=== PATIENT | female | born 1950 | race Caucasian/White ===

== ENCOUNTER 2016-05-11 15:12 | Inpatient (IN) | payer BC ==
--- NOTE | 2016-05-11 15:44 | ED ---
General Adult HPI - General Chief complaint: Recheck/Abnormal Lab/Rx Stated complaint: post hernia-incision split open Time Seen by Provider: 05/11/16 15:40 Source: patient, RN notes reviewed, old records reviewed Mode of arrival: ambulatory Limitations: no limitations - History of Present Illness Initial comments: This is a 65-year-old female to the ER for evaluation. This patient presents to ER for evaluation of abdominal pain. Patient has history of abdominal surgery, umbilical hernia with repair. Close by secondary intent. Patient just went back to work today and when she was working [place] incision split open and having blood draining out, occasional white fluid, possible pus. Patient to call Dr. Blake who is her surgeon was unable to get ahold of him. Patient denies any fevers, does admit to redness and increased pain around her abdomen umbilical, abdomen today - Related Data Home Medications Medication Instructions Recorded Confirmed ALPRAZolam [Xanax] 0.5 mg PO BID PRN 10/20/15 05/11/16 Albuterol Inhaler [Ventolin Hfa 1 - 2 puff INHALATION RT-Q6H PRN 10/20/15 Inhaler] Cyclobenzaprine [Flexeril] 10 mg PO HS 10/20/15 05/11/16 Diclofenac Sodium [Voltaren] 75 mg PO BID 10/20/15 05/11/16 Furosemide [Lasix] 40 mg PO BID 10/20/15 05/11/16 Loratadine-Pseudoeph 10-240 mg 1 tab PO DAILY 10/20/15 05/11/16 [Claritin-D 24 Hr] Losartan Potassium [Cozaar] 50 mg PO BID 10/20/15 05/11/16 Montelukast [Singulair] 10 mg PO HS 10/20/15 05/11/16 Potassium Chloride ER [K-Dur 20] 20 meq PO BID 10/20/15 05/11/16 Simvastatin [Zocor] 40 mg PO HS 10/20/15 05/11/16 Spironolactone [Aldactone] 25 mg PO BID 10/20/15 05/11/16 glipiZIDE XL [Glucotrol Xl] 5 mg PO BID 10/20/15 05/11/16 metFORMIN HCL [metFORMIN HCL ER] 1,000 mg PO BID 10/20/15 05/11/16 Previous Rx's Medication Instructions Recorded ceFAZolin [Kefzol] 2,000 mg IVPB Q8HR #63 bag 05/15/16 Allergies Allergy/AdvReac Type Severity Reaction Status Date / Time ciprofloxacin [From Cipro] Allergy Dyspnea Verified 05/11/16 15:48 ciprofloxacin HCl Allergy Dyspnea Verified 05/11/16 15:48 [From Cipro] Penicillins Allergy Rash/Hives Verified 05/11/16 15:48 Sulfa (Sulfonamide Allergy Rash/Hives Verified 05/11/16 15:48 Antibiotics) morphine AdvReac Itching Verified 05/11/16 15:48 Review of Systems ROS Statement: Those systems with pertinent positive or pertinent negative responses have been documented in the HPI. ROS Other: All systems not noted in ROS Statement are negative. Past Medical History Additional Past Medical History / Comment(s): allergies, wheezing @times, ankle & foot swelling, varicose veins History of Any Multi-Drug Resistant Organisms: None Reported Past Surgical History: Section, Hernia Repair, Hysterectomy, Joint Replacement, Orthopedic Surgery, Tubal Ligation Additional Past Surgical History / Comment(s): both knees replaced, ORIF left ankle, left achilles repair, ltwrist surg to remove cyst.rt bunionectomy, total lt hip replacement Past Anesthesia/Blood Transfusion Reactions: Postoperative Nausea & Vomiting ( PONV) Past Psychological History: No Psychological Hx Reported Smoking Status: Former smoker Past Alcohol Use History: None Reported Past Drug Use History: None Reported - Past Family History Mother Family Medical History: Dementia, Hypertension Father Additional Family Medical History / Comment(s): at age 62 from aaa General Exam Limitations: no limitations General appearance: alert, in no apparent distress, obese Head exam: Present: atraumatic, normocephalic, normal inspection Eye exam: Present: normal appearance, PERRL, EOMI. Absent: scleral icterus, conjunctival injection, periorbital swelling ENT exam: Present: normal exam, mucous membranes moist Neck exam: Present: normal inspection. Absent: tenderness, meningismus, lymphadenopathy Respiratory exam: Present: normal lung sounds bilaterally. Absent: respiratory distress, wheezes, rales, rhonchi, stridor Cardiovascular Exam: Present: regular rate, normal rhythm, normal heart sounds. Absent: systolic murmur, diastolic murmur, rubs, gallop, clicks GI/Abdominal exam: Present: soft, normal bowel sounds, other (Patient does have wound dehiscence, drainage, blood and pus was able to be expressed. Patient is surrounding erythema). Absent: distended, tenderness, guarding, rebound, rigid Extremities exam: Present: normal inspection, full ROM, normal capillary refill. Absent: tenderness, pedal edema, joint swelling, calf tenderness Back exam: Present: normal inspection Neurological exam: Present: alert, oriented X3, CN II-XII intact Psychiatric exam: Present: normal affect, normal mood Skin exam: Present: warm, dry, intact, normal color. Absent: rash Course Vital Signs 05/11/16 05/11/16 15:19 18:42 Temperature 97.8 F 99.9 F H Pulse Rate 87 83 Respiratory 20 16 Rate Blood Pressure 114/58 147/67 O2 Sat by Pulse 100 99 Oximetry Medical Decision Making - Medical Decision Making 65 female to ER here for evaluation of wound infection, and wound dehiscence, patient will be admitted for reevaluation by surgery - Lab Data Result diagrams: 05/12/16 10:40 05/15/16 07:30 Lab Results 05/11/16 05/11/16 05/11/16 Range/Units 16:15 16:15 16:15 WBC 11.7 H (3.8-10.6) k/uL RBC 3.63 L (3.80-5.40) m/uL Hgb 9.9 L (11.4-16.0) gm/dL Hct 32.5 L (34.0-46.0) % MCV 89.4 (80.0-100.0) fL MCH 27.4 (25.0-35.0) pg MCHC 30.6 L (31.0-37.0) g/dL RDW 14.6 (11.5-15.5) % Plt Count 426 (150-450) k/uL Neutrophils % 78 % Lymphocytes % 14 % Monocytes % 5 % Eosinophils % 2 % Basophils % 0 % Neutrophils # 9.1 H (1.3-7.7) k/uL Lymphocytes # 1.7 (1.0-4.8) k/uL Monocytes # 0.6 (0-1.0) k/uL Eosinophils # 0.2 (0-0.7) k/uL Basophils # 0.0 (0-0.2) k/uL Sodium 139 (137-145) mmol/L Potassium 4.4 (3.5-5.1) mmol/L Chloride 102 (98-107) mmol/L Carbon Dioxide 24 (22-30) mmol/L Anion Gap 13 mmol/L BUN 29 H (7-17) mg/dL Creatinine 1.70 H (0.52-1.04) mg/dL Est GFR (MDRD) Af Amer 37 (>60 ml/min/1.73 sqM) Est GFR (MDRD) Non-Af 30 (>60 ml/min/1.73 sqM) Glucose 131 H (74-99) mg/dL Estimated Ave Glu mg/dL mg/dL Hemoglobin A1c (4.2-6.1) % Plasma Lactic Acid Ja 0.7 (0.7-2.0) mmol/L Calcium 9.2 (8.4-10.2) mg/dL Phosphorus 4.3 (2.5-4.5) mg/dL Magnesium 1.8 (1.6-2.3) mg/dL Total Bilirubin 0.3 (0.2-1.3) mg/dL AST 45 H (14-36) U/L ALT 84 H (9-52) U/L Alkaline Phosphatase 240 H (38-126) U/L Total Protein 6.7 (6.3-8.2) g/dL Albumin 4.0 (3.5-5.0) g/dL 05/11/16 Range/Units 16:15 WBC (3.8-10.6) k/uL RBC (3.80-5.40) m/uL Hgb (11.4-16.0) gm/dL Hct (34.0-46.0) % MCV (80.0-100.0) fL MCH (25.0-35.0) pg MCHC (31.0-37.0) g/dL RDW (11.5-15.5) % Plt Count (150-450) k/uL Neutrophils % % Lymphocytes % % Monocytes % % Eosinophils % % Basophils % % Neutrophils # (1.3-7.7) k/uL Lymphocytes # (1.0-4.8) k/uL Monocytes # (0-1.0) k/uL Eosinophils # (0-0.7) k/uL Basophils # (0-0.2) k/uL Sodium (137-145) mmol/L Potassium (3.5-5.1) mmol/L Chloride (98-107) mmol/L Carbon Dioxide (22-30) mmol/L Anion Gap mmol/L BUN (7-17) mg/dL Creatinine (0.52-1.04) mg/dL Est GFR (MDRD) Af Amer (>60 ml/min/1.73 sqM) Est GFR (MDRD) Non-Af (>60 ml/min/1.73 sqM) Glucose (74-99) mg/dL Estimated Ave Glu mg/dL 131 mg/dL Hemoglobin A1c 6.2 H (4.2-6.1) % Plasma Lactic Acid Ja (0.7-2.0) mmol/L Calcium (8.4-10.2) mg/dL Phosphorus (2.5-4.5) mg/dL Magnesium (1.6-2.3) mg/dL Total Bilirubin (0.2-1.3) mg/dL AST (14-36) U/L ALT (9-52) U/L Alkaline Phosphatase (38-126) U/L Total Protein (6.3-8.2) g/dL Albumin (3.5-5.0) g/dL - Radiology Data Radiology results: report reviewed (CT head and pelvis does show probable serosanguineous fluid behind incision site), image reviewed Disposition Clinical Impression: Postoperative abscess Disposition: ADMITTED IP TO THIS [facility] Condition: Fair
[2016-05-11] MEDS ORDERED: VANCOMYCIN 2,000 MG in SODIUM CHLORIDE 0.9% 500 ML IVPB STA (15:55)
[2016-05-11] MEDS ORDERED: SODIUM CHLORIDE 0.9% 1,000 ML IV STA ×2 (15:55→17:24)
[2016-05-11] MEDS ORDERED: RX INFO: IV CONTRAST WAS GIVEN 1 EACH MISC MISCELLANE PRN (15:56)
[2016-05-11 16:28] LABS: Basophils % (A) 0 %; CH 28.4; Eosinophils # (A) 0.2 k/uL (0-0.7); Eosinophils % (A) 2 %; HCT 32.5 % (34.0-46.0); HDW 2.51; HGB 9.9 gm/dL (11.4-16.0); Luc # (Auto) 0.12; Luc % (Auto) 1; Lymphocytes # (A) 1.7 k/uL (1.0-4.8); Lymphocytes % (A) 14 %; MCH 27.4 pg (25.0-35.0); MCHC 30.6 g/dL (31.0-37.0); MCV 89.4 fL (80.0-100.0); Monocytes # (A) 0.6 k/uL (0-1.0); Monocytes % (A) 5 %; Neutrophils # (A) 9.1 k/uL (1.3-7.7); Neutrophils % (A) 78 %; RBC 3.63 m/uL (3.80-5.40); RDW 14.6 % (11.5-15.5); WBC 11.7 k/uL (3.8-10.6); WBC (Perox) 12.46
[2016-05-11 16:39] LABS: Calcium 9.2 mg/dL (8.4-10.2); Magnesium 1.8 mg/dL (1.6-2.3); Phosphorous 4.3 mg/dL (2.5-4.5); Potassium 4.4 mmol/L (3.5-5.1); Total Bilirubin 0.3 mg/dL (0.2-1.3); Total Protein 6.7 g/dL (6.3-8.2)
--- NOTE | 2016-05-11 18:00 | CT ---
EXAMINATION TYPE: CT abdomen pelvis w con DATE OF EXAM: 05/11/2016 5:28 PM COMPARISON: CT abdomen pelvis January 14, 2012 HISTORY: Patient complains of post op hernia repair incision reopening and becoming infected. CT DLP: 1821mGycm Automated Exposure Control for Dose Reduction was Utilized. CONTRAST: CT scan of the abdomen and pelvis is performed without oral but with IV Contrast, patient injected wi th 100 mL of Omnipaque 300. COMPARISON: None. FINDINGS: LUNG BASES: No significant abnormality is appreciated. LIVER/GB: There is new vague hyperdense lesion right hepatic lobe adjacent to gallbladder fossa measu ring approximately 6.6 x 5.9 cm that warrants follow-up. This measures approximately 5 cm in cranioca udal dimension PANCREAS: No significant abnormality is seen. SPLEEN: No significant abnormality is seen. ADRENALS: No significant abnormality is seen. KIDNEYS: No significant abnormality is seen. BOWEL: The evaluation of bowel is suboptimal due to lack of enteric contrast. There is no suspicious small or large bowel dilatation seen. There are scattered diverticula throughout the colon identified . There is no CT evidence for acute diverticulitis. UTERUS/ADNEXA: Uterus is surgically absent or markedly atrophic in appearance LYMPH NODES: No greater than 1cm abdominal or pelvic lymph nodes are appreciated. OSSEOUS STRUCTURES: Metallic hardware from left hip arthroplasty is seen causing adjacent streak louie fact limiting evaluation of pelvic structures. Disc calcification L3-L4 level is noted. OTHER: There is heterogeneous ill-defined fluid and fat stranding in the lower anterior abdominal wal l most prominent towards the midline. A thin-walled fluid collection lower abdomen is present measuri ng approximately 5.0 x 1.8 cm on axial image 67. This is nonspecific. Findings could reflect postsurg ical change. Infection cannot be excluded. No intra-abdominal extension is noted. No persistent ventr al wall hernia is present. IMPRESSION: 1. Ill-defined fat stranding and fluid with more focal thin-walled fluid collection in the lower abdo men and upper pelvis is nonspecific finding could reflect post surgical change. Infectious process wi th developing anterior abdominal wall abscess is not excluded. No well-formed drainable abscess is se en. No intra-abdominal extension is noted. 2. New heterogeneous inferior right liver solid mass in which primary neoplasm needs to BE considered . Further investigation with multi phase nonemergent liver protocol MRI is advised.
[2016-05-11] MEDS ORDERED: IV VANCOMYCIN PER PHARMACY 1 EACH MISC MISCELLANE PRN (18:03)
[2016-05-11] MEDS ORDERED: VANCOMYCIN 1,750 MG in SODIUM CHLORIDE 0.9% 250 ML IVPB ONE (18:15)
[2016-05-11 19:39] LABS: Glucose,Whole Blood 96 mg/dL (75-99)
[2016-05-11] MEDS ORDERED: ACETAMINOPHEN TAB 325 MG TAB PO PRN (21:14)
[2016-05-11] MEDS ORDERED: ALPRAZolam 0.5 MG TAB PO PRN (21:15)
[2016-05-11] MEDS: SODIUM CHLORIDE 0.9% 1,000 ML IV SCH (22:02)
[2016-05-11] MEDS: ATORVASTATIN 20 MG TAB PO SCH (22:04)
[2016-05-11] MEDS: CYCLOBENZAPRINE 10 MG TAB PO SCH (22:04)
[2016-05-11] MEDS: ETODOLAC 400 MG TAB PO SCH (22:04)
[2016-05-11] MEDS: LOSARTAN 50 MG TAB PO SCH (22:05)
[2016-05-11] MEDS: SPIRONOLACTONE 25 MG TAB PO SCH (22:05)
[2016-05-11] MEDS: FUROSEMIDE 40 MG TAB PO SCH (22:05)
[2016-05-11] MEDS: MONTELUKAST 10 MG TAB PO SCH (22:05)
[2016-05-11] MEDS: POTASSIUM CHLORIDE ER 20 MEQ TAB.ER PO SCH (22:05)
[2016-05-11 22:17] LABS: Glucose,Whole Blood 168 mg/dL (75-99)
[2016-05-11 22:35] LABS: Creatine Kinase 147 U/L (30-135)
[2016-05-11 22:49] LABS: Creatine Kinase MB 1.3 ng/mL (0.0-2.4); Troponin I <0.012 ng/mL (0.000-0.034)
[2016-05-12 05:06] LABS: Creatine Kinase 65 U/L (30-135)
[2016-05-12 05:20] LABS: Creatine Kinase MB 1.1 ng/mL (0.0-2.4); Troponin I <0.012 ng/mL (0.000-0.034)
[2016-05-12] MEDS: SODIUM CHLORIDE 0.9% 1,000 ML IV SCH ×3 (05:29→23:49)
[2016-05-12 07:12] LABS: Glucose,Whole Blood 130 mg/dL (75-99)
[2016-05-12] MEDS ORDERED: metFORMIN 500 MG TAB PO SCH (07:30)
[2016-05-12] MEDS: INSULIN LISPRO (humaLOG) 300 UNIT/3 ML VIAL SQ SCH ×4 (07:30→21:18)
[2016-05-12] MEDS: glipiZIDE 5 MG TAB PO SCH ×2 (08:05→16:56)
[2016-05-12] MEDS: ETODOLAC 400 MG TAB PO SCH ×2 (08:06→21:17)
[2016-05-12] MEDS: FUROSEMIDE 40 MG TAB PO SCH ×2 (08:06→21:18)
[2016-05-12] MEDS: PANTOPRAZOLE 40 MG/10 ML VIAL IV SCH (08:07)
[2016-05-12] MEDS: POTASSIUM CHLORIDE ER 20 MEQ TAB.ER PO SCH ×2 (08:07→21:28)
[2016-05-12] MEDS: LOSARTAN 50 MG TAB PO SCH ×2 (08:07→21:18)
[2016-05-12] MEDS: LORATADINE-PSEUDOEPH 5-120 MG 1 EACH TAB.ER.12H PO SCH ×2 (08:07→21:18)
[2016-05-12] MEDS: VANCOMYCIN 1,750 MG in SODIUM CHLORIDE 0.9% 250 ML IVPB SCH (08:08)
[2016-05-12] MEDS: SPIRONOLACTONE 25 MG TAB PO SCH ×2 (08:08→21:18)
[2016-05-12 10:54] LABS: CH 28.1; CHCM 31.3; HCT 28.6 % (34.0-46.0); HDW 2.49; HGB 8.7 gm/dL (11.4-16.0); Hypochromasia Slight; MCH 27.3 pg (25.0-35.0); MCHC 30.3 g/dL (31.0-37.0); MCV 90.2 fL (80.0-100.0); RBC 3.17 m/uL (3.80-5.40); RDW 14.6 % (11.5-15.5); WBC 8.9 k/uL (3.8-10.6)
[2016-05-12 11:11] LABS: Hemoglobin A1C 6.2 % (4.2-6.1)
--- NOTE | 2016-05-12 11:13 | P.GSHP ---
History of Present Illness H&P Date: 05/12/16 Chief Complaint: Abdominal wall cellulitis Patient came to the ER yesterday with complaints of spontaneous pain redness and drainage from her midline incision. The patient had a postop infection after a operative hernia repair with mesh in February of last year. She had been doing better. She only been back to work for about 1 week and she experienced this redness and swelling yesterday. Drainage was coming from the umbilical location. Foul-smelling. Low-grade fever. White blood cell count slightly elevated 2. CAT scan shows inflammatory changes. No definite bowel involvement is identified. - Review of Systems Comment: The patient denies any acute changes in his vision or hearing, no dysphagia or odynophagia, no chest pain or shortness of breath, no dysuria or hematuria, no headache, no runny nose, no rectal bleeding or melena, no unexplained weight loss Past Medical History Past Medical History: Diabetes Mellitus Additional Past Medical History / Comment(s): allergies, wheezing @times, ankle & foot swelling, varicose veins, type 2 diabetes History of Any Multi-Drug Resistant Organisms: None Reported Past Surgical History: Section, Hernia Repair, Hysterectomy, Joint Replacement, Orthopedic Surgery, Tubal Ligation Additional Past Surgical History / Comment(s): both knees replaced, ORIF left ankle, left achilles repair, ltwrist surg to remove cyst.rt bunionectomy, total lt hip replacement Past Anesthesia/Blood Transfusion Reactions: Postoperative Nausea & Vomiting ( PONV) Past Psychological History: No Psychological Hx Reported Smoking Status: Never smoker Past Alcohol Use History: None Reported Past Drug Use History: None Reported - Past Family History Mother Family Medical History: Dementia, Hypertension Father Additional Family Medical History / Comment(s): at age 62 from aaa Medications and Allergies Home Medications Medication Instructions Recorded Confirmed Type ALPRAZolam [Xanax] 0.5 mg PO BID PRN 10/20/15 05/11/16 History Albuterol Inhaler [Ventolin Hfa 1 - 2 puff INHALATION RT-Q6H PRN 10/20/15 History Inhaler] Cyclobenzaprine [Flexeril] 10 mg PO HS 10/20/15 05/11/16 History Diclofenac Sodium [Voltaren] 75 mg PO BID 10/20/15 05/11/16 History Furosemide [Lasix] 40 mg PO BID 10/20/15 05/11/16 History Loratadine-Pseudoeph 10-240 mg 1 tab PO DAILY 10/20/15 05/11/16 History [Claritin-D 24 Hr] Losartan Potassium [Cozaar] 50 mg PO BID 10/20/15 05/11/16 History Montelukast [Singulair] 10 mg PO HS 10/20/15 05/11/16 History Potassium Chloride ER [K-Dur 20] 20 meq PO BID 10/20/15 05/11/16 History Simvastatin [Zocor] 40 mg PO HS 10/20/15 05/11/16 History Spironolactone [Aldactone] 25 mg PO BID 10/20/15 05/11/16 History glipiZIDE XL [Glucotrol Xl] 5 mg PO BID 10/20/15 05/11/16 History metFORMIN HCL [metFORMIN HCL ER] 1,000 mg PO BID 10/20/15 05/11/16 History Allergies Allergy/AdvReac Type Severity Reaction Status Date / Time ciprofloxacin [From Cipro] Allergy Dyspnea Verified 05/11/16 15:48 ciprofloxacin HCl Allergy Dyspnea Verified 05/11/16 15:48 [From Cipro] Penicillins Allergy Rash/Hives Verified 05/11/16 15:48 Sulfa (Sulfonamide Allergy Rash/Hives Verified 05/11/16 15:48 Antibiotics) morphine AdvReac Itching Verified 05/11/16 15:48 Surgical - Exam Vital Signs Temp Pulse Resp BP Pulse Ox 97.8 F 87 20 114/58 100 05/11/16 15:19 05/11/16 15:19 05/11/16 15:19 05/11/16 15:19 05/11/16 15:19 Physical exam: General: [Well-developed, well-nourished] HEENT: Normocephalic, sclerae nonicteric Abdomen: Erythema and mild tenderness around the midline incision, small amount of seropurulent drainage from the umbilical site, no fluctuance noted Extremities: No edema Neuro: Alert and oriented Results - Labs 05/12/16 10:40 05/11/16 16:15 Abnormal Lab Results - Last 24 Hours (Table) 05/11/16 05/11/16 05/12/16 Range/Units 22:09 22:15 07:03 RBC (3.80-5.40) m/uL Hgb (11.4-16.0) gm/dL Hct (34.0-46.0) % MCHC (31.0-37.0) g/dL POC Glucose (mg/dL) 168 H 130 H (75-99) mg/dL Total Creatine Kinase 147 H (30-135) U/L 05/12/16 Range/Units 10:40 RBC 3.17 L (3.80-5.40) m/uL Hgb 8.7 L (11.4-16.0) gm/dL Hct 28.6 L (34.0-46.0) % MCHC 30.3 L (31.0-37.0) g/dL POC Glucose (mg/dL) (75-99) mg/dL Total Creatine Kinase (30-135) U/L Microbiology - Last 24 Hours (Table) 05/11/16 20:30 Gram Stain - Preliminary Drainage Wound Culture - Preliminary 05/11/16 20:30 Anaerobic Culture - Preliminary Drainage Assessment and Plan (1) Abdominal wall cellulitis Narrative/Plan: Continue IV antibiotics. Consult infectious disease. Await culture results. Status: Acute
[2016-05-12 11:18] LABS: Calcium 8.6 mg/dL (8.4-10.2); Potassium 4.5 mmol/L (3.5-5.1)
[2016-05-12 11:50] LABS: Glucose,Whole Blood 165 mg/dL (75-99)
--- NOTE | 2016-05-12 14:43 | CONS ---
DATE OF CONSULTATION: Consultation done by Dr. Marcus in the absence of Dr. Nelson. HISTORY OF PRESENT ILLNESS: This is a 65-year-old female who was admitted to the hospital after being evaluated in the emergency room with redness and some discomfort in the umbilical area. She had on March 01 an umbilical hernia repair. She about a week or two later developed some infection there where the wound was opened up and allowed secondary healing. The patient took about 4 to 5 weeks to heal. She has been healed about maybe 3 weeks now. The patient yesterday started feeling some discomfort there, looked at the side and so it was red and there was minimal drainage. The patient presented to the emergency room in view of that. She has had a previous surgical scars from 3 C-sections in the suprapubic area and then she had this umbilical hernia for which she had repair. She is moderately obese. She denied any associated fever, chills, any nausea, vomiting, diarrhea. She has had no spikes in her blood sugar. Past medical history is primarily significant for hypertension, diabetes mellitus for about 25 years. No history of any liver disease, kidney disease, ulcers, TB, hepatitis. No history of any rheumatic fever, myocardial infarction, CVA, no complications from diabetes mellitus. Was recently diagnosed with bronchial asthma which is mild intermittent. Past surgical histories have included three C-sections, umbilical hernia repair, right total hip arthroplasty, bilateral knee arthroplasty. PERSONAL HISTORY: Nonsmoker. No alcohol. Allergies to CIPRO, SULFA, and PENICILLIN. Medications at present include Xanax 0.5 b.i.d. p.r.n., Claritin-D p.r.n., Lasix 40 mg b.i.d., diclofenac 75 mg b.i.d., Flexeril 10 mg at bedtime, Ventolin p.r.n., metformin 1000 mg b.i.d., glipizide 5 mg b.i.d., spironolactone 25 mg b.i.d., Zocor 40 mg daily, potassium chloride 20 mEq b.i.d., singular 10 mg daily. Losartan 50 mg b.i.d. SOCIAL HISTORY: The patient is , lives with her spouse. The spouse about 10 days ago had a hip surgery. Family medical history is noncontributory. REVIEW OF SYSTEMS: NEURO: Denies any headaches, dizziness. No double vision, blurred vision. No symptoms of TIA, syncope, seizures. PSYCH: History of chronic anxiety. No depression. CARDIAC: No chest pain, angina, palpitations. RESPIRATORY: No shortness of breath, cough, hemoptysis. GI: No nausea, vomiting, abdominal pain, mild discomfort in the umbilical area. No diarrhea, constipation, hematochezia, melena. : No symptoms of dysuria, hematuria. EXTREMITIES: Mild chronic arthritic pain. Does have some chronic edema of the ankles. CONSTITUTIONAL: No fever or chills. HEMATOLOGICAL: No anemia or bleeding disorder. ENDOCRINE: History of diabetes mellitus with no complications. SKIN: Present inflamed area in the umbilical area. Otherwise, no open sores. PHYSICAL EXAMINATION: Pleasant female in no distress. Moderately obese. Vital signs reveal temperature 97.1, pulse 78, respirations 18, blood pressure 105/63, pulse ox of 93% on room air. HEENT: Normocephalic. Neck is supple. Oral cavity is moist. Neck reveals no JVD, carotid bruits, or thyromegaly. Chest is clear to auscultation and percussion. CARDIAC: Normal S1, S2 with no gallops, murmurs, rubs. ABDOMEN: Protuberant, mild tenderness in the periumbilical area with erythema and some swelling of the tissue around the umbilicus. There is minimal drainage from the umbilical area and a small draining about an inch below the umbilicus. No deviations of the skin. Bowel sounds are otherwise present, active. Extremities reveal 1+ edema at the ankles. The lower extremities reveal decreased pedal pulses. Neurologically awake, alert, oriented with well-coordinated movements. Laboratory assessment was white count 11.7, hemoglobin 9.9. Electrolytes are normal. BUN is 29, creatinine 1.7, AST is mildly elevated up to 9, phosphorus 240. CPK normal. ASSESSMENT: 1. Cellulitis periumbilical. 2. Diabetes mellitus. 3. Anemia. 4. Chronic kidney disease III. 5. Hypertension. 6. Obesity. 7. Chronic anxiety. PLAN: The patient at present is stable. Continue present medical regimen. The patient's condition discussed with the patient. Prognosis remains guarded. The patient has not been seen by the surgeon yet. They will re-evaluate the patient. The patient will be followed by Dr. Nelson upon his return. Patient's condition was discussed with the patient. Prognosis discussed with the patient.
[2016-05-12 16:58] LABS: Glucose,Whole Blood 178 mg/dL (75-99)
[2016-05-12 21:09] LABS: Glucose,Whole Blood 117 mg/dL (75-99)
[2016-05-12] MEDS: CYCLOBENZAPRINE 10 MG TAB PO SCH (21:17)
[2016-05-12] MEDS: ATORVASTATIN 20 MG TAB PO SCH (21:17)
[2016-05-12] MEDS: MONTELUKAST 10 MG TAB PO SCH (21:18)
[2016-05-13 07:36] LABS: Glucose,Whole Blood 140 mg/dL (75-99)
[2016-05-13] MEDS: VANCOMYCIN 1,750 MG in SODIUM CHLORIDE 0.9% 250 ML IVPB SCH (08:18)
[2016-05-13] MEDS: PANTOPRAZOLE 40 MG/10 ML VIAL IV SCH (08:19)
[2016-05-13] MEDS: LORATADINE-PSEUDOEPH 5-120 MG 1 EACH TAB.ER.12H PO SCH ×2 (08:19→20:59)
[2016-05-13] MEDS: SPIRONOLACTONE 25 MG TAB PO SCH ×2 (08:19→20:59)
[2016-05-13] MEDS: INSULIN LISPRO (humaLOG) 300 UNIT/3 ML VIAL SQ SCH ×4 (08:19→21:02)
[2016-05-13] MEDS: glipiZIDE 5 MG TAB PO SCH ×2 (08:19→18:25)
[2016-05-13] MEDS: ETODOLAC 400 MG TAB PO SCH ×2 (08:19→20:58)
[2016-05-13] MEDS: LOSARTAN 50 MG TAB PO SCH ×2 (08:20→20:58)
[2016-05-13] MEDS: FUROSEMIDE 40 MG TAB PO SCH ×2 (08:20→20:58)
[2016-05-13] MEDS: POTASSIUM CHLORIDE ER 20 MEQ TAB.ER PO SCH ×2 (08:20→22:04)
[2016-05-13 09:24] LABS: Reticulocyte % 1.9 % (0.5-2.0)
[2016-05-13 10:41] LABS: Calcium 8.9 mg/dL (8.4-10.2); Potassium 4.4 mmol/L (3.5-5.1)
[2016-05-13 12:16] LABS: Glucose,Whole Blood 124 mg/dL (75-99)
--- NOTE | 2016-05-13 12:24 | P.PN ---
Progress Note - Text Patient is stable. She is little teary eyed. She is concerned about having to have the mesh removed. Examination: The patient is afebrile. Vitals are stable. Abdomen is soft. Area for erythema is diminished. Hardly any drainage from the pinhole opening below the umbilicus. No gross abscess is present. Her CT was reviewed. Shows some of the subcutaneous inflammatory changes extending down into the pelvis. Again no gross abscess is identified. There is a question of a solid mass in the right inferior portion of the liver. An MRI is indicated. Impression improving cellulitis with the line infection status post ventral incisional hernia repair. Liver mass. Renal failure. Diabetes mellitus. Recommendation: Continue IV antibiotics. Encouraged to drink more fluids. We will obtain an MRI read the liver mass. Hopefully we can avoid the further surgical intervention and removal of the mesh.
[2016-05-13] MEDS: SODIUM CHLORIDE 0.9% 1,000 ML IV SCH ×2 (13:45→20:22)
--- NOTE | 2016-05-13 14:08 | CONS ---
DATE OF CONSULTATION: 05/12/2016 REASON FOR CONSULTATION: Abdominal wall cellulitis with question of infected mesh. HISTORY OF PRESENT ILLNESS: The patient is a 65-year-old female. The patient is status post repair of incisional hernia by Dr. Blake in February of 2016 with mesh. The patient did mention that a week after surgery the patient started having swelling and redness at the site. The stitches were removed and there was drainage of fluid and some pus. She has been treated with oral antibiotic therapy. With antibiotics the incision healed up. However, a week lateral when she started going back to work the patient noticed having swelling and redness and pain of the lower abdominal area on the umbilicus. Pain described to be dull, 2-3/10 and no radiation. The patient did have some blood stained drainage from it which was cultured. Subsequently, with these symptoms, the patient presented to the [facility] ER. The patient did have CT of the abdomen and pelvis which did show ill-defined fluid collection and fat stranding in the lower abdomen and upper pelvis, could represent post surgical changes; however, abscess could not be entirely excluded. The patient did have local wound culture obtained as blood culture and started on vancomycin. I was asked to see the patient for further recommendation regarding antibiotic therapy. Patient did mention the overall drainage has decreased and denies significant pain to the area, only when touched. The patient denies having any chest pain or shortness of breath. No cough. REVIEW OF SYSTEMS: CONSTITUTIONAL: Positive for weakness and chills. EYES: No complaint. ENT: No complaint. RESPIRATORY: No complaint. CARDIOVASCULAR: No complaint. GENITOURINARY: No complaint. GASTROINTESTINAL: As per HPI. MUSCULOSKELETAL: No complaint. INTEGUMENTARY: As per HPI. PSYCHOLOGICAL: No complaint. ENDOCRINE: No complaint. NEUROLOGIC: No complaint. PAST MEDICAL HISTORY: Diabetes mellitus, incisional hernia, postop infarction. PAST SURGICAL HISTORY: , hernia repair, hysterectomy, orthopedic surgery, tubal ligation, both knees replaced, ORIF left ankle repair. SOCIAL HISTORY: Negative smoking, drinking, or drug use. FAMILY HISTORY: Mother with history of dementia and hypertension. Father at the age of 50 from abdominal aortic aneurysm.. ALLERGIES: Ciprofloxacin and penicillin. MEDICATIONS: Currently patient is on Tylenol Xanax, Lipitor, Lodine, Lasix, Glucotrol, Humalog, Claritin-D, Cozaar, Glucophage, Singulair, Protonix, K-Dur Aldactone and vancomycin. On examination, blood pressure 108/51 with a pulse of 75, temperature is 7.4. She is 99% on room air. General description is a middle-aged female lying in bed in no distress. HEENT examination shows pallor. There is no scleral icterus. Oral mucosa is dry. NECK: Trachea central. There is no thyromegaly. LUNGS: Unlabored breathing. Clear to auscultation anteriorly. No wheeze or crackle. HEART: S1, S2, regular rate and rhythm. ABDOMEN: Soft, no tenderness. She did have some erythema around the umbilical area, some induration but no fluctuation or drainage was noticed. EXTREMITIES: No edema of the feet. Examination of the ( ). NEUROLOGICAL: The patient is awake, alert, oriented x3. Mood and affect normal. LABS: Hemoglobin 8.7, white count 8.9. Admission white count was 11.7. BUN of 20, creatinine 1.20. The abdominal fluid culture showing a staph aureus. Blood cultures were negative. DIAGNOSTIC IIMPRESSION: Patient with abdominal wall abscess and the patient did have recent incisional hernia repair with mesh and did have some drainage and pus after surgery that has been drained and treated with oral antibiotic therapy, now with recurrence of this cellulitis and abscess after finishing antibiotic more likely representing infected mesh with the wound culture showing possible staph aureus, considered likely for MRSA infection. PLAN: 1. Vancomycin pharmacy to dose with a target of 15. 2. Will recheck the CT tomorrow and discuss with surgery. High concern for the mesh infection. The patient will benefit from removal of this mesh in order to completely clear out this infection. Thank you for this consultation. We will follow this patient along with you. ADRIANA
--- NOTE | 2016-05-13 16:06 | US ---
EXAMINATION TYPE: US liver DATE OF EXAM: 05/13/2016 3:31 PM COMPARISON: CT in pacs 2 days ago. CLINICAL HISTORY: Infection following hernia surgery 3 months ago, abnormality seen on recent CT, obe se patient. EXAM MEASUREMENTS: Liver Length: 21.1cm Gallbladder Wall: 0.3cm CBD: 0.4cm Right Kidney: 10.1 x 5.4 x 5.0cm TECHNOLOGIST IMPRESSION: Exam is suboptimal secondary to patient's large body habitus. Pancreas: visualized portions wnl, head and tail limited by overlying bowel gas Liver: heterogeneous echotexture, 6.7 x 7.8 x 6.7cm hypoechoic complex vascular mass right lobe ritu cent to gallbladder Gallbladder: appears to be slightly distorted due to adjacent mass, otherwise appears wnl Evidence for sonographic Gagnon's sign: No CBD: visualized portions wnl, limited by overlying bowel gas Right Kidney: wnl IMPRESSION: Heterogeneous liver likely reflects diffuse fatty infiltration. New heterogeneous solid m ass right hepatic lobe near gallbladder fossa is confirmed. No fluid or cystic component is seen to s uggest abscess. Follow-up liver protocol nonemergent contrast enhanced MRI is advised to better evalu ate and characterize if patient can breath hold.
[2016-05-13 17:39] LABS: Glucose,Whole Blood 148 mg/dL (75-99)
--- NOTE | 2016-05-13 20:43 | PN ---
DATE OF SERVICE: 05/13/2016 This is a 65-year-old white female who recently had a surgical repair of ventral hernia by Dr. Blake. Postoperatively patient had some infection of the incision. She was getting some on antibiotics but it was extending and getting worse. The patient was admitted to the hospital for further evaluation and treatment. The patient has been started on IV vancomycin and with the antibiotics the infection is getting controlled. She had a CT scan of the abdomen which showed a questionable mass-like lesion at the inferior aspect of the liver. Dr. Blake has already ordered MRI and also ultrasound of the liver. The patient was seen by Dr. Dupree in consultation from infectious disease. His diabetes is diabetes is being controlled with NovoLog sliding scale. Overall the patient is a feeling better and clinically improving. The patient will be going for MRI tomorrow. Her vital signs are stable. Heart is in sinus rhythm. Lungs are clear. There are no acute cardiorespiratory problems. Overall prognosis is guarded. The diagnosis, prognosis and therapeutic plans were discussed in detail with the patient today.
[2016-05-13] MEDS: CYCLOBENZAPRINE 10 MG TAB PO SCH (20:58)
[2016-05-13] MEDS: ATORVASTATIN 20 MG TAB PO SCH (20:58)
[2016-05-13] MEDS: MONTELUKAST 10 MG TAB PO SCH (20:59)
[2016-05-13 21:05] LABS: Glucose,Whole Blood 156 mg/dL (75-99)
[2016-05-14] MEDS: SODIUM CHLORIDE 0.9% 1,000 ML IV SCH ×2 (05:51→20:46)
--- NOTE | 2016-05-14 06:48 | PN ---
DATE OF SERVICE: 05/13/2016 Reason for followup is abdominal wall cellulitis. INTERVAL HISTORY: The patient is afebrile. She is feeling better. The paraumbilical area swelling and redness has improved. No drainage. Denies having any chest pain or shortness of breath or cough. No significant pain in upper quadrant area or any diarrhea. On examination, blood pressure is 141/76 with a pulse of 79, temperature 98.9. She is 100% on room air. General description is an elderly female lying in bed in no distress. RESPIRATORY SYSTEM: Unlabored breathing. Clear to auscultation anteriorly. HEART: S1, S2. Regular rate and rhythm. ABDOMEN: Soft, no tenderness. LABS: BUN of 18, creatinine 1.20. Wound culture finalized with MSSA. Blood cultures has been negative. DIAGNOSTIC IMPRESSION AND PLAN: Patient with methicillin susceptible Staphylococcus aureus abdominal wall cellulitis with underlying mesh for incisional hernia repair. I did review the CT with the radiologist with evidence of the inflammation down to the mesh, but no definite discrete abscess formation. She also has a mass in the right lobe of the liver, which is new compared to a recent CT. Patient is resistant to the idea of the mesh being removed. However, I clearly explained to her it will not possible to completely cure her of this infection. The patient does have allergy to PENICILLIN with hives, no anaphylaxis. Antibiotic will be adjusted to cefazolin for better coverage of the staphylococcus, that methicillin-susceptible Staphylococcus aureus and ultrasound of the liver has been ordered. Continue supportive care. ADRIANA
[2016-05-14 07:36] LABS: Glucose,Whole Blood 133 mg/dL (75-99)
[2016-05-14] MEDS ORDERED: VANCOMYCIN TROUGH DUE 1 EACH MISC MISCELLANE ONE (08:00)
[2016-05-14] MEDS: metFORMIN 500 MG TAB PO SCH ×2 (10:14→17:05)
[2016-05-14] MEDS: PANTOPRAZOLE 40 MG/10 ML VIAL IV SCH ×2 (10:14→13:29)
[2016-05-14] MEDS: LOSARTAN 50 MG TAB PO SCH ×2 (10:14→20:46)
[2016-05-14] MEDS: LORATADINE-PSEUDOEPH 5-120 MG 1 EACH TAB.ER.12H PO SCH ×2 (10:15→20:46)
[2016-05-14] MEDS: glipiZIDE 5 MG TAB PO SCH ×2 (10:15→17:05)
[2016-05-14] MEDS: SPIRONOLACTONE 25 MG TAB PO SCH ×2 (10:15→20:46)
[2016-05-14] MEDS: FUROSEMIDE 40 MG TAB PO SCH ×2 (10:15→20:46)
[2016-05-14] MEDS: POTASSIUM CHLORIDE ER 20 MEQ TAB.ER PO SCH ×2 (10:15→20:46)
[2016-05-14] MEDS: ETODOLAC 400 MG TAB PO SCH ×2 (10:16→20:46)
[2016-05-14] MEDS: INSULIN LISPRO (humaLOG) 300 UNIT/3 ML VIAL SQ SCH ×4 (10:17→21:26)
--- NOTE | 2016-05-14 10:22 | P.PN ---
Progress Note - Text Patient is feeling better. Less pain and discomfort. He also has cellulitis of the abdominal wound the incision area from previous ventral incisional hernia repair with mesh. Main bacterial staph aureus methicillin sensitive. On Kefzol Now. On examination the patient is awake alert in no distress. No fever. Abdomen is soft. Area of cellulitis is markedly diminished. No drainage at all the last 24 hours. Impression resolving cellulitis with obesity. Diabetes. Recommendation continue her IV antibiotics. Discharge in the next day or 2. Very reluctant to remove the mesh. The long-term antibiotic.
[2016-05-14 10:48] LABS: Calcium 9.2 mg/dL (8.4-10.2); Potassium 4.4 mmol/L (3.5-5.1)
[2016-05-14 11:48] LABS: Glucose,Whole Blood 169 mg/dL (75-99)
[2016-05-14 17:34] LABS: Glucose,Whole Blood 74 mg/dL (75-99)
[2016-05-14] MEDS: MONTELUKAST 10 MG TAB PO SCH (20:46)
[2016-05-14] MEDS: ATORVASTATIN 20 MG TAB PO SCH (20:46)
[2016-05-14] MEDS: ceFAZolin 2 GM in SODIUM CHLORIDE 0.9% 100 ML IVPB SCH (20:47)
[2016-05-14] MEDS: CYCLOBENZAPRINE 10 MG TAB PO SCH (20:48)
[2016-05-14 21:21] LABS: Glucose,Whole Blood 94 mg/dL (75-99)
--- NOTE | 2016-05-14 22:02 | PN ---
DATE OF SERVICE: 05/14/2016 REASON FOR FOLLOWUP: 1. MSSA abdominal wall abscess and cellulitis. 2. Liver mass with a question of infection. INTERVAL HISTORY: The patient is afebrile. She has been breathing comfortably. Her abdominal wall swelling and redness has resolved. There is no drainage. The patient denies having any chest pain or shortness of breath, cough and no diarrhea, anxious to go home. On examination, blood pressure 146/80 with a pulse of 84, temperature 97.8. She is 97% on room air. General description is a middle-age female lying in bed in no distress. RESPIRATORY SYSTEM: Unlabored breathing. Clear to auscultation anteriorly. HEART: S1, S2. Regular rate and rhythm. ABDOMEN: Soft, no tenderness. The marley-umbilical area swelling and redness has resolved. No drainage. LABS: BUN of 20, creatinine 1.22. Wound cultures with MSSA. Blood cultures remain negative. DIAGNOSTIC IMPRESSION AND PLAN: 1. Patient with methicillin susceptible Staphylococcus aureus abdominal wall cellulitis with question of underlying mesh infection. The pt reluctant for mesh to be removed , explained to her the risk of recurrence and nonhealing. In view of the extensive infection, I will get a percutaneously-inserted central catheter line and continue the patient on IV Cefazolin 2 g for at least 3 weeks with close outpatient followup. 2. Patient with a liver mass which is relatively new and a question of possible abscess, but there was no fluid component to it. Will recommend getting an ultrasound-guided drainage of the same, both for histopathology and culture. Continue supportive care. ADRIANA
[2016-05-14 23:59] VITALS: PULSE 81
[2016-05-15] MEDS: ceFAZolin 2 GM in SODIUM CHLORIDE 0.9% 100 ML IVPB SCH ×2 (03:30→08:44)
[2016-05-15] MEDS: SODIUM CHLORIDE 0.9% 1,000 ML IV SCH (06:18)
[2016-05-15 07:24] LABS: Glucose,Whole Blood 136 mg/dL (75-99)
[2016-05-15] MEDS ORDERED: PANTOPRAZOLE 40 MG TABLET PO SCH (07:30)
[2016-05-15 07:35] VITALS: BP 120/63; RESP 20; TEMP 96.9
[2016-05-15 08:06] LABS: Calcium 9.6 mg/dL (8.4-10.2); Potassium 4.6 mmol/L (3.5-5.1)
[2016-05-15] MEDS: INSULIN LISPRO (humaLOG) 300 UNIT/3 ML VIAL SQ SCH (08:45)
[2016-05-15] MEDS: FUROSEMIDE 40 MG TAB PO SCH (08:46)
[2016-05-15] MEDS: LOSARTAN 50 MG TAB PO SCH (08:46)
[2016-05-15] MEDS: ETODOLAC 400 MG TAB PO SCH (08:46)
[2016-05-15] MEDS: LORATADINE-PSEUDOEPH 5-120 MG 1 EACH TAB.ER.12H PO SCH (08:46)
[2016-05-15] MEDS: metFORMIN 500 MG TAB PO SCH (08:47)
[2016-05-15] MEDS: SPIRONOLACTONE 25 MG TAB PO SCH (08:47)
[2016-05-15] MEDS: POTASSIUM CHLORIDE ER 20 MEQ TAB.ER PO SCH (08:47)
[2016-05-15] MEDS: glipiZIDE 5 MG TAB PO SCH (08:47)
[2016-05-15] MEDS ORDERED: LIDOCAINE 2% INJ 20 MG/ML SQ ONE (10:17)
--- NOTE | 2016-05-15 11:23 | CONS ---
DATE OF CONSULTATION: 05/15/2016 The patient is seen on rounds for Dr. Blake. She had a wound infection, which has been treated with antibiotics and Dr. Dupree was consulted. She is having much less drainage and redness. Plan is for a PICC line today with outpatient antibiotics and she will follow up with Dr. Blake in the office.
[2016-05-15 11:45] LABS: Glucose,Whole Blood 99 mg/dL (75-99)
--- NOTE | 2016-05-15 15:19 | PN ---
DATE OF SERVICE: 05/15/2016 Reason for followup is: 1. MSSA abdominal wall cellulitis and possible mesh infection. 2. Liver mass. INTERVAL HISTORY: The patient is afebrile. She did have a PICC line; however, Interventional Radiology has refused to do the ultrasound and liver biopsy with concern for possible contamination, though the area of biopsy is far away from her abdominal wall cellulitis. The patient seemed to be okay with this idea and wanted to have it done as an outpatient. The patient denies having any chest pain or shortness of breath, no cough, no abdominal pain or any diarrhea. On examination, blood pressure is 120/63 with a pulse of 81, temperature 96.9. She is 98% on room air. General description is a middle-age female, lying in bed in no distress. RESPIRATORY SYSTEM: Unlabored breathing. Clear to auscultation. HEART: S1, S2, regular rate and rhythm. ABDOMEN: Soft, no tenderness. LABS: BUN of 22, creatinine 1.17. Blood culture has been negative. DIAGNOSTIC IMPRESSION AND PLAN: 1. Patient with methicillin susceptible Staphylococcus aureus abdominal wall abscess with underlying infected mesh. Patient refused to have the mesh removed but she knows the possibility of nonhealing. She will be given cefazolin 2 gm q.8 for 3 weeks with close outpatient follow up. 2. Liver mass, which is new finding with the biopsy as an outpatient. Continue supportive care. MTDD
--- NOTE | 2016-05-15 15:24 | IR ---
PICC LINE PLACEMENT: HISTORY: Infection requiring long-term antibiotic therapy PROCEDURE: Ultrasound and fluoroscopic guidance of PICC line placement. COMPLICATIONS: None ANESTHESIA: 1. 1% Lidocaine locally. FINDINGS/TECHNIQUE: The procedure was explained to the patient. The risks, complications, benefits and alternatives were discussed and any questions were answered. Informed consent was obtained. The patient was placed supine on the fluoroscopic table and prepped and draped in the usual sterile fash ion. Utilizing a 21 gauge needle and sonographic and fluoroscopic guidance, access in the left ceph alic vein was achieved and there is placement of a 0.018 guidewire. The vein is patent. A 4-F. gordillo th was placed over the guidewire. The guidewire and dilator were removed and a 4-F. PICC line was pl aced through the sheath with the tip at the level of the SVC. The sheath was removed, the catheter w as flushed and sutured into position. The patient was stable throughout the procedure and remained s table upon discharge from the Department of Radiology. The vein puncture was patent under ultrasound. A ferrari scale image was obtained to document patency of the vein punctured. All elements of the maximal barrier technique were utilized. FLUOROSCOPY TIME: 0.1 minute IMPRESSION: Successful PICC line placement under ultrasound and fluoroscopic guidance.
--- NOTE | 2016-05-15 20:40 | PN ---
DATE OF SERVICE: 05/14/2016 This 65-year-old white female has multiple medical problems. She is morbidly obese, has diabetes, hypertension and degenerative arthritis of multiple joints. Patient had incisional hernia repair by Dr. Blake, and following this apparently she developed an infection in the incision and it was progressively getting worse, more and more extensive. Patient was admitted to the hospital for further evaluation and treatment. Patient been started on IV antibiotics and patient was seen by Dr. Dupree in consultation. Currently she is getting Kefzol IV piggyback and the infection is getting controlled. However, patient had a CT of the abdomen and also an ultrasound. Both of them show a possible mass in the liver that needs to be further evaluated by MRI or biopsy. However, patient's infection is being controlled and the patient is going to be discharged by Dr. Blake tomorrow. Arrangements will be made for her to continue IV antibiotics as outpatient, and she is going to have a PICC line inserted for this tomorrow. The mass in the liver will be further evaluated as an outpatient. Prognosis guarded.
--- NOTE | 2016-05-15 20:43 | PN ---
DATE OF SERVICE: 05/15/2016 This is a 65-year-old white female who was admitted with extensive infection of the lower abdominal wall with cellulitis that started in the incision of ventral hernia repair. Patient was started on IV antibiotics. Patient was also seen by Dr. Dupree in consultation from Infectious Disease. Patient needs long-term IV antibiotics. A PICC line was inserted today. Patient is going to be discharged home with home health care and continuing the IV antibiotics. Patient had a CT scan of the abdomen and also ultrasound of the liver which showed a solid mass in the liver; this is going to be further evaluated as an outpatient. Detailed instructions were given to the patient. Patient will be seeing Dr. Blake and Dr. Dupree as outpatient in a week's time, and patient also will be followed by me in my office in 1 to 2 weeks. In the meantime, she will continue all her other home medications. Prognosis guarded.
== END 2016-05-15 14:38 | disposition home health service (06) | DRG 863 ==
LOC: EC 15:12 → 4MS4W 18:03
PROVIDERS: ADMIT Surgery; ATTEND Surgery
PROC: 02HV33Z Insertion of Infusion Device into Superior Vena Cava, Percutaneous Approach (ICD-10-PCS; principal; 2016-05-15 09:45)
DX: T81.4XXA Infection following a procedure, initial encounter (principal); T81.31XA Disruption of external operation (surgical) wound, not elsewhere classified, initial encounter; E11.22 Type 2 diabetes mellitus with diabetic chronic kidney disease; L03.311 Cellulitis of abdominal wall; N18.3 Chronic kidney disease, stage 3 (moderate); B95.61 Methicillin susceptible Staphylococcus aureus infection as the cause of diseases classified elsewhere; J45.20 Mild intermittent asthma, uncomplicated; D72.829 Elevated white blood cell count, unspecified; I12.9 Hypertensive chronic kidney disease with stage 1 through stage 4 chronic kidney disease, or unspecified chronic kidney disease; D64.9 Anemia, unspecified; R53.1 Weakness; R93.2 Abnormal findings on diagnostic imaging of liver and biliary tract; R60.0 Localized edema; I83.90 Asymptomatic varicose veins of unspecified lower extremity; M19.90 Unspecified osteoarthritis, unspecified site; F41.9 Anxiety disorder, unspecified; R68.83 Chills (without fever); Z88.5 Allergy status to narcotic agent; Z88.1 Allergy status to other antibiotic agents; Z88.0 Allergy status to penicillin; Z82.49 Family history of ischemic heart disease and other diseases of the circulatory system; Z96.643 Presence of artificial hip joint, bilateral; Z88.2 Allergy status to sulfonamides; Z87.81 Personal history of (healed) traumatic fracture; Z86.19 Personal history of other infectious and parasitic diseases; Z79.84 Long term (current) use of oral hypoglycemic drugs; Z79.1 Long term (current) use of non-steroidal anti-inflammatories (NSAID); Z79.899 Other long term (current) drug therapy; Z87.891 Personal history of nicotine dependence; Z79.2 Long term (current) use of antibiotics; Z96.653 Presence of artificial knee joint, bilateral; Z98.51 Tubal ligation status; Z90.710 Acquired absence of both cervix and uterus; Y83.1 Surgical operation with implant of artificial internal device as the cause of abnormal reaction of the patient, or of later complication, without mention of misadventure at the time of the procedure
CPT/HCPCS: 36415; 36569; 74177; 76705; 76937; 77001; 80048; 80053; 80202; 82550; 82553; 82728; 83036; 83540; 83550; 83605; 83735; 84100; 84484; 85025; 85027; 85045; 87040; 87070; 87075; 87077; 87186; 87205; 94760; 96365; 96366; 99285

== ENCOUNTER → 2016-07-12 | Outpatient (CLI) | payer BC | END | disposition home or self-care (01) | LOC: LABWHC1 07:04 | PROVIDERS: ATTEND Internal Medicine | DX: C22.9 Malignant neoplasm of liver, not specified as primary or secondary (principal) | CPT/HCPCS: 36415; 82105 ==

== ENCOUNTER 2016-07-23 08:33 | Day surgery (SDC) | payer BC ==
[2016-07-23 09:05] VITALS: TEMP 98
[2016-07-23 09:09] LABS: Mean Platelet Volume 8.2
[2016-07-23 09:11] LABS: Prothrombin Time 10.5 sec (9.0-12.0)
--- NOTE | 2016-07-23 11:31 | CT ---
EXAMINATION TYPE: CT biopsy liver DATE OF EXAM: 07/23/2016 10:30 AM COMPARISON: NONE HISTORY: Right lobe hepatic lesion CT DLP: 1169mGycm PROCEDURE: The risks, applications, benefits and alternatives, were discussed with the patient and questions wer e answered. Informed consent was obtained. The patient was placed supine on the fluoroscopic table, prepped and draped in the usual sterile fashion. A 22-gauge system was utilized with direct passage of the needle into the right lobe liver lesion un pamela CT guidance. Samples were obtained with fine needle aspiration. Pathology confirmed adequate sa mple. The patient was stable throughout procedure and remained stable upon discharge from radiology. All e lements of maximal barrier and sterile technique were utilized. IMPRESSION: 1. Successful right lobe liver mass fine needle aspiration under CT guidance.
[2016-07-23 13:22] VITALS: RESP 18
[2016-07-23 13:34] LABS: Glucose,Whole Blood 77 mg/dL (75-99)
[2016-07-23 14:11] VITALS: BP 121/71; PULSE 68
== END 2016-07-23 14:12 | disposition home or self-care (01) ==
LOC: RADPROMAIN 08:33
PROVIDERS: ATTEND Internal Medicine
DX: C22.0 Liver cell carcinoma (principal)
CPT/HCPCS: 36415; 47000; 77012; 85049; 85610; 88173; 88305; 88313; 88341; 88342

== ENCOUNTER → 2016-08-22 | Outpatient (CLI) | payer BC ==
--- NOTE | 2016-08-22 10:15 | CT ---
EXAMINATION TYPE: CT chest wo con DATE OF EXAM: 08/22/2016 9:35 AM COMPARISON: Correlation CT abdomen pelvis 05/11/2016 HISTORY: 65-year-old female with recent Diagnosis of Liver CA TECHNIQUE: Contiguous axial scanning of the chest without IV contrast. Coronal and sagittal reconstru ctions performed. CT DLP: 803 mGycm Automated exposure control for dose reduction was used. FINDINGS: The thyroid gland is bulky, enlarged, heterogeneous, and weight substernal extension approximately 6. 3 cm off towards the left with a conglomerate nodule measuring up to 4.9 x 4.1 x 3.7 cm, coronal imag e 48 and axial image 19. Sagittal images suggest that this is contiguous with the remainder of the th yroid gland. Heart is normal size without pericardial effusion. Mild coronary vessel calcifications are present. Mild ectasia of the ascending aorta at 3.6 cm. Scattered nonenlarged mediastinal lymph nodes. These measure up to 8 mm in the AP window. Evaluation of the lungs shows no consolidation or pleural effusion. No suspicious pulmonary nodule or mass is identified. Tiny hiatal hernia. Redemonstrated large hypodense mass partially visualized inferior right hepatic lobe measuring at pricila st 8.6 cm. Adrenal glands are clear. Bones: Endplate spondylosis midthoracic spine. No osseous destructive process. IMPRESSION: 1. LARGE BULKY AND HETEROGENEOUS THYROID GLAND WITH SUBSTERNAL EXTENSION BY 6.3 CM. THERE IS A LARGE LOBULATED EXOPHYTIC NODULE IN THE SUBSTERNAL REGION TOWARDS THE LEFT MEASURING UP TO 4.9 CM. CLINICAL CORRELATION RECOMMENDED TO THE NEED FOR FURTHER FOLLOW-UP OR EVALUATION. 2. NO SPECIFIC FINDINGS TO SUGGEST METASTATIC DISEASE TO THE THORAX. 3. PATIENT'S KNOWN RIGHT LIVER MASS IS ONLY PARTIALLY VISUALIZED MEASURING UP TO AT LEAST 8.6 CM.
--- NOTE | 2016-08-22 15:40 | NM ---
EXAMINATION TYPE: NM bone scan whole body DATE OF EXAM: 08/22/2016 1:31 PM COMPARISON: NONE HISTORY: 65-year-old female with liver cancer TECHNIQUE: Delayed whole-body scanning was performed following the injection of 27.5 mCi Tc 99m MDP. Images acquired 5 hours post injection. Both anterior and posterior projections were obtained. FINDINGS: Photopenic defect suggesting bilateral total knee arthroplasties. There is focal increased tracer act ivity along the right medial tibial plateau and at the inferior tip of the expected tibial prosthesis . Additional photopenic defect at the left hip compatible with hip replacement. Degenerative tracer activity at the left hindfoot. No suspicious distribution of tracer activity within the axial or appendicular skeleton. IMPRESSION: 1. No scintigraphic evidence for osseous metastatic disease. 2. Bilateral total knee arthroplasties. There is increased activity at the right knee, tibial compone nt, that could reflect hardware loosening. Clinical correlation recommended.
== END | disposition home or self-care (01) ==
LOC: RADCTMAIN 07:25
PROVIDERS: ATTEND Internal Medicine Hematology & Oncology
DX: C22.8 Malignant neoplasm of liver, primary, unspecified as to type (principal); E04.1 Nontoxic single thyroid nodule; Z96.653 Presence of artificial knee joint, bilateral
CPT/HCPCS: 82565; 84520; 71250; 78306; A9503

== ENCOUNTER → 2016-09-02 | Outpatient (CLI) | payer BC ==
[~2016-09-02] MED LIST: REGADENOSON 0.4 MG/5 ML SYRINGE IV ONE
--- NOTE | 2016-09-02 11:57 | NM ---
EXAMINATION TYPE: NM stress lexiscan cardiolite DATE OF EXAM: 09/02/2016 11:37 AM COMPARISON: Chest August 22, 2016 HISTORY: Presurgical study. TECHNIQUE: After the intravenous administration of 10.5 mCi Tc 99m Sestamibi - Cardiolite resting SP ECT images acquired 45 minutes post injection. The patient received 0.4mg Lexiscan, 27.5 mCi Tc 99m Sestamibi - Stress images obtained [address] injection FINDINGS: Diminished color intensity involving the anterior left ventricular wall at stress versus rest SPECT i mages persists on short axis as well as less well-seen but also present on the vertical long axis saud ges, this is involving the base, mid zone, and apex. Acute infarction LAD distribution cannot be excl uded. Recent CT shows mild calcified plaque at this level. Noncalcified plaque cannot be well visuali zed. Gated analysis shows normal wall motion with an estimated left ventricular ejection fraction of 64 %. IMPRESSION: Abnormal study, need to further investigate by direct catheter angiogram should be based on clinical and lab/EKG correlation.
--- NOTE | 2016-09-02 12:40 | EST ---
DATE OF SERVICE: 09/02/2016 AGE: 65Y SEX: F HT: 5'5" WT: lbs. Protocol Ignacio: Other: Stage: Dur. of Exercise: *Heart Rate Blood Pressure *Rest: 74 Rest: 138/66 * *Max. Achieved: 93 Maximum BP: 140/67 85% PMHR: - 100% PMHR: - *METS: - INDICATIONS: Preoperative. MEDICATIONS: Lasix, losartan, metformin, potassium. Baseline EKG revealed a normal sinus rhythm without significant ST-T changes. With Lexiscan administration, heart rate changed from 74 to 93 beats, and blood pressure was around 138/66 without significant change. Patient did not have any significant symptoms. EKG remained unremarkable. By EKG criteria, this is an unremarkable Lexiscan stress test. The nuclear scan results will be reported by the radiologist.
== END | disposition home or self-care (01) ==
LOC: RADNMMAIN 08:19
PROVIDERS: ATTEND Internal Medicine
DX: Z01.818 Encounter for other preprocedural examination (principal); R94.39 Abnormal result of other cardiovascular function study
CPT/HCPCS: 93017; 78452; A9500; J2785

== ENCOUNTER 2016-09-05 06:14 | Day surgery (SDC) | payer BC ==
[~2016-09-05 06:14] MED LIST changes: +ALPRAZolam 0.25 MG TAB PO PRN; +ALPRAZolam 0.5 MG TAB PO PRN; +ASPIRIN 325 MG TAB PO STA; +ATORVASTATIN 80 MG TAB PO STA; +NITROGLYCERIN SL TABS 0.4 MG TAB SUBLINGUAL PRN; -REGADENOSON 0.4 MG/5 ML SYRINGE IV ONE; +SODIUM CHLORIDE 0.9% 1,000 ML in EMPTY BAG 1 BAG IV ONE
[2016-09-05 07:15] LABS: Glucose,Whole Blood 83 mg/dL (75-99)
[2016-09-05 07:19] VITALS: RESP 16
[2016-09-05] MEDS ORDERED: SODIUM CHLORIDE 0.9% 1,000 ML IV ONE (07:24)
[2016-09-05 07:35] LABS: Basophils % (A) 0 %; CH 28.3; CHCM 32.7; Eosinophils # (A) 0.2 k/uL (0-0.7); Eosinophils % (A) 2 %; HCT 32.1 % (34.0-46.0); HDW 2.61; HGB 10.3 gm/dL (11.4-16.0); Luc # (Auto) 0.11; Luc % (Auto) 1; Lymphocytes # (A) 1.3 k/uL (1.0-4.8); Lymphocytes % (A) 14 %; MCHC 32.2 g/dL (31.0-37.0); MCV 86.9 fL (80.0-100.0); Mean Platelet Volume 7.3; Monocytes # (A) 0.6 k/uL (0-1.0); Monocytes % (A) 6 %; Neutrophils # (A) 7.3 k/uL (1.3-7.7); Neutrophils % (A) 76 %; RBC 3.69 m/uL (3.80-5.40); RDW 14.1 % (11.5-15.5); WBC 9.5 k/uL (3.8-10.6); WBC (Perox) 10.18
[2016-09-05 07:53] LABS: Calcium 9.1 mg/dL (8.4-10.2); Potassium 4.4 mmol/L (3.5-5.1)
[2016-09-05] MEDS ORDERED: LIDOCAINE 2% INJ 20 MG/ML (20 ML MDV) ONE (10:39)
[2016-09-05] MEDS ORDERED: HEPARIN SODIUM,PORCINE 30 ML 30 ML ONE (10:39)
[2016-09-05] MEDS ORDERED: VERAPAMIL 2.5 MG/ML 2 ML AMP ONE (10:50)
[2016-09-05] MEDS ORDERED: diphenhydrAMINE 50 MG/ML 1 ML VIAL ONE (11:12)
[2016-09-05] MEDS ORDERED: MIDAZOLAM 2 MG/2 ML VIAL ONE (11:12)
[2016-09-05] MEDS ORDERED: diphenhydrAMINE 50 MG/ML 1 ML VIAL IVP ONE (11:20)
[2016-09-05] MEDS ORDERED: MIDAZOLAM 2 MG/2 ML VIAL IV ONE (11:20)
[2016-09-05] MEDS ORDERED: HEPARIN SODIUM 1,000 UNIT/ML VIAL ONE (11:24)
[2016-09-05] MEDS ORDERED: LIDOCAINE 2% INJ 20 MG/ML SQ ONE (11:25)
[2016-09-05] MEDS ORDERED: VERAPAMIL SYRINGE (5 MG/10 ML) INTRAARTER ONE ×2 (11:28→11:42)
[2016-09-05] MEDS ORDERED: IOHEXOL 350 MG/ML 100 ML BOTTLE INJ ONE (11:53)
[2016-09-05] MEDS ORDERED: SODIUM CHLORIDE 0.9% 1,000 ML IV SCH (12:00)
[2016-09-05 13:18] VITALS: TEMP 97
[2016-09-05 17:01] VITALS: BP 136/76; PULSE 76
--- NOTE | 2016-09-05 22:15 | CC ---
DATE OF SERVICE: 09/05/2016 PROCEDURE: Left heart catheterization and coronary angiography. PERFORMED BY: Dr. Lobito Foster. CLINICAL INFORMATION: Mrs. Christy Machado is a 65-year-old lady with type 2 diabetes, hypertension, hyperlipidemia, obesity, who was recently diagnosed with hepatocellular cancer and is going for excisional surgery to be performed on September 13. Prior to that a stress test was performed which revealed evidence of anterior wall ischemia, and therefore she was advised coronary angiography after due discussion with the patient and her regarding the risks, benefits and options. Her creatinine was 1.4 and she received IV fluids and also oral fluids before the procedure. PROCEDURE NOTE: Under local anesthesia and strict aseptic precautions, a 6 English introducer was placed in the right radial artery. I initially used an Ultimate 1 catheter, but I had difficulty cannulating either coronary artery because she had a very narrow root. I switched over to a 3.5 curved left Andrea and a 3.5 curved right Andrea catheter. With this I performed coronary angiography. I checked LV pressures with the Ultimate 1 catheter but did not perform LV gram. Patient tolerated the procedure well. The sheath was taken out and TR band applied as per protocol and she was sent to the room in stable condition. The results were discussed with the patient and family. Patient received moderate conscious sedation for a total duration of 30 minutes. CARDIAC CATHETERIZATION FINDINGS: The left ventricular end-diastolic pressure was 68 mmHg and there was no gradient across the aortic valve. CORONARY ANGIOGRAPHY FINDINGS: Left main coronary artery. This is a short, patent, disease-free vessel that bifurcates into LAD and circumflex. There is no significant disease in the left main coronary artery. Left anterior descending coronary artery. Good-caliber vessel extends along the anterior wall, supplies a sizable amount of myocardium, gives off septal and diagonal branches, runs all the way to the apex. There are minor irregularities, but no significant obstructive disease is noted. Left posterior circumflex coronary artery. Technically a non-dominant vessel that supplies a fair amount of myocardium, gives off a high obtuse marginal branch and runs laterally, supplying a fair amount of myocardium. The circumflex is very tortuous, has minor irregularities. No significant obstructive disease is noted. Right coronary artery. Very dominant vessel. Initially had a catheter-induced spasm on the first injection. Subsequent injections revealed no spasm. Very dominant vessel; gives off a large PDA distally, small PLV. Has minor irregularities. No significant obstructive disease. The right coronary is a very dominant vessel. LEFT VENTRICULOGRAM: This was not performed. FINAL IMPRESSION: This patient has a right-dominant system, no significant obstructive disease and normal filling pressures. There is no gradient across the aortic valve. RECOMMENDATIONS: Findings were discussed with the patient and her . No intervention is necessary. Risk factor modification was advised. There is no contraindication to the resection of the hepatocellular carcinoma in her liver. Cautious fluid administration is advised and optimal blood pressure control perioperatively. Patient will be discharged later on today if she remains stable, and I will see her on Friday.
== END 2016-09-05 18:05 | disposition home or self-care (01) ==
LOC: CATHCVL 06:14
PROVIDERS: ATTEND Internal Medicine Interventional Cardiology
DX: I77.1 Stricture of artery (principal); Z01.810 Encounter for preprocedural cardiovascular examination; C22.0 Liver cell carcinoma; Z82.49 Family history of ischemic heart disease and other diseases of the circulatory system; Z87.891 Personal history of nicotine dependence; I10 Essential (primary) hypertension; E78.00 Pure hypercholesterolemia, unspecified; E11.9 Type 2 diabetes mellitus without complications; Z79.84 Long term (current) use of oral hypoglycemic drugs; E78.5 Hyperlipidemia, unspecified; Z79.899 Other long term (current) drug therapy; Z88.1 Allergy status to other antibiotic agents; Z88.5 Allergy status to narcotic agent; Z88.0 Allergy status to penicillin; Z88.2 Allergy status to sulfonamides
CPT/HCPCS: 93458; 80048; 85025; 99152; 99153; C1769; C1894; J2001; J2250; J1200; Q9967

== ENCOUNTER → 2016-10-08 | Outpatient (CLI) | payer BC ==
[2016-10-08 10:08] LABS: CH 27.7; CHCM 31.2; HCT 33.2 % (34.0-46.0); HDW 2.77; HGB 10.5 gm/dL (11.4-16.0); Hypochromasia Slight; MCH 28.3 pg (25.0-35.0); MCHC 31.6 g/dL (31.0-37.0); MCV 89.5 fL (80.0-100.0); Mean Platelet Volume 7.2; RBC 3.71 m/uL (3.80-5.40); RDW 14.6 % (11.5-15.5)
[2016-10-08 10:25] LABS: Calcium 9.7 mg/dL (8.4-10.2); Potassium 4.4 mmol/L (3.5-5.1); Total Bilirubin 0.4 mg/dL (0.2-1.3); Total Protein 7.3 g/dL (6.3-8.2)
== END | disposition home or self-care (01) ==
LOC: LABWHC1 09:45
PROVIDERS: ATTEND Internal Medicine
DX: E11.9 Type 2 diabetes mellitus without complications (principal); I11.9 Hypertensive heart disease without heart failure; M19.90 Unspecified osteoarthritis, unspecified site
CPT/HCPCS: 36415; 80053; 85027

== ENCOUNTER → 2016-10-24 | Outpatient (CLI) | payer BC ==
[2016-10-24 08:06] LABS: Calcium 9.4 mg/dL (8.4-10.2); Potassium 4.7 mmol/L (3.5-5.1); Total Bilirubin 0.4 mg/dL (0.2-1.3); Total Protein 6.4 g/dL (6.3-8.2)
== END | disposition home or self-care (01) ==
LOC: LABWHC1 06:46
PROVIDERS: ATTEND Surgery
DX: C22.0 Liver cell carcinoma (principal)
CPT/HCPCS: 36415; 80053

== ENCOUNTER → 2017-01-03 | Outpatient (CLI) | payer BC ==
[2017-01-03 07:53] LABS: CH 27.9; CHCM 33.1; HCT 35.4 % (34.0-46.0); HDW 2.47; HGB 11.5 gm/dL (11.4-16.0); MCH 27.4 pg (25.0-35.0); MCHC 32.5 g/dL (31.0-37.0); MCV 84.4 fL (80.0-100.0); Mean Platelet Volume 7.2; RBC 4.19 m/uL (3.80-5.40); RDW 15.1 % (11.5-15.5); WBC 9.2 k/uL (3.8-10.6)
[2017-01-03 07:55] LABS: Appearance,Urine Clear (Clear); Bilirubin,Urine Negative (Negative); Glucose,Urine (UA) Negative (Negative); Ketones,Urine Negative (Negative); Leukocyte Esterase,Urine Negative (Negative); Nitrite,Urine Negative (Negative); PH, Urine 5.5 (5.0-8.0); Protein,Urine Negative (Negative); Specific Gravity,Urine 1.007 (1.001-1.035); UA Billing (MACRO vs. MICRO) CHEM; Urobilinogen,Urine <2.0 mg/dL (<2.0)
[2017-01-03 08:07] LABS: INR 0.9 (<1.2); Partial Thromboplastin Time 26.5 sec (22.0-30.0); Prothrombin Time 9.6 sec (9.0-12.0)
[2017-01-03 08:13] LABS: Calcium 9.6 mg/dL (8.4-10.2); Potassium 4.5 mmol/L (3.5-5.1); Total Bilirubin 0.3 mg/dL (0.2-1.3); Total Protein 6.9 g/dL (6.3-8.2)
[2017-01-03 14:22] LABS: Hemoglobin A1C 6.5 % (4.2-6.1)
== END | disposition home or self-care (01) ==
LOC: LABPAT 07:12
PROVIDERS: ATTEND Orthopaedic Surgery
DX: Z01.812 Encounter for preprocedural laboratory examination (principal); E78.2 Mixed hyperlipidemia; E11.9 Type 2 diabetes mellitus without complications
CPT/HCPCS: 80053; 80061; 81003; 83036; 85027; 85610; 85730; 87070

== ENCOUNTER → 2017-01-21 | Outpatient (CLI) | payer BC ==
[2017-01-21 07:47] LABS: Basophils % (A) 0 %; CH 26.5; CHCM 31.7; Eosinophils # (A) 0.3 k/uL (0-0.7); Eosinophils % (A) 3 %; HCT 35.4 % (34.0-46.0); HDW 2.36; HGB 11.7 gm/dL (11.4-16.0); Luc # (Auto) 0.13; Luc % (Auto) 1; Lymphocytes % (A) 21 %; MCH 27.6 pg (25.0-35.0); MCHC 32.9 g/dL (31.0-37.0); Mean Platelet Volume 6.7; Monocytes # (A) 0.5 k/uL (0-1.0); Monocytes % (A) 5 %; Neutrophils # (A) 6.7 k/uL (1.3-7.7); Neutrophils % (A) 70 %; RBC 4.22 m/uL (3.80-5.40); RDW 14.7 % (11.5-15.5); WBC 9.5 k/uL (3.8-10.6); WBC (Perox) 9.75
[2017-01-21 08:20] LABS: Calcium 9.6 mg/dL (8.4-10.2); Potassium 4.8 mmol/L (3.5-5.1); Total Bilirubin 0.3 mg/dL (0.2-1.3); Total Protein 6.9 g/dL (6.3-8.2)
== END | disposition home or self-care (01) ==
LOC: LABWHC1 07:03
PROVIDERS: ATTEND Nurse Practitioner Acute Care
DX: C22.0 Liver cell carcinoma (principal)
CPT/HCPCS: 36415; 80053; 82105; 85025

== ENCOUNTER → 2017-03-24 | Outpatient (CLI) | payer BC ==
[2017-03-24 07:34] LABS: Basophils % (A) 0 %; CH 27.5; CHCM 31.3; Eosinophils # (A) 0.1 k/uL (0-0.7); Eosinophils % (A) 2 %; HCT 34.1 % (34.0-46.0); HDW 2.29; HGB 10.6 gm/dL (11.4-16.0); Luc # (Auto) 0.09; Luc % (Auto) 1; Lymphocytes # (A) 1.2 k/uL (1.0-4.8); Lymphocytes % (A) 16 %; MCH 27.5 pg (25.0-35.0); MCHC 31.2 g/dL (31.0-37.0); MCV 88.3 fL (80.0-100.0); Mean Platelet Volume 7.3; Monocytes # (A) 0.5 k/uL (0-1.0); Monocytes % (A) 6 %; Neutrophils # (A) 5.8 k/uL (1.3-7.7); Neutrophils % (A) 75 %; RBC 3.86 m/uL (3.80-5.40); RDW 14.9 % (11.5-15.5); WBC 7.7 k/uL (3.8-10.6); WBC (Perox) 7.98
[2017-03-24 07:37] LABS: Prothrombin Time 10.5 sec (9.0-12.0)
[2017-03-24 07:57] LABS: Calcium 9.7 mg/dL (8.4-10.2); Potassium 4.6 mmol/L (3.5-5.1); Total Bilirubin 0.2 mg/dL (0.2-1.3); Total Protein 6.7 g/dL (6.3-8.2)
== END | disposition home or self-care (01) ==
LOC: LABWHC1 06:45
PROVIDERS: ATTEND Surgery
DX: C22.0 Liver cell carcinoma (principal)
CPT/HCPCS: 36415; 80053; 82105; 85025; 85610

== ENCOUNTER → 2017-05-16 | Outpatient (CLI) | payer BC ==
--- NOTE | 2017-05-20 09:08 | MM ---
Reason for exam: screening (asymptomatic). Last mammogram was performed 1 year and 3 months ago. History: Patient is postmenopausal and has history of other cancer at age 66. Family history of breast cancer in sister at age 48, premenopausal breast cancer in paternal cousin at age 48, and breast cancer in paternal aunt at age 56. Took estrogen for 3 months. Took progesterone for 3 months. Physical Findings: A clinical breast exam by your physician is recommended on an annual basis and results should be correlated with mammographic findings. MG Screening Mammo w CAD Bilateral CC and MLO view(s) were taken. Prior study comparison: February 16, 2016, bilateral MG screening mammo w CAD. September 24, 2013, bilateral MG screening mammo w CAD. There are scattered fibroglandular densities. No significant changes when compared with prior studies. ASSESSMENT: Negative, BI-RAD 1 RECOMMENDATION: Routine screening mammogram of both breasts in 1 year.
== END | disposition home or self-care (01) ==
LOC: RADMAMWWP 13:21
PROVIDERS: ATTEND Internal Medicine
DX: Z12.31 Encounter for screening mammogram for malignant neoplasm of breast (principal)
CPT/HCPCS: 77067

== ENCOUNTER → 2017-06-24 | Outpatient (CLI) | payer BC ==
[2017-06-24 07:56] LABS: Albumin 3.8 g/dL (3.5-5.0); Calcium 9.4 mg/dL (8.4-10.2); Potassium 4.5 mmol/L (3.5-5.1); Total Bilirubin 0.3 mg/dL (0.2-1.3); Total Protein 6.4 g/dL (6.3-8.2)
[2017-06-24 07:59] LABS: T4, Free (Free Thyroxine) 1.25 ng/dL (0.78-2.19)
[2017-06-24 08:05] LABS: Basophils % (A) 1 %; Eosinophils # (A) 0.2 k/uL (0-0.7); Eosinophils % (A) 3 %; HCT 33.6 % (34.0-46.0); HGB 10.7 gm/dL (11.4-16.0); Lymphocytes # (A) 1.7 k/uL (1.0-4.8); Lymphocytes % (A) 22 %; MCHC 31.8 g/dL (31.0-37.0); MCV 84.9 fL (80.0-100.0); Mean Platelet Volume 6.6; Monocytes # (A) 0.4 k/uL (0-1.0); Monocytes % (A) 6 %; Neutrophils # (A) 5.2 k/uL (1.3-7.7); Neutrophils % (A) 68 %; Platelet Count 401 k/uL (150-450); RBC 3.96 m/uL (3.80-5.40); WBC 7.7 k/uL (3.8-10.6)
== END | disposition home or self-care (01) ==
LOC: LABWHC1 06:53
PROVIDERS: ATTEND Surgery
DX: Z00.00 Encounter for general adult medical examination without abnormal findings (principal); C22.0 Liver cell carcinoma; E11.9 Type 2 diabetes mellitus without complications; I11.9 Hypertensive heart disease without heart failure; E78.2 Mixed hyperlipidemia
CPT/HCPCS: 36415; 80053; 80061; 82105; 83036; 84439; 84443; 85025

== ENCOUNTER → 2017-09-17 | Outpatient (CLI) | payer BC, MEDICARE ==
[2017-09-17 07:41] LABS: HCT 35.2 % (34.0-46.0); HGB 11.3 gm/dL (11.4-16.0); MCHC 31.9 g/dL (31.0-37.0); MCV 87.6 fL (80.0-100.0); Platelet Count 393 k/uL (150-450); RBC 4.02 m/uL (3.80-5.40); RDW 13.7 % (11.5-15.5); WBC 10.2 k/uL (3.8-10.6)
[2017-09-17 07:51] LABS: Calcium 9.5 mg/dL (8.4-10.2); Total Bilirubin 0.3 mg/dL (0.2-1.3); Total Protein 6.3 g/dL (6.3-8.2)
== END | disposition home or self-care (01) ==
LOC: LABWHC1 06:39
PROVIDERS: ATTEND Surgery
DX: C22.0 Liver cell carcinoma (principal); D64.9 Anemia, unspecified
CPT/HCPCS: 36415; 80053; 82105; 85027

== ENCOUNTER → 2018-01-12 | Outpatient (CLI) | payer MEDICARE, BC ==
[2018-01-12 07:35] LABS: HCT 35.3 % (34.0-46.0); HGB 11.2 gm/dL (11.4-16.0); MCH 28.6 pg (25.0-35.0); MCHC 31.9 g/dL (31.0-37.0); MCV 89.6 fL (80.0-100.0); Mean Platelet Volume 6.2; Platelet Count 386 k/uL (150-450); RBC 3.93 m/uL (3.80-5.40); RDW 13.3 % (11.5-15.5); WBC 9.7 k/uL (3.8-10.6)
[2018-01-12 07:45] LABS: Calcium 9.3 mg/dL (8.4-10.2); Potassium 4.8 mmol/L (3.5-5.1); Total Bilirubin 0.3 mg/dL (0.2-1.3); Total Protein 6.7 g/dL (6.3-8.2)
[2018-01-12 08:00] LABS: T4, Free (Free Thyroxine) 1.2 ng/dL (0.78-2.19)
== END | disposition home or self-care (01) ==
LOC: LABWHC1 06:46
PROVIDERS: ATTEND Internal Medicine
DX: Z00.00 Encounter for general adult medical examination without abnormal findings (principal); I11.9 Hypertensive heart disease without heart failure; E11.9 Type 2 diabetes mellitus without complications; E78.2 Mixed hyperlipidemia
CPT/HCPCS: 36415; 80053; 80061; 84439; 84443; 85027

== ENCOUNTER → 2018-05-26 | Outpatient (CLI) | payer MEDICARE, BC ==
[2018-05-26 07:42] LABS: Basophils % (A) 0 %; Eosinophils # (A) 0.3 k/uL (0-0.7); Eosinophils % (A) 3 %; HCT 35.4 % (34.0-46.0); HGB 11.2 gm/dL (11.4-16.0); Lymphocytes # (A) 1.7 k/uL (1.0-4.8); Lymphocytes % (A) 17 %; MCH 28.8 pg (25.0-35.0); MCHC 31.7 g/dL (31.0-37.0); MCV 90.8 fL (80.0-100.0); Mean Platelet Volume 6.2; Monocytes # (A) 0.4 k/uL (0-1.0); Monocytes % (A) 4 %; Neutrophils # (A) 7.5 k/uL (1.3-7.7); Neutrophils % (A) 75 %; Platelet Count 370 k/uL (150-450); RDW 13.4 % (11.5-15.5); WBC 10.1 k/uL (3.8-10.6)
[2018-05-26 07:57] LABS: INR 0.9 (<1.2); Prothrombin Time 9.5 sec (9.0-12.0)
[2018-05-26 11:18] LABS: Albumin 4.1 g/dL (3.80-4.90); Albumin/Globulin Ratio 2.28 (1.20-2.10); Anion Gap 8.2 mmol/L (4.00-12.00); Calcium 9.1 mg/dL (8.7-10.3); Carbon Dioxide 27.8 mmol/L (21.6-31.8); Globulin 1.8 g/dL (1.6-3.3); Potassium 4.5 mmol/L (3.5-5.5); Total Bilirubin 0.2 mg/dL (0.2-1.2); Total Protein 5.9 g/dL (6.2-8.2)
== END ==
LOC: LABWHC1 06:37
PROVIDERS: ATTEND Surgery
DX: C22.0 Liver cell carcinoma (principal)
CPT/HCPCS: 36415; 80053; 82105; 85025; 85610

== ENCOUNTER 2018-06-12 06:46 | Day surgery (SDC) | payer MEDICARE, BC ==
[2018-06-10 10:33] VITALS: BMI 46.5
[~2018-06-12 06:46] MED LIST changes: -ALPRAZolam 0.25 MG TAB PO PRN; -ALPRAZolam 0.5 MG TAB PO PRN; -ASPIRIN 325 MG TAB PO STA; -ATORVASTATIN 80 MG TAB PO STA; +LACTATED RINGERS 1,000 ML IV SCH; -NITROGLYCERIN SL TABS 0.4 MG TAB SUBLINGUAL PRN; -SODIUM CHLORIDE 0.9% 1,000 ML in EMPTY BAG 1 BAG IV ONE
[2018-06-12 07:28] VITALS: TEMP 97.4
[2018-06-12] MEDS ORDERED: LIDOCAINE 1% 20 ML VIAL (10MG/ML) FOR IV START INTRADERMA ONE (07:37)
[2018-06-12 07:38] LABS: Glucose,Whole Blood 144 mg/dL (75-99)
[2018-06-12] MEDS ORDERED: PROPOFOL 10 MG/ML 20 ML VIAL IV ONE (08:16)
--- NOTE | 2018-06-12 08:48 | P.PCN ---
Date of Procedure: 06/12/18 Procedure(s) Performed: BRIEF HISTORY: Patient is a 67-year-old pleasant white female, scheduled for an elective colonoscopy as a part of screening for colorectal neoplasia. Her last colonoscopy was 10 years ago. PROCEDURE PERFORMED: Colonoscopy with snare polypectomy and Endo Clip placement . PREOPERATIVE DIAGNOSIS: screening for colon cancer IV sedation per Anesthesia. PROCEDURE: After informed consent was obtained, the patient, was brought into the endoscopy unit. IV sedation was administered by Anesthesia under continuous monitoring. Digital rectal examination was normal. Initially the Olympus CF- 160 flexible video colonoscope was then inserted in the rectum, gradually advanced into the cecum without any difficulty. Careful examination was performed as the scope was gradually being withdrawn. Ileocecal valve and the appendiceal orifice were visualized and appeared normal. Prep was excellent. Mucosa of the cecum appeared normal. Heme ascending colon there were 3 polyps measuring 1 cm, 2.5 cm and 60 cm BROAD-BASED REMOVED BY PIECEMEAL SNARE POLYPECTOMY. FOLLOWING POLYPECTOMY ONE OF THE POLYP IN THE MID ASCENDING COLON HAD ACTIVE BLEEDING AND HENCE ENDO CLIP WAS PLACED WITH GOOD HEMOSTASIS. IN THE HEPATIC FLEXURE THERE WAS A 2.5 CM BROAD-BASED POLYP THAT WAS REMOVED BY SNARE POLYPECTOMY. REST OF THE ascending colon, transverse colon, descending colon, sigmoid colon, and rectum appeared normal. Retroflexion was performed in the rectum and no lesions were seen. The patient tolerated the procedure well. IMPRESSION: 1. 3 polyps in the ascending colon measuring 1 cm, 2.5 cm and 3 cm all of which were broad-based status post piecemeal snare polypectomy. One of the polyp had active bleeding following polypectomy and hence Endo Clip placed with good hemostasis. 2. 2 cm broad-based hepatic flexure polyp status post snare polypectomy Scattered sigmoid diverticulosis RECOMMENDATIONS: Findings of this examination were discussed with the patient as well as a family. She was advised to follow with the biopsy results. She' ll be seen in the office in a week. Based the biopsy results will plan a repeat colonoscopy in 6 months to 1 year
[2018-06-12 09:08] VITALS: BP 110/63; PULSE 73; RESP 18
== END 2018-06-12 09:24 | disposition home or self-care (01) ==
LOC: ORWHC2ENDO 06:46
PROVIDERS: ATTEND Internal Medicine Gastroenterology
DX: Z12.11 Encounter for screening for malignant neoplasm of colon (principal); D12.2 Benign neoplasm of ascending colon; D12.3 Benign neoplasm of transverse colon; K57.30 Diverticulosis of large intestine without perforation or abscess without bleeding; I10 Essential (primary) hypertension; E78.5 Hyperlipidemia, unspecified; E11.9 Type 2 diabetes mellitus without complications; K21.9 Gastro-esophageal reflux disease without esophagitis; Z79.84 Long term (current) use of oral hypoglycemic drugs; Z79.899 Other long term (current) drug therapy; Z88.1 Allergy status to other antibiotic agents; Z88.5 Allergy status to narcotic agent; Z88.0 Allergy status to penicillin; Z85.05 Personal history of malignant neoplasm of liver; Z90.49 Acquired absence of other specified parts of digestive tract
CPT/HCPCS: 88305; 45385; J2704; 45382

== ENCOUNTER → 2018-06-17 | Outpatient (CLI) | payer MEDICARE, BC ==
--- NOTE | 2018-06-18 11:31 | MM ---
Reason for exam: screening (asymptomatic). Last mammogram was performed 1 year and 1 month ago. History: Patient is postmenopausal and has history of other cancer at age 66. Family history of breast cancer in sister at age 48, premenopausal breast cancer in paternal cousin at age 48, and breast cancer in paternal aunt at age 56. Took estrogen for 3 months. Took progesterone for 3 months. Physical Findings: A clinical breast exam by your physician is recommended on an annual basis and results should be correlated with mammographic findings. MG Screening Mammo w CAD Bilateral CC and MLO view(s) were taken. Prior study comparison: May 16, 2017, bilateral MG screening mammo w CAD. February 16, 2016, bilateral MG screening mammo w CAD. There are scattered fibroglandular densities. Benign appearing bilateral calcifications. No suspicious abnormality. No significant changes when compared with prior studies. ASSESSMENT: Benign, BI-RAD 2 RECOMMENDATION: Routine screening mammogram of both breasts in 1 year.
== END ==
LOC: RADMAMWWP 08:57
PROVIDERS: ATTEND Internal Medicine
DX: Z12.31 Encounter for screening mammogram for malignant neoplasm of breast (principal)
CPT/HCPCS: 77067

== ENCOUNTER → 2018-07-15 | Outpatient (CLI) | payer MEDICARE, BC ==
[2018-07-15 07:31] LABS: Basophils % (A) 0 %; Eosinophils # (A) 0.3 k/uL (0-0.7); Eosinophils % (A) 3 %; HGB 11.6 gm/dL (11.4-16.0); Lymphocytes # (A) 1.8 k/uL (1.0-4.8); Lymphocytes % (A) 19 %; MCH 28.9 pg (25.0-35.0); MCHC 32.3 g/dL (31.0-37.0); MCV 89.2 fL (80.0-100.0); Mean Platelet Volume 7.3; Monocytes # (A) 0.5 k/uL (0-1.0); Monocytes % (A) 5 %; Neutrophils # (A) 6.7 k/uL (1.3-7.7); Neutrophils % (A) 71 %; Platelet Count 366 k/uL (150-450); RBC 4.03 m/uL (3.80-5.40); RDW 13.6 % (11.5-15.5); WBC 9.5 k/uL (3.8-10.6)
[2018-07-15 07:41] LABS: INR 0.9 (<1.2); Partial Thromboplastin Time 27.2 sec (22.0-30.0); Prothrombin Time 9.6 sec (9.0-12.0)
[2018-07-15 12:03] LABS: ALT 42 U/L (8-44); AST 34 U/L (13-35); Albumin/Globulin Ratio 2.25 (1.60-3.17); Alkaline Phosphatase 141 U/L (41-126); Bilirubin, Conjugated <0.20 mg/dL (0.20-0.40); Calcium 9.6 mg/dL (8.7-10.3); Carbon Dioxide 27.3 mmol/L (21.6-31.8); Chloride 102 mmol/L (96-109); Glucose 130 mg/dL (70-110); Potassium 4.4 mmol/L (3.5-5.5); Sodium 137 mmol/L (135-145); Total Bilirubin 0.3 mg/dL (0.3-1.2); Total Protein 6.5 g/dL (6.2-8.2)
== END | disposition home or self-care (01) ==
LOC: LABWHC1 07:11
DX: C22.0 Liver cell carcinoma (principal)
CPT/HCPCS: 36415; 80048; 80076; 82105; 85025; 85610; 85730

== ENCOUNTER → 2018-08-11 | Outpatient (CLI) | payer MEDICARE, BC ==
[2018-08-11 07:35] LABS: Basophils % (A) 0 %; Eosinophils # (A) 0.4 k/uL (0-0.7); Eosinophils % (A) 3 %; HCT 33.6 % (34.0-46.0); HGB 10.8 gm/dL (11.4-16.0); Lymphocytes # (A) 1.4 k/uL (1.0-4.8); Lymphocytes % (A) 10 %; MCH 27.4 pg (25.0-35.0); MCHC 32.2 g/dL (31.0-37.0); MCV 85.2 fL (80.0-100.0); Mean Platelet Volume 6.5; Monocytes # (A) 0.8 k/uL (0-1.0); Monocytes % (A) 6 %; Neutrophils # (A) 11.4 k/uL (1.3-7.7); Neutrophils % (A) 81 %; Platelet Count 516 k/uL (150-450); RBC 3.95 m/uL (3.80-5.40); WBC 14.1 k/uL (3.8-10.6)
[2018-08-11 12:32] LABS: ALT 387 U/L (8-44); AST 102 U/L (13-35); Albumin/Globulin Ratio 2.33 (1.60-3.17); Alkaline Phosphatase 398 U/L (41-126); Bilirubin, Conjugated <0.20 mg/dL (0.20-0.40); Calcium 8.9 mg/dL (8.7-10.3); Carbon Dioxide 24.6 mmol/L (21.6-31.8); Chloride 97 mmol/L (96-109); Globulin 1.8 g/dL (1.6-3.3); Glucose 126 mg/dL (70-110); Potassium 4.4 mmol/L (3.5-5.5); Sodium 135 mmol/L (135-145); Total Bilirubin 0.4 mg/dL (0.2-1.2)
== END | disposition home or self-care (01) ==
LOC: LABWHC1 06:58
PROVIDERS: ATTEND Radiology Diagnostic Radiology
DX: K76.9 Liver disease, unspecified (principal)
CPT/HCPCS: 36415; 80048; 80076; 82105; 85025

== ENCOUNTER → 2018-11-27 | Outpatient (CLI) | payer MEDICARE, BC ==
[2018-11-27 07:47] LABS: Basophils % (A) 0 %; Eosinophils # (A) 0.2 k/uL (0-0.7); Eosinophils % (A) 2 %; HCT 33.8 % (34.0-46.0); HGB 11.2 gm/dL (11.4-16.0); Lymphocytes # (A) 0.8 k/uL (1.0-4.8); Lymphocytes % (A) 11 %; MCH 28.5 pg (25.0-35.0); MCHC 33.1 g/dL (31.0-37.0); MCV 86.1 fL (80.0-100.0); Mean Platelet Volume 6.7; Monocytes # (A) 0.4 k/uL (0-1.0); Monocytes % (A) 5 %; Neutrophils # (A) 6.3 k/uL (1.3-7.7); Neutrophils % (A) 80 %; Platelet Count 383 k/uL (150-450); RBC 3.92 m/uL (3.80-5.40); RDW 14.8 % (11.5-15.5); WBC 7.9 k/uL (3.8-10.6)
[2018-11-27 12:10] LABS: African American GFR (CKD) 45.3 (60.0-200.0); Albumin 4.1 g/dL (3.80-4.90); Albumin/Globulin Ratio 2.41 (1.60-3.17); Anion Gap 9.8 mmol/L (4.00-12.00); BUN/Creat Ratio 24.29 Ratio (12.00-20.00); Calcium 9.4 mg/dL (8.7-10.3); Carbon Dioxide 25.2 mmol/L (21.6-31.8); Globulin 1.7 g/dL (1.6-3.3); Potassium 4.8 mmol/L (3.5-5.5); Total Bilirubin 0.3 mg/dL (0.2-1.2); Total Protein 5.8 g/dL (6.2-8.2)
== END | disposition home or self-care (01) ==
LOC: LABWHC1 06:55
DX: C22.0 Liver cell carcinoma (principal)
CPT/HCPCS: 36415; 80053; 82105; 85025

== ENCOUNTER → 2018-12-17 | Outpatient (CLI) | payer MEDICARE, BC ==
[2018-12-17 15:57] LABS: INR 0.9 (<1.2); Partial Thromboplastin Time 26.9 sec (22.0-30.0); Prothrombin Time 9.4 sec (9.0-12.0)
[2018-12-17 19:00] LABS: ALT 51 U/L (8-44); AST 39 U/L (13-35); African American GFR (CKD) 38.5 (60.0-200.0); Albumin/Globulin Ratio 2.33 (1.60-3.17); Alkaline Phosphatase 313 U/L (41-126); BUN/Creat Ratio 31.88 Ratio (12.00-20.00); Bilirubin, Conjugated <0.20 mg/dL (0.20-0.40); Calcium 9.6 mg/dL (8.7-10.3); Carbon Dioxide 23.2 mmol/L (21.6-31.8); Chloride 96 mmol/L (96-109); Globulin 1.8 g/dL (1.6-3.3); Glucose 180 mg/dL (70-110); Potassium 5.1 mmol/L (3.5-5.5); Sodium 130 mmol/L (135-145); Total Bilirubin 0.2 mg/dL (0.2-1.2)
== END | disposition home or self-care (01) ==
LOC: LABWHC1 14:50
PROVIDERS: ATTEND Internal Medicine Hepatology
DX: K75.81 Nonalcoholic steatohepatitis (NASH) (principal); Z76.82 Awaiting organ transplant status; K74.69 Other cirrhosis of liver
CPT/HCPCS: 36415; 80053; 82105; 82248; 85610; 85730

== ENCOUNTER 2018-12-23 07:13 | Day surgery (SDC) | payer MEDICARE, BC ==
[2018-12-21 17:39] VITALS: BMI 41.8
[~2018-12-23 07:13] MED LIST changes: +LIDOCAINE 1% 20 ML VIAL (10MG/ML) FOR IV START INTRADERMA PRN
[2018-12-23 07:59] VITALS: TEMP 97.2
[2018-12-23 08:00] LABS: Glucose,Whole Blood 128 mg/dL (75-99)
[2018-12-23] MEDS ORDERED: PROPOFOL 10 MG/ML 20 ML VIAL IV ONE (08:40)
--- NOTE | 2018-12-23 09:09 | P.PCN ---
Date of Procedure: 12/23/18 Procedure(s) Performed: BRIEF HISTORY: Patient is a 68-year-old pleasant female, scheduled for an elective colonoscopy as a part of evaluation of prior history of colon polyps. Last colonoscopy was in June 2018 showed 3 polyps in the ascending colon measuring about 2-3 cm in size and 2 cm hepatic flexure polyp all of which revealed adenoma. She is scheduled for a surveillance colonoscopy to ensure complete polypectomy PROCEDURE PERFORMED: Colonoscopy. PREOPERATIVE DIAGNOSIS: History of colon polyps IV sedation per Anesthesia. PROCEDURE: After informed consent was obtained, the patient, was brought into the endoscopy unit. IV sedation was administered by Anesthesia under continuous monitoring. Digital rectal examination was normal. Initially the Olympus CF-160 flexible video colonoscope was then inserted in the rectum, gradually advanced into the cecum without any difficulty. Careful examination was performed as the scope was gradually being withdrawn. Ileocecal valve and the appendiceal orifice were visualized and appeared normal. Prep was excellent. Mucosa of the cecum, ascending colon, transverse colon, descending colon, sigmoid colon, and rectum appeared normal. Scattered sigmoidal diverticula cyst seen. Retroflexion was performed in the rectum and no lesions were seen. The patient tolerated the procedure well. IMPRESSION: Normal-appearing colon from rectum to cecum with no evidence of residual polyps Scattered sigmoid diverticula. RECOMMENDATIONS: Findings of this examination were discussed with the patient as well as her family. She was advised to have a repeat surveillance colonoscopy in 3 years.
[2018-12-23 09:36] VITALS: BP 112/75; PULSE 70; RESP 18
== END 2018-12-23 10:02 | disposition home or self-care (01) ==
LOC: ORWHC2ENDO 07:13
PROVIDERS: ATTEND Internal Medicine Gastroenterology
DX: Z12.11 Encounter for screening for malignant neoplasm of colon (principal); Z86.010 Personal history of colon polyps; K57.30 Diverticulosis of large intestine without perforation or abscess without bleeding; E11.9 Type 2 diabetes mellitus without complications; E78.5 Hyperlipidemia, unspecified; Z88.0 Allergy status to penicillin; Z88.2 Allergy status to sulfonamides; Z88.1 Allergy status to other antibiotic agents; Z88.5 Allergy status to narcotic agent; I10 Essential (primary) hypertension; Z79.84 Long term (current) use of oral hypoglycemic drugs; Z79.899 Other long term (current) drug therapy
CPT/HCPCS: G0105; J2704; 45378

== ENCOUNTER → 2019-01-07 | Outpatient (CLI) | payer MEDICARE, BC ==
[2019-01-07 07:21] LABS: Basophils % (A) 0 %; Eosinophils # (A) 0.2 k/uL (0-0.7); Eosinophils % (A) 3 %; HCT 35.6 % (34.0-46.0); HGB 11.8 gm/dL (11.4-16.0); Lymphocytes # (A) 1.2 k/uL (1.0-4.8); Lymphocytes % (A) 14 %; MCH 29.4 pg (25.0-35.0); MCHC 33.2 g/dL (31.0-37.0); MCV 88.5 fL (80.0-100.0); Mean Platelet Volume 6.3; Monocytes # (A) 0.6 k/uL (0-1.0); Monocytes % (A) 6 %; Neutrophils # (A) 6.8 k/uL (1.3-7.7); Neutrophils % (A) 76 %; Platelet Count 371 k/uL (150-450); RBC 4.02 m/uL (3.80-5.40); RDW 13.9 % (11.5-15.5); WBC 8.9 k/uL (3.8-10.6)
[2019-01-07 07:36] LABS: INR 0.8 (<1.2); Prothrombin Time 9.3 sec (9.0-12.0)
[2019-01-07 07:37] LABS: Partial Thromboplastin Time 26.6 sec (22.0-30.0)
[2019-01-07 12:07] LABS: African American GFR (CKD) 38.5 (60.0-200.0); Albumin 4.1 g/dL (3.80-4.90); Albumin/Globulin Ratio 2.28 (1.60-3.17); Anion Gap 9.1 mmol/L (4.00-12.00); BUN/Creat Ratio 24.38 Ratio (12.00-20.00); Calcium 9.3 mg/dL (8.7-10.3); Carbon Dioxide 24.9 mmol/L (21.6-31.8); Chol/HDL Ratio 2.26; Globulin 1.8 g/dL (1.6-3.3); LDL Cholesterol,Calculated 58.6 mg/dL (0.0-131.0); Potassium 4.7 mmol/L (3.5-5.5); Total Bilirubin 0.3 mg/dL (0.3-1.2); Total Protein 5.9 g/dL (6.2-8.2); VLDL Calculation 19.4 mg/dL (5.00-40.00)
[2019-01-07 16:43] LABS: Hemoglobin A1C 5.9 % (4.0-6.0)
== END | disposition home or self-care (01) ==
LOC: LABWHC1 06:40
PROVIDERS: ATTEND Radiology Diagnostic Radiology
DX: C22.8 Malignant neoplasm of liver, primary, unspecified as to type (principal); E11.9 Type 2 diabetes mellitus without complications
CPT/HCPCS: 36415; 80053; 80061; 83036; 84443; 85025; 85610; 85730

== ENCOUNTER → 2019-03-09 | Outpatient (CLI) | payer MEDICARE, BC ==
[2019-03-09 07:53] LABS: ALT 89 U/L (9-52); AST 66 U/L (14-36); African American GFR (CKD) 50 (>60 ml/min/1.73 sqM); Albumin 3.7 g/dL (3.5-5.0); Albumin/Globulin Ratio 1.3; Alkaline Phosphatase 305 U/L (38-126); Anion Gap 9 mmol/L; Bilirubin,Unconjugated 0.2 mg/dL (0.0-1.1); Blood Urea Nitrogen 34 mg/dL (7-17); Calcium 9.2 mg/dL (8.4-10.2); Carbon Dioxide 24 mmol/L (22-30); Chloride 101 mmol/L (98-107); Globulin 2.8 g/dL; Glucose 92 mg/dL (74-99); Potassium 4.7 mmol/L (3.5-5.1); Sodium 134 mmol/L (137-145); Total Bilirubin 0.3 mg/dL (0.2-1.3); Total Protein 6.5 g/dL (6.3-8.2)
[2019-03-09 08:26] LABS: Basophils % (A) 0 %; Eosinophils # (A) 0.2 k/uL (0-0.7); Eosinophils % (A) 3 %; HCT 35.3 % (34.0-46.0); HGB 11.6 gm/dL (11.4-16.0); Lymphocytes # (A) 0.7 k/uL (1.0-4.8); Lymphocytes % (A) 11 %; MCH 29.9 pg (25.0-35.0); MCHC 32.7 g/dL (31.0-37.0); MCV 91.4 fL (80.0-100.0); Mean Platelet Volume 5.9; Monocytes # (A) 0.4 k/uL (0-1.0); Monocytes % (A) 5 %; Neutrophils # (A) 5.4 k/uL (1.3-7.7); Neutrophils % (A) 79 %; Platelet Count 311 k/uL (150-450); RBC 3.87 m/uL (3.80-5.40); RDW 12.7 % (11.5-15.5); WBC 6.8 k/uL (3.8-10.6)
== END | disposition home or self-care (01) ==
LOC: LABWHC1 06:50
PROVIDERS: ATTEND Radiology Diagnostic Radiology
DX: C22.0 Liver cell carcinoma (principal)
CPT/HCPCS: 36415; 80048; 80076; 82105; 85025

== ENCOUNTER 2019-03-27 18:21 | Inpatient (IN) | payer MEDICARE, BC ==
[2019-03-27] MEDS ORDERED: ONDANSETRON 4 MG/2 ML VIAL IVP STA (18:40)
[2019-03-27] MEDS ORDERED: SODIUM CHLORIDE 0.9% 1,000 ML IV STA (18:40)
[2019-03-27] MEDS: HYDROmorphone 1 MG/ML 1 ML SYRINGE IVP STA ×2 (18:56→19:08)
[2019-03-27 19:16] LABS: Appearance,Urine Clear (Clear); Basophils # (A) 0.1 k/uL (0-0.2); Basophils % (A) 1 %; Bilirubin,Urine Negative (Negative); Blood,Urine Negative (Negative); Color,Urine Light Yellow; Eosinophils # (A) 0.1 k/uL (0-0.7); Eosinophils % (A) 1 %; Glucose,Urine (UA) Negative (Negative); HCT 35.8 % (34.0-46.0); HGB 11.8 gm/dL (11.4-16.0); Ketones,Urine Negative (Negative); Leukocyte Esterase,Urine Negative (Negative); Lymphocytes # (A) 0.6 k/uL (1.0-4.8); Lymphocytes % (A) 5 %; MCH 29.7 pg (25.0-35.0); MCHC 32.9 g/dL (31.0-37.0); MCV 90.2 fL (80.0-100.0); Mean Platelet Volume 6.7; Monocytes # (A) 0.6 k/uL (0-1.0); Monocytes % (A) 4 %; Neutrophils # (A) 11.3 k/uL (1.3-7.7); Neutrophils % (A) 88 %; Nitrite,Urine Negative (Negative); Platelet Count 326 k/uL (150-450); Protein,Urine Negative (Negative); RBC 3.96 m/uL (3.80-5.40); RDW 12.6 % (11.5-15.5); Specific Gravity,Urine 1.008 (1.001-1.035); Urobilinogen,Urine <2.0 mg/dL (<2.0); WBC 12.7 k/uL (3.8-10.6)
--- NOTE | 2019-03-27 19:17 | ED ---
Abdominal Pain HPI - General Chief Complaint: Abdominal Pain Stated Complaint: ABD PAIN Time Seen by Provider: 03/27/19 18:31 Source: patient, EMS Mode of arrival: EMS Limitations: physical limitation - History of Present Illness Initial Comments: 68-year-old female patient with past medical history significant for hepatocellular carcinoma with last radiation treatment being in January, presents to the emergency department today for evaluation of mid abdominal pain. Patient states this started approximately half an hour prior to arrival. Patient states she just finished eating dinner, she had a turkey meal. Patient states she has been nauseated with pain onset. Denies any radiation of the pain through to her back. Denies fever or chills. She has had 2 episodes of diarrhea today. Denies any hematochezia, melena, hematemesis. Denies hem aturia, dysuria, urinary frequency, urinary urgency. She has had liver resection and cholecystectomy in the past. She denies any chest pain or shortness of breath. Patient denies any recent rash, numbness, tingling, dizziness, weakness, headache, visual changes, or any other complaints. - Related Data Home Medications Medication Instructions Recorded Confirmed Furosemide [Lasix] 40 mg PO BID 10/20/15 12/23/18 Potassium Chloride ER [K-Dur 20] 20 meq PO BID 10/20/15 12/23/18 Simvastatin [Zocor] 40 mg PO HS 10/20/15 12/23/18 Spironolactone [Aldactone] 25 mg PO BID 10/20/15 12/23/18 glipiZIDE XL [Glucotrol XL] 5 mg PO BID 10/20/15 12/23/18 ALPRAZolam [Xanax] 0.25 mg PO BID PRN 01/22/17 12/23/18 Acetaminophen [Tylenol Extra 500 mg PO Q6H PRN 12/21/18 12/23/18 Strength] Albuterol Inhaler [Ventolin Hfa 1 - 2 puff INHALATION RT-Q6H PRN 12/21/18 12/23/18 Inhaler] Lisinopril [Prinivil] 10 mg PO BID 12/21/18 12/23/18 Loratadine [Claritin] 10 mg PO HS 12/21/18 12/23/18 Fluticasone Nasal [place] [Flonase 1 spray EA NOSTRIL DAILY 03/27/19 03/27/19 Nasal [place]] Ondansetron Odt [Zofran Odt] 4 mg PO Q8HR PRN 03/27/19 03/27/19 Sennosides/Docusate Sodium 1 tab PO DAILY PRN 03/27/19 03/27/19 [Senna-S Laxative Tablet] metFORMIN HCL [Glucophage] 500 mg PO BID 03/27/19 03/27/19 Allergies Allergy/AdvReac Type Severity Reaction Status Date / Time ciprofloxacin [From Cipro] Allergy Dyspnea Verified 03/27/19 21:45 ciprofloxacin HCl Allergy Dyspnea Verified 03/27/19 21:45 [From Cipro] Penicillins Allergy Rash/Hives Verified 03/27/19 21:45 Sulfa (Sulfonamide Allergy Rash/Hives Verified 03/27/19 21:45 Antibiotics) hydromorphone [From Dilaudid] AdvReac Itching Verified 03/27/19 21:45 morphine AdvReac Vomiting Verified 03/27/19 21:45 Review of Systems ROS Statement: Those systems with pertinent positive or pertinent negative responses have been documented in the HPI. ROS Other: All systems not noted in ROS Statement are negative. Past Medical History Past Medical History: Cancer Additional Past Medical History / Comment(s): past hx migraines, varicose veins, heart murmer, liver cancer(waiting for liver transplant), stage 3 kidney disease History of Any Multi-Drug Resistant Organisms: None Reported Past Surgical History: Section, Cholecystectomy, Hernia Repair, Hysterectomy, Joint Replacement, Orthopedic Surgery, Tubal Ligation Additional Past Surgical History / Comment(s): sergey knees replacement, ORIF left ankle, left achilles repair, lt wrist surg to remove cyst. rt bunionectomy, total lt hip replacement, liver mass biopsy, liver resection 09/13/16, rt knee revision 2016, radiation to liver Past Anesthesia/Blood Transfusion Reactions: No Reported Reaction Additional Past Anesthesia/Blood Transfusion Reaction / Comment(s): denies PONV Past Psychological History: Anxiety, Panic Disorder Smoking Status: Former smoker Past Alcohol Use History: None Reported Past Drug Use History: None Reported - Past Family History Mother Family Medical History: Dementia, Hypertension Sister(s) Family Medical History: Cancer Additional Family Medical History / Comment(s): breast General Exam Limitations: physical limitation General appearance: alert, in no apparent distress, other (This is a well- developed, well-nourished adult female patient in mild distress related to pain. Vital signs upon presentation are temperature 98.0F, pulse 75, respirations 19, blood pressure 135/102, pulse ox 100% on room air.) Eye exam: Present: normal appearance, PERRL, EOMI. Absent: scleral icterus, conjunctival injection, periorbital swelling ENT exam: Present: normal exam, normal oropharynx, mucous membranes moist Respiratory exam: Present: normal lung sounds bilaterally. Absent: respiratory distress, wheezes, rales, rhonchi, stridor Cardiovascular Exam: Present: regular rate, normal rhythm, normal heart sounds. Absent: systolic murmur, diastolic murmur, rubs, gallop, clicks GI/Abdominal exam: Present: soft, tenderness (Left lower quadrant and right mid abdomen tenderness), normal bowel sounds. Absent: distended, guarding, rebound, rigid Neurological exam: Present: alert, oriented X3, CN II-XII intact Psychiatric exam: Present: normal affect, normal mood Skin exam: Present: warm, dry, intact, normal color. Absent: rash Course Vital Signs 03/27/19 03/27/19 18:24 20:51 Temperature 98.0 F 97.7 F Pulse Rate 75 71 Respiratory 19 16 Rate Blood Pressure 135/102 117/55 O2 Sat by Pulse 100 97 Oximetry Medical Decision Making - Medical Decision Making 68-year-old female patient presents to the emergency department today for evaluation of sudden onset abdominal pain and nausea. Physical examination did reveal right mid abdomen tenderness left lower quadrant tenderness. There is presence of an umbilical hernia. Labs reviewed and did reveal elevated white blood cell count at 12.5. She has low sodium at 129, elevated potassium of 5.2, acute on chronic kidney injury. Liver enzymes are chronically elevated. CT abdomen and pelvis without contrast was obtained and did show evidence for possible incarcerated umbilical hernia with high-grade bowel obstruction. We did start cefepime. Patient is a history of hepatocellular carcinoma, last radiation treatment was in January. She is being evaluated currently for a liver transplant, she is managed by Dr. Laurita Zhang MD at [facility], . I did speak to their on-machine scallop cutter who stated given patient's MELD score she seems a low risk for decompensation from surgery. She stated that patient could be transferred should she have any complications or decompensation after the procedure. I did discuss findings, results, and plan with the patient, they are agreeable. Patient will be admitted to Dr. Rahman, possible surgery this evening. Dr. Babcock will be consulted for medical management. - Lab Data Result diagrams: 03/27/19 18:45 03/27/19 18:45 Lab Results 03/27/19 03/27/19 03/27/19 Range/Units 18:45 18:45 18:45 WBC 12.7 H (3.8-10.6) k/uL RBC 3.96 (3.80-5.40) m/uL Hgb 11.8 (11.4-16.0) gm/dL Hct 35.8 (34.0-46.0) % MCV 90.2 (80.0-100.0) fL MCH 29.7 (25.0-35.0) pg MCHC 32.9 (31.0-37.0) g/dL RDW 12.6 (11.5-15.5) % Plt Count 326 (150-450) k/uL Neutrophils % 88 % Lymphocytes % 5 % Monocytes % 4 % Eosinophils % 1 % Basophils % 1 % Neutrophils # 11.3 H (1.3-7.7) k/uL Lymphocytes # 0.6 L (1.0-4.8) k/uL Monocytes # 0.6 (0-1.0) k/uL Eosinophils # 0.1 (0-0.7) k/uL Basophils # 0.1 (0-0.2) k/uL Sodium 129 L (137-145) mmol/L Potassium 5.2 H (3.5-5.1) mmol/L Chloride 97 L (98-107) mmol/L Carbon Dioxide 22 (22-30) mmol/L Anion Gap 10 mmol/L BUN 29 H (7-17) mg/dL Creatinine 1.68 H (0.52-1.04) mg/dL Est GFR (CKD-EPI)AfAm 36 (>60 ml/min/1.73 sqM) Est GFR (CKD-EPI)NonAf 31 (>60 ml/min/1.73 sqM) Glucose 235 H (74-99) mg/dL Plasma Lactic Acid Ja 1.4 (0.7-2.0) mmol/L Calcium 9.5 (8.4-10.2) mg/dL Total Bilirubin 0.3 (0.2-1.3) mg/dL AST 40 H (14-36) U/L ALT 59 H (9-52) U/L Alkaline Phosphatase 294 H (38-126) U/L Troponin I (0.000-0.034) ng/mL Total Protein 6.6 (6.3-8.2) g/dL Albumin 4.0 (3.5-5.0) g/dL Amylase 75 (30-110) U/L Lipase 282 (23-300) U/L Urine Color Urine Appearance (Clear) Urine pH (5.0-8.0) Ur Specific Turner (1.001-1.035) Urine Protein (Negative) Urine Glucose (UA) (Negative) Urine Ketones (Negative) Urine Blood (Negative) Urine Nitrite (Negative) Urine Bilirubin (Negative) Urine Urobilinogen (<2.0) mg/dL Ur Leukocyte Esterase (Negative) 03/27/19 03/27/19 Range/Units 18:45 18:45 WBC (3.8-10.6) k/uL RBC (3.80-5.40) m/uL Hgb (11.4-16.0) gm/dL Hct (34.0-46.0) % MCV (80.0-100.0) fL MCH (25.0-35.0) pg MCHC (31.0-37.0) g/dL RDW (11.5-15.5) % Plt Count (150-450) k/uL Neutrophils % % Lymphocytes % % Monocytes % % Eosinophils % % Basophils % % Neutrophils # (1.3-7.7) k/uL Lymphocytes # (1.0-4.8) k/uL Monocytes # (0-1.0) k/uL Eosinophils # (0-0.7) k/uL Basophils # (0-0.2) k/uL Sodium (137-145) mmol/L Potassium (3.5-5.1) mmol/L Chloride (98-107) mmol/L Carbon Dioxide (22-30) mmol/L Anion Gap mmol/L BUN (7-17) mg/dL Creatinine (0.52-1.04) mg/dL Est GFR (CKD-EPI)AfAm (>60 ml/min/1.73 sqM) Est GFR (CKD-EPI)NonAf (>60 ml/min/1.73 sqM) Glucose (74-99) mg/dL Plasma Lactic Acid Ja (0.7-2.0) mmol/L Calcium (8.4-10.2) mg/dL Total Bilirubin (0.2-1.3) mg/dL AST (14-36) U/L ALT (9-52) U/L Alkaline Phosphatase (38-126) U/L Troponin I <0.012 (0.000-0.034) ng/mL Total Protein (6.3-8.2) g/dL Albumin (3.5-5.0) g/dL Amylase (30-110) U/L Lipase (23-300) U/L Urine Color Light Yellow Urine Appearance Clear (Clear) Urine pH 5.0 (5.0-8.0) Ur Specific Turner 1.008 (1.001-1.035) Urine Protein Negative (Negative) Urine Glucose (UA) Negative (Negative) Urine Ketones Negative (Negative) Urine Blood Negative (Negative) Urine Nitrite Negative (Negative) Urine Bilirubin Negative (Negative) Urine Urobilinogen <2.0 (<2.0) mg/dL Ur Leukocyte Esterase Negative (Negative) - EKG Data -: EKG Interpreted by Nv EKG Comments: EKG obtained at 1905 shows normal sinus rhythm with a ventricular rate of 74, OK interval 156, QRS duration 98, QT 426, QTc 472. No evidence of ST elevation or depression. - Radiology Data Radiology results: report reviewed, image reviewed CT abdomen and pelvis without contrast was obtained. Report was reviewed in its entirety. Impression by Dr. Sanford shows small bowel structure associated with umbilical hernia containing multiple small bowel loops. The hernia sac measures 13.4 x 2.5 cm. Suspect high-grade instructions given at the Loop the greatest dilatation at 4.2 cm shows pronounced associated mesenteric edema. No pneumatosis or free air seen. Comparison to any available outside prior to be needed at there is approximately 5 underlying liver lesions. No history and pr ior exams did however cancer. Residual or recurrent neoplasm was not excluded at this time. Focal consolidation posterior medial right base. Correlate for an infectious signs symptoms to exclude pneumonia. Disposition Clinical Impression: Bowel obstruction, Umbilical hernia Disposition: ADMITTED IP TO THIS [facility] Condition: Serious Referrals: Herber Babcock MD [Primary Care Provider] - 1-2 days Decision to Admit Reason: Admit from EC Decision Date: 03/27/19 Decision Time: 21:53
[2019-03-27 19:25] LABS: Calcium 9.5 mg/dL (8.4-10.2); Potassium 5.2 mmol/L (3.5-5.1); Total Bilirubin 0.3 mg/dL (0.2-1.3); Total Protein 6.6 g/dL (6.3-8.2)
--- NOTE | 2019-03-27 20:10 | CT ---
EXAMINATION TYPE: CT abdomen pelvis wo con DATE OF EXAM: 03/27/2019 COMPARISON: 05/11/2016 HISTORY: 68-year-old female Right lower quadrant abdominal pain. History from prior exam states liver cancer. CT DLP: 1414.4 mGycm. Automated exposure control for dose reduction was used. TECHNIQUE: Contiguous axial scanning of the abdomen and pelvis without IV contrast. Coronal and sagit paul reconstructions performed. FINDINGS: Heart upper limits of normal in size without pericardial effusion. There is some patchy consolidation posteromedial right base. No pleural effusion. Focal 1.3 cm hypodensity right hepatic dome not clearly seen on 05/11/2016. 1.7 cm hypodensity inferior right liver lobe. There seems to have been a much larger lesion measuring 6.5 cm back on 05/11/2016 in this region. Vague areas of hypodensity, one along the anterior right liver lobe, axial image 26, one centrally on axial image 34, and 1 along the caudate on axial image 38. These areas are all indeterminate and wer e not clearly seen previously. Focal fat is possible as well as underlying masses. Gallbladder surgically absent. Adrenal glands, spleen, and pancreas show no gross abnormality by noncontrast CT. Kidneys show bilateral prominent perinephric stranding. Findings could reflect chronic kidney disease or senescent change. Scattered distended small bowel loops measuring up to 3.0 cm. Greater degree of small bowel dilatatio n in the lower abdomen measuring up to 4.2 cm with air-fluid levels and suspected transition point as sociated with an umbilical hernia measuring 13.4 cm wide and 12.5 cm craniocaudal containing multiple small bowel loops. The loop showing greatest dilatation of 4.2 cm in the anterior right lower quadrant shows correspondi ng pronounced mesenteric edema. No pneumatosis or free air is seen. Normal appendix is visualized. Scattered mild stool burden. Mild left-sided colonic diverticulosis. N o pericolonic inflammatory change. Bladder nondistended. No abnormal fluid collection in the pelvis. Uterus surgically absent. Neither o vary clearly visualized. Obvious scattered prominent mesenteric lymph nodes measure up to 7 mm. No pelvic lymphadenopathy. Bones: Left hip total arthroplasty. Advanced degenerative changes right hip. Facet arthropathy lower lumbar spine. [facility] within the lower thoracic spine. IMPRESSION: 1. Small bowel obstruction associated with an umbilical hernia containing multiple small bowel loops . The hernia sac measures 13.4 x 2.5 cm. 2. Suspect high-grade obstruction given that the loop with greatest dilatation (4.2 cm) shows pronou nced associated mesenteric edema. No pneumatosis or free air seen. 3. Comparison to any available outside priors will be needed as there are approximately 5 underlying liver lesions. We note history on prior exam stating liver cancer. Residual or recurrent neoplasm no t excluded at this time. 4. Focal consolidation posteromedial right base. Correlate for an infectious signs/symptoms to exclu de pneumonia.
[2019-03-27] MEDS ORDERED: CEFEPIME 2 GM in SODIUM CHLORIDE 0.9% 100 ML IVPB STA (20:50)
[2019-03-27] MEDS ORDERED: NALOXONE 0.4 MG/ML 1 ML VIAL IV PRN (21:46)
[2019-03-27 21:59] LABS: INR 0.9 (<1.2); Partial Thromboplastin Time 27.1 sec (22.0-30.0); Prothrombin Time 9.5 sec (9.0-12.0)
--- NOTE | 2019-03-27 22:23 | P.GSHP ---
History of Present Illness H&P Date: 03/27/19 This is a 68-year-old female that presented to the emergency department with complaints of abdominal pain and nausea. She states that the pain started earlier in this day and worsened. She states that she felt as if she was getting lightheaded and was going to pass out. She complained of severe nausea that she has never felt before. She is known to have a competent medical history with hepatocellular carcinoma. She did undergo a partial hepatectomy and cholecystectomy along with angioembolization for her diagnosis of HCC. She is also had multiple abdominal surgeries including 3 C-sections, a hysterectomy and a previous hernia repair. On workup in the emergency department, the patient was found to have an incarcerated umbilical hernia that was causing a high-grade small bowel obstruction. Multiple attempts were made to reduce this hernia that were unsuccessful. - Review of Systems All systems: negative Past Medical History Past Medical History: Cancer Additional Past Medical History / Comment(s): past hx migraines, varicose veins, heart murmer, liver cancer(waiting for liver transplant), stage 3 kidney disease History of Any Multi-Drug Resistant Organisms: None Reported Past Surgical History: Section, Cholecystectomy, Hernia Repair, Hysterectomy, Joint Replacement, Orthopedic Surgery, Tubal Ligation Additional Past Surgical History / Comment(s): sergey knees replacement, ORIF left ankle, left achilles repair, lt wrist surg to remove cyst. rt bunionectomy, total lt hip replacement, liver mass biopsy, liver resection 09/13/16, rt knee revision 2016, radiation to liver Past Anesthesia/Blood Transfusion Reactions: No Reported Reaction Additional Past Anesthesia/Blood Transfusion Reaction / Comment(s): denies PONV Past Psychological History: Anxiety, Panic Disorder Smoking Status: Former smoker Past Alcohol Use History: None Reported Past Drug Use History: None Reported - Past Family History Mother Family Medical History: Dementia, Hypertension Sister(s) Family Medical History: Cancer Additional Family Medical History / Comment(s): breast Medications and Allergies Home Medications Medication Instructions Recorded Confirmed Type Furosemide [Lasix] 40 mg PO BID 10/20/15 03/27/19 History Potassium Chloride ER [K-Dur 20] 20 meq PO BID 10/20/15 03/27/19 History Simvastatin [Zocor] 40 mg PO HS 10/20/15 03/27/19 History Spironolactone [Aldactone] 25 mg PO BID 10/20/15 03/27/19 History glipiZIDE XL [Glucotrol XL] 5 mg PO BID 10/20/15 03/27/19 History ALPRAZolam [Xanax] 0.25 mg PO BID PRN 01/22/17 03/27/19 History Acetaminophen [Tylenol Extra 500 mg PO Q8H PRN 12/21/18 03/27/19 History Strength] Albuterol Inhaler [Ventolin Hfa 1 - 2 puff INHALATION RT-Q6H PRN 12/21/18 03/27/19 History Inhaler] Lisinopril [Prinivil] 10 mg PO BID 12/21/18 03/27/19 History Loratadine [Claritin] 10 mg PO HS 12/21/18 03/27/19 History Fluticasone Nasal [place] [Flonase 1 spray EA NOSTRIL DAILY 03/27/19 03/27/19 History Nasal [place]] Ondansetron Odt [Zofran Odt] 4 mg PO Q8HR PRN 03/27/19 03/27/19 History Sennosides/Docusate Sodium 1 tab PO DAILY PRN 03/27/19 03/27/19 History [Senna-S Laxative Tablet] metFORMIN HCL [Glucophage] 500 mg PO BID 03/27/19 03/27/19 History Allergies Allergy/AdvReac Type Severity Reaction Status Date / Time ciprofloxacin [From Cipro] Allergy Dyspnea Verified 03/27/19 21:45 ciprofloxacin HCl Allergy Dyspnea Verified 03/27/19 21:45 [From Cipro] Penicillins Allergy Rash/Hives Verified 03/27/19 21:45 Sulfa (Sulfonamide Allergy Rash/Hives Verified 03/27/19 21:45 Antibiotics) hydromorphone [From Dilaudid] AdvReac Itching Verified 03/27/19 21:45 morphine AdvReac Vomiting Verified 03/27/19 21:45 Surgical - Exam Osteopathic Statement: *. No significant issues noted on an osteopathic structural exam other than those noted in the History and Physical/Consult. Vital Signs Temp Pulse Resp BP Pulse Ox 98.0 F 75 19 135/102 100 03/27/19 18:24 03/27/19 18:24 03/27/19 18:24 03/27/19 18:24 03/27/19 18:24 - General moderate pain - Neck no bruits, trachea midline - Respiratory No difficulty with respiration - Abdomen Soft, tender to palpation, mild distention, large umbilical hernia, no rebound, no guarding - Psychiatric oriented to time, oriented to person, oriented to place Results - Labs 03/27/19 18:45 03/27/19 18:45 Abnormal Lab Results - Last 24 Hours (Table) 03/27/19 03/27/19 Range/Units 18:45 18:45 WBC 12.7 H (3.8-10.6) k/uL Neutrophils # 11.3 H (1.3-7.7) k/uL Lymphocytes # 0.6 L (1.0-4.8) k/uL Sodium 129 L (137-145) mmol/L Potassium 5.2 H (3.5-5.1) mmol/L Chloride 97 L (98-107) mmol/L BUN 29 H (7-17) mg/dL Creatinine 1.68 H (0.52-1.04) mg/dL Glucose 235 H (74-99) mg/dL AST 40 H (14-36) U/L ALT 59 H (9-52) U/L Alkaline Phosphatase 294 H (38-126) U/L Diabetes panel 03/27/19 Range/Units 18:45 Sodium 129 L (137-145) mmol/L Potassium 5.2 H (3.5-5.1) mmol/L Chloride 97 L (98-107) mmol/L Carbon Dioxide 22 (22-30) mmol/L BUN 29 H (7-17) mg/dL Creatinine 1.68 H (0.52-1.04) mg/dL Glucose 235 H (74-99) mg/dL Calcium 9.5 (8.4-10.2) mg/dL AST 40 H (14-36) U/L ALT 59 H (9-52) U/L Alkaline Phosphatase 294 H (38-126) U/L Total Protein 6.6 (6.3-8.2) g/dL Albumin 4.0 (3.5-5.0) g/dL Calcium panel 03/27/19 Range/Units 18:45 Calcium 9.5 (8.4-10.2) mg/dL Albumin 4.0 (3.5-5.0) g/dL Pituitary panel 03/27/19 Range/Units 18:45 Sodium 129 L (137-145) mmol/L Potassium 5.2 H (3.5-5.1) mmol/L Chloride 97 L (98-107) mmol/L Carbon Dioxide 22 (22-30) mmol/L BUN 29 H (7-17) mg/dL Creatinine 1.68 H (0.52-1.04) mg/dL Glucose 235 H (74-99) mg/dL Calcium 9.5 (8.4-10.2) mg/dL Adrenal panel 03/27/19 Range/Units 18:45 Sodium 129 L (137-145) mmol/L Potassium 5.2 H (3.5-5.1) mmol/L Chloride 97 L (98-107) mmol/L Carbon Dioxide 22 (22-30) mmol/L BUN 29 H (7-17) mg/dL Creatinine 1.68 H (0.52-1.04) mg/dL Glucose 235 H (74-99) mg/dL Calcium 9.5 (8.4-10.2) mg/dL Total Bilirubin 0.3 (0.2-1.3) mg/dL AST 40 H (14-36) U/L ALT 59 H (9-52) U/L Alkaline Phosphatase 294 H (38-126) U/L Total Protein 6.6 (6.3-8.2) g/dL Albumin 4.0 (3.5-5.0) g/dL Assessment and Plan (1) Bowel obstruction Narrative/Plan: 68-year-old female with bowel obstruction secondary to incarcerated umbilical hernia - I had a long discussion with the patient and the patient's about her current status. There is concern for a strangulated hernia and a high-grade bowel obstruction. The treatment for this would be surgical intervention. The case was also discussed with her legal records manager with clearance for surgery. The recommendation of transfer if any evidence of liver decompensation postoper atively was made by her legal records manager at [facility]. The patient is noted to have had a prolonged course from previous surgery with infection. This was also discussed with the patient. Due to string regulated bowel, there is a risk of infection. The patient is agreeable with surgical intervention. Current Visit: Yes Status: Acute Code(s): K56.609 - UNSP INTESTNL OBST, UNSP TO PARTIAL VERSUS COMPLETE OBST SNOMED Code(s): 29537436
[2019-03-27] MEDS ORDERED: ROCURONIUM BROMIDE 10 MG/ML 10 ML VIAL IV ONE (22:32)
[2019-03-27] MEDS ORDERED: SUCCINYLCHOLINE CHLORIDE 100 MG/5 ML SYR IV ONE (22:32)
[2019-03-27] MEDS ORDERED: MIDAZOLAM 2 MG/2 ML VIAL ONE (22:32)
[2019-03-27] MEDS ORDERED: NEOSTIGMINE 1 MG/ML 10 ML VIAL ONE (22:32)
[2019-03-27] MEDS ORDERED: GLYCOPYRROLATE 0.2 MG/ML 2 ML VIAL ONE (22:32)
[2019-03-27] MEDS ORDERED: PROPOFOL 10 MG/ML 20 ML VIAL IV ONE (22:32)
[2019-03-27] MEDS ORDERED: CLINDAMYCIN 150 MG/ML 4 ML VIAL ONE (22:32)
[2019-03-27] MEDS ORDERED: fentaNYL (PF) 50 MCG/ML 2 ML AMP ONE (22:32)
[2019-03-27] MEDS ORDERED: LIDOCAINE 1% INJ 10MG/ML (20 ML MDV) ONE (22:32)
[2019-03-27] MEDS ORDERED: LACTATED RINGERS 1,000 ML IV ONE ×3 (22:39→23:55)
[2019-03-28] MEDS: fentaNYL (PF) 50 MCG/ML 2 ML AMP IV ONE ×2 (01:00→01:18)
[2019-03-28] MEDS ORDERED: ONDANSETRON 4 MG/2 ML VIAL IVP ONE (01:00)
[2019-03-28 01:27] LABS: Glucose,Whole Blood 146 mg/dL (75-99)
--- NOTE | 2019-03-28 01:43 | P.OP ---
Date of Procedure: 03/28/19 Preoperative Diagnosis: Incarcerated umbilical hernia High-grade small bowel obstruction Postoperative Diagnosis: Strangulated small bowel High-grade small bowel obstruction Extensive intra-abdominal adhesions Procedure(s) Performed: Expiratory laparotomy Extensive lysis of adhesions Small bowel resection Ventral hernia repair Anesthesia: DEBORAH Surgeon: Maciej Rahman Estimated Blood Loss (ml): 50 Pathology: other (Small bowel) Condition: stable Disposition: floor Indications for Procedure: This is a 68-year-old female with known history of hepatocellular carcinoma presents to the emergency department with complaints of abdominal pain. She is noted to be on the transplant list and is followed by box spring upholsterer at [facility]. On workup, the patient was found to have an incarcerated ventral hernia. Concern was for strangulation of bowel. Secondary to this, plan for surgical exploration was made. The patient's box spring upholsterer was contacted by the emergency department with clearance to move forward with surgery and plan for transfer if patient were to have any evidence of fulminant liver failure postoperatively. Operative Findings: Extensive intra-abdominal adhesions Strangulated small bowel Ventral hernia Description of Procedure: The patient was brought into the operating suite and placed in supine position on the operating table. Sedation was provided by anesthesia and the patient underwent endotracheal intubation. The patient was then prepped and draped in regular sterile fashion. A midline incision was made just superior to the umbilicus and carried down towards the pubis. Dissection was then carried towards the palpable hernia sac. The hernia sac was then entered and extensive bowel adhesions was immediately encountered. Meticulous dissection was made to dissect the small bowel adhesions from the surrounding hernia sac, fascia and peritoneum was performed. This did take greater than 60 minutes. Once the small bowel was dissected free from the adhesions, it was eviscerated from the abdomen. The point of obstruction for the noted high-grade small bowel obstruction was noted to have ischemic changes from the adhesions. There was also notable edematous surrounding changes. Secondary to these findings, it was decided to perform a small bowel resection. A proximal and distal point of transection was decided upon and both ends were transected using a 75 AYANNA stapler device. LigaSure was then used to ligate the small bowel from the mesentery. An anastomosis was then created by creating 2 enterotomies and introducing the 75 AYANNA stapler device. The resulting enterotomy was closed with a TX 60 blue stapler. The resulting rent in the mesentery was reapproximated using a 3-0 Vicryl suture. A tension relieving stitch was also placed between the small bowel. The small bowel was then placed back into the abdomen and the abdomen was irrigated thoroughly. The edges of the fascia were noted of the previous ventral hernia. The fascia was closed with looped PDS suture. The skin was then closed with skin meche. The patient was awakened in the operating suite and taken to postanesthesia care unit in stable condition with nasogastric tube in place.
[2019-03-28] MEDS: METOCLOPRAMIDE 5 MG/ML 2 ML VIAL IVP PRN ×2 (02:32→12:30)
[2019-03-28] MEDS: HYDROmorphone 0.5 MG/0.5 ML SYRINGE IVP PRN ×5 (02:36→22:37)
[2019-03-28] MEDS: LACTATED RINGERS 1,000 ML IV SCH ×3 (03:16→15:02)
[2019-03-28 06:41] LABS: Basophils % (A) 0 %; Eosinophils % (A) 0 %; HCT 33.4 % (34.0-46.0); HGB 10.9 gm/dL (11.4-16.0); Lymphocytes # (A) 0.3 k/uL (1.0-4.8); Lymphocytes % (A) 2 %; MCH 29.8 pg (25.0-35.0); MCHC 32.6 g/dL (31.0-37.0); MCV 91.3 fL (80.0-100.0); Monocytes # (A) 0.7 k/uL (0-1.0); Monocytes % (A) 4 %; Neutrophils % (A) 94 %; Platelet Count 329 k/uL (150-450); RBC 3.65 m/uL (3.80-5.40); RDW 12.7 % (11.5-15.5)
[2019-03-28 06:57] LABS: Albumin 3.3 g/dL (3.5-5.0); Calcium 8.9 mg/dL (8.4-10.2); Potassium 4.9 mmol/L (3.5-5.1); Total Bilirubin 0.3 mg/dL (0.2-1.3); Total Protein 5.7 g/dL (6.3-8.2)
[2019-03-28] MEDS: metroNIDAZOLE-NS PMX 500 MG in SALINE 1 100ML.BAG IVPB SCH ×2 (08:11→15:02)
[2019-03-28] MEDS: HEPARIN SODIUM,PORCINE 5,000 UNIT/ML 1 ML VIAL SQ SCH ×2 (08:11→15:02)
[2019-03-28 08:27] LABS: Glucose,Whole Blood 151 mg/dL (75-99)
[2019-03-28] MEDS: PANTOPRAZOLE 40 MG/10 ML VIAL IV SCH (09:24)
[2019-03-28] MEDS ORDERED: BENZOCAINE SPRAY 1 CAN MUCOUS MEM PRN (10:50)
--- NOTE | 2019-03-28 11:51 | P.PN ---
Subjective Progress Note Date: 03/28/19 Patient seen and examined at bedside. Sitting in the chair. Nasogastric tube with minimal output. States abdominal pain is overall well-controlled. No flatus or bowel function. Objective - Vital Signs Vital signs: Vital Signs Temp 97.9 F 03/28/19 07:00 Pulse 72 03/28/19 07:00 Resp 18 03/28/19 07:00 BP 111/69 03/28/19 07:00 Pulse Ox 95 03/28/19 07:00 Intake & Output 03/27/19 03/28/19 03/28/19 18:59 06:59 18:59 Intake Total 1850 Balance 1850 Weight 113.398 kg Intake: IV 1300 Intake, IV Titration 550 Amount Lactated Ringers 1,000 ml 550 @ 125 mls/hr IV .Q8H [facility] Rx#:[id number] Other: Voiding Method Indwelling Catheter Indwelling Catheter - Constitutional General appearance: Present: cooperative, no acute distress - Respiratory Details: No difficulty with respiration - Gastrointestinal Gastrointestinal Comment(s): Soft, appropriate tenderness, mild distention, no rebound, no guarding - Psychiatric Psychiatric: Present: A&O x's 3 - Labs CBC & Chem 7: 03/28/19 06:19 03/28/19 06:19 Labs: Abnormal Lab Results - Last 24 Hours (Table) 03/27/19 03/27/19 03/28/19 Range/Units 18:45 18:45 01:26 WBC 12.7 H (3.8-10.6) k/uL RBC (3.80-5.40) m/uL Hgb (11.4-16.0) gm/dL Hct (34.0-46.0) % Neutrophils # 11.3 H (1.3-7.7) k/uL Lymphocytes # 0.6 L (1.0-4.8) k/uL Sodium 129 L (137-145) mmol/L Potassium 5.2 H (3.5-5.1) mmol/L Chloride 97 L (98-107) mmol/L BUN 29 H (7-17) mg/dL Creatinine 1.68 H (0.52-1.04) mg/dL Glucose 235 H (74-99) mg/dL POC Glucose (mg/dL) 146 H (75-99) mg/dL AST 40 H (14-36) U/L ALT 59 H (9-52) U/L Alkaline Phosphatase 294 H (38-126) U/L Total Protein (6.3-8.2) g/dL Albumin (3.5-5.0) g/dL 03/28/19 03/28/19 03/28/19 Range/Units 06:19 06:19 08:10 WBC 17.0 H (3.8-10.6) k/uL RBC 3.65 L (3.80-5.40) m/uL Hgb 10.9 L (11.4-16.0) gm/dL Hct 33.4 L (34.0-46.0) % Neutrophils # 16.0 H (1.3-7.7) k/uL Lymphocytes # 0.3 L (1.0-4.8) k/uL Sodium 135 L (137-145) mmol/L Potassium (3.5-5.1) mmol/L Chloride (98-107) mmol/L BUN 25 H (7-17) mg/dL Creatinine 1.57 H (0.52-1.04) mg/dL Glucose 164 H (74-99) mg/dL POC Glucose (mg/dL) 151 H (75-99) mg/dL AST (14-36) U/L ALT 56 H (9-52) U/L Alkaline Phosphatase 222 H (38-126) U/L Total Protein 5.7 L (6.3-8.2) g/dL Albumin 3.3 L (3.5-5.0) g/dL Assessment and Plan (1) Bowel obstruction Narrative/Plan: Postoperative day #1, repair of strangulated ventral hernia with small bowel resection - Continue nasogastric tube, await bowel function - Continue to increase activity - Okay for ice chips and chewing gum - Continue DVT prophylaxis - Medical recommendations appreciated - Prognosis is guarded as the patient is noted to have multiple comorbidities and a complicated medical history Current Visit: Yes Status: Acute Code(s): K56.609 - UNSP INTESTNL OBST, UNSP TO PARTIAL VERSUS COMPLETE OBST SNOMED Code(s): 13254947
[2019-03-28 12:04] LABS: Glucose,Whole Blood 149 mg/dL (75-99)
[2019-03-28] MEDS ORDERED: INSULIN ASPART (NovoLOG) 100 UNIT/ML VIAL SQ SCH (12:30)
[2019-03-28] MEDS ORDERED: ENALAPRILAT 1.25 MG/ML 1 ML VIAL IVP PRN (12:35)
[2019-03-28] MEDS ORDERED: ALBUTEROL NEBULIZED 2.5 MG/3 ML INHALATION PRN (12:38)
--- NOTE | 2019-03-28 12:55 | P.HPIM ---
History of Present Illness H&P Date: 03/28/19 Chief Complaint: Abdominal pain Christy Machado is a 68-year-old female well known to my practice who presented to [facility] emergency room with a chief complaint of abdominal pain and nausea, patient also had 2 episodes of diarrhea urine the day, she was evaluation the emergency room, white blood count was elevated at 12.7 she had a computed tomography scan of the abdomen which revealed small bowel obstruction associated with umbilical hernia containing multiple small bowel loops. Patient admitted under surgical service Dr. Rahman and underwent exploratory laparotomy with extensive lysis of adhesion, small bowel resection, and ventral hernia repair. Patient was subsequently admitted to the floor, medical consultation was requested for management while hospitalized. Patient has a known history of hepatocellular carcinoma diagnosed in 2017 patie nt underwent liver surgery, chemotherapy and radiation therapy, she still has evidence of liver cancer, she is following with oncology at [facility], she was last seen there 2 weeks ago. Patient also has a known history of asthma, [id number] diabetes mellitus, chronic kidney disease stage III, and migraine headache. Patient was seen and examined on the medical floor she is alert and oriented 3 in no apparent distress she is complaining of abdominal pain and throat pain NG-tube with in place. Otherwise she denies any complaints there is no fever or chills no headache or dizziness no chest pain or shortness of breath no cough no nausea or vomiting no diarrhea no burning with urination no frequency or urgency and no hematuria. Past Medical History Past Medical History: Cancer Additional Past Medical History / Comment(s): past hx migraines, varicose veins, heart murmer, liver cancer(waiting for liver transplant), stage 3 kidney disease History of Any Multi-Drug Resistant Organisms: None Reported Past Surgical History: Section, Cholecystectomy, Hernia Repair, Hysterectomy, Joint Replacement, Orthopedic Surgery, Tubal Ligation Additional Past Surgical History / Comment(s): sergey knees replacement, ORIF left ankle, left achilles repair, lt wrist surg to remove cyst. rt bunionectomy, total lt hip replacement, liver mass biopsy, liver resection 09/13/16, rt knee revision 2016, radiation to liver Past Anesthesia/Blood Transfusion Reactions: No Reported Reaction Additional Past Anesthesia/Blood Transfusion Reaction / Comment(s): denies PONV Past Psychological History: Anxiety, Panic Disorder Smoking Status: Former smoker Past Alcohol Use History: None Reported Past Drug Use History: None Reported - Past Family History Mother Family Medical History: Dementia, Hypertension Sister(s) Family Medical History: Cancer Additional Family Medical History / Comment(s): breast Medications and Allergies Home Medications Medication Instructions Recorded Confirmed Type Furosemide [Lasix] 40 mg PO BID 10/20/15 03/27/19 History Potassium Chloride ER [K-Dur 20] 20 meq PO BID 10/20/15 03/27/19 History Simvastatin [Zocor] 40 mg PO HS 10/20/15 03/27/19 History Spironolactone [Aldactone] 25 mg PO BID 10/20/15 03/27/19 History glipiZIDE XL [Glucotrol XL] 5 mg PO BID 10/20/15 03/27/19 History ALPRAZolam [Xanax] 0.25 mg PO BID PRN 01/22/17 03/27/19 History Acetaminophen [Tylenol Extra 500 mg PO Q8H PRN 12/21/18 03/27/19 History Strength] Albuterol Inhaler [Ventolin Hfa 1 - 2 puff INHALATION RT-Q6H PRN 12/21/18 03/27/19 History Inhaler] Lisinopril [Prinivil] 10 mg PO BID 12/21/18 03/27/19 History Loratadine [Claritin] 10 mg PO HS 12/21/18 03/27/19 History Fluticasone Nasal [place] [Flonase 1 spray EA NOSTRIL DAILY 03/27/19 03/27/19 History Nasal [place]] Ondansetron Odt [Zofran Odt] 4 mg PO Q8HR PRN 03/27/19 03/27/19 History Sennosides/Docusate Sodium 1 tab PO DAILY PRN 03/27/19 03/27/19 History [Senna-S Laxative Tablet] metFORMIN HCL [Glucophage] 500 mg PO BID 03/27/19 03/27/19 History Allergies Allergy/AdvReac Type Severity Reaction Status Date / Time ciprofloxacin [From Cipro] Allergy Dyspnea Verified 03/27/19 21:45 ciprofloxacin HCl Allergy Dyspnea Verified 03/27/19 21:45 [From Cipro] Penicillins Allergy Rash/Hives Verified 03/27/19 21:45 Sulfa (Sulfonamide Allergy Rash/Hives Verified 03/27/19 21:45 Antibiotics) hydromorphone [From Dilaudid] AdvReac Itching Verified 03/27/19 21:45 morphine AdvReac Vomiting Verified 03/27/19 21:45 Physical Exam Vitals: Vital Signs Temp Pulse Pulse Resp BP BP Pulse Ox 03/28/19 07:00 97.9 F 72 18 111/69 95 03/28/19 05:45 84 18 109/69 96 03/28/19 05:30 78 18 103/66 95 03/28/19 05:15 78 18 105/68 96 03/28/19 05:00 74 18 106/67 96 03/28/19 04:45 75 18 109/70 96 03/28/19 04:30 79 18 101/66 96 03/28/19 04:15 78 18 102/66 96 03/28/19 04:00 79 18 117/72 96 03/28/19 03:45 74 18 115/67 95 03/28/19 03:30 80 18 115/71 94 L 03/28/19 03:15 73 18 119/70 94 L 03/28/19 03:00 78 18 105/69 94 L 03/28/19 02:45 71 18 120/72 95 03/28/19 02:30 79 18 122/74 94 L 03/28/19 02:15 72 18 125/74 98 03/28/19 02:00 74 18 132/78 95 03/28/19 01:46 97.6 F 73 18 131/77 95 03/28/19 01:30 77 16 139/63 98 03/28/19 01:15 74 16 140/63 97 03/28/19 01:00 73 16 135/63 96 03/28/19 00:50 97.6 F 80 16 130/58 95 03/27/19 22:11 84 18 132/70 98 03/27/19 20:51 97.7 F 71 16 117/55 97 03/27/19 18:24 98.0 F 75 19 135/102 100 Intake and Output 03/27/19 03/28/19 03/28/19 22:59 06:59 14:59 Intake Total 1000 850 Balance 1000 850 Intake: IV 1000 300 Intake, IV Titration 550 Amount Lactated Ringers 1,000 ml 550 @ 125 mls/hr IV .Q8H [facility] Rx#:[id number] Other: Voiding Method Indwelling Catheter Indwelling Catheter Weight 113.398 kg In general patient is alert and oriented 3 in no apparent distress HEENT head normocephalic and atraumatic Neck is supple no JVD no goiter no lymphadenopathy Chest exam is clear to auscultation no crackles no wheezing Cardiac exam reveals regular heart sounds S1 and S2 with 2/6 systolic murmur in the left sternal border Abdomen is soft with mild tenderness in the periumbilical area no hepatosplenomegaly no palpable masses Extremity exam reveals minimal edema no cyanosis or clubbing Neurological examination reveals no gross focal deficit Assessment and plan: #1 incarcerated umbilical hernia with high grade small bowel obstruction status post exploratory laparotomy with extensive lysis of adhesion, small bowel resection, and ventral hernia repair. #2 known history of hepatocellular carcinoma, computed tomography scan is showing some liver lesions. Patient is followed at [facility] in that regard. #3 underlying history of diabetes mellitus, [id number]-ikjpgoeib, patient is nothing by mouth at this time, will hold oral medications and cover with insulin sliding scale as needed #4 underlying history of hypertension, at this time all oral medications are on hold patient has an NG tube, will cover with Vasotec IV if needed #5 underlying history of migraine headaches stable at this time #6 underlying history of asthma will give albuterol updraft if needed #7 for DVT prophylaxis patient is on subcu heparin for GI prophylaxis patient is on pantoprazole. Medication and labs were reviewed please see orders will follow closely will recheck in a.m. Results CBC & Chem 7: 03/28/19 06:19 03/28/19 06:19 Labs: Abnormal Lab Results - Last 24 Hours (Table) 03/27/19 03/27/19 03/28/19 Range/Units 18:45 18:45 01:26 WBC 12.7 H (3.8-10.6) k/uL RBC (3.80-5.40) m/uL Hgb (11.4-16.0) gm/dL Hct (34.0-46.0) % Neutrophils # 11.3 H (1.3-7.7) k/uL Lymphocytes # 0.6 L (1.0-4.8) k/uL Sodium 129 L (137-145) mmol/L Potassium 5.2 H (3.5-5.1) mmol/L Chloride 97 L (98-107) mmol/L BUN 29 H (7-17) mg/dL Creatinine 1.68 H (0.52-1.04) mg/dL Glucose 235 H (74-99) mg/dL POC Glucose (mg/dL) 146 H (75-99) mg/dL AST 40 H (14-36) U/L ALT 59 H (9-52) U/L Alkaline Phosphatase 294 H (38-126) U/L Total Protein (6.3-8.2) g/dL Albumin (3.5-5.0) g/dL 03/28/19 03/28/19 03/28/19 Range/Units 06:19 06:19 08:10 WBC 17.0 H (3.8-10.6) k/uL RBC 3.65 L (3.80-5.40) m/uL Hgb 10.9 L (11.4-16.0) gm/dL Hct 33.4 L (34.0-46.0) % Neutrophils # 16.0 H (1.3-7.7) k/uL Lymphocytes # 0.3 L (1.0-4.8) k/uL Sodium 135 L (137-145) mmol/L Potassium (3.5-5.1) mmol/L Chloride (98-107) mmol/L BUN 25 H (7-17) mg/dL Creatinine 1.57 H (0.52-1.04) mg/dL Glucose 164 H (74-99) mg/dL POC Glucose (mg/dL) 151 H (75-99) mg/dL AST (14-36) U/L ALT 56 H (9-52) U/L Alkaline Phosphatase 222 H (38-126) U/L Total Protein 5.7 L (6.3-8.2) g/dL Albumin 3.3 L (3.5-5.0) g/dL 03/28/19 Range/Units 11:53 WBC (3.8-10.6) k/uL RBC (3.80-5.40) m/uL Hgb (11.4-16.0) gm/dL Hct (34.0-46.0) % Neutrophils # (1.3-7.7) k/uL Lymphocytes # (1.0-4.8) k/uL Sodium (137-145) mmol/L Potassium (3.5-5.1) mmol/L Chloride (98-107) mmol/L BUN (7-17) mg/dL Creatinine (0.52-1.04) mg/dL Glucose (74-99) mg/dL POC Glucose (mg/dL) 149 H (75-99) mg/dL AST (14-36) U/L ALT (9-52) U/L Alkaline Phosphatase (38-126) U/L Total Protein (6.3-8.2) g/dL Albumin (3.5-5.0) g/dL Thrombosis Risk Factor Assmnt - Choose All That Apply Each Risk Factor Represents 2 Points: Age 61-74 years, Major surgery Thrombosis Risk Factor Assessment Total Risk Factor Score: 4 Thrombosis Risk Factor Assessment Level: Moderate Risk
[2019-03-28] MEDS: ONDANSETRON 4 MG/2 ML VIAL IVP PRN (16:43)
[2019-03-28 17:57] LABS: Glucose,Whole Blood 146 mg/dL (75-99)
[2019-03-28] MEDS: INSULIN ASPART (NovoLOG) 100 UNIT/ML VIAL SQ SCH (18:01)
[2019-03-29] MEDS: LACTATED RINGERS 1,000 ML IV SCH ×3 (00:08→22:57)
[2019-03-29] MEDS: metroNIDAZOLE-NS PMX 500 MG in SALINE 1 100ML.BAG IVPB SCH ×4 (00:08→22:56)
[2019-03-29] MEDS: HEPARIN SODIUM,PORCINE 5,000 UNIT/ML 1 ML VIAL SQ SCH ×4 (00:10→22:56)
[2019-03-29] MEDS: INSULIN ASPART (NovoLOG) 100 UNIT/ML VIAL SQ SCH ×5 (00:18→22:48)
[2019-03-29 00:26] LABS: Glucose,Whole Blood 165 mg/dL (75-99)
[2019-03-29] MEDS: HYDROmorphone 0.5 MG/0.5 ML SYRINGE IVP PRN ×7 (02:33→22:57)
[2019-03-29 06:04] LABS: Glucose,Whole Blood 133 mg/dL (75-99)
[2019-03-29] MEDS: METOCLOPRAMIDE 5 MG/ML 2 ML VIAL IVP PRN ×2 (06:16→22:59)
[2019-03-29 07:15] LABS: Basophils % (A) 0 %; Eosinophils # (A) 0.1 k/uL (0-0.7); Eosinophils % (A) 1 %; HCT 32.5 % (34.0-46.0); HGB 10.6 gm/dL (11.4-16.0); Lymphocytes # (A) 0.5 k/uL (1.0-4.8); Lymphocytes % (A) 4 %; MCHC 32.6 g/dL (31.0-37.0); MCV 91.8 fL (80.0-100.0); Mean Platelet Volume 6.4; Monocytes # (A) 0.8 k/uL (0-1.0); Monocytes % (A) 7 %; Neutrophils # (A) 10.3 k/uL (1.3-7.7); Neutrophils % (A) 88 %; Platelet Count 303 k/uL (150-450); RBC 3.54 m/uL (3.80-5.40); RDW 12.8 % (11.5-15.5); WBC 11.8 k/uL (3.8-10.6)
[2019-03-29 07:27] LABS: Albumin 3.2 g/dL (3.5-5.0); Calcium 9.3 mg/dL (8.4-10.2); Potassium 4.6 mmol/L (3.5-5.1); Total Bilirubin 0.4 mg/dL (0.2-1.3); Total Protein 5.7 g/dL (6.3-8.2)
[2019-03-29] MEDS: PANTOPRAZOLE 40 MG/10 ML VIAL IV SCH (08:05)
--- NOTE | 2019-03-29 10:45 | P.PN ---
Subjective Progress Note Date: 03/29/19 Christy Machado is a 68-year-old female well known to my practice who presented to [facility] emergency room with a chief complaint of abdominal pain and nausea, patient also had 2 episodes of diarrhea urine the day, she was evaluation the emergency room, white blood count was elevated at 12.7 she had a computed tomography scan of the abdomen which revealed small bowel obstruction associated with umbilical hernia containing multiple small bowel loops. Patient admitted under surgical service Dr. Rahman and underwent exploratory laparotomy with extensive lysis of adhesion, small bowel resection, and ventral hernia repair. Patient was subsequently admitted to the floor, medical consultation was requested for management while hospitalized. Patient has a known history of hepatocellular carcinoma diagnosed in 2017 patient underwent liver surgery, chemotherapy and radiation therapy, she still has evidence of liver cancer, she is following with oncology at [facility], she was last seen there 2 weeks ago. Patient also has a known history of asthma, [id number] diabetes mellitus, chronic kidney disease stage III, and migraine headache. Patient was seen and examined on the medical floor she is alert and oriented 3 in no apparent distress she is complaining of abdominal pain and throat pain NG- tube with in place. Otherwise she denies any complaints there is no fever or chills no headache or dizziness no chest pain or shortness of breath no cough no nausea or vomiting no diarrhea no burning with urination no frequency or urgency and no hematuria. On 03/29/2019 patient is alert and oriented 3. Patient is currently postop day 2. Patient denies any gas or bowel movements. Patient denies chest pain or shortness of breath. Patient denies nausea vomiting or diarrhea. NG remains in place patient remains nothing by mouth per surgical services. Patient denies any burning with urination for cath remains in place. Increase activity encouraged will order incentive spirometer for bedside. White blood cell count trending down. Acute kidney injury with resolving. Objective - Vital Signs Vital signs: Vital Signs Temp 98.1 F 03/29/19 07:00 Pulse 77 03/29/19 07:00 Resp 12 03/29/19 07:00 BP 89/55 03/29/19 07:00 Pulse Ox 97 03/29/19 07:00 Intake & Output 03/28/19 03/29/19 03/29/19 18:59 06:59 18:59 Intake Total 1000 1400 Output Total 890 735 Balance 110 665 Intake: Intake, IV Titration 1000 1400 Amount Lactated Ringers 1,000 ml 1000 1400 @ 125 mls/hr IV .Q8H [facility] Rx#:[id number] Output: Gastric Drainage 90 310 Urine 800 425 Other: Voiding Method Indwelling Catheter Indwelling Catheter - Exam In general patient is alert and oriented 3 in no apparent distress HEENT head normocephalic and atraumatic Neck is supple no JVD no goiter no lymphadenopathy Chest exam is clear to auscultation no crackles no wheezing Cardiac exam reveals regular heart sounds S1 and S2 with 2/6 systolic murmur in the left sternal border Abdomen is soft with mild tenderness in the periumbilical area no hepatosplenomegaly no palpable masses Extremity exam reveals minimal edema no cyanosis or clubbing Neurological examination reveals no gross focal deficit - Labs CBC & Chem 7: 03/29/19 06:48 03/29/19 06:48 Labs: Abnormal Lab Results - Last 24 Hours (Table) 03/28/19 03/28/19 03/29/19 Range/Units 11:53 17:39 00:06 WBC (3.8-10.6) k/uL RBC (3.80-5.40) m/uL Hgb (11.4-16.0) gm/dL Hct (34.0-46.0) % Neutrophils # (1.3-7.7) k/uL Lymphocytes # (1.0-4.8) k/uL Sodium (137-145) mmol/L BUN (7-17) mg/dL Creatinine (0.52-1.04) mg/dL Glucose (74-99) mg/dL POC Glucose (mg/dL) 149 H 146 H 165 H (75-99) mg/dL Alkaline Phosphatase (38-126) U/L Total Protein (6.3-8.2) g/dL Albumin (3.5-5.0) g/dL 03/29/19 03/29/19 03/29/19 Range/Units 05:52 06:48 06:48 WBC 11.8 H (3.8-10.6) k/uL RBC 3.54 L (3.80-5.40) m/uL Hgb 10.6 L (11.4-16.0) gm/dL Hct 32.5 L (34.0-46.0) % Neutrophils # 10.3 H (1.3-7.7) k/uL Lymphocytes # 0.5 L (1.0-4.8) k/uL Sodium 136 L (137-145) mmol/L BUN 21 H (7-17) mg/dL Creatinine 1.34 H (0.52-1.04) mg/dL Glucose 136 H (74-99) mg/dL POC Glucose (mg/dL) 133 H (75-99) mg/dL Alkaline Phosphatase 198 H (38-126) U/L Total Protein 5.7 L (6.3-8.2) g/dL Albumin 3.2 L (3.5-5.0) g/dL Assessment and Plan Assessment: #1 incarcerated umbilical hernia with high grade small bowel obstruction status post exploratory laparotomy with extensive lysis of adhesion, small bowel resection, and ventral hernia repair. She is currently postop day 2. Patient remains nothing by mouth per surgical services NG tube in place. Patient re josemanuel on Rocephin and Flagyl. Leukocytosis improving #2 known history of hepatocellular carcinoma, computed tomography scan is showing some liver lesions. Patient is followed at [facility] in that regard. #3 underlying history of diabetes mellitus, [id number], patient is nothing by mouth at this time, will hold oral medications and cover with insulin sliding scale as needed #4 underlying history of hypertension, at this time all oral medications are on hold patient has an NG tube, will cover with Vasotec IV if needed #5 underlying history of migraine headaches stable at this time #6 underlying history of asthma will give albuterol updraft if needed. Incentive spirometer reordered for bedside #7. Acute kidney injury. Initial creatinine 1.68 and bun 29. Creatinine improving to 1.34 bun 21. We'll continue to monitor #8. Elevated liver enzymes this could be secondary to patient's known hepatocellular carcinoma these labs are improving we'll continue to monitor DVT prophylaxis patient is on subcu heparin for GI prophylaxis patient is on pantoprazole. PT/OT consulted I performed an examination of the patient and discussed their management with the Nurse Practitioner. I have reviewed the Nurse Practitioner's notes and agree with the documented findings and plan of care
[2019-03-29 12:16] LABS: Glucose,Whole Blood 124 mg/dL (75-99)
--- NOTE | 2019-03-29 13:01 | P.PN ---
Subjective Progress Note Date: 03/29/19 Patient seen and examined at bedside. No acute events. Has ambulated and is up in the chair. She denies any gas or bowel movement. She states pain is overall well controlled Objective - Vital Signs Vital signs: Vital Signs Temp 98.1 F 03/29/19 07:00 Pulse 77 03/29/19 08:06 Resp 12 03/29/19 08:06 BP 89/55 03/29/19 07:00 Pulse Ox 97 03/29/19 07:00 Intake & Output 03/28/19 03/29/19 03/29/19 18:59 06:59 18:59 Intake Total 1000 1400 Output Total 890 735 Balance 110 665 Intake: Intake, IV Titration 1000 1400 Amount Lactated Ringers 1,000 ml 1000 1400 @ 125 mls/hr IV .Q8H [facility] Rx#:[id number] Output: Gastric Drainage 90 310 Urine 800 425 Other: Voiding Method Indwelling Catheter Indwelling Catheter Indwelling Catheter - Constitutional General appearance: Present: cooperative, no acute distress - EENT Eyes: Present: PERRLA - Respiratory Details: No difficulty with respiration - Gastrointestinal Gastrointestinal Comment(s): Soft, appropriate tenderness, nondistended, no rebound, no guarding, incision site clean, dry and intact with meche in place - Musculoskeletal Musculoskeletal: Present: generalized weakness - Psychiatric Psychiatric: Present: A&O x's 3 - Labs CBC & Chem 7: 03/29/19 06:48 03/29/19 06:48 Labs: Abnormal Lab Results - Last 24 Hours (Table) 03/28/19 03/29/19 03/29/19 Range/Units 17:39 00:06 05:52 WBC (3.8-10.6) k/uL RBC (3.80-5.40) m/uL Hgb (11.4-16.0) gm/dL Hct (34.0-46.0) % Neutrophils # (1.3-7.7) k/uL Lymphocytes # (1.0-4.8) k/uL Sodium (137-145) mmol/L BUN (7-17) mg/dL Creatinine (0.52-1.04) mg/dL Glucose (74-99) mg/dL POC Glucose (mg/dL) 146 H 165 H 133 H (75-99) mg/dL Alkaline Phosphatase (38-126) U/L Total Protein (6.3-8.2) g/dL Albumin (3.5-5.0) g/dL 03/29/19 03/29/19 03/29/19 Range/Units 06:48 06:48 12:03 WBC 11.8 H (3.8-10.6) k/uL RBC 3.54 L (3.80-5.40) m/uL Hgb 10.6 L (11.4-16.0) gm/dL Hct 32.5 L (34.0-46.0) % Neutrophils # 10.3 H (1.3-7.7) k/uL Lymphocytes # 0.5 L (1.0-4.8) k/uL Sodium 136 L (137-145) mmol/L BUN 21 H (7-17) mg/dL Creatinine 1.34 H (0.52-1.04) mg/dL Glucose 136 H (74-99) mg/dL POC Glucose (mg/dL) 124 H (75-99) mg/dL Alkaline Phosphatase 198 H (38-126) U/L Total Protein 5.7 L (6.3-8.2) g/dL Albumin 3.2 L (3.5-5.0) g/dL Assessment and Plan (1) Bowel obstruction Narrative/Plan: Postoperative day #2, repair of strangulated ventral hernia with small bowel resection - Continue nasogastric tube, await bowel function - Continue antibiotics, leukocytosis is trending down - Continue to increase activity - Okay for ice chips and chewing gum - Continue DVT prophylaxis - Medical recommendations appreciated - Prognosis is guarded as the patient is noted to have multiple comorbidities and a complicated medical history Current Visit: Yes Status: Acute Code(s): K56.609 - UNSP INTESTNL OBST, UNSP TO PARTIAL VERSUS COMPLETE OBST SNOMED Code(s): 59507732
[2019-03-29 13:03] LABS: Hemoglobin A1C 5.7 % (4.0-6.0)
[2019-03-29 17:49] LABS: Glucose,Whole Blood 133 mg/dL (75-99)
[2019-03-29] MEDS: ONDANSETRON 4 MG/2 ML VIAL IVP PRN (19:19)
[2019-03-29 19:59] LABS: Glucose,Whole Blood 140 mg/dL (75-99)
[2019-03-29 22:51] LABS: Glucose,Whole Blood 131 mg/dL (75-99)
[2019-03-30] MEDS ORDERED: HYDROmorphone 0.5 MG/0.5 ML SYRINGE ONE (01:11)
[2019-03-30 06:29] LABS: Glucose,Whole Blood 123 mg/dL (75-99)
[2019-03-30] MEDS: INSULIN ASPART (NovoLOG) 100 UNIT/ML VIAL SQ SCH ×3 (06:34→18:42)
[2019-03-30] MEDS: HEPARIN SODIUM,PORCINE 5,000 UNIT/ML 1 ML VIAL SQ SCH ×2 (09:46→17:02)
[2019-03-30] MEDS: PANTOPRAZOLE 40 MG/10 ML VIAL IV SCH (09:46)
[2019-03-30] MEDS: metroNIDAZOLE-NS PMX 500 MG in SALINE 1 100ML.BAG IVPB SCH ×2 (09:46→17:02)
[2019-03-30 09:58] LABS: Albumin 3.1 g/dL (3.5-5.0); Calcium 9.6 mg/dL (8.4-10.2); Potassium 4.6 mmol/L (3.5-5.1); Total Bilirubin 0.4 mg/dL (0.2-1.3); Total Protein 5.4 g/dL (6.3-8.2)
[2019-03-30 10:17] LABS: Basophils % (A) 0 %; Eosinophils # (A) 0.4 k/uL (0-0.7); Eosinophils % (A) 4 %; HCT 31.5 % (34.0-46.0); HGB 10.4 gm/dL (11.4-16.0); Lymphocytes # (A) 0.5 k/uL (1.0-4.8); Lymphocytes % (A) 4 %; MCH 30.7 pg (25.0-35.0); MCHC 33.1 g/dL (31.0-37.0); MCV 92.8 fL (80.0-100.0); Monocytes # (A) 0.6 k/uL (0-1.0); Monocytes % (A) 5 %; Neutrophils # (A) 9.9 k/uL (1.3-7.7); Neutrophils % (A) 86 %; Platelet Count 320 k/uL (150-450); RDW 12.7 % (11.5-15.5); WBC 11.5 k/uL (3.8-10.6)
[2019-03-30] MEDS ORDERED: FUROSEMIDE 10 MG/ML 2 ML VIAL IV ONE (10:49)
--- NOTE | 2019-03-30 10:59 | P.PN ---
Subjective Progress Note Date: 03/30/19 Christy Machado is a 68-year-old female well known to my practice who presented to [facility] emergency room with a chief complaint of abdominal pain and nausea, patient also had 2 episodes of diarrhea urine the day, she was evaluation the emergency room, white blood count was elevated at 12.7 she had a computed tomography scan of the abdomen which revealed small bowel obstruction associated with umbilical hernia containing multiple small bowel loops. Patient admitted under surgical service Dr. Rahman and underwent exploratory laparotomy with extensive lysis of adhesion, small bowel resection, and ventral hernia repair. Patient was subsequently admitted to the floor, medical consultation was requested for management while hospitalized. Patient has a known history of hepatocellular carcinoma diagnosed in 2017 patient underwent liver surgery, chemotherapy and radiation therapy, she still has evidence of liver cancer, she is following with oncology at [facility], she was last seen there 2 weeks ago. Patient also has a known history of asthma, [id number] diabetes mellitus, chronic kidney disease stage III, and migraine headache. Patient was seen and examined on the medical floor she is alert and oriented 3 in no apparent distress she is complaining of abdominal pain and throat pain NG- tube with in place. Otherwise she denies any complaints there is no fever or chills no headache or dizziness no chest pain or shortness of breath no cough no nausea or vomiting no diarrhea no burning with urination no frequency or urgency and no hematuria. On 03/29/2019 patient is alert and oriented 3. Patient is currently postop day 2. Patient denies any gas or bowel movements. Patient denies chest pain or shortness of breath. Patient denies nausea vomiting or diarrhea. NG remains in place patient remains nothing by mouth per surgical services. Patient denies any burning with urination for cath remains in place. Increase activity encouraged will order incentive spirometer for bedside. White blood cell count trending down. Acute kidney injury with resolving. On 03/30/2018 patient is alert and oriented 3. Patient is currently postop day 2. Patient is having gas. Plans for NG tube removal today. Patient having increased swelling to arms and legs. Will order 1 time dose of IV Lasix. Chest x-ray also ordered for cough. Incentive spirometer encouraged. At this time patient denies chest pain. Patient denies nausea vomiting or diarrhea. Patient denies any urinary burning or frequency Objective - Vital Signs Vital signs: Vital Signs Temp 97.9 F 03/30/19 07:00 Pulse 81 03/30/19 08:05 Resp 17 03/30/19 08:05 BP 138/75 03/30/19 07:00 Pulse Ox 94 L 03/30/19 07:00 Intake & Output 03/29/19 03/30/19 03/30/19 18:59 06:59 18:59 Intake Total 750 Output Total 1800 850 Balance -1050 -850 Intake: Intake, IV Titration 750 Amount cefTRIAXone 1 gm In 750 Sodium Chloride 0.9% 50 ml @ 100 mls/hr IVPB Q24HR [facility] Rx#:[id number] Output: Gastric Drainage 350 Urine 1450 850 Other: Voiding Method Indwelling Catheter Indwelling Catheter Indwelling Catheter # Voids 0 0 - Exam In general patient is alert and oriented 3 in no apparent distress HEENT head normocephalic and atraumatic Neck is supple no JVD no goiter no lymphadenopathy Chest exam is clear to auscultation no crackles no wheezing Cardiac exam reveals regular heart sounds S1 and S2 with 2/6 systolic murmur in the left sternal border Abdomen is soft with mild tenderness in the periumbilical area no hepatosplenomegaly no palpable masses Extremity exam reveals minimal edema no cyanosis or clubbing Neurological examination reveals no gross focal deficit - Labs CBC & Chem 7: 03/30/19 08:22 03/30/19 08:22 Labs: Abnormal Lab Results - Last 24 Hours (Table) 03/29/19 03/29/19 03/29/19 Range/Units 12:03 17:38 19:58 WBC (3.8-10.6) k/uL RBC (3.80-5.40) m/uL Hgb (11.4-16.0) gm/dL Hct (34.0-46.0) % Neutrophils # (1.3-7.7) k/uL Lymphocytes # (1.0-4.8) k/uL BUN (7-17) mg/dL Creatinine (0.52-1.04) mg/dL Glucose (74-99) mg/dL POC Glucose (mg/dL) 124 H 133 H 140 H (75-99) mg/dL Alkaline Phosphatase (38-126) U/L Total Protein (6.3-8.2) g/dL Albumin (3.5-5.0) g/dL 03/29/19 03/30/19 03/30/19 Range/Units 22:47 06:22 08:22 WBC 11.5 H (3.8-10.6) k/uL RBC 3.40 L (3.80-5.40) m/uL Hgb 10.4 L (11.4-16.0) gm/dL Hct 31.5 L (34.0-46.0) % Neutrophils # 9.9 H (1.3-7.7) k/uL Lymphocytes # 0.5 L (1.0-4.8) k/uL BUN (7-17) mg/dL Creatinine (0.52-1.04) mg/dL Glucose (74-99) mg/dL POC Glucose (mg/dL) 131 H 123 H (75-99) mg/dL Alkaline Phosphatase (38-126) U/L Total Protein (6.3-8.2) g/dL Albumin (3.5-5.0) g/dL 03/30/19 Range/Units 08:22 WBC (3.8-10.6) k/uL RBC (3.80-5.40) m/uL Hgb (11.4-16.0) gm/dL Hct (34.0-46.0) % Neutrophils # (1.3-7.7) k/uL Lymphocytes # (1.0-4.8) k/uL BUN 22 H (7-17) mg/dL Creatinine 1.28 H (0.52-1.04) mg/dL Glucose 137 H (74-99) mg/dL POC Glucose (mg/dL) (75-99) mg/dL Alkaline Phosphatase 179 H (38-126) U/L Total Protein 5.4 L (6.3-8.2) g/dL Albumin 3.1 L (3.5-5.0) g/dL Assessment and Plan Assessment: #1 incarcerated umbilical hernia with high grade small bowel obstruction status post exploratory laparotomy with extensive lysis of adhesion, small bowel resection, and ventral hernia repair. She is currently postop day 2. Patient remains nothing by mouth per surgical services NG tube in place. Patient remains on Rocephin and Flagyl. Leukocytosis improving #2 known history of hepatocellular carcinoma, computed tomography scan is showing some liver lesions. Patient is followed at [facility] in that regard. #3 underlying history of diabetes mellitus, [id number]-hhigrczad, patient is nothing by mouth at this time, will hold oral medications and cover with insulin sliding scale as needed #4 underlying history of hypertension, at this time all oral medications are on hold patient has an NG tube, will cover with Vasotec IV if needed #5 underlying history of migraine headaches stable at this time #6 underlying history of asthma will give albuterol updraft if needed. Incentive spirometer reordered for bedside #7. Acute kidney injury. Initial creatinine 1.68 and bun 29. Creatinine improving to 1.34 bun 21. We'll continue to monitor #8. Elevated liver enzymes this could be secondary to patient's known hepatoc ellular carcinoma these labs are improving we'll continue to monitor #9. Increased edema. Patient currently not able to receive home end-stage nothing by mouth. Will give 1 dose of IV Lasix 20 mg. #10. Increased cough. Will order chest x-ray to rule out pneumonia. Incentive spirometer encouraged DVT prophylaxis patient is on subcu heparin for GI prophylaxis patient is on pantoprazole. PT/OT consulted I performed an examination of the patient and discussed their management with the Nurse Practitioner. I have reviewed the Nurse Practitioner's notes and agree with the documented findings and plan of care
[2019-03-30 12:23] LABS: Glucose,Whole Blood 127 mg/dL (75-99)
--- NOTE | 2019-03-30 12:38 | P.PN ---
Subjective Progress Note Date: 03/30/19 Patient seen and examined at bedside. States she is not having any pain currently. Has ambulated today. States she has been having flatus all day. Objective - Vital Signs Vital signs: Vital Signs Temp 97.9 F 03/30/19 07:00 Pulse 81 03/30/19 08:05 Resp 17 03/30/19 08:05 BP 138/75 03/30/19 07:00 Pulse Ox 94 L 03/30/19 07:00 Intake & Output 03/29/19 03/30/19 03/30/19 18:59 06:59 18:59 Intake Total 750 Output Total 1800 850 Balance -1050 -850 Intake: Intake, IV Titration 750 Amount cefTRIAXone 1 gm In 750 Sodium Chloride 0.9% 50 ml @ 100 mls/hr IVPB Q24HR [facility] Rx#:[id number] Output: Gastric Drainage 350 Urine 1450 850 Other: Voiding Method Indwelling Catheter Indwelling Catheter Indwelling Catheter # Voids 0 0 - Constitutional General appearance: Present: cooperative, no acute distress - Gastrointestinal Gastrointestinal Comment(s): Soft, appropriate tenderness, nondistended, no rebound, guarding, incision site clean, dry and intact with meche in place - Labs CBC & Chem 7: 03/30/19 08:22 03/30/19 08:22 Labs: Abnormal Lab Results - Last 24 Hours (Table) 03/29/19 03/29/19 03/29/19 Range/Units 17:38 19:58 22:47 WBC (3.8-10.6) k/uL RBC (3.80-5.40) m/uL Hgb (11.4-16.0) gm/dL Hct (34.0-46.0) % Neutrophils # (1.3-7.7) k/uL Lymphocytes # (1.0-4.8) k/uL BUN (7-17) mg/dL Creatinine (0.52-1.04) mg/dL Glucose (74-99) mg/dL POC Glucose (mg/dL) 133 H 140 H 131 H (75-99) mg/dL Alkaline Phosphatase (38-126) U/L Total Protein (6.3-8.2) g/dL Albumin (3.5-5.0) g/dL 03/30/19 03/30/19 03/30/19 Range/Units 06:22 08:22 08:22 WBC 11.5 H (3.8-10.6) k/uL RBC 3.40 L (3.80-5.40) m/uL Hgb 10.4 L (11.4-16.0) gm/dL Hct 31.5 L (34.0-46.0) % Neutrophils # 9.9 H (1.3-7.7) k/uL Lymphocytes # 0.5 L (1.0-4.8) k/uL BUN 22 H (7-17) mg/dL Creatinine 1.28 H (0.52-1.04) mg/dL Glucose 137 H (74-99) mg/dL POC Glucose (mg/dL) 123 H (75-99) mg/dL Alkaline Phosphatase 179 H (38-126) U/L Total Protein 5.4 L (6.3-8.2) g/dL Albumin 3.1 L (3.5-5.0) g/dL 03/30/19 Range/Units 12:12 WBC (3.8-10.6) k/uL RBC (3.80-5.40) m/uL Hgb (11.4-16.0) gm/dL Hct (34.0-46.0) % Neutrophils # (1.3-7.7) k/uL Lymphocytes # (1.0-4.8) k/uL BUN (7-17) mg/dL Creatinine (0.52-1.04) mg/dL Glucose (74-99) mg/dL POC Glucose (mg/dL) 127 H (75-99) mg/dL Alkaline Phosphatase (38-126) U/L Total Protein (6.3-8.2) g/dL Albumin (3.5-5.0) g/dL Assessment and Plan (1) Bowel obstruction Narrative/Plan: Postoperative day #3, repair of strangulated ventral hernia with small bowel resection - Discontinue nasogastric tube - Discontinue Min catheter - Continue antibiotics - Continue to increase activity - Advance to clear liquid diet - Continue DVT prophylaxis - Medical recommendations appreciated - Prognosis is guarded as the patient is noted to have multiple comorbidities and a complicated medical history Current Visit: Yes Status: Acute Code(s): K56.609 - UNSP INTESTNL OBST, UNSP TO PARTIAL VERSUS COMPLETE OBST SNOMED Code(s): 31081736
--- NOTE | 2019-03-30 15:37 | XR ---
EXAMINATION TYPE: XR chest 2V DATE OF EXAM: 03/30/2019 COMPARISON: 08/05/2014 HISTORY: 68-year-old female increased cough and congestion TECHNIQUE: PA and lateral views FINDINGS: Heart upper limits of normal in size. Aorta within normal limits. Mild interstitial prominence is sim ilar to prior. There is a trace effusion noted. Right paratracheal soft tissue prominence stable to s lightly increased. IMPRESSION: 1. Trace pleural effusion with adjacent atelectasis and/or consolidation. 2. Right paratracheal soft tissue density is increased. This could be secondary to underlying lymphad enopathy, mass, or vascular ectasia. Contrast enhanced CT chest in further evaluation.
[2019-03-30 19:01] LABS: Glucose,Whole Blood 181 mg/dL (75-99)
[2019-03-30] MEDS: HYDROmorphone 0.5 MG/0.5 ML SYRINGE IVP PRN (21:56)
[2019-03-30] MEDS: LACTATED RINGERS 1,000 ML IV SCH (22:19)
[2019-03-30 23:50] LABS: Glucose,Whole Blood 119 mg/dL (75-99)
[2019-03-31] MEDS: INSULIN ASPART (NovoLOG) 100 UNIT/ML VIAL SQ SCH ×5 (00:37→23:27)
[2019-03-31] MEDS: HEPARIN SODIUM,PORCINE 5,000 UNIT/ML 1 ML VIAL SQ SCH ×4 (01:09→23:30)
[2019-03-31] MEDS: metroNIDAZOLE-NS PMX 500 MG in SALINE 1 100ML.BAG IVPB SCH ×4 (01:09→23:30)
[2019-03-31 05:37] LABS: Glucose,Whole Blood 120 mg/dL (75-99)
[2019-03-31 07:17] LABS: Basophils % (A) 0 %; Eosinophils # (A) 0.7 k/uL (0-0.7); Eosinophils % (A) 8 %; HCT 30.2 % (34.0-46.0); HGB 10.2 gm/dL (11.4-16.0); Lymphocytes # (A) 0.6 k/uL (1.0-4.8); Lymphocytes % (A) 6 %; MCHC 33.8 g/dL (31.0-37.0); MCV 91.7 fL (80.0-100.0); Mean Platelet Volume 6.5; Monocytes # (A) 0.5 k/uL (0-1.0); Monocytes % (A) 5 %; Neutrophils # (A) 7.3 k/uL (1.3-7.7); Neutrophils % (A) 79 %; Platelet Count 288 k/uL (150-450); RBC 3.29 m/uL (3.80-5.40); RDW 12.5 % (11.5-15.5); WBC 9.2 k/uL (3.8-10.6)
[2019-03-31 07:36] LABS: Albumin 2.9 g/dL (3.5-5.0); Calcium 9.3 mg/dL (8.4-10.2); Total Bilirubin 0.4 mg/dL (0.2-1.3); Total Protein 5.2 g/dL (6.3-8.2)
[2019-03-31] MEDS: PANTOPRAZOLE 40 MG/10 ML VIAL IV SCH (08:22)
[2019-03-31 10:25] LABS: Glucose,Whole Blood 152 mg/dL (75-99)
--- NOTE | 2019-03-31 10:27 | P.PN ---
Subjective Progress Note Date: 03/31/19 Christy Machado is a 68-year-old female well known to my practice who presented to [facility] emergency room with a chief complaint of abdominal pain and nausea, patient also had 2 episodes of diarrhea urine the day, she was evaluation the emergency room, white blood count was elevated at 12.7 she had a computed tomography scan of the abdomen which revealed small bowel obstruction associated with umbilical hernia containing multiple small bowel loops. Patient admitted under surgical service Dr. Rahman and underwent exploratory laparotomy with extensive lysis of adhesion, small bowel resection, and ventral hernia repair. Patient was subsequently admitted to the floor, medical consultation was requested for management while hospitalized. Patient has a known history of hepatocellular carcinoma diagnosed in 2017 patient underwent liver surgery, chemotherapy and radiation therapy, she still has evidence of liver cancer, she is following with oncology at [facility], she was last seen there 2 weeks ago. Patient also has a known history of asthma, eyy-yzvpxio-aqehiyzct diabetes mellitus, chronic kidney disease stage III, and migraine headache. Patient was seen and examined on the medical floor she is alert and oriented 3 in no apparent distress she is complaining of abdominal pain and throat pain NG- tube with in place. Otherwise she denies any complaints there is no fever or chills no headache or dizziness no chest pain or shortness of breath no cough no nausea or vomiting no diarrhea no burning with urination no frequency or urgency and no hematuria. On 03/29/2019 patient is alert and oriented 3. Patient is currently postop day 2. Patient denies any gas or bowel movements. Patient denies chest pain or shortness of breath. Patient denies nausea vomiting or diarrhea. NG remains in place patient remains nothing by mouth per surgical services. Patient denies any burning with urination for cath remains in place. Increase activity encouraged will order incentive spirometer for bedside. White blood cell count trending down. Acute kidney injury with resolving. On 03/30/2018 patient is alert and oriented 3. Patient is currently postop day 2. Patient is having gas. Plans for NG tube removal today. Patient having increased swelling to arms and legs. Will order 1 time dose of IV Lasix. Chest x-ray also ordered for cough. Incentive spirometer encouraged. At this time patient denies chest pain. Patient denies nausea vomiting or diarrhea. Patient denies any urinary burning or frequency 03/31/2019 patient is alert and oriented 3. Patient is currently postop day 3. NG tube has been removed Min catheter with per surgical services. Patient did receive 1 dose of IV Lasix yesterday. Patient's diet has been advanced to clear liquids per surgical services. At this time patient denies chest pain or shortness of breath. Patient denies nausea vomiting or diarrhea. Patient denies any urinary burning or frequency Objective - Vital Signs Vital signs: Vital Signs Temp 98.2 F 03/31/19 07:00 Pulse 72 03/31/19 07:00 Resp 17 03/31/19 07:00 BP 137/54 03/31/19 07:00 Pulse Ox 95 03/31/19 07:00 Intake & Output 03/30/19 03/31/19 03/31/19 18:59 06:59 18:59 Intake Total 1250 225 Output Total 2400 Balance -1150 225 Intake: Intake, IV Titration 750 225 Amount Lactated Ringers 1,000 ml 600 225 @ 75 mls/hr IV .[id number] KEON Rx#:[id number] cefTRIAXone 1 gm In 50 Sodium Chloride 0.9% 50 ml @ 100 mls/hr IVPB Q24HR KEON Rx#:[id number] metroNIDAZOLE-NS PMX 500 100 mg In Saline 1 100ml.bag @ 100 mls/hr IVPB Q8HR KEON Rx#:[id number] Oral 500 Output: Urine 2400 Uretheral (Min) 300 Other: Voiding Method Toilet # Voids 1 2 - Exam In general patient is alert and oriented 3 in no apparent distress HEENT head normocephalic and atraumatic Neck is supple no JVD no goiter no lymphadenopathy Chest exam is clear to auscultation no crackles no wheezing Cardiac exam reveals regular heart sounds S1 and S2 with 2/6 systolic murmur in the left sternal border Abdomen is soft with mild tenderness in the periumbilical area no hepatosplenomegaly no palpable masses Extremity exam reveals minimal edema no cyanosis or clubbing Neurological examination reveals no gross focal deficit - Labs CBC & Chem 7: 03/31/19 06:48 03/31/19 06:48 Labs: Abnormal Lab Results - Last 24 Hours (Table) 03/30/19 03/30/19 03/30/19 Range/Units 12:12 18:49 23:46 RBC (3.80-5.40) m/uL Hgb (11.4-16.0) gm/dL Hct (34.0-46.0) % Lymphocytes # (1.0-4.8) k/uL BUN (7-17) mg/dL Creatinine (0.52-1.04) mg/dL Glucose (74-99) mg/dL POC Glucose (mg/dL) 127 H 181 H 119 H (75-99) mg/dL Alkaline Phosphatase (38-126) U/L Total Protein (6.3-8.2) g/dL Albumin (3.5-5.0) g/dL 03/31/19 03/31/19 03/31/19 Range/Units 05:25 06:48 06:48 RBC 3.29 L (3.80-5.40) m/uL Hgb 10.2 L (11.4-16.0) gm/dL Hct 30.2 L (34.0-46.0) % Lymphocytes # 0.6 L (1.0-4.8) k/uL BUN 23 H (7-17) mg/dL Creatinine 1.10 H (0.52-1.04) mg/dL Glucose 122 H (74-99) mg/dL POC Glucose (mg/dL) 120 H (75-99) mg/dL Alkaline Phosphatase 165 H (38-126) U/L Total Protein 5.2 L (6.3-8.2) g/dL Albumin 2.9 L (3.5-5.0) g/dL Assessment and Plan Assessment: #1 incarcerated umbilical hernia with high grade small bowel obstruction status post exploratory laparotomy with extensive lysis of adhesion, small bowel resection, and ventral hernia repair. She is currently postop day 3. Patient remains nothing by mouth per surgical services NG tube in place. Patient remains on Rocephin and Flagyl. Leukocytosis improving. NG tube and Min catheter removed. #2 known history of hepatocellular carcinoma, computed tomography scan is showing some liver lesions. Patient is followed at [facility] in that regard. #3 underlying history of diabetes mellitus, ahy-zycsdxl-pwdlklxco, patient is nothing by mouth at this time, will hold oral medications and cover with insulin sliding scale as needed #4 underlying history of hypertension, at this time all oral medications are on hold patient has an NG tube, will cover with Vasotec IV if needed #5 underlying history of migraine headaches stable at this time #6 underlying history of asthma will give albuterol updraft if needed. Incentive spirometer reordered for bedside #7. Acute kidney injury. Initial creatinine 1.68 and bun 29. Creatinine improving to 1.34 bun 21. We'll continue to monitor. Creatinine improving to 1.10 and bun 23 #8. Elevated liver enzymes this could be secondary to patient's known hepatocellular carcinoma these labs are improving we'll continue to monitor #9. Increased edema. Patient currently not able to receive home end-stage nothing by mouth. Will give 1 dose of IV Lasix 20 mg. #10. Increased cough. Will order chest x-ray to rule out pneumonia. Incentive spirometer encouraged. Chest x-ray completed showing trace pleural effusions with adjacent atelectasis or consolidation and right paratracheal soft tissue density is increased. This could be secondary to underlying liver did not disease, mass or vascular disease. Contrast-enhanced CT chest is further recommended for evaluation. DVT prophylaxis patient is on subcu heparin for GI prophylaxis patient is on pantoprazole. PT/OT consulted Will resume home meds once okay per surgical services I performed an examination of the patient and discussed their management with the Nurse Practitioner. I have reviewed the Nurse Practitioner's notes and agree with the documented findings and plan of care
[2019-03-31 11:48] LABS: Glucose,Whole Blood 137 mg/dL (75-99)
--- NOTE | 2019-03-31 12:49 | P.PN ---
Subjective Progress Note Date: 03/31/19 Patient seen and examined at bedside. States pain is well controlled. States she is having a lot of flatus. Denies any vomiting but states she has had some mild nausea today. Tolerating liquid diet. Objective - Vital Signs Vital signs: Vital Signs Temp 98.2 F 03/31/19 07:00 Pulse 72 03/31/19 08:30 Resp 17 03/31/19 08:30 BP 137/54 03/31/19 07:00 Pulse Ox 95 03/31/19 07:00 Intake & Output 03/30/19 03/31/19 03/31/19 18:59 06:59 18:59 Intake Total 1250 225 Output Total 2400 Balance -1150 225 Intake: Intake, IV Titration 750 225 Amount Lactated Ringers 1,000 ml 600 225 @ 75 mls/hr IV .[id number] KEON Rx#:[id number] cefTRIAXone 1 gm In 50 Sodium Chloride 0.9% 50 ml @ 100 mls/hr IVPB Q24HR KEON Rx#:[id number] metroNIDAZOLE-NS PMX 500 100 mg In Saline 1 100ml.bag @ 100 mls/hr IVPB Q8HR KEON Rx#:[id number] Oral 500 Output: Urine 2400 Uretheral (Min) 300 Other: Voiding Method Toilet Toilet # Voids 1 2 - Constitutional General appearance: Present: cooperative, no acute distress - Respiratory Details: No difficulty with respiration - Gastrointestinal Gastrointestinal Comment(s): Soft, appropriate tenderness, nondistended, no rebound, no guarding, incision site is clean, dry and intact with mild serous drainage from the inferior portion of the wound - Musculoskeletal Musculoskeletal: Present: generalized weakness - Psychiatric Psychiatric: Present: A&O x's 3 - Labs CBC & Chem 7: 03/31/19 06:48 03/31/19 06:48 Labs: Abnormal Lab Results - Last 24 Hours (Table) 03/30/19 03/30/19 03/31/19 Range/Units 18:49 23:46 05:25 RBC (3.80-5.40) m/uL Hgb (11.4-16.0) gm/dL Hct (34.0-46.0) % Lymphocytes # (1.0-4.8) k/uL BUN (7-17) mg/dL Creatinine (0.52-1.04) mg/dL Glucose (74-99) mg/dL POC Glucose (mg/dL) 181 H 119 H 120 H (75-99) mg/dL Alkaline Phosphatase (38-126) U/L Total Protein (6.3-8.2) g/dL Albumin (3.5-5.0) g/dL 03/31/19 03/31/19 03/31/19 Range/Units 06:48 06:48 10:23 RBC 3.29 L (3.80-5.40) m/uL Hgb 10.2 L (11.4-16.0) gm/dL Hct 30.2 L (34.0-46.0) % Lymphocytes # 0.6 L (1.0-4.8) k/uL BUN 23 H (7-17) mg/dL Creatinine 1.10 H (0.52-1.04) mg/dL Glucose 122 H (74-99) mg/dL POC Glucose (mg/dL) 152 H (75-99) mg/dL Alkaline Phosphatase 165 H (38-126) U/L Total Protein 5.2 L (6.3-8.2) g/dL Albumin 2.9 L (3.5-5.0) g/dL 03/31/19 Range/Units 11:35 RBC (3.80-5.40) m/uL Hgb (11.4-16.0) gm/dL Hct (34.0-46.0) % Lymphocytes # (1.0-4.8) k/uL BUN (7-17) mg/dL Creatinine (0.52-1.04) mg/dL Glucose (74-99) mg/dL POC Glucose (mg/dL) 137 H (75-99) mg/dL Alkaline Phosphatase (38-126) U/L Total Protein (6.3-8.2) g/dL Albumin (3.5-5.0) g/dL Assessment and Plan (1) Bowel obstruction Narrative/Plan: Postoperative day #4, repair of strangulated ventral hernia with small bowel resection - Continue antibiotics to discharge - Continue to increase activity - Advance to full liquid diet - Continue DVT prophylaxis - Medical recommendations appreciated - Prognosis is guarded as the patient is noted to have multiple comorbidities and a complicated medical history Current Visit: Yes Status: Acute Code(s): K56.609 - UNSP INTESTNL OBST, UNSP TO PARTIAL VERSUS COMPLETE OBST SNOMED Code(s): 99045689
[2019-03-31] MEDS: ONDANSETRON 4 MG/2 ML VIAL IVP PRN (12:53)
[2019-03-31] MEDS ORDERED: ALBUTEROL INHALER 60 PUFF/8 GM INHALER INHALATION PRN (15:52)
[2019-03-31] MEDS ORDERED: ALPRAZolam 0.25 MG TAB PO PRN (15:52)
[2019-03-31] MEDS: FUROSEMIDE 40 MG TAB PO SCH (18:00)
[2019-03-31 18:17] LABS: T4, Free (Free Thyroxine) 1.95 ng/dL (0.78-2.19)
--- NOTE | 2019-03-31 18:19 | P.CNPUL ---
History of Present Illness Consult date: 03/31/19 Reason for consult: abnormal CXR/CT History of present illness: A 68-year-old female patient was recovering from abdominal surgery. The patient presented with a incarcerated hernia and the patient was taken to the operating room and the patient underwent an x-ray of the laparotomy with extensive lysis of adhesions, small bowel resection, ventral hernia repair. She is currently postop day #3. NG tube has been removed. She denies having any shortness of breath. She was given a dose of Lasix today. Chest x-ray was done yesterday increased shadowing of the right para tracheal stripe in addition to left basilar atelectasis. Based on this abnormality, pulmonary consultation was requested. The patient is known to have. History of mental cell carcinoma diagnosed in 2016 and the patient underwent liver surgery followed by chemoradia tion therapy and she has been followed up by gynecology service at [facility]. She also has history of ovw-emzksdf-qaujcyydm diabetes mellitus, chronic stage III kidney disease, migraines and bronchial asthma. Review of the previous CAT scan of the chest that was done on 08/22/2016 showed a large bulky and heterogeneous thyroid gland with substernal extension by 6.3 cm. There is a large lobe related exophytic nodule in the substernal region towards the left measuring up to 4.9 cm. The right liver mass was also visualized measuring at least 8.6 cm. A subsequent CAT scan of the abdomen that was done on 03/27/2019 showed 5 underlying liver lesions consistent with her history of liver cancer. There was also some focal consolidation of the posterior segment of the right lung base. Review of Systems Constitutional: Reports weight loss Eyes: denies as per HPI, denies blurred vision, denies bulging eye, denies dec reased vision, denies diplopia, denies discharge, denies dry eye, denies irritation, denies itching, denies pain, denies photophobia, denies loss of peripheral vision, denies loss of vision, denies tunnel vision/blind spots Ears: deny: decreased hearing, ear discharge, earache, tinnitus Ears, nose, mouth and throat: Reports as per HPI Breasts: absent: as per HPI, change in shape, gynecomastia, masses, nipple discharge, pain, skin changes, swelling Cardiovascular: Denies chest pain, Denies shortness of breath Respiratory: Denies cough Gastrointestinal: Reports abdominal pain, Reports nausea, Reports vomiting Genitourinary: Reports as per HPI Menstruation: Reports as per HPI Musculoskeletal: Reports as per HPI Musculoskeletal: absent: ankle pain, ankle stiffness, ankle swelling Integumentary: Denies pruritus, Denies rash Psychiatric: Reports as per HPI Endocrine: Reports as per HPI Hematologic/Lymphatic: Reports as per HPI Allergic/Immunologic: Reports as per HPI Past Medical History Past Medical History: Cancer Additional Past Medical History / Comment(s): past hx migraines, varicose veins, heart murmer, liver cancer(waiting for liver transplant), stage 2-3 kidney disease, goiter History of Any Multi-Drug Resistant Organisms: None Reported Past Surgical History: Section, Cholecystectomy, Hernia Repair, Hysterectomy, Joint Replacement, Orthopedic Surgery, Tubal Ligation Additional Past Surgical History / Comment(s): sergey knees replacement, ORIF left ankle, left achilles repair, lt wrist surg to remove cyst. rt bunionectomy, total lt hip replacement, liver mass biopsy, liver resection 09/13/16, rt knee revision 2016, radiation to liver Past Anesthesia/Blood Transfusion Reactions: No Reported Reaction Additional Past Anesthesia/Blood Transfusion Reaction / Comment(s): denies PONV Past Psychological History: Anxiety, Panic Disorder Smoking Status: Former smoker Past Alcohol Use History: None Reported Past Drug Use History: None Reported - Past Family History Mother Family Medical History: Dementia, Hypertension Sister(s) Family Medical History: Cancer Additional Family Medical History / Comment(s): breast Medications and Allergies Home Medications Medication Instructions Recorded Confirmed Type Furosemide [Lasix] 40 mg PO BID 10/20/15 03/27/19 History Potassium Chloride ER [K-Dur 20] 20 meq PO BID 10/20/15 03/27/19 History Simvastatin [Zocor] 40 mg PO HS 10/20/15 03/27/19 History Spironolactone [Aldactone] 25 mg PO BID 10/20/15 03/27/19 History glipiZIDE XL [Glucotrol XL] 5 mg PO BID 10/20/15 03/27/19 History ALPRAZolam [Xanax] 0.25 mg PO BID PRN 01/22/17 03/27/19 History Acetaminophen [Tylenol Extra 500 mg PO Q8H PRN 12/21/18 03/27/19 History Strength] Albuterol Inhaler [Ventolin Hfa 1 - 2 puff INHALATION RT-Q6H PRN 12/21/18 03/27/19 History Inhaler] Lisinopril [Prinivil] 10 mg PO BID 12/21/18 03/27/19 History Loratadine [Claritin] 10 mg PO HS 12/21/18 03/27/19 History Fluticasone Nasal [place] [Flonase 1 spray EA NOSTRIL DAILY 03/27/19 03/27/19 History Nasal [place]] Ondansetron Odt [Zofran ODT] 4 mg PO Q8HR PRN 03/27/19 03/27/19 History Sennosides/Docusate Sodium 1 tab PO DAILY PRN 03/27/19 03/27/19 History [Senna-S Laxative Tablet] metFORMIN HCL [Glucophage] 500 mg PO BID 03/27/19 03/27/19 History HYDROcodone/APAP 7.5-325MG [[place] 1 tab PO Q4H PRN 3 Days #18 tab 03/31/19 Rx 7.5-325] Allergies Allergy/AdvReac Type Severity Reaction Status Date / Time ciprofloxacin [From Cipro] Allergy Dyspnea Verified 03/27/19 21:45 ciprofloxacin HCl Allergy Dyspnea Verified 03/27/19 21:45 [From Cipro] Penicillins Allergy Rash/Hives Verified 03/27/19 21:45 Sulfa (Sulfonamide Allergy Rash/Hives Verified 03/27/19 21:45 Antibiotics) hydromorphone [From Dilaudid] AdvReac Itching Verified 03/27/19 21:45 morphine AdvReac Vomiting Verified 03/27/19 21:45 Physical Exam Vitals: Vital Signs Temp Pulse Resp BP Pulse Ox 03/31/19 16:05 64 17 03/31/19 15:00 98.4 F 64 17 121/76 94 L 03/31/19 08:30 72 17 03/31/19 07:00 98.2 F 72 17 137/54 95 03/31/19 01:26 98.1 F 62 18 112/51 92 L 03/30/19 20:44 98.4 F 78 17 136/60 95 Intake and Output 03/31/19 03/31/19 03/31/19 06:59 14:59 22:59 Other: Voiding Method Toilet Toilet # Voids 2 1 3 # Bowel Movements 1 In general patient is alert and oriented 3 in no apparent distress Head exam was generally normal. There was no scleral icterus or corneal arcus. Mucous membranes were moist. Neck was supple and without jugular venous distension, thyromegaly, or carotid bruits. Carotids were easily palpable bilaterally. There was no adenopathy. Chest exam is clear to auscultation no crackles no wheezing Cardiac exam reveals regular heart sounds S1 and S2 with 2/6 systolic murmur in the left sternal border Abdomen is soft with mild tenderness in the periumbilical area no hepatosplenomegaly no palpable masses Extremity exam reveals minimal edema no cyanosis or clubbing Neurological examination reveals no gross focal deficit Examination of the skin revealed no evidence of significant rashes, suspicious appearing nevi or other concerning lesions. Results - Laboratory Findings CBC and BMP: 03/31/19 06:48 03/31/19 06:48 PT/INR, D-dimer PT 9.5 sec (9.0-12.0) 03/27/19 18:45 INR 0.9 (<1.2) 03/27/19 18:45 Abnormal lab findings: Abnormal Labs 03/27/19 03/27/19 03/28/19 18:45 18:45 01:26 WBC 12.7 H RBC Hgb Hct Neutrophils # 11.3 H Lymphocytes # 0.6 L Sodium 129 L Potassium 5.2 H Chloride 97 L BUN 29 H Creatinine 1.68 H Glucose 235 H POC Glucose (mg/dL) 146 H AST 40 H ALT 59 H Alkaline Phosphatase 294 H Total Protein Albumin 03/28/19 03/28/19 03/28/19 06:19 06:19 08:10 WBC 17.0 H RBC 3.65 L Hgb 10.9 L Hct 33.4 L Neutrophils # 16.0 H Lymphocytes # 0.3 L Sodium 135 L Potassium Chloride BUN 25 H Creatinine 1.57 H Glucose 164 H POC Glucose (mg/dL) 151 H AST ALT 56 H Alkaline Phosphatase 222 H Total Protein 5.7 L Albumin 3.3 L 03/28/19 03/28/19 03/29/19 11:53 17:39 00:06 WBC RBC Hgb Hct Neutrophils # Lymphocytes # Sodium Potassium Chloride BUN Creatinine Glucose POC Glucose (mg/dL) 149 H 146 H 165 H AST ALT Alkaline Phosphatase Total Protein Albumin 03/29/19 03/29/19 03/29/19 05:52 06:48 06:48 WBC 11.8 H RBC 3.54 L Hgb 10.6 L Hct 32.5 L Neutrophils # 10.3 H Lymphocytes # 0.5 L Sodium 136 L Potassium Chloride BUN 21 H Creatinine 1.34 H Glucose 136 H POC Glucose (mg/dL) 133 H AST ALT Alkaline Phosphatase 198 H Total Protein 5.7 L Albumin 3.2 L 03/29/19 03/29/19 03/29/19 12:03 17:38 19:58 WBC RBC Hgb Hct Neutrophils # Lymphocytes # Sodium Potassium Chloride BUN Creatinine Glucose POC Glucose (mg/dL) 124 H 133 H 140 H AST ALT Alkaline Phosphatase Total Protein Albumin 03/29/19 03/30/19 03/30/19 22:47 06:22 08:22 WBC 11.5 H RBC 3.40 L Hgb 10.4 L Hct 31.5 L Neutrophils # 9.9 H Lymphocytes # 0.5 L Sodium Potassium Chloride BUN Creatinine Glucose POC Glucose (mg/dL) 131 H 123 H AST ALT Alkaline Phosphatase Total Protein Albumin 03/30/19 03/30/19 03/30/19 08:22 12:12 18:49 WBC RBC Hgb Hct Neutrophils # Lymphocytes # Sodium Potassium Chloride BUN 22 H Creatinine 1.28 H Glucose 137 H POC Glucose (mg/dL) 127 H 181 H AST ALT Alkaline Phosphatase 179 H Total Protein 5.4 L Albumin 3.1 L 03/30/19 03/31/19 03/31/19 23:46 05:25 06:48 WBC RBC 3.29 L Hgb 10.2 L Hct 30.2 L Neutrophils # Lymphocytes # 0.6 L Sodium Potassium Chloride BUN Creatinine Glucose POC Glucose (mg/dL) 119 H 120 H AST ALT Alkaline Phosphatase Total Protein Albumin 03/31/19 03/31/19 03/31/19 06:48 10:23 11:35 WBC RBC Hgb Hct Neutrophils # Lymphocytes # Sodium Potassium Chloride BUN 23 H Creatinine 1.10 H Glucose 122 H POC Glucose (mg/dL) 152 H 137 H AST ALT Alkaline Phosphatase 165 H Total Protein 5.2 L Albumin 2.9 L - Diagnostic Findings Chest x-ray: image reviewed Assessment and Plan Plan: 1 abnormal chest x-ray with increased thickness of the right paratracheal stripe. No evidence of any pulmonary lesions or nodules. Patient has a retrosternal goiter in the same time the film and somewhat rotated. There is no need for any further workup. Please refer to the information stated below. 2 incarcerated umbilical hernia with high-grade small bowel obstruction post- expiratory laparotomy and extensive lysis of adhesions and small bowel resection and ventral hernia repair and the patient is postop day #3 3. Hepatocellular carcinoma post liver dissection post-chemoradiation therapy awaiting liver transplantation 4 hypertension 5 migraines 6 bronchial asthma 7 goiter noted on previous CAT scan of the chest that was done 2017 with retrosternal extension. 8 acute kidney injury, recovering in the creatinine is improved and is down to 1.1 Plan Was able to retrieve a CAT scan of the chest that was done at [facility] as part of chest with evaluation. This was done on 12/07/2018. The CAT scan of the chest showed the following There are is substantial enlargement of the thyroid which extends along the anterior mediastinum in a retrosternal location down to the level of the pulmonary trunk. It is heterogeneous in its enhancement with numerous calcifications present. The appearance is similar to prior examination. No mediastinal, hilar or axillary lymphadenopathy. CARDIOVASCULAR: Coronary artery calcifications present. LUNGS AND PLEURA: No confluent airspace opacity or pleural effusion. A few linear bands of opacity in the lower lungs are likely due to minimal subsegmental atelectasis. No pulmonary metastasis seen. There is mild compression of the AP dimension of the trachea as it courses posterior to the thyroid goiter. BONES/OTHER: Multilevel degenerative changes are present in the spine. No suspicious osseous lesions seen. Upper abdomen demonstrates a mildly nodular liver with some vague hypoattenuating lesions present in segment 7 corresponding to the abnormalities on recent MRI. IMPRESSION: No evidence of metastatic disease in the thorax. Enlarged heterogeneous thyroid extending in a retrosternal location relatively stable from prior exam consistent with a multinodular goiter. Based on all this, I do not think there is a need for a repeat CAT scan for now. The patient was reassured. I will sign off the case.
[2019-03-31 18:41] LABS: Glucose,Whole Blood 192 mg/dL (75-99)
[2019-03-31] MEDS: SPIRONOLACTONE 25 MG TAB PO SCH (20:37)
[2019-03-31] MEDS: LORATADINE 10 MG TAB PO SCH (20:37)
[2019-03-31] MEDS: LISINOPRIL 10 MG TAB PO SCH (20:37)
[2019-03-31] MEDS: LACTATED RINGERS 1,000 ML IV SCH (23:32)
[2019-03-31 23:38] LABS: Glucose,Whole Blood 156 mg/dL (75-99)
[2019-04-01] MEDS: ONDANSETRON 4 MG/2 ML VIAL IVP PRN (04:47)
[2019-04-01] MEDS: INSULIN ASPART (NovoLOG) 100 UNIT/ML VIAL SQ SCH ×3 (05:26→17:07)
[2019-04-01 05:35] LABS: Glucose,Whole Blood 129 mg/dL (75-99)
[2019-04-01 08:11] LABS: Basophils % (A) 0 %; Eosinophils # (A) 0.8 k/uL (0-0.7); Eosinophils % (A) 8 %; HCT 33.9 % (34.0-46.0); HGB 10.9 gm/dL (11.4-16.0); Lymphocytes # (A) 0.8 k/uL (1.0-4.8); Lymphocytes % (A) 8 %; MCH 29.6 pg (25.0-35.0); MCHC 32.1 g/dL (31.0-37.0); MCV 92.2 fL (80.0-100.0); Mean Platelet Volume 6.5; Monocytes # (A) 0.5 k/uL (0-1.0); Monocytes % (A) 5 %; Neutrophils # (A) 8.3 k/uL (1.3-7.7); Neutrophils % (A) 78 %; Platelet Count 336 k/uL (150-450); RBC 3.67 m/uL (3.80-5.40); RDW 12.6 % (11.5-15.5); WBC 10.5 k/uL (3.8-10.6)
[2019-04-01 08:32] LABS: Albumin 3.3 g/dL (3.5-5.0); Calcium 9.4 mg/dL (8.4-10.2); Potassium 3.6 mmol/L (3.5-5.1); Total Bilirubin 0.4 mg/dL (0.2-1.3)
[2019-04-01] MEDS: LISINOPRIL 10 MG TAB PO SCH ×2 (08:59→20:59)
[2019-04-01] MEDS: FUROSEMIDE 40 MG TAB PO SCH ×2 (08:59→16:09)
[2019-04-01] MEDS: HEPARIN SODIUM,PORCINE 5,000 UNIT/ML 1 ML VIAL SQ SCH ×3 (08:59→23:59)
[2019-04-01] MEDS: SPIRONOLACTONE 25 MG TAB PO SCH ×2 (08:59→20:59)
[2019-04-01] MEDS: PANTOPRAZOLE 40 MG/10 ML VIAL IV SCH (08:59)
[2019-04-01] MEDS: FLUTICASONE 50MCG/SPRAY NASAL 16GM EA NOSTRIL SCH (09:00)
[2019-04-01] MEDS: metroNIDAZOLE-NS PMX 500 MG in SALINE 1 100ML.BAG IVPB SCH ×3 (10:36→23:58)
[2019-04-01 12:11] LABS: Glucose,Whole Blood 171 mg/dL (75-99)
--- NOTE | 2019-04-01 12:49 | P.PN ---
Subjective Progress Note Date: 04/01/19 Principal diagnosis: S/P small bowel resection and herniorrhaphy The patient is doing well today. Denies any pain. No nausea or vomiting. SHe is tolerating the clear liquid diet. She did have a bowel movement last night and this morning. Objective - Vital Signs Vital signs: Vital Signs Temp 97.5 F L 04/01/19 07:00 Pulse 67 04/01/19 01:11 Resp 16 04/01/19 07:00 BP 123/85 04/01/19 07:00 Pulse Ox 96 04/01/19 07:00 Intake & Output 03/31/19 04/01/19 04/01/19 18:59 06:59 18:59 Intake Total 945 Balance 945 Intake: Intake, IV Titration 405 Amount Lactated Ringers 1,000 ml 180 @ 0 mls/hr IV .[facility] Rx#:[id number] Lactated Ringers 1,000 ml 225 @ 75 mls/hr IV .[id number] [facility] Rx#:[id number] Oral 540 Other: Voiding Method Toilet # Voids 1 # Bowel Movements 1 - Constitutional General appearance: Present: cooperative, no acute distress - Gastrointestinal General gastrointestinal: Present: normal bowel sounds, soft Localized gastrointestinal: surgical scar: diffuse (The incision has serous drainage with no signs of cellulitis) - Labs CBC & Chem 7: 04/01/19 07:37 04/01/19 07:37 Labs: Abnormal Lab Results - Last 24 Hours (Table) 03/31/19 03/31/19 03/31/19 Range/Units 06:48 18:27 23:25 RBC (3.80-5.40) m/uL Hgb (11.4-16.0) gm/dL Hct (34.0-46.0) % Neutrophils # (1.3-7.7) k/uL Lymphocytes # (1.0-4.8) k/uL Eosinophils # (0-0.7) k/uL Sodium (137-145) mmol/L BUN (7-17) mg/dL Creatinine (0.52-1.04) mg/dL Glucose (74-99) mg/dL POC Glucose (mg/dL) 192 H 156 H (75-99) mg/dL Alkaline Phosphatase (38-126) U/L Total Protein (6.3-8.2) g/dL Albumin (3.5-5.0) g/dL TSH 0.093 L (0.465-4.680) mIU/L 04/01/19 04/01/19 04/01/19 Range/Units 05:24 07:37 07:37 RBC 3.67 L (3.80-5.40) m/uL Hgb 10.9 L (11.4-16.0) gm/dL Hct 33.9 L (34.0-46.0) % Neutrophils # 8.3 H (1.3-7.7) k/uL Lymphocytes # 0.8 L (1.0-4.8) k/uL Eosinophils # 0.8 H (0-0.7) k/uL Sodium 136 L (137-145) mmol/L BUN 20 H (7-17) mg/dL Creatinine 1.17 H (0.52-1.04) mg/dL Glucose 135 H (74-99) mg/dL POC Glucose (mg/dL) 129 H (75-99) mg/dL Alkaline Phosphatase 194 H (38-126) U/L Total Protein 6.0 L (6.3-8.2) g/dL Albumin 3.3 L (3.5-5.0) g/dL TSH (0.465-4.680) mIU/L 04/01/19 Range/Units 11:58 RBC (3.80-5.40) m/uL Hgb (11.4-16.0) gm/dL Hct (34.0-46.0) % Neutrophils # (1.3-7.7) k/uL Lymphocytes # (1.0-4.8) k/uL Eosinophils # (0-0.7) k/uL Sodium (137-145) mmol/L BUN (7-17) mg/dL Creatinine (0.52-1.04) mg/dL Glucose (74-99) mg/dL POC Glucose (mg/dL) 171 H (75-99) mg/dL Alkaline Phosphatase (38-126) U/L Total Protein (6.3-8.2) g/dL Albumin (3.5-5.0) g/dL TSH (0.465-4.680) mIU/L Assessment and Plan (1) Bowel obstruction Current Visit: Yes Status: Acute Code(s): K56.609 - UNSP INTESTNL OBST, UNSP TO PARTIAL VERSUS COMPLETE OBST SNOMED Code(s): 27538006 (2) Umbilical hernia Current Visit: Yes Status: Acute Code(s): K42.9 - UMBILICAL HERNIA WITHOUT OBSTRUCTION OR GANGRENE SNOMED Code(s): 254168798 Plan: The patient's diet will be advanced. Monitor the wound. Hopefully she will be ready for discharge in the next 1-2 days.
--- NOTE | 2019-04-01 13:33 | P.PN ---
Subjective Progress Note Date: 04/01/19 Christy Machado is a 68-year-old female well known to my practice who presented to [facility] emergency room with a chief complaint of abdominal pain and nausea, patient also had 2 episodes of diarrhea urine the day, she was evaluation the emergency room, white blood count was elevated at 12.7 she had a computed tomography scan of the abdomen which revealed small bowel obstruction associated with umbilical hernia containing multiple small bowel loops. Patient admitted under surgical service Dr. Rahman and underwent exploratory laparotomy with extensive lysis of adhesion, small bowel resection, and ventral hernia repair. Patient was subsequently admitted to the floor, medical consultation was requested for management while hospitalized. Patient has a known history of hepatocellular carcinoma diagnosed in 2017 patient underwent liver surgery, chemotherapy and radiation therapy, she still has evidence of liver cancer, she is following with oncology at [facility], she was last seen there 2 weeks ago. Patient also has a known history of asthma, [id number] diabetes mellitus, chronic kidney disease stage III, and migraine headache. Patient was seen and examined on the medical floor she is alert and oriented 3 in no apparent distress she is complaining of abdominal pain and throat pain NG- tube with in place. Otherwise she denies any complaints there is no fever or chills no headache or dizziness no chest pain or shortness of breath no cough no nausea or vomiting no diarrhea no burning with urination no frequency or urgency and no hematuria. On 03/29/2019 patient is alert and oriented 3. Patient is currently postop day 2. Patient denies any gas or bowel movements. Patient denies chest pain or shortness of breath. Patient denies nausea vomiting or diarrhea. NG remains in place patient remains nothing by mouth per surgical services. Patient denies any burning with urination for cath remains in place. Increase activity encouraged will order incentive spirometer for bedside. White blood cell count trending down. Acute kidney injury with resolving. On 03/30/2018 patient is alert and oriented 3. Patient is currently postop day 2. Patient is having gas. Plans for NG tube removal today. Patient having increased swelling to arms and legs. Will order 1 time dose of IV Lasix. Chest x-ray also ordered for cough. Incentive spirometer encouraged. At this time patient denies chest pain. Patient denies nausea vomiting or diarrhea. Patient denies any urinary burning or frequency 03/31/2019 patient is alert and oriented 3. Patient is currently postop day 3. NG tube has been removed Min catheter with per surgical services. Patient did receive 1 dose of IV Lasix yesterday. Patient's diet has been advanced to clear liquids per surgical services. At this time patient denies chest pain or shortness of breath. Patient denies nausea vomiting or diarrhea. Patient denies any urinary burning or frequency On 04/01/2019 patient was seen and examined on the medical floor she is alert and oriented 3 in no apparent distress tolerating full liquid diet well, there is no fever or chills no headache or dizziness no chest pain no shortness of breath no cough no nausea or vomiting no abdominal pain no diarrhea no burning was urination no frequency or urgency and no hematuria Objective - Vital Signs Vital signs: Vital Signs Temp 97.5 F L 04/01/19 07:00 Pulse 67 04/01/19 01:11 Resp 16 04/01/19 07:00 BP 123/85 04/01/19 07:00 Pulse Ox 96 04/01/19 07:00 Intake & Output 03/31/19 04/01/19 04/01/19 18:59 06:59 18:59 Intake Total 945 Balance 945 Intake: Intake, IV Titration 405 Amount Lactated Ringers 1,000 ml 180 @ 0 mls/hr IV [facility] Rx#:[id number] Lactated Ringers 1,000 ml 225 @ 75 mls/hr IV .[id number] [facility] Rx#:[id number] Oral 540 Other: Voiding Method Toilet # Voids 1 # Bowel Movements 1 - Exam In general patient is alert and oriented 3 in no apparent distress HEENT head normocephalic and atraumatic Neck is supple no JVD no goiter no lymphadenopathy Chest exam is clear to auscultation no crackles no wheezing Cardiac exam reveals regular heart sounds S1 and S2 with 2/6 systolic murmur in the left sternal border Abdomen is soft with mild tenderness in the periumbilical area no hepatosplenomegaly no palpable masses Extremity exam reveals minimal edema no cyanosis or clubbing Neurological examination reveals no gross focal deficit - Labs CBC & Chem 7: 04/01/19 07:37 04/01/19 07:37 Labs: Abnormal Lab Results - Last 24 Hours (Table) 03/31/19 03/31/1903/31/19 Range/Units 06:48 18:27 23:25 RBC (3.80-5.40) m/uL Hgb (11.4-16.0) gm/dL Hct (34.0-46.0) % Neutrophils # (1.3-7.7) k/uL Lymphocytes # (1.0-4.8) k/uL Eosinophils # (0-0.7) k/uL Sodium (137-145) mmol/L BUN (7-17) mg/dL Creatinine (0.52-1.04) mg/dL Glucose (74-99) mg/dL POC Glucose (mg/dL) 192 H 156 H (75-99) mg/dL Alkaline Phosphatase (38-126) U/L Total Protein (6.3-8.2) g/dL Albumin (3.5-5.0) g/dL TSH 0.093 L (0.465-4.680) mIU/L 04/01/19 04/01/19 04/01/19 Range/Units 05:24 07:37 07:37 RBC 3.67 L (3.80-5.40) m/uL Hgb 10.9 L (11.4-16.0) gm/dL Hct 33.9 L (34.0-46.0) % Neutrophils # 8.3 H (1.3-7.7) k/uL Lymphocytes # 0.8 L (1.0-4.8) k/uL Eosinophils # 0.8 H (0-0.7) k/uL Sodium 136 L (137-145) mmol/L BUN 20 H (7-17) mg/dL Creatinine 1.17 H (0.52-1.04) mg/dL Glucose 135 H (74-99) mg/dL POC Glucose (mg/dL) 129 H (75-99) mg/dL Alkaline Phosphatase 194 H (38-126) U/L Total Protein 6.0 L (6.3-8.2) g/dL Albumin 3.3 L (3.5-5.0) g/dL TSH (0.465-4.680) mIU/L 04/01/19 Range/Units 11:58 RBC (3.80-5.40) m/uL Hgb (11.4-16.0) gm/dL Hct (34.0-46.0) % Neutrophils # (1.3-7.7) k/uL Lymphocytes # (1.0-4.8) k/uL Eosinophils # (0-0.7) k/uL Sodium (137-145) mmol/L BUN (7-17) mg/dL Creatinine (0.52-1.04) mg/dL Glucose (74-99) mg/dL POC Glucose (mg/dL) 171 H (75-99) mg/dL Alkaline Phosphatase (38-126) U/L Total Protein (6.3-8.2) g/dL Albumin (3.5-5.0) g/dL TSH (0.465-4.680) mIU/L Assessment and Plan Plan: #1 incarcerated umbilical hernia with high grade small bowel obstruction status post exploratory laparotomy with extensive lysis of adhesion, small bowel resection, and ventral hernia repair. She is currently postop day 3. Patient remains nothing by mouth per surgical services NG tube in place. Patient remains on Rocephin and Flagyl. Leukocytosis improving. NG tube and Min catheter removed. #2 known history of hepatocellular carcinoma, computed tomography scan is showing some liver lesions. Patient is followed at [facility] in that regard. #3 underlying history of diabetes mellitus, [id number], patient is nothing by mouth at this time, will hold oral medications and cover with insulin sliding scale as needed #4 underlying history of hypertension, at this time all oral medications are on hold patient has an NG tube, will cover with Vasotec IV if needed #5 underlying history of migraine headaches stable at this time #6 underlying history of asthma will give albuterol updraft if needed. Incentive spirometer reordered for bedside #7. Acute kidney injury. Initial creatinine 1.68 and bun 29. Creatinine improving to 1.34 bun 21. We'll continue to monitor. Creatinine improving to 1.10 and bun 23 #8. Elevated liver enzymes this could be secondary to patient's known hepatocellular carcinoma these labs are improving we'll continue to monitor #9. Increased edema. Patient currently not able to receive home end-stage nothing by mouth. Will give 1 dose of IV Lasix 20 mg. #10. Increased cough. Will order chest x-ray to rule out pneumonia. Incentive spirometer encouraged. Chest x-ray completed showing trace pleural effusions with adjacent atelectasis or consolidation and right paratracheal soft tissue density is increased. This could be secondary to underlying liver did not disease, mass or vascular disease. Contrast-enhanced CT chest is further recommended for evaluation. DVT prophylaxis patient is on subcu heparin for GI prophylaxis patient is on pantoprazole. PT/OT consulted At this time will advance to diabetic regular diet Possible discharge to home tomorrow
[2019-04-01 17:05] LABS: Glucose,Whole Blood 166 mg/dL (75-99)
[2019-04-01] MEDS: LORATADINE 10 MG TAB PO SCH (20:59)
[2019-04-02 00:09] LABS: Glucose,Whole Blood 131 mg/dL (75-99)
[2019-04-02] MEDS: INSULIN ASPART (NovoLOG) 100 UNIT/ML VIAL SQ SCH ×2 (00:09→06:03)
[2019-04-02 06:00] LABS: Glucose,Whole Blood 123 mg/dL (75-99)
[2019-04-02 08:18] LABS: Basophils % (A) 0 %; Eosinophils # (A) 0.7 k/uL (0-0.7); Eosinophils % (A) 8 %; HCT 32.6 % (34.0-46.0); HGB 10.9 gm/dL (11.4-16.0); Lymphocytes # (A) 0.9 k/uL (1.0-4.8); Lymphocytes % (A) 9 %; MCHC 33.5 g/dL (31.0-37.0); MCV 89.7 fL (80.0-100.0); Mean Platelet Volume 5.9; Monocytes # (A) 0.6 k/uL (0-1.0); Monocytes % (A) 6 %; Neutrophils # (A) 7.5 k/uL (1.3-7.7); Neutrophils % (A) 77 %; Platelet Count 364 k/uL (150-450); RBC 3.64 m/uL (3.80-5.40); RDW 12.8 % (11.5-15.5); WBC 9.8 k/uL (3.8-10.6)
[2019-04-02 08:23] VITALS: BP 116/73; PULSE 64; RESP 12; TEMP 98.2
[2019-04-02 08:27] LABS: Albumin 3.1 g/dL (3.5-5.0); Calcium 9.3 mg/dL (8.4-10.2); Potassium 3.8 mmol/L (3.5-5.1); Total Bilirubin 0.4 mg/dL (0.2-1.3); Total Protein 5.6 g/dL (6.3-8.2)
[2019-04-02] MEDS: metroNIDAZOLE-NS PMX 500 MG in SALINE 1 100ML.BAG IVPB SCH (08:39)
[2019-04-02] MEDS: PANTOPRAZOLE 40 MG/10 ML VIAL IV SCH (08:40)
[2019-04-02] MEDS: FLUTICASONE 50MCG/SPRAY NASAL 16GM EA NOSTRIL SCH (08:40)
[2019-04-02] MEDS: SPIRONOLACTONE 25 MG TAB PO SCH (08:40)
[2019-04-02] MEDS: HEPARIN SODIUM,PORCINE 5,000 UNIT/ML 1 ML VIAL SQ SCH (08:40)
[2019-04-02] MEDS: LISINOPRIL 10 MG TAB PO SCH (08:40)
[2019-04-02] MEDS: FUROSEMIDE 40 MG TAB PO SCH (08:40)
--- NOTE | 2019-04-02 10:32 | P.DS ---
Providers Date of admission: 03/27/19 21:24 Expected date of discharge: 04/02/19 Attending physician: Maciej Rahman DO Consults: 03/27/19 21:47 Consult Physician Routine Consulting Provider: Herber Babcock Consult Reason/Comments: Medical Management Do you want consulting provider notified?: Yes 03/31/19 15:55 Consult Physician Routine Consulting Provider: Ying Duckworth Consult Reason/Comments: Chest x-ray results Do you want consulting provider notified?: Yes Primary care physician: Herber Babcock - Discharge Diagnosis(es) (1) Bowel obstruction Current Visit: Yes Status: Acute (2) Umbilical hernia Current Visit: Yes Status: Acute Hospital Course: The patient developed abdominal pain with nausea and vomiting. She was worked up in the emergency department and found to have an incarcerated umbilical hernia. She was taken to the OR where she underwent a segmental small bowel resection along with repair of the hernia. She slowly progressed. She did have quite a bit of serous drainage from the incision so the lower portion was opened and packed. Her is a RN and has done wound care for her in the past. Patient Condition at Discharge: Good Plan - Discharge Summary Discharge Rx Participant: No New Discharge Prescriptions: New HYDROcodone/APAP 7.5-325MG [Brodhead 7.5-325] 1 tab PO Q4H PRN 3 Days #18 tab PRN Reason: Pain Continue Simvastatin [Zocor] 40 mg PO HS glipiZIDE XL [Glucotrol XL] 5 mg PO BID Potassium Chloride ER [K-Dur 20] 20 meq PO BID Spironolactone [Aldactone] 25 mg PO BID Furosemide [Lasix] 40 mg PO BID ALPRAZolam [Xanax] 0.25 mg PO BID PRN PRN Reason: Anxiety Loratadine [Claritin] 10 mg PO HS Albuterol Inhaler [Ventolin Hfa Inhaler] 1 - 2 puff INHALATION RT-Q6H PRN PRN Reason: Shortness Of Breath Lisinopril [Prinivil] 10 mg PO BID Acetaminophen [Tylenol Extra Strength] 500 mg PO Q8H PRN PRN Reason: Pain Ondansetron Odt [Zofran ODT] 4 mg PO Q8HR PRN PRN Reason: Nausea And Vomiting Fluticasone Nasal Jun[place] [Flonase Nasal [place]] 1 spray EA NOSTRIL DAILY Sennosides/Docusate Sodium [Senna-S Laxative Tablet] 1 tab PO DAILY PRN PRN Reason: Constipation metFORMIN HCL [Glucophage] 500 mg PO BID Discharge Medication List Furosemide [Lasix] 40 mg PO BID 10/20/15 [History] Potassium Chloride ER [K-Dur 20] 20 meq PO BID 10/20/15 [History] Simvastatin [Zocor] 40 mg PO HS 10/20/15 [History] Spironolactone [Aldactone] 25 mg PO BID 10/20/15 [History] glipiZIDE XL [Glucotrol XL] 5 mg PO BID 10/20/15 [History] ALPRAZolam [Xanax] 0.25 mg PO BID PRN 01/22/17 [History] Acetaminophen [Tylenol Extra Strength] 500 mg PO Q8H PRN 12/21/18 [History] Albuterol Inhaler [Ventolin Hfa Inhaler] 1 - 2 puff INHALATION RT-Q6H PRN 12/21/18 [History] Lisinopril [Prinivil] 10 mg PO BID 12/21/18 [History] Loratadine [Claritin] 10 mg PO HS 12/21/18 [History] Fluticasone Nasal Juncos [Flonase Nasal [place]] 1 spray EA NOSTRIL DAILY 03/27/19 [History] Ondansetron Odt [Zofran ODT] 4 mg PO Q8HR PRN 03/27/19 [History] Sennosides/Docusate Sodium [Senna-S Laxative Tablet] 1 tab PO DAILY PRN 03/27/19 [History] metFORMIN HCL [Glucophage] 500 mg PO BID 03/27/19 [History] HYDROcodone/APAP 7.5-325MG [Brodhead 7.5-325] 1 tab PO Q4H PRN 3 Days #18 tab 03/31/19 [Rx] Follow up Appointment(s)/Referral(s): Herber Babcock MD [Primary Care Provider] - 1-2 days Maciej Rahman DO [Doctor of Osteopathic Medicine] - 1 Week (Call Friday morning to be seen Friday or Friday of next week to check the incision) Activity/Diet/Wound Care/Special Instructions: Irrigate the wound with 10 mL's of sterile normal saline Friday, Friday, Friday. Then pack 1-2 inches of Aquacel Ag rope into the wound. Cover with gauze dressing and tape. The gauze may be changed as needed. Dress wound with gauze, expect drainage from inferior portion of wound Follow closely with driver/merchandiser No lifting greater than 5 lbs Discharge Disposition: HOME SELF-CARE
--- NOTE | 2019-04-02 10:36 | P.PN ---
Subjective Progress Note Date: 04/02/19 Christy Machado is a 68-year-old female well known to my practice who presented to [facility] emergency room with a chief complaint of abdominal pain and nausea, patient also had 2 episodes of diarrhea urine the day, she was evaluation the emergency room, white blood count was elevated at 12.7 she had a computed tomography scan of the abdomen which revealed small bowel obstruction associated with umbilical hernia containing multiple small bowel loops. Patient admitted under surgical service Dr. Rahman and underwent exploratory laparotomy with extensive lysis of adhesion, small bowel resection, and ventral hernia repair. Patient was subsequently admitted to the floor, medical consultation was requested for management while hospitalized. Patient has a known history of hepatocellular carcinoma diagnosed in 2017 patient underwent liver surgery, chemotherapy and radiation therapy, she still has evidence of liver cancer, she is following with oncology at [facility], she was last seen there 2 weeks ago. Patient also has a known history of asthma, woa-qitrmak-wyjvsaegq diabetes mellitus, chronic kidney disease stage III, and migraine headache. Patient was seen and examined on the medical floor she is alert and oriented 3 in no apparent distress she is complaining of abdominal pain and throat pain NG- tube with in place. Otherwise she denies any complaints there is no fever or chills no headache or dizziness no chest pain or shortness of breath no cough no nausea or vomiting no diarrhea no burning with urination no frequency or urgency and no hematuria. On 03/29/2019 patient is alert and oriented 3. Patient is currently postop day 2. Patient denies any gas or bowel movements. Patient denies chest pain or shortness of breath. Patient denies nausea vomiting or diarrhea. NG remains in place patient remains nothing by mouth per surgical services. Patient denies any burning with urination for cath remains in place. Increase activity encouraged will order incentive spirometer for bedside. White blood cell count trending down. Acute kidney injury with resolving. On 03/30/2018 patient is alert and oriented 3. Patient is currently postop day 2. Patient is having gas. Plans for NG tube removal today. Patient having increased swelling to arms and legs. Will order 1 time dose of IV Lasix. Chest x-ray also ordered for cough. Incentive spirometer encouraged. At this time patient denies chest pain. Patient denies nausea vomiting or diarrhea. Patient denies any urinary burning or frequency 03/31/2019 patient is alert and oriented 3. Patient is currently postop day 3. NG tube has been removed Min catheter with per surgical services. Patient did receive 1 dose of IV Lasix yesterday. Patient's diet has been advanced to clear liquids per surgical services. At this time patient denies chest pain or shortness of breath. Patient denies nausea vomiting or diarrhea. Patient denies any urinary burning or frequency On 04/01/2019 patient was seen and examined on the medical floor she is alert and oriented 3 in no apparent distress tolerating full liquid diet well, there is no fever or chills no headache or dizziness no chest pain no shortness of breath no cough no nausea or vomiting no abdominal pain no diarrhea no burning was urination no frequency or urgency and no hematuria On 04/02/2019 patient alert and oriented 3. Patient has been having bowel movements. Patient is currently postop day 5. Plans for discharge per surgical services. Patient feels well and ready to go home. Patient denies nausea vom iting or diarrhea. Patient denies any urinary burning or frequency. Swelling has improved. Patient resumed on home medication Objective - Vital Signs Vital signs: Vital Signs Temp 98.2 F 04/02/19 07:00 Pulse 64 04/02/19 07:00 Resp 12 04/02/19 07:00 BP 116/73 04/02/19 07:00 Pulse Ox 96 04/02/19 07:00 Intake & Output 04/01/19 04/02/19 04/02/19 18:59 06:59 18:59 Intake Total 540 780 240 Balance 540 780 240 Intake: Intake, IV Titration 300 Amount Lactated Ringers 1,000 ml 300 @ 0 mls/hr IV .[facility] Rx#:[id number] Oral 540 480 240 Other: # Voids 3 2 - Exam In general patient is alert and oriented 3 in no apparent distress HEENT head normocephalic and atraumatic Neck is supple no JVD no goiter no lymphadenopathy Chest exam is clear to auscultation no crackles no wheezing Cardiac exam reveals regular heart sounds S1 and S2 with 2/6 systolic murmur in the left sternal border Abdomen is soft with mild tenderness in the periumbilical area no hepatosplenomegaly no palpable masses Extremity exam reveals minimal edema no cyanosis or clubbing Neurological examination reveals no gross focal deficit - Labs CBC & Chem 7: 04/02/19 07:13 04/02/19 07:13 Labs: Abnormal Lab Results - Last 24 Hours (Table) 04/01/19 04/01/19 04/01/19 Range/Units 11:58 16:45 23:57 RBC (3.80-5.40) m/uL Hgb (11.4-16.0) gm/dL Hct (34.0-46.0) % Lymphocytes # (1.0-4.8) k/uL BUN (7-17) mg/dL Creatinine (0.52-1.04) mg/dL Glucose (74-99) mg/dL POC Glucose (mg/dL) 171 H 166 H 131 H (75-99) mg/dL Alkaline Phosphatase (38-126) U/L Total Protein (6.3-8.2) g/dL Albumin (3.5-5.0) g/dL 04/02/19 04/02/19 04/02/19 Range/Units 05:58 07:13 07:13 RBC 3.64 L (3.80-5.40) m/uL Hgb 10.9 L (11.4-16.0) gm/dL Hct 32.6 L (34.0-46.0) % Lymphocytes # 0.9 L (1.0-4.8) k/uL BUN 18 H (7-17) mg/dL Creatinine 1.20 H (0.52-1.04) mg/dL Glucose 138 H (74-99) mg/dL POC Glucose (mg/dL) 123 H (75-99) mg/dL Alkaline Phosphatase 193 H (38-126) U/L Total Protein 5.6 L (6.3-8.2) g/dL Albumin 3.1 L (3.5-5.0) g/dL Assessment and Plan Assessment: #1 incarcerated umbilical hernia with high grade small bowel obstruction status post exploratory laparotomy with extensive lysis of adhesion, small bowel resection, and ventral hernia repair. She is currently postop day 3. Patient remains nothing by mouth per surgical services NG tube in place. Patient remains on Rocephin and Flagyl. Leukocytosis improving. NG tube and Min catheter removed. Patient is currently postop day 5. Patient has been having bowel movements. Tolerating diet #2 known history of hepatocellular carcinoma, computed tomography scan is showing some liver lesions. Patient is followed at [facility] in that regard. #3 underlying history of diabetes mellitus, [id number]-rfpaqfi-gmaqicpde, patient is nothing by mouth at this time, will hold oral medications and cover with insulin sliding scale as needed #4 underlying history of hypertension, at this time all oral medications are on hold patient has an NG tube, will cover with Vasotec IV if needed. Homans resumed #5 underlying history of migraine headaches stable at this time #6 underlying history of asthma will give albuterol updraft if needed. Incentive spirometer reordered for bedside #7. Acute kidney injury. Initial creatinine 1.68 and bun 29. Creatinine improving to 1.34 bun 21. We'll continue to monitor. #8. Elevated liver enzymes this could be secondary to patient's known hepatocellular carcinoma these labs are improving we'll continue to monitor #9. Increased edema. Patient currently not able to receive home end-stage nothing by mouth. Will give 1 dose of IV Lasix 20 mg. #10. Increased cough. Will order chest x-ray to rule out pneumonia. Incentive spirometer encouraged. Chest x-ray completed showing trace pleural effusions with adjacent atelectasis or consolidation and right paratracheal soft tissue density is increased. This could be secondary to underlying liver did not di sease, mass or vascular disease. Contrast-enhanced CT chest is further recommended for evaluation. Patient was evaluated by pulmonary services. CAT scan was reviewed from [facility]. Per pulmonary services no evidence of metastatic disease in the thorax no repeat CAT scan needed at this time 12. Enlarged heterogenous thyroid extending into the retrosternal location relatively stable from prior exam consistent with multinodular goiter. Patient reports that she has had a goiter that she is well aware of. TSH 0.093 and free T4 1 0.95 patient follow-up with PCP for further management DVT prophylaxis patient is on subcu heparin for GI prophylaxis patient is on pantoprazole. PT/OT consulted Okay for discharge home. Patient to follow-up with PCP I performed an examination of the patient and discussed their management with the Nurse Practitioner. I have reviewed the Nurse Practitioner's notes and agree with the documented findings and plan of care
[2019-04-02 12:48] VITALS: BMI 41.5
[2019-04-02] MEDS ORDERED: metroNIDAZOLE 500 MG TAB PO SCH (16:00)
[2019-04-03] MEDS ORDERED: PANTOPRAZOLE 40 MG TABLET PO SCH (09:00)
== END 2019-04-02 12:26 | disposition home or self-care (01) | DRG 330 ==
LOC: EC 18:21 → 4SSUR 21:24 → 4MS4W 04-01 00:40 → 4SSUR 04-01 00:40
PROVIDERS: ADMIT Surgery; ATTEND Surgery
PROC: 0DB80ZZ Excision of Small Intestine, Open Approach (ICD-10-PCS; principal; 2019-03-28)
PROC: 0WQF0ZZ Repair Abdominal Wall, Open Approach (ICD-10-PCS; principal; 2019-03-28)
PROC: 0DNW0ZZ Release Peritoneum, Open Approach (ICD-10-PCS; principal; 2019-03-28)
DX: K42.0 Umbilical hernia with obstruction, without gangrene (principal); C22.0 Liver cell carcinoma; E11.52 Type 2 diabetes mellitus with diabetic peripheral angiopathy with gangrene; J98.11 Atelectasis; N17.9 Acute kidney failure, unspecified; K55.9 Vascular disorder of intestine, unspecified; D72.829 Elevated white blood cell count, unspecified; E11.22 Type 2 diabetes mellitus with diabetic chronic kidney disease; F41.0 Panic disorder [episodic paroxysmal anxiety]; I12.9 Hypertensive chronic kidney disease with stage 1 through stage 4 chronic kidney disease, or unspecified chronic kidney disease; J45.909 Unspecified asthma, uncomplicated; K43.6 Other and unspecified ventral hernia with obstruction, without gangrene; K66.0 Peritoneal adhesions (postprocedural) (postinfection); N18.3 Chronic kidney disease, stage 3 (moderate); Z76.82 Awaiting organ transplant status; Z79.84 Long term (current) use of oral hypoglycemic drugs; Z79.899 Other long term (current) drug therapy; Z82.49 Family history of ischemic heart disease and other diseases of the circulatory system; Z87.891 Personal history of nicotine dependence; Z90.710 Acquired absence of both cervix and uterus; Z96.642 Presence of left artificial hip joint; Z79.51 Long term (current) use of inhaled steroids; Z88.1 Allergy status to other antibiotic agents; Z88.5 Allergy status to narcotic agent; Z88.0 Allergy status to penicillin; Z88.2 Allergy status to sulfonamides; Z90.49 Acquired absence of other specified parts of digestive tract
CPT/HCPCS: 36415; 71046; 74176; 80053; 81003; 82150; 83036; 83605; 83690; 84439; 84443; 84484; 85025; 85610; 85730; 88307; 93005; 94640; 96361; 96365; 96375; 99285

== ENCOUNTER → 2019-04-12 | Outpatient (CLI) | payer MEDICARE, BC ==
[2019-04-12 11:18] LABS: ALT 33 U/L (8-44); AST 36 U/L (13-35); Albumin/Globulin Ratio 1.95 (1.60-3.17); Alkaline Phosphatase 278 U/L (41-126); Bilirubin, Conjugated <0.20 mg/dL (0.20-0.40); Total Bilirubin 0.3 mg/dL (0.3-1.2); Total Protein 5.9 g/dL (6.2-8.2)
== END | disposition home or self-care (01) ==
LOC: LABWHC1 07:37
PROVIDERS: ATTEND Radiology Diagnostic Radiology
DX: C22.0 Liver cell carcinoma (principal)
CPT/HCPCS: 36415; 80076

== ENCOUNTER → 2019-05-24 | Outpatient (CLI) | payer MEDICARE, BC ==
[2019-05-24 08:55] LABS: HCT 35.6 % (34.0-46.0); HGB 11.8 gm/dL (11.4-16.0); MCH 29.9 pg (25.0-35.0); MCHC 33.2 g/dL (31.0-37.0); MCV 90.1 fL (80.0-100.0); Platelet Count 367 k/uL (150-450); RBC 3.95 m/uL (3.80-5.40); RDW 12.9 % (11.5-15.5); WBC 7.7 k/uL (3.8-10.6)
[2019-05-24 16:42] LABS: ALT 57 U/L (8-44); AST 45 U/L (13-35); African American GFR (CKD) 49.5 (60.0-200.0); Albumin/Globulin Ratio 2.39 (1.60-3.17); Alkaline Phosphatase 317 U/L (41-126); BUN/Creat Ratio 17.69 Ratio (12.00-20.00); Bilirubin, Conjugated <0.20 mg/dL (0.20-0.40); Calcium 9.3 mg/dL (8.7-10.3); Carbon Dioxide 26.8 mmol/L (21.6-31.8); Chloride 101 mmol/L (96-109); Globulin 1.8 g/dL (1.6-3.3); Glucose 98 mg/dL (70-110); Non-African American GFR(CKD) 42.7 (60.0-200.0); Potassium 4.5 mmol/L (3.5-5.5); Sodium 133 mmol/L (135-145); Total Bilirubin 0.3 mg/dL (0.3-1.2); Total Protein 6.1 g/dL (6.2-8.2)
== END | disposition home or self-care (01) ==
LOC: LABWHC1 07:59
PROVIDERS: ATTEND Radiology Diagnostic Radiology
DX: C22.0 Liver cell carcinoma (principal)
CPT/HCPCS: 36415; 80048; 80076; 82105; 85027

== ENCOUNTER → 2019-06-18 | Outpatient (CLI) | payer MEDICARE, BC ==
[2019-06-18 08:42] LABS: Basophils # (A) 0.1 k/uL (0-0.2); Basophils % (A) 1 %; Eosinophils # (A) 0.2 k/uL (0-0.7); Eosinophils % (A) 3 %; HCT 37.1 % (34.0-46.0); HGB 12.2 gm/dL (11.4-16.0); Lymphocytes # (A) 0.9 k/uL (1.0-4.8); Lymphocytes % (A) 12 %; MCH 29.3 pg (25.0-35.0); MCHC 32.9 g/dL (31.0-37.0); MCV 89.3 fL (80.0-100.0); Monocytes # (A) 0.5 k/uL (0-1.0); Monocytes % (A) 7 %; Neutrophils # (A) 5.5 k/uL (1.3-7.7); Neutrophils % (A) 76 %; Platelet Count 330 k/uL (150-450); RBC 4.16 m/uL (3.80-5.40); RDW 13.1 % (11.5-15.5); WBC 7.3 k/uL (3.8-10.6)
[2019-06-18 17:22] LABS: African American GFR (CKD) 41.6 (60.0-200.0); Albumin 4.2 g/dL (3.80-4.90); Albumin/Globulin Ratio 2.33 (1.60-3.17); Anion Gap 7.8 mmol/L (4.00-12.00); Calcium 9.2 mg/dL (8.7-10.3); Carbon Dioxide 26.2 mmol/L (21.6-31.8); Globulin 1.8 g/dL (1.6-3.3); Non-African American GFR(CKD) 35.9 (60.0-200.0); Potassium 4.3 mmol/L (3.5-5.5); Total Bilirubin 0.3 mg/dL (0.2-1.2)
[2019-06-18 17:23] LABS: Chol/HDL Ratio 2.01; LDL Cholesterol,Calculated 58.2 mg/dL (0.0-131.0); VLDL Calculation 16.8 mg/dL (5.00-40.00)
[2019-06-18 17:44] LABS: Hemoglobin A1C 5.5 % (4.0-6.0)
== END | disposition home or self-care (01) ==
LOC: LABWHC1 07:41
PROVIDERS: ATTEND Internal Medicine
DX: I10 Essential (primary) hypertension (principal); E55.9 Vitamin D deficiency, unspecified; E78.2 Mixed hyperlipidemia; E11.65 Type 2 diabetes mellitus with hyperglycemia; R53.83 Other fatigue
CPT/HCPCS: 36415; 80053; 80061; 82306; 83036; 84439; 84443; 85025

== ENCOUNTER → 2019-06-23 | Outpatient (CLI) | payer MEDICARE, BC ==
[2019-06-23 13:51] LABS: INR 0.9 (<1.2)
[2019-06-23 13:52] LABS: Prothrombin Time 9.5 sec (9.0-12.0)
[2019-06-23 20:50] LABS: African American GFR (CKD) 45.3 (60.0-200.0); Albumin 4.4 g/dL (3.80-4.90); Albumin/Globulin Ratio 2.44 (1.60-3.17); Anion Gap 11.9 mmol/L (4.00-12.00); BUN/Creat Ratio 17.86 Ratio (12.00-20.00); Bilirubin, Conjugated 0.2 mg/dL (0.20-0.40); Bilirubin,Unconjugated 0.2 mg/dL; Calcium 9.5 mg/dL (8.7-10.3); Carbon Dioxide 24.1 mmol/L (21.6-31.8); Globulin 1.8 g/dL (1.6-3.3); Non-African American GFR(CKD) 39.1 (60.0-200.0); Potassium 4.8 mmol/L (3.5-5.5); Total Bilirubin 0.4 mg/dL (0.3-1.2); Total Protein 6.2 g/dL (6.2-8.2)
== END ==
LOC: LABWHC1 13:01
PROVIDERS: ATTEND Internal Medicine Hepatology
DX: C22.0 Liver cell carcinoma (principal); Z76.82 Awaiting organ transplant status; K76.9 Liver disease, unspecified
CPT/HCPCS: 36415; 80048; 80076; 85610

== ENCOUNTER → 2019-07-02 | Outpatient (CLI) | payer MEDICARE, BC ==
--- NOTE | 2019-07-04 21:50 | CT ---
EXAMINATION TYPE: CT chest wo con DATE OF EXAM: 07/02/2019 COMPARISON: 08/22/2016 and abdomen pelvis 03/27/2019 HISTORY: 68-year-old female SOB, pre-op liver transplant TECHNIQUE: Contiguous axial scanning of the chest without IV contrast. Coronal and sagittal reconstru ctions performed. CT DLP: 797 mGycm Automated exposure control for dose reduction was used. FINDINGS: Redemonstrated very bulky heterogeneous soft tissue in the substernal region. This seems to extend fr om the inferior aspect of the thyroid gland and contains some scattered areas of calcification. The b ulkiest area measures up to 6.9 cm, superiorly and up to 5.6 x 3.9 cm, inferiorly. This is in compari son to 6.5 cm wide and 4.8 x 3.3 cm, previously, respectively. This spans overall 11.8 cm craniocauda l and the substernal/prevascular space component is 7.5 cm craniocaudal versus 6.5 cm, previously. There is no airway compromise. Heart normal size without pericardial effusion. Scattered coronary vessel calcifications are present. Ectatic ascending aorta 3.8 cm. This seems to be conventional vessel branching anatomy. No thoracic lymphadenopathy otherwise seen by CT size criteria. No consolidation or pleural effusion. Approximately 3 hepatic lobe hypodensities are noted, measuring up to 1 cm, not as apparent as on the 03/27/2019 exam. Cholecystectomy clips. Scattered colonic diverticulosis. Bones: DISH within the mid to lower thoracic spine. IMPRESSION: 1. REDEMONSTRATED VERY BULKY, HETEROGENEOUS SOFT TISSUE EXTENDING FROM THE INFERIOR ASPECT OF THE THY ROID GLAND INTO THE SUBSTERNAL AND PREVASCULAR SPACE REGION OF THE MEDIASTINUM. OVERALL SPAN OF 7.5 C M CRANIOCAUDAL (VERSUS 6.5 CM, PREVIOUSLY) AND MEASURING UP TO 6.9 CM WIDE (VERSUS 6.5 CM, PREVIOUSLY ). POSSIBLE SLOWLY ENLARGING GOITER. CORRELATE WITH PRIOR WORKUP. NO AIRWAY COMPROMISE. 2. NO ACUTE PULMONARY PROCESS. 3. APPROXIMATELY 3 HEPATIC LOBE LESIONS MEASURING UP TO 1 CM ARE SMALLER AND NOT APPARENT ON TH E 03/27/2019 EXAM.
== END | disposition home or self-care (01) ==
LOC: RADCTMAIN 14:27
PROVIDERS: ATTEND Internal Medicine Hepatology
DX: R06.02 Shortness of breath (principal); C22.0 Liver cell carcinoma; Z76.82 Awaiting organ transplant status
CPT/HCPCS: 71250

== ENCOUNTER → 2019-07-07 | Outpatient (CLI) | payer MEDICARE, BC ==
--- NOTE | 2019-07-07 11:15 | MM ---
Reason for exam: screening (asymptomatic). Last mammogram was performed 1 year and 1 month ago. History: Patient is postmenopausal and has history of other cancer at age 66. Family history of breast cancer in sister at age 48, premenopausal breast cancer in paternal cousin at age 48, and breast cancer in paternal aunt at age 56. Took estrogen for 3 months. Took progesterone for 3 months. Physical Findings: A clinical breast exam by your physician is recommended on an annual basis and results should be correlated with mammographic findings. MG Screening Mammo w CAD Bilateral CC, MLO, and XCCL view(s) were taken. Prior study comparison: June 17, 2018, bilateral MG screening mammo w CAD. May 16, 2017, bilateral MG screening mammo w CAD. There are scattered fibroglandular densities. There are benign appearing round and linear calcifications in the right breast. There is no discrete abnormality. ASSESSMENT: Benign, BI-RAD 2 RECOMMENDATION: Routine screening mammogram of both breasts in 1 year.
== END | disposition home or self-care (01) ==
LOC: RADMAMWWP 06:41
PROVIDERS: ATTEND Internal Medicine
DX: Z12.31 Encounter for screening mammogram for malignant neoplasm of breast (principal)
CPT/HCPCS: 77067

== ENCOUNTER → 2019-08-16 | Outpatient (CLI) | payer MEDICARE, BC ==
[2019-08-16 09:02] LABS: HCT 34.7 % (34.0-46.0); HGB 11.5 gm/dL (11.4-16.0); MCH 29.3 pg (25.0-35.0); MCHC 33.2 g/dL (31.0-37.0); MCV 88.3 fL (80.0-100.0); Platelet Count 319 k/uL (150-450); RBC 3.93 m/uL (3.80-5.40); RDW 13.3 % (11.5-15.5); WBC 7.8 k/uL (3.8-10.6)
[2019-08-16 15:09] LABS: African American GFR (CKD) 45.3 (60.0-200.0); Albumin 4.1 g/dL (3.80-4.90); Albumin/Globulin Ratio 2.16 (1.60-3.17); Anion Gap 11.7 mmol/L (4.00-12.00); BUN/Creat Ratio 18.57 Ratio (12.00-20.00); Bilirubin, Conjugated 0.2 mg/dL (0.20-0.40); Bilirubin,Unconjugated 0.2 mg/dL; Calcium 9.4 mg/dL (8.7-10.3); Carbon Dioxide 26.3 mmol/L (21.6-31.8); Globulin 1.9 g/dL (1.6-3.3); Non-African American GFR(CKD) 39.1 (60.0-200.0); Potassium 5.2 mmol/L (3.5-5.5); Total Bilirubin 0.4 mg/dL (0.2-1.2)
== END | disposition home or self-care (01) ==
LOC: LABWHC1 08:10
PROVIDERS: ATTEND Radiology Vascular & Interventional Radiology
DX: K76.9 Liver disease, unspecified (principal)
CPT/HCPCS: 36415; 80048; 80076; 82105; 85027

== ENCOUNTER → 2019-10-11 | Outpatient (CLI) | payer MEDICARE, BC ==
[2019-10-11 08:56] LABS: INR 0.9 (<1.2); Prothrombin Time 9.5 sec (9.0-12.0)
[2019-10-11 09:06] LABS: Basophils % (A) 0 %; Eosinophils # (A) 0.2 k/uL (0-0.7); Eosinophils % (A) 2 %; HCT 34.6 % (34.0-46.0); HGB 11.7 gm/dL (11.4-16.0); Lymphocytes # (A) 0.9 k/uL (1.0-4.8); Lymphocytes % (A) 12 %; MCH 30.8 pg (25.0-35.0); MCHC 33.9 g/dL (31.0-37.0); MCV 90.7 fL (80.0-100.0); Monocytes # (A) 0.4 k/uL (0-1.0); Monocytes % (A) 6 %; Neutrophils # (A) 5.9 k/uL (1.3-7.7); Neutrophils % (A) 79 %; Platelet Count 352 k/uL (150-450); RBC 3.82 m/uL (3.80-5.40); RDW 13.1 % (11.5-15.5); WBC 7.5 k/uL (3.8-10.6)
[2019-10-11 17:53] LABS: Alpha Fetoprotein, Tumor Mkr 10.4 ng/mL (0.0-7.9); Thyroid Peroxidase Antibodies 29.4 U/mL (0.0-60.0)
[2019-10-11 18:02] LABS: African American GFR (CKD) 54.2 (60.0-200.0); Albumin 4.2 g/dL (3.80-4.90); Albumin/Globulin Ratio 2.21 (1.60-3.17); Anion Gap 5.1 mmol/L (4.00-12.00); BUN/Creat Ratio 24.17 Ratio (12.00-20.00); Bilirubin, Conjugated 0.2 mg/dL (0.20-0.40); Bilirubin,Unconjugated 0.2 mg/dL; Calcium 9.6 mg/dL (8.7-10.3); Carbon Dioxide 26.9 mmol/L (21.6-31.8); Globulin 1.9 g/dL (1.6-3.3); Non-African American GFR(CKD) 46.7 (60.0-200.0); Potassium 4.9 mmol/L (3.5-5.5); Total Bilirubin 0.4 mg/dL (0.3-1.2); Total Protein 6.1 g/dL (6.2-8.2)
[2019-10-11 18:09] LABS: T4, Free (Free Thyroxine) 1.3 ng/dL (0.80-1.80)
== END | disposition home or self-care (01) ==
LOC: LABWHC1 08:08
PROVIDERS: ATTEND Internal Medicine Hepatology
DX: K75.81 Nonalcoholic steatohepatitis (NASH) (principal); Z76.82 Awaiting organ transplant status; E05.90 Thyrotoxicosis, unspecified without thyrotoxic crisis or storm
CPT/HCPCS: 36415; 80053; 82105; 82248; 84439; 84443; 84481; 85025; 85610; 85730; 86376

== ENCOUNTER → 2019-12-16 | Outpatient (CLI) | payer MEDICARE, BC ==
[2019-12-16 07:37] LABS: HCT 32.6 % (34.0-46.0); HGB 10.5 gm/dL (11.4-16.0); MCHC 32.2 g/dL (31.0-37.0); MCV 90.1 fL (80.0-100.0); Mean Platelet Volume 7.3; Platelet Count 364 k/uL (150-450); RBC 3.61 m/uL (3.80-5.40); RDW 12.7 % (11.5-15.5); WBC 7.3 k/uL (3.8-10.6)
[2019-12-16 12:41] LABS: ALT 53 U/L (8-44); AST 38 U/L (13-35); African American GFR (CKD) 54.2 (60.0-200.0); Alkaline Phosphatase 389 U/L (41-126); BUN/Creat Ratio 29.17 Ratio (12.00-20.00); Bilirubin, Conjugated <0.20 mg/dL (0.20-0.40); Calcium 9.6 mg/dL (8.7-10.3); Carbon Dioxide 23.6 mmol/L (21.6-31.8); Chloride 95 mmol/L (96-109); Glucose 84 mg/dL (70-110); Non-African American GFR(CKD) 46.7 (60.0-200.0); Potassium 4.7 mmol/L (3.5-5.5); Sodium 127 mmol/L (135-145); Total Bilirubin 0.3 mg/dL (0.2-1.2)
== END | disposition home or self-care (01) ==
LOC: LABWHC1 07:05
PROVIDERS: ATTEND Radiology Diagnostic Radiology
DX: C22.0 Liver cell carcinoma (principal)
CPT/HCPCS: 36415; 80048; 80076; 82105; 85027

== ENCOUNTER 2020-02-25 21:34 | Inpatient (IN) | payer MEDICARE, BC ==
[2020-02-25] MEDS ORDERED: SODIUM CHLORIDE 0.9% 500 ML 500 ML IV STA (22:05)
[2020-02-25] MEDS ORDERED: HYDROmorphone 0.5 MG/0.5 ML SYRINGE IVP STA ×2 (22:05→23:51)
[2020-02-25] MEDS ORDERED: ONDANSETRON 4 MG/2 ML VIAL IVP STA (22:05)
[2020-02-25 22:28] LABS: Basophils % (A) 0 %; Eosinophils # (A) 0.2 k/uL (0-0.7); Eosinophils % (A) 1 %; HGB 12.6 gm/dL (11.4-16.0); Lymphocytes % (A) 7 %; MCHC 34.2 g/dL (31.0-37.0); MCV 90.6 fL (80.0-100.0); Mean Platelet Volume 6.5; Monocytes # (A) 0.7 k/uL (0-1.0); Monocytes % (A) 5 %; Neutrophils # (A) 12.1 k/uL (1.3-7.7); Neutrophils % (A) 86 %; Platelet Count 375 k/uL (150-450); RBC 4.08 m/uL (3.80-5.40); RDW 12.7 % (11.5-15.5); WBC 14.2 k/uL (3.8-10.6)
--- NOTE | 2020-02-25 22:29 | ED ---
General Adult HPI - General Chief complaint: Abdominal Pain Stated complaint: abdominal pain Time Seen by Provider: 02/25/20 21:54 Source: patient Mode of arrival: wheelchair Limitations: no limitations - History of Present Illness Initial comments: 69-year-old female presents to emergency department this evening accompanied by her with complaints of lower abdominal pain and persistent nausea. Patient states her symptoms began this morning and have significantly worsened this evening. States she has no appetite. Nothing makes the pain better or worse. Patient states she had a bowel obstruction just over a year ago and states the onset of these symptoms is similar to that. Additionally, patient is currently awaiting a liver transplant due to hepatic carcinoma. Patient denies any recent rash, fever, chills, cough, shortness of breath, chest pain, vomiting, diarrhea, constipation, back pain, numbness, tingling, dizziness, weakness, hematuria, dysuria, urinary urgency, urinary frequency, headache, visual changes, or any other complaints. - Related Data Home Medications Medication Instructions Recorded Confirmed Furosemide [Lasix] 40 mg PO BID 10/20/15 02/25/20 Potassium Chloride ER [K-Dur 20] 20 meq PO BID 10/20/15 02/25/20 Simvastatin [Zocor] 40 mg PO HS 10/20/15 02/25/20 Spironolactone [Aldactone] 25 mg PO BID 10/20/15 02/25/20 glipiZIDE XL [Glucotrol XL] 5 mg PO BID 10/20/15 02/25/20 ALPRAZolam [Xanax] 0.25 mg PO BID PRN 01/22/17 02/25/20 Acetaminophen [Tylenol Extra 500 mg PO Q8H PRN 12/21/18 02/25/20 Strength] Lisinopril [Prinivil] 10 mg PO BID 12/21/18 02/25/20 Loratadine [Claritin] 10 mg PO HS 12/21/18 02/25/20 Fluticasone Nasal [place] [Flonase 1 - 2 spray EA NOSTRIL DAILY PRN 03/27/19 02/25/20 Nasal [place]] metFORMIN HCL [Glucophage] 500 mg PO BID 03/27/19 02/25/20 Albuterol Sulfate [Ventolin HFA] 1 - 2 puff INHALATION RT-Q4H PRN 02/25/2002/03 Multivitamins, Thera [Multivitamin 1 tab PO DAILY 02/25/20 02/25/20 (formulary)] Allergies Allergy/AdvReac Type Severity Reaction Status Date / Time ciprofloxacin [From Cipro] Allergy Dyspnea Verified 02/25/20 23:19 ciprofloxacin HCl Allergy Dyspnea Verified 02/25/20 23:19 [From Cipro] Penicillins Allergy Rash/Hives Verified 02/25/20 23:19 Sulfa (Sulfonamide Allergy Rash/Hives Verified 02/25/20 23:19 Antibiotics) hydromorphone [From Dilaudid] AdvReac Itching Verified 02/25/20 23:19 morphine AdvReac Vomiting Verified 02/25/20 23:19 Review of Systems ROS Statement: Those systems with pertinent positive or pertinent negative responses have been documented in the HPI. ROS Other: All systems not noted in ROS Statement are negative. 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 rt bunionectomy, total lt hip replacement, liver mass biopsy, liver resection 09/13/16, rt knee revision 2016, radiation to liver Past Anesthesia/Blood Transfusion Reactions: No Reported Reaction Additional Past Anesthesia/Blood Transfusion Reaction / Comment(s): denies PONV Past Psychological History: Anxiety, Panic Disorder Smoking Status: Never smoker Past Alcohol Use History: None Reported Past Drug Use History: None Reported - Past Family History Mother Family Medical History: Dementia, Hypertension Sister(s) Family Medical History: Cancer Additional Family Medical History / Comment(s): breast General Exam Limitations: no limitations (Well-developed, well-nourished female in no acute distress. Temperature 97.5F, pulse 77, respirations 20, blood pressure 117/79, pulse ox 99% on room air.) General appearance: alert, in no apparent distress Respiratory exam: Present: normal lung sounds bilaterally. Absent: respiratory distress, wheezes, rales, rhonchi, stridor Cardiovascular Exam: Present: regular rate, normal rhythm, normal heart sounds. Absent: systolic murmur, diastolic murmur, rubs, gallop, clicks GI/Abdominal exam: Present: soft, tenderness (Suprapubic, mid lower abdomen tenderness), normal bowel sounds Neurological exam: Present: alert, oriented X3, CN II-XII intact Psychiatric exam: Present: normal affect, normal mood Skin exam: Present: warm, dry, intact, pallor Course Vital Signs 02/25/20 02/25/20 21:39 23:58 Temperature 97.5 F L 98.3 F Pulse Rate 77 75 Respiratory 20 20 Rate Blood Pressure 117/79 117/64 O2 Sat by Pulse 99 100 Oximetry Medical Decision Making - Medical Decision Making 69-year-old female patient presents to the emergency department today for evaluation of lower abdominal pain and nausea worsening throughout the day. Patient does have history of hepatocellular carcinoma and is currently awaiting liver transplant. Physical examination did reveal lower abdominal tenderness. No episodes of vomiting in the emergency department. Labs reviewed and did reveal elevated white blood cell count. Mildly elevated liver enzymes. CT abdomen and pelvis was obtained and did show findings consistent with ileus versus partial small bowel obstruction. I did discuss the case with Dr. Babcock who agrees to admission. Patient has seen Dr. Rahman in the past for previous bowel obstructions we'll consult him. Case was also discussed with her transplant team at [facility] Dr. 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 Laurita Zhang . He is comfortable having patient managed here, but requests transfer to [facility] if she should require ANY surgical intervention. - Lab Data Result diagrams: 02/25/20 22:18 02/25/20 22:18 Lab Results 02/25/20 02/25/20 02/25/20 Range/Units 22:18 22:18 22:18 WBC 14.2 H (3.8-10.6) k/uL RBC 4.08 (3.80-5.40) m/uL Hgb 12.6 (11.4-16.0) gm/dL Hct 37.0 (34.0-46.0) % MCV 90.6 (80.0-100.0) fL MCH 31.0 (25.0-35.0) pg MCHC 34.2 (31.0-37.0) g/dL RDW 12.7 (11.5-15.5) % Plt Count 375 (150-450) k/uL Neutrophils % 86 % Lymphocytes % 7 % Monocytes % 5 % Eosinophils % 1 % Basophils % 0 % Neutrophils # 12.1 H (1.3-7.7) k/uL Lymphocytes # 1.0 (1.0-4.8) k/uL Monocytes # 0.7 (0-1.0) k/uL Eosinophils # 0.2 (0-0.7) k/uL Basophils # 0.0 (0-0.2) k/uL PT 9.3 (9.0-12.0) sec INR 0.9 (<1.2) APTT 25.7 (22.0-30.0) sec Sodium 124 L (137-145) mmol/L Potassium 4.2 (3.5-5.1) mmol/L Chloride 90 L (98-107) mmol/L Carbon Dioxide 25 (22-30) mmol/L Anion Gap 9 mmol/L BUN 24 H (7-17) mg/dL Creatinine 1.31 H (0.52-1.04) mg/dL Est GFR (CKD-EPI)AfAm 49 (>60 ml/min/1.73 sqM) Est GFR (CKD-EPI)NonAf 42 (>60 ml/min/1.73 sqM) Glucose 159 H (74-99) mg/dL POC Glucose (mg/dL) (75-99) mg/dL POC Glu Car Rental Clerk ID Plasma Lactic Acid Ja (0.7-2.0) mmol/L Calcium 9.9 (8.4-10.2) mg/dL Total Bilirubin 0.6 (0.2-1.3) mg/dL AST 38 H (14-36) U/L ALT 35 H (4-34) U/L Alkaline Phosphatase 252 H (38-126) U/L Total Protein 6.8 (6.3-8.2) g/dL Albumin 4.2 (3.5-5.0) g/dL Lipase 184 (23-300) U/L Blood Type Blood Type Recheck Bld Type Recheck Status Antibody Screen Spec Expiration Date 02/25/20 02/25/20 02/25/20 Range/Units 22:18 22:18 22:29 WBC (3.8-10.6) k/uL RBC (3.80-5.40) m/uL Hgb (11.4-16.0) gm/dL Hct (34.0-46.0) % MCV (80.0-100.0) fL MCH (25.0-35.0) pg MCHC (31.0-37.0) g/dL RDW (11.5-15.5) % Plt Count (150-450) k/uL Neutrophils % % Lymphocytes % % Monocytes % % Eosinophils % % Basophils % % Neutrophils # (1.3-7.7) k/uL Lymphocytes # (1.0-4.8) k/uL Monocytes # (0-1.0) k/uL Eosinophils # (0-0.7) k/uL Basophils # (0-0.2) k/uL PT (9.0-12.0) sec INR (<1.2) APTT (22.0-30.0) sec Sodium (137-145) mmol/L Potassium (3.5-5.1) mmol/L Chloride (98-107) mmol/L Carbon Dioxide (22-30) mmol/L Anion Gap mmol/L BUN (7-17) mg/dL Creatinine (0.52-1.04) mg/dL Est GFR (CKD-EPI)AfAm (>60 ml/min/1.73 sqM) Est GFR (CKD-EPI)NonAf (>60 ml/min/1.73 sqM) Glucose (74-99) mg/dL POC Glucose (mg/dL) 166 H (75-99) mg/dL POC Glu Car Rental Clerk ID Enzo Solo Plasma Lactic Acid Ja 1.1 (0.7-2.0) mmol/L Calcium (8.4-10.2) mg/dL Total Bilirubin (0.2-1.3) mg/dL AST (14-36) U/L ALT (4-34) U/L Alkaline Phosphatase (38-126) U/L Total Protein (6.3-8.2) g/dL Albumin (3.5-5.0) g/dL Lipase (23-300) U/L Blood Type O Positive Blood Type Recheck O Pos Bld Type Recheck Status No Antibody Screen NEGATIVE Spec Expiration Date 02/28/2020 - 6921 - Radiology Data Radiology results: report reviewed, image reviewed CT abdomen and pelvis without contrast was obtained. Report was reviewed in its entirety. Impression by Dr. Green shows multiple dilated fluid and air f illed small bowel loops suggestive of ileus or partial mechanical small bowel obstruction. Small bowel is more dilated than old exam. Small bowel surgery in the lower mid abdomen. There is broad-based large anterior abdominal wall ventral hernia containing loops of small bowel and apparent hernia surgery compared to the old exam. Overall size of the hernia is unchanged. Disposition Clinical Impression: Bowel obstruction, Hyponatremia Disposition: ADMITTED IP TO THIS [facility] Condition: Serious Decision to Admit Reason: Admit from EC Decision Date: 02/25/20 Decision Time: 23:51
[2020-02-25 22:30] LABS: Glucose,Whole Blood 166 mg/dL (75-99)
[2020-02-25 22:36] LABS: INR 0.9 (<1.2); Partial Thromboplastin Time 25.7 sec (22.0-30.0); Prothrombin Time 9.3 sec (9.0-12.0)
[2020-02-25 22:38] LABS: Albumin 4.2 g/dL (3.5-5.0); Calcium 9.9 mg/dL (8.4-10.2); Potassium 4.2 mmol/L (3.5-5.1); Total Bilirubin 0.6 mg/dL (0.2-1.3); Total Protein 6.8 g/dL (6.3-8.2)
--- NOTE | 2020-02-25 23:34 | CT ---
EXAMINATION TYPE: CT abdomen pelvis wo con DATE OF EXAM: 02/25/2020 COMPARISON: 03/27/2019 HISTORY: pain CT DLP: 1271.4 mGycm Automated exposure control for dose reduction was used. Images were obtained from the diaphragm to the floor the pelvis with no contrast. FINDINGS: Lung bases are clear. There is no pleural effusion. Heart appears normal. There is no pericardial eff usion. There is large air and fluid-filled stomach. Liver shows no focal defect. Spleen is intact. Th ere is no pancreatic mass. There are clips from cholecystectomy. The bile ducts are not dilated. There is no adrenal mass. There is mild fat stranding around the kidneys. There is no hydronephrosis. Ureters are not dilated. There is no retroperitoneal adenopathy. Bladder distends smoothly. There is previous small bowel surgery. There are multiple dilated air and fluid-filled loops of small bowel i n the mid abdomen. Small bowel measures up to 4 cm. The right colon is not distended. Terminal ileum is not dilated. Transition point is not identified. There is small amount of free fluid in the left paracolic gutter. There are some large bowel divertic john paul. There is no sign of diverticulitis. There is no free air. There is left hip prosthesis. Lumbar v ertebra have normal alignment. There is mild biconcave L2 compression deformity of 20%. The bony pelv is appears intact. There is no mesenteric edema. IMPRESSION: Multiple dilated fluid and air-filled small bowel loops suggestive of ileus or partial mechanical sma ll bowel obstruction. Small bowel is more dilated than old exam. Small bowel surgery in the lower mid abdomen. There is broad-based large anterior abdominal wall ventral hernia containing loops of small bowel and apparent hernia surgery compared to the old exam. Overall size of the hernia unchanged.
[2020-02-25] MEDS ORDERED: NALOXONE 0.4 MG/ML 1 ML VIAL IV PRN (23:49)
[2020-02-26] MEDS: SODIUM CHLORIDE 0.9% 1,000 ML IV SCH ×2 (00:46→11:50)
[2020-02-26] MEDS: HYDROmorphone 0.5 MG/0.5 ML SYRINGE IVP PRN ×5 (04:10→22:21)
[2020-02-26] MEDS: ONDANSETRON 4 MG/2 ML VIAL IVP PRN ×3 (04:24→22:25)
[2020-02-26 04:49] LABS: Appearance,Urine Cloudy (Clear); Bacteria,Urine Moderate /hpf; Bilirubin,Urine Negative (Negative); Blood,Urine Negative (Negative); Color,Urine Yellow; Glucose,Urine (UA) Negative (Negative); Ketones,Urine 1+ (Negative); Leukocyte Esterase,Urine Small (Negative); Mucus,Urine Rare /hpf; Nitrite,Urine Negative (Negative); PH, Urine 5.5 (5.0-8.0); Protein,Urine Negative (Negative); RBC,Urine 1 /hpf (0-5); Specific Gravity,Urine 1.016 (1.001-1.035); Squamous Epithelial Cell,Urine 2 /hpf (0-4); Urobilinogen,Urine <2.0 mg/dL (<2.0); WBC,Urine 13 /hpf (0-5)
[2020-02-26 06:41] LABS: Basophils % (A) 0 %; Eosinophils % (A) 0 %; HGB 11.5 gm/dL (11.4-16.0); Lymphocytes # (A) 0.2 k/uL (1.0-4.8); Lymphocytes % (A) 1 %; MCH 30.2 pg (25.0-35.0); MCHC 32.8 g/dL (31.0-37.0); MCV 92.2 fL (80.0-100.0); Mean Platelet Volume 6.7; Monocytes # (A) 0.5 k/uL (0-1.0); Monocytes % (A) 3 %; Neutrophils # (A) 16.1 k/uL (1.3-7.7); Neutrophils % (A) 96 %; Platelet Count 334 k/uL (150-450); RBC 3.79 m/uL (3.80-5.40); RDW 12.8 % (11.5-15.5); WBC 16.8 k/uL (3.8-10.6)
[2020-02-26 06:47] LABS: Calcium 9.2 mg/dL (8.4-10.2); Potassium 4.9 mmol/L (3.5-5.1)
[2020-02-26] MEDS ORDERED: ALBUTEROL HFA INHALER INHALATION PRN (09:37)
[2020-02-26] MEDS ORDERED: FLUTICASONE 50MCG/SPRAY NASAL 16GM EA NOSTRIL PRN (09:37)
[2020-02-26] MEDS ORDERED: ALPRAZolam 0.25 MG TAB PO PRN (09:37)
--- NOTE | 2020-02-26 11:08 | P.GSCN ---
History of Present Illness Consult date: 02/26/20 Reason for Consult: Abdominal pain, nausea and vomiting History of present illness: The patient is a 69-year-old female known to the service due to previous small bowel necrosis from an incarcerated hernia. She had surgery about one year ago. She had been doing well. Yesterday she began having some lower abdominal pain and nausea. She changed her diet so she was just having liquids. It got worse so she came into the emergency department. She threw up some undigested food yesterday. Today she's having pain but no vomiting. Denies any flatus. Pain is about the same. She hasn't vomited today. She thinks she is dehydrated. 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 rt bunionectomy, total lt hip replacement, liver mass biopsy, liver resection 09/13/16, rt knee revision 2016, radiation to liver Past Anesthesia/Blood Transfusion Reactions: No Reported Reaction Additional Past Anesthesia/Blood Transfusion Reaction / Comm: denies PONV Past Psychological History: Anxiety, Panic Disorder Smoking Status: Never smoker Past Alcohol Use History: None Reported Past Drug Use History: None Reported - Past Family History Mother Family Medical History: Dementia, Hypertension Sister(s) Family Medical History: Cancer Additional Family Medical History / Comment(s): breast Medications and Allergies Home Medications Medication Instructions Recorded Confirmed Type Furosemide [Lasix] 40 mg PO BID 10/20/15 02/25/20 History Potassium Chloride ER [K-Dur 20] 20 meq PO BID 10/20/15 02/25/20 History Simvastatin [Zocor] 40 mg PO HS 10/20/15 02/25/20 History Spironolactone [Aldactone] 25 mg PO BID 10/20/15 02/25/20 History glipiZIDE XL [Glucotrol XL] 5 mg PO BID 10/20/15 02/25/20 History ALPRAZolam [Xanax] 0.25 mg PO BID PRN 01/22/17 02/25/20 History Acetaminophen [Tylenol Extra 500 mg PO Q8H PRN 12/21/18 02/25/20 History Strength] Lisinopril [Prinivil] 10 mg PO BID 12/21/18 02/25/20 History Loratadine [Claritin] 10 mg PO HS 12/21/18 02/25/20 History Fluticasone Nasal [place] [Flonase 1 - 2 spray EA NOSTRIL DAILY PRN 03/27/19 02/25/20 History Nasal [place]] metFORMIN HCL [Glucophage] 500 mg PO BID 03/27/19 02/25/20 History Albuterol Sulfate [Ventolin HFA] 1 - 2 puff INHALATION RT-Q4H PRN 02/25/20 02/25/20 History Multivitamins, Thera [Multivitamin 1 tab PO DAILY 02/25/20 02/25/20 History (formulary)] Allergies Allergy/AdvReac Type Severity Reaction Status Date / Time ciprofloxacin [From Cipro] Allergy Dyspnea Verified 02/25/20 23:19 ciprofloxacin HCl Allergy Dyspnea Verified 02/25/20 23:19 [From Cipro] Penicillins Allergy Rash/Hives Verified 02/25/20 23:19 Sulfa (Sulfonamide Allergy Rash/Hives Verified 02/25/20 23:19 Antibiotics) hydromorphone [From Dilaudid] AdvReac Itching Verified 02/25/20 23:19 morphine AdvReac Vomiting Verified 02/25/20 23:19 Surgical - Exam Osteopathic Statement: *. No significant issues noted on an osteopathic structural exam other than those noted in the History and Physical/Consult. Vital Signs Temp Pulse Resp BP Pulse Ox 97.5 F L 77 20 117/79 99 02/25/20 21:39 02/25/20 21:39 02/25/20 21:39 02/25/20 21:39 02/25/20 21:39 - General well developed, well nourished, no distress - Eyes normal ocular movement - Neck trachea midline - Respiratory normal expansion, normal respiratory effort, clear to auscultation - Cardiovascular Rhythm: regular - Abdomen Abdomen: soft (Softly distended), tender (Mild nonspecific tenderness), no g uarding, no rigid, no rebound, no distended Hernia: incisional (Vague fullness in the lower mid abdomen) - Psychiatric oriented to time, oriented to person, oriented to place, speech is normal, memory intact Results - Labs 02/26/20 06:18 02/26/20 06:18 Abnormal Lab Results - Last 24 Hours (Table) 02/25/20 02/25/20 02/25/20 Range/Units 22:18 22:18 22:29 WBC 14.2 H (3.8-10.6) k/uL RBC (3.80-5.40) m/uL Neutrophils # 12.1 H (1.3-7.7) k/uL Lymphocytes # (1.0-4.8) k/uL Sodium 124 L (137-145) mmol/L Chloride 90 L (98-107) mmol/L BUN 24 H (7-17) mg/dL Creatinine 1.31 H (0.52-1.04) mg/dL Glucose 159 H (74-99) mg/dL POC Glucose (mg/dL) 166 H (75-99) mg/dL AST 38 H (14-36) U/L ALT 35 H (4-34) U/L Alkaline Phosphatase 252 H (38-126) U/L Urine Appearance (Clear) Urine Ketones (Negative) Ur Leukocyte Esterase (Negative) Urine WBC (0-5) /hpf Urine Bacteria (None) /hpf Urine Mucus (None) /hpf 02/26/20 02/26/20 02/26/20 Range/Units 04:36 06:18 06:18 WBC 16.8 H (3.8-10.6) k/uL RBC 3.79 L (3.80-5.40) m/uL Neutrophils # 16.1 H (1.3-7.7) k/uL Lymphocytes # 0.2 L (1.0-4.8) k/uL Sodium 126 L (137-145) mmol/L Chloride 95 L (98-107) mmol/L BUN 25 H (7-17) mg/dL Creatinine 1.22 H (0.52-1.04) mg/dL Glucose 158 H (74-99) mg/dL POC Glucose (mg/dL) (75-99) mg/dL AST (14-36) U/L ALT (4-34) U/L Alkaline Phosphatase (38-126) U/L Urine Appearance Cloudy H (Clear) Urine Ketones 1+ H (Negative) Ur Leukocyte Esterase Small H (Negative) Urine WBC 13 H (0-5) /hpf Urine Bacteria Moderate H (None) /hpf Urine Mucus Rare H (None) /hpf Microbiology - Last 24 Hours (Table) 02/26/20 04:36 Urine Culture - Preliminary Urine,Catheterized Diabetes panel 02/25/20 02/26/20 Range/Units 22:18 06:18 Sodium 124 L 126 L (137-145) mmol/L Potassium 4.2 4.9 (3.5-5.1) mmol/L Chloride 90 L 95 L (98-107) mmol/L Carbon Dioxide 25 25 (22-30) mmol/L BUN 24 H 25 H (7-17) mg/dL Creatinine 1.31 H 1.22 H (0.52-1.04) mg/dL Glucose 159 H 158 H (74-99) mg/dL Calcium 9.9 9.2 (8.4-10.2) mg/dL AST 38 H (14-36) U/L ALT 35 H (4-34) U/L Alkaline Phosphatase 252 H (38-126) U/L Total Protein 6.8 (6.3-8.2) g/dL Albumin 4.2 (3.5-5.0) g/dL Calcium panel 02/25/20 02/26/20 Range/Units 22:18 06:18 Calcium 9.9 9.2 (8.4-10.2) mg/dL Albumin 4.2 (3.5-5.0) g/dL Pituitary panel 02/25/20 02/26/20 Range/Units 22:18 06:18 Sodium 124 L 126 L (137-145) mmol/L Potassium 4.2 4.9 (3.5-5.1) mmol/L Chloride 90 L 95 L (98-107) mmol/L Carbon Dioxide 25 25 (22-30) mmol/L BUN 24 H 25 H (7-17) mg/dL Creatinine 1.31 H 1.22 H (0.52-1.04) mg/dL Glucose 159 H 158 H (74-99) mg/dL Calcium 9.9 9.2 (8.4-10.2) mg/dL Adrenal panel 02/25/20 02/26/20 Range/Units 22:18 06:18 Sodium 124 L 126 L (137-145) mmol/L Potassium 4.2 4.9 (3.5-5.1) mmol/L Chloride 90 L 95 L (98-107) mmol/L Carbon Dioxide 25 25 (22-30) mmol/L BUN 24 H 25 H (7-17) mg/dL Creatinine 1.31 H 1.22 H (0.52-1.04) mg/dL Glucose 159 H 158 H (74-99) mg/dL Calcium 9.9 9.2 (8.4-10.2) mg/dL Total Bilirubin 0.6 (0.2-1.3) mg/dL AST 38 H (14-36) U/L ALT 35 H (4-34) U/L Alkaline Phosphatase 252 H (38-126) U/L Total Protein 6.8 (6.3-8.2) g/dL Albumin 4.2 (3.5-5.0) g/dL - Imaging CT scan - abdomen: report reviewed, image reviewed Assessment and Plan (1) Partial bowel obstruction Current Visit: Yes Status: Acute Code(s): K56.600 - PARTIAL INTESTINAL OBSTRUCTION, UNSPECIFIED TO CAUSE SNOMED Code(s): 19030385340193016 (2) Hepatocellular carcinoma determined by biopsy of liver Current Visit: Yes Status: Acute Code(s): C22.0 - LIVER CELL CARCINOMA SNOMED Code(s): 400204703 (3) Hyponatremia Current Visit: Yes Status: Acute Code(s): E87.1 - HYPO-OSMOLALITY AND HYPONATREMIA SNOMED Code(s): 66356812 (4) Diabetes mellitus Current Visit: No Status: Acute Code(s): E11.9 - TYPE 2 DIABETES MELLITUS WITHOUT COMPLICATIONS SNOMED Code(s): 81250141 (5) Ventral incisional hernia without obstruction or gangrene Current Visit: Yes Status: Acute Code(s): K43.2 - INCISIONAL HERNIA WITHOUT OBSTRUCTION OR GANGRENE SNOMED Code(s): 203264734 (6) Ventral incisional hernia Current Visit: Yes Status: Acute Code(s): K43.2 - INCISIONAL HERNIA WITHOUT OBSTRUCTION OR GANGRENE SNOMED Code(s): 131155459 Plan: This appears to be partial bowel obstruction. We discussed the usual approach to this including bowel rest and hydration and pain control. Her stomach was r ather distended on computed tomography scan sore NG would be beneficial. She's hesitant to do that since she is not vomiting today. She feels as though she is dehydrated so I will give her a small fluid bolus and increase the basal rate of her IV fluids. Serial exams and x-rays. Further recommendations to follow.
[2020-02-26] MEDS ORDERED: SODIUM CHLORIDE 0.9% 250 ML IV SCH (11:15)
--- NOTE | 2020-02-26 13:33 | P.HPIM ---
History of Present Illness H&P Date: 02/26/20 Christy Machado, is a 69-year-old female who presented to [facility] emergency room was a chief complaint of abdominal pain and vomiting patient was evaluated in the emergency room, vital examination on presentation revealed a temperature of 97.5 pulse 77 respiration 20 blood pressure 117/79 pulse ox 99% on room air, white blood count was slightly elevated at 14.2 hemoglobin 12.6 platelet count 375, sodium was low at 124 BUN 24 creatinine 1.31 glucose 159 AST 38 ALT 35 alkaline phosphatase 252 lipase was normal, urine analysis showed cloudy urine with 13 white blood cells in high power field, leukocyte esterase was positive. Computed tomography scan of the abdomen and pelvis was done in the emergency room and revealed multiple dilated fluid and air filled small bowel loops suggestive of ileus or partial mechanical small bowel obstruction. Patient was admitted to medical floor, she was started on IV fluid, surgical consultation was requested with Dr. Rahman, patient is well known to him she had a similar episode 1 year ago at that time she had incarcerated umbilical hernia was high-grade small bowel obstruction and strangulated small bowel she underwent exploratory laparotomy with lysis of adhesion and small bowel resection and ventral hernia repair. Patient was seen and examined on the medical floor she is alert and oriented 3 she is still complaining of significant abdominal pain however she is not vomiting at this time. Initially she has refused NG tube however she was counseled in that regard and at this time she is agreeable to have an NG tube placed, otherwise she denies any complaints there is no fever or chills no headache or dizziness no chest pain no shortness of breath no cough and no urinary symptoms. 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 rt bunionectomy, total lt hip replacement, liver mass biopsy, liver resection 09/13/16, rt knee revision 2016, radiation to liver Past Anesthesia/Blood Transfusion Reactions: No Reported Reaction Additional Past Anesthesia/Blood Transfusion Reaction / Comment(s): denies PONV Past Psychological History: Anxiety, Panic Disorder Smoking Status: Never smoker Past Alcohol Use History: None Reported Past Drug Use History: None Reported - Past Family History Mother Family Medical History: Dementia, Hypertension Sister(s) Family Medical History: Cancer Additional Family Medical History / Comment(s): breast Medications and Allergies Home Medications Medication Instructions Recorded Confirmed Type Furosemide [Lasix] 40 mg PO BID 10/20/15 02/25/20 History Potassium Chloride ER [K-Dur 20] 20 meq PO BID 10/20/15 02/25/20 History Simvastatin [Zocor] 40 mg PO HS 10/20/15 02/25/20 History Spironolactone [Aldactone] 25 mg PO BID 10/20/15 02/25/20 History glipiZIDE XL [Glucotrol XL] 5 mg PO BID 10/20/15 02/25/20 History ALPRAZolam [Xanax] 0.25 mg PO BID PRN 01/22/17 02/25/20 History Acetaminophen [Tylenol Extra 500 mg PO Q8H PRN 12/21/18 02/25/20 History Strength] Lisinopril [Prinivil] 10 mg PO BID 12/21/18 02/25/20 History Loratadine [Claritin] 10 mg PO HS 12/21/18 02/25/20 History Fluticasone Nasal [place] [Flonase 1 - 2 spray EA NOSTRIL DAILY PRN 03/27/19 02/25/20 History Nasal [place]] metFORMIN HCL [Glucophage] 500 mg PO BID 03/27/19 02/25/20 History Albuterol Sulfate [Ventolin HFA] 1 - 2 puff INHALATION RT-Q4H PRN 02/25/20 02/25/20 History Multivitamins, Thera [Multivitamin 1 tab PO DAILY 02/25/20 02/25/20 History (formulary)] Allergies Allergy/AdvReac Type Severity Reaction Status Date / Time ciprofloxacin [From Cipro] Allergy Dyspnea Verified 02/25/20 23:19 ciprofloxacin HCl Allergy Dyspnea Verified 02/25/20 23:19 [From Cipro] Penicillins Allergy Rash/Hives Verified 02/25/20 23:19 Sulfa (Sulfonamide Allergy Rash/Hives Verified 02/25/20 23:19 Antibiotics) hydromorphone [From Dilaudid] AdvReac Itching Verified 02/25/20 23:19 morphine AdvReac Vomiting Verified 02/25/20 23:19 Physical Exam Vitals: Vital Signs Temp Pulse Pulse Resp BP BP Pulse Ox 02/26/20 05:09 97.7 F 73 16 116/69 93 L 02/26/20 01:08 97.6 F 68 17 124/74 98 02/26/20 00:45 98 F 74 18 118/65 98 02/26/20 00:00 68 17 02/25/20 23:58 98.3 F 75 20 117/64 100 02/25/20 21:39 97.5 F L 77 20 117/79 99 Intake and Output 02/25/20 02/26/20 02/26/20 22:59 06:59 14:59 Other: # Voids 0 Weight 106.594 kg 106.594 kg In general patient is alert and oriented 3 in no apparent distress HEENT head normocephalic and atraumatic Neck is supple no JVD no goiter no lymphadenopathy Chest exam reveals a scattered crackles bilaterally no wheezing Cardiac exam reveals regular heart sounds no murmurs Abdomen is soft and slightly distended with mild diffuse tenderness no organomegaly with normal bowel sounds Extremity exam reveals no edema no cyanosis or clubbing Neurological examination reveals no gross focal deficits Results CBC & Chem 7: 02/26/20 06:18 02/26/20 06:18 Labs: Abnormal Lab Results - Last 24 Hours (Table) 02/25/20 02/25/20 02/25/20 Range/Units 22:18 22:18 22:29 WBC 14.2 H (3.8-10.6) k/uL RBC (3.80-5.40) m/uL Neutrophils # 12.1 H (1.3-7.7) k/uL Lymphocytes # (1.0-4.8) k/uL Sodium 124 L (137-145) mmol/L Chloride 90 L (98-107) mmol/L BUN 24 H (7-17) mg/dL Creatinine 1.31 H (0.52-1.04) mg/dL Glucose 159 H (74-99) mg/dL POC Glucose (mg/dL) 166 H (75-99) mg/dL AST 38 H (14-36) U/L ALT 35 H (4-34) U/L Alkaline Phosphatase 252 H (38-126) U/L Urine Appearance (Clear) Urine Ketones (Negative) Ur Leukocyte Esterase (Negative) Urine WBC (0-5) /hpf Urine Bacteria (None) /hpf Urine Mucus (None) /hpf 02/26/20 02/26/20 02/26/20 Range/Units 04:36 06:18 06:18 WBC 16.8 H (3.8-10.6) k/uL RBC 3.79 L (3.80-5.40) m/uL Neutrophils # 16.1 H (1.3-7.7) k/uL Lymphocytes # 0.2 L (1.0-4.8) k/uL Sodium 126 L (137-145) mmol/L Chloride 95 L (98-107) mmol/L BUN 25 H (7-17) mg/dL Creatinine 1.22 H (0.52-1.04) mg/dL Glucose 158 H (74-99) mg/dL POC Glucose (mg/dL) (75-99) mg/dL AST (14-36) U/L ALT (4-34) U/L Alkaline Phosphatase (38-126) U/L Urine Appearance Cloudy H (Clear) Urine Ketones 1+ H (Negative) Ur Leukocyte Esterase Small H (Negative) Urine WBC 13 H (0-5) /hpf Urine Bacteria Moderate H (None) /hpf Urine Mucus Rare H (None) /hpf Microbiology - Last 24 Hours (Table) 02/26/20 04:36 Urine Culture - Preliminary Urine,Catheterized Thrombosis Risk Factor Assmnt - Choose All That Apply Any of the Below Risk Factors Present?: No Other Risk Factors: Yes Each Risk Factor Represents 2 Points: Age 61-74 years, Malignancy Other congenital or acquired thrombophilia - If yes, enter type in comment: No Thrombosis Risk Factor Assessment Total Risk Factor Score: 4 Thrombosis Risk Factor Assessment Level: Moderate Risk Assessment and Plan Plan: 1. Partial bowel obstruction 2. History of incarcerated umbilical hernia with small bowel obstruction req uiring surgery 1 year ago 3. Underlying history of diabetes mellitus 4. Underlying history of hypertension 5. Evidence of urinary tract infection 6. Dehydration with acute kidney injury 7. Hyponatremia 8. Slight elevation in liver enzymes At this time patient is admitted to medical floor she was counseled in length and now she is agreeable to having an NG tube placed Will start IV Flagyl 500 mg 3 times daily , patient has multiple antibiotic ALLERGIES Will monitor white blood cell closely Surgery are following Will hold oral medication for diabetes and cover with sliding scale
[2020-02-26] MEDS: metroNIDAZOLE-NS PMX 500 MG in SALINE 1 100ML.BAG IVPB SCH (15:05)
[2020-02-26 17:19] LABS: Glucose,Whole Blood 141 mg/dL (75-99)
[2020-02-26] MEDS: lisinopriL 10 MG TAB PO SCH (21:24)
[2020-02-26 21:26] LABS: Glucose,Whole Blood 147 mg/dL (75-99)
[2020-02-26] MEDS: INSULIN ASPART (NovoLOG) 100 UNIT/ML VIAL SQ SCH (21:40)
[2020-02-27] MEDS: metroNIDAZOLE-NS PMX 500 MG in SALINE 1 100ML.BAG IVPB SCH ×4 (01:10→23:25)
[2020-02-27] MEDS: HYDROmorphone 0.5 MG/0.5 ML SYRINGE IVP PRN ×6 (01:15→22:32)
[2020-02-27 06:07] LABS: Basophils % (A) 0 %; Eosinophils % (A) 0 %; HCT 34.7 % (34.0-46.0); HGB 11.7 gm/dL (11.4-16.0); Lymphocytes # (A) 0.3 k/uL (1.0-4.8); Lymphocytes % (A) 5 %; MCH 30.9 pg (25.0-35.0); MCHC 33.7 g/dL (31.0-37.0); MCV 91.9 fL (80.0-100.0); Mean Platelet Volume 6.6; Monocytes # (A) 0.7 k/uL (0-1.0); Monocytes % (A) 12 %; Neutrophils # (A) 4.9 k/uL (1.3-7.7); Neutrophils % (A) 82 %; Platelet Count 325 k/uL (150-450); RBC 3.78 m/uL (3.80-5.40); RDW 12.8 % (11.5-15.5)
[2020-02-27] MEDS: SODIUM CHLORIDE 0.9% 1,000 ML IV SCH ×3 (07:14→19:11)
[2020-02-27 07:51] LABS: Glucose,Whole Blood 150 mg/dL (75-99)
--- NOTE | 2020-02-27 08:02 | XR ---
EXAMINATION TYPE: XR abdomen 2V DATE OF EXAM: 02/27/2020 CLINICAL HISTORY: History of liver cancer with nausea and pain. Incomplete small bowel obstruction. TECHNIQUE: Supine and upright views of the abdomen are obtained. COMPARISON: CT 2 days earlier. FINDINGS: New nasogastric tube decompresses the stomach. Persisting gas dilated small bowel loop in t he mid to lower abdomen in stepladder pattern. Gas and fecal material seen in nondistended colon paulo g the periphery. No pneumoperitoneum. Metallic hardware left hip arthroplasty partially imaged. Moder ate spurring and narrowing right hip joint. Left pelvic phlebolith. IMPRESSION: New nasogastric tube. Persistent mid to distal small bowel obstruction. No improvement in gaseous distention of lower small bowel loops.
[2020-02-27] MEDS: lisinopriL 10 MG TAB PO SCH ×2 (08:09→20:49)
[2020-02-27] MEDS: INSULIN ASPART (NovoLOG) 100 UNIT/ML VIAL SQ SCH ×4 (08:10→20:46)
[2020-02-27 09:52] LABS: African American GFR (CKD) 44.9 (60.0-200.0); Albumin 3.6 g/dL (3.80-4.90); Albumin/Globulin Ratio 2.25 (1.60-3.17); Anion Gap 7.9 mmol/L (4.00-12.00); BUN/Creat Ratio 20.71 Ratio (12.00-20.00); Calcium 8.8 mg/dL (8.7-10.3); Carbon Dioxide 26.1 mmol/L (21.6-31.8); Globulin 1.6 g/dL (1.6-3.3); Non-African American GFR(CKD) 38.8 (60.0-200.0); Potassium 4.3 mmol/L (3.5-5.5); Total Bilirubin 0.4 mg/dL (0.3-1.2); Total Protein 5.2 g/dL (6.2-8.2)
--- NOTE | 2020-02-27 10:41 | P.PN ---
Subjective Progress Note Date: 02/27/20 Christy Machado, is a 69-year-old female who presented to [facility] emergency room was a chief complaint of abdominal pain and vomiting patient was evaluated in the emergency room, vital examination on presentation revealed a temperature of 97.5 pulse 77 respiration 20 blood pressure 117/79 pulse ox 99% on room air, white blood count was slightly elevated at 14.2 hemoglobin 12.6 platelet count 375, sodium was low at 124 BUN 24 creatinine 1.31 glucose 159 AST 38 ALT 35 alkaline phosphatase 252 lipase was normal, urine analysis showed cloudy urine with 13 white blood cells in high power field, leukocyte esterase was positive. Computed tomography scan of the abdomen and pelvis was done in the emergency room and revealed multiple dilated fluid and air filled small bowel loops suggestive of ileus or partial mechanical small bowel obstruction. Patient was admitted to medical floor, she was started on IV fluid, surgical consultation was requested with Dr. Rahman, patient is well known to him she had a similar episode 1 year ago at that time she had incarcerated umbilical hernia was high-grade small bowel obstruction and strangulated small bowel she underwent exploratory laparotomy with lysis of adhesion and small bowel resection and ventral hernia repair. Patient was seen and examined on the medical floor she is alert and oriented 3 she is still complaining of significant abdominal pain however she is not vomiting at this time. Initially she has refused NG tube however she was counseled in that regard and at this time she is agreeable to have an NG tube placed, otherwise she denies any complaints there is no fever or chills no headache or dizziness no chest pain no shortness of breath no cough and no urinary symptoms. On 02/27/2020 patient is alert and oriented 3. NG tube in place per nursing staff patient put out approximately 700 mL. Abdominal x-ray completed and to be reviewed by surgical services. Patient does report that her abdominal pain is slightly improved in that she did start passing gas this a.m. Encouraged patient to increase activity. Awaiting surgical input. Patient remains on IV Flagyl. Patient remains nothing by mouth. Patient denies chest pain or shortness breath. Patient denies nausea vomiting or diarrhea. Patient denies any urinary burning or frequency Objective - Vital Signs Vital signs: Vital Signs Temp 98.1 F 02/27/20 05:11 Pulse 80 02/27/20 05:11 Resp 18 02/27/20 05:11 BP 120/85 02/27/20 05:11 Pulse Ox 94 L 02/27/20 05:11 Intake & Output 02/26/20 02/27/20 02/27/20 18:59 06:59 18:59 Intake Total 800 300 Output Total 100 Balance 800 200 Intake: Intake, IV Titration 800 300 Amount Sodium Chloride 0.9% 1, 550 300 000 ml @ 100 mls/hr IV . Q10H KEON Rx#:[id number] Sodium Chloride 0.9% 250 250 ml @ 999 mls/hr IV .Q16M KEON Rx#:[id number] Output: Gastric Drainage 100 Other: # Voids 1 1 - Exam In general patient is alert and oriented 3 in no apparent distress HEENT head normocephalic and atraumatic Neck is supple no JVD no goiter no lymphadenopathy Chest exam reveals a scattered crackles bilaterally no wheezing Cardiac exam reveals regular heart sounds no murmurs Abdomen is soft and slightly distended with mild diffuse tenderness no organomegaly with normal bowel sounds Extremity exam reveals no edema no cyanosis or clubbing Neurological examination reveals no gross focal deficits - Labs CBC & Chem 7: 02/27/20 05:41 02/27/20 05:41 Labs: Abnormal Lab Results - Last 24 Hours (Table) 02/26/20 02/26/20 02/27/20 Range/Units 17:18 21:22 05:41 RBC 3.78 L (3.80-5.40) m/uL Lymphocytes # 0.3 L (1.0-4.8) k/uL Sodium (135-145) mmol/L BUN (9.0-27.0) mg/dL Est GFR (CKD-EPI)AfAm (60.0-200.0) Est GFR (CKD-EPI)NonAf (60.0-200.0) BUN/Creatinine Ratio (12.00-20.00) Ratio Glucose (70-110) mg/dL POC Glucose (mg/dL) 141 H 147 H (75-99) mg/dL Alkaline Phosphatase (41-126) U/L Total Protein (6.2-8.2) g/dL Albumin (3.80-4.90) g/dL 02/27/20 02/27/20 Range/Units 05:41 07:49 RBC (3.80-5.40) m/uL Lymphocytes # (1.0-4.8) k/uL Sodium 134 L (135-145) mmol/L BUN 29.0 H (9.0-27.0) mg/dL Est GFR (CKD-EPI)AfAm 44.9 L (60.0-200.0) Est GFR (CKD-EPI)NonAf 38.8 L (60.0-200.0) BUN/Creatinine Ratio 20.71 H (12.00-20.00) Ratio Glucose 146 H (70-110) mg/dL POC Glucose (mg/dL) 150 H (75-99) mg/dL Alkaline Phosphatase 184 H (41-126) U/L Total Protein 5.2 L (6.2-8.2) g/dL Albumin 3.60 L (3.80-4.90) g/dL Microbiology - Last 24 Hours (Table) 02/26/20 04:36 Urine Culture - Preliminary Urine,Catheterized Assessment and Plan Assessment: 1. Partial bowel obstruction. NG tube in place surgical service is following 2. History of incarcerated umbilical hernia with small bowel obstruction requiring surgery 1 year ago 3. Underlying history of diabetes mellitus 4. Underlying history of hypertension 5. Evidence of urinary tract infection 6. Dehydration with acute kidney injury 7. Hyponatremia. Sodium improving to 134 8. Slight elevation in liver enzymes. These numbers do appear to be trending down At this time patient is admitted to medical floor she was counseled in length and now she is agreeable to having an NG tube placed Will start IV Flagyl 500 mg 3 times daily , patient has multiple antibiotic ALLERGIES Will monitor white blood cell closely. White blood cell improving to 6.0 Surgery are following Will hold oral medication for diabetes and cover with sliding scale Repeat abdominal x-ray ordered per surgery I performed an examination of the patient and discussed their management with the Nurse Practitioner. I have reviewed the Nurse Practitioner's notes and agree with the documented findings and plan of care
[2020-02-27 11:29] LABS: Glucose,Whole Blood 127 mg/dL (75-99)
--- NOTE | 2020-02-27 11:34 | P.PN ---
Subjective Progress Note Date: 02/27/20 Principal diagnosis: Rule out bowel obstruction The patient is seen on rounds. She did agree to NG tube yesterday. She's passed a small amount of flatus. She does feel things moving in her abdomen. She thinks she may need to have a bowel movement. She still having some pain. Objective - Vital Signs Vital signs: Vital Signs Temp 98.1 F 02/27/20 05:11 Pulse 80 02/27/20 05:11 Resp 18 02/27/20 05:11 BP 120/85 02/27/20 05:11 Pulse Ox 94 L 02/27/20 05:11 Intake & Output 02/26/20 02/27/20 02/27/20 18:59 06:59 18:59 Intake Total 800 300 Output Total 100 Balance 800 200 Intake: Intake, IV Titration 800 300 Amount Sodium Chloride 0.9% 1, 550 300 000 ml @ 100 mls/hr IV . Q10H KEON Rx#:[id number] Sodium Chloride 0.9% 250 250 ml @ 999 mls/hr IV .Q16M KEON Rx#:[id number] Output: Gastric Drainage 100 Other: # Voids 1 1 - Constitutional General appearance: Present: cooperative, no acute distress - Respiratory Respiratory: bilateral: CTA - Cardiovascular Rhythm: regular - Gastrointestinal General gastrointestinal: Present: decreased bowel sounds (Hypoactive bowel sounds), distended (Softly distended), tenderness (Mild mid abdominal tenderness without guarding or rebound) - Labs CBC & Chem 7: 02/27/20 05:41 02/27/20 05:41 Labs: Abnormal Lab Results - Last 24 Hours (Table) 02/26/20 02/26/20 02/27/20 Range/Units 17:18 21:22 05:41 RBC 3.78 L (3.80-5.40) m/uL Lymphocytes # 0.3 L (1.0-4.8) k/uL Sodium (135-145) mmol/L BUN (9.0-27.0) mg/dL Est GFR (CKD-EPI)AfAm (60.0-200.0) Est GFR (CKD-EPI)NonAf (60.0-200.0) BUN/Creatinine Ratio (12.00-20.00) Ratio Glucose (70-110) mg/dL POC Glucose (mg/dL) 141 H 147 H (75-99) mg/dL Alkaline Phosphatase (41-126) U/L Total Protein (6.2-8.2) g/dL Albumin (3.80-4.90) g/dL 02/27/20 02/27/20 02/27/20 Range/Units 05:41 07:49 11:22 RBC (3.80-5.40) m/uL Lymphocytes # (1.0-4.8) k/uL Sodium 134 L (135-145) mmol/L BUN 29.0 H (9.0-27.0) mg/dL Est GFR (CKD-EPI)AfAm 44.9 L (60.0-200.0) Est GFR (CKD-EPI)NonAf 38.8 L (60.0-200.0) BUN/Creatinine Ratio 20.71 H (12.00-20.00) Ratio Glucose 146 H (70-110) mg/dL POC Glucose (mg/dL) 150 H 127 H (75-99) mg/dL Alkaline Phosphatase 184 H (41-126) U/L Total Protein 5.2 L (6.2-8.2) g/dL Albumin 3.60 L (3.80-4.90) g/dL Microbiology - Last 24 Hours (Table) 02/26/20 04:36 Urine Culture - Preliminary Urine,Catheterized - Imaging and Cardiology Abdominal x-ray: report reviewed, image reviewed (NG tube is seen within the stomach. There is still multiple dilated loops of small intestine. There is some air and stool in the distal colon) Assessment and Plan (1) Partial bowel obstruction Current Visit: Yes Status: Acute Code(s): K56.600 - PARTIAL INTESTINAL OBSTRUCTION, UNSPECIFIED TO CAUSE SNOMED Code(s): 57794381530095481 (2) Hepatocellular carcinoma determined by biopsy of liver Current Visit: Yes Status: Acute Code(s): C22.0 - LIVER CELL CARCINOMA SNOMED Code(s): 061027236 (3) Hyponatremia Current Visit: Yes Status: Acute Code(s): E87.1 - HYPO-OSMOLALITY AND HYPONATREMIA SNOMED Code(s): 36449593 (4) Diabetes mellitus Current Visit: No Status: Acute Code(s): E11.9 - TYPE 2 DIABETES MELLITUS WITHOUT COMPLICATIONS SNOMED Code(s): 81080508 (5) Ventral incisional hernia without obstruction or gangrene Current Visit: Yes Status: Acute Code(s): K43.2 - INCISIONAL HERNIA WITHOUT OBSTRUCTION OR GANGRENE SNOMED Code(s): 013786468 (6) Ventral incisional hernia Current Visit: Yes Status: Acute Code(s): K43.2 - INCISIONAL HERNIA WITHOUT OBSTRUCTION OR GANGRENE SNOMED Code(s): 865550763 Plan: The patient has started to pass a small amount of flatus. She still has some distention and discomfort. The abdominal x-ray doesn't appear significantly improved. Recommend we continue NG tube decompression. Encouraged her to ambulate in the [place] and discuss this with her nurse. We'll give her some ice chips or popsicles for mouth comfort. Repeat x-rays tomorrow. Serial exams. Further recommendations to follow.
[2020-02-27 17:44] LABS: Glucose,Whole Blood 145 mg/dL (75-99)
[2020-02-27 20:24] LABS: Glucose,Whole Blood 118 mg/dL (75-99)
[2020-02-27] MEDS: ONDANSETRON 4 MG/2 ML VIAL IVP PRN (22:34)
[2020-02-28] MEDS: HYDROmorphone 0.5 MG/0.5 ML SYRINGE IVP PRN ×5 (02:16→23:23)
[2020-02-28 05:09] LABS: Basophils % (A) 0 %; Eosinophils # (A) 0.1 k/uL (0-0.7); Eosinophils % (A) 1 %; HCT 34.4 % (34.0-46.0); HGB 11.2 gm/dL (11.4-16.0); Lymphocytes # (A) 0.4 k/uL (1.0-4.8); Lymphocytes % (A) 6 %; MCHC 32.5 g/dL (31.0-37.0); MCV 92.4 fL (80.0-100.0); Mean Platelet Volume 6.6; Monocytes # (A) 0.7 k/uL (0-1.0); Monocytes % (A) 10 %; Neutrophils # (A) 5.8 k/uL (1.3-7.7); Neutrophils % (A) 82 %; Platelet Count 316 k/uL (150-450); RBC 3.72 m/uL (3.80-5.40); RDW 13.1 % (11.5-15.5); WBC 7.1 k/uL (3.8-10.6)
[2020-02-28] MEDS: SODIUM CHLORIDE 0.9% 1,000 ML IV SCH ×2 (05:16→17:31)
[2020-02-28 07:07] LABS: Glucose,Whole Blood 134 mg/dL (75-99)
[2020-02-28] MEDS: INSULIN ASPART (NovoLOG) 100 UNIT/ML VIAL SQ SCH ×4 (07:57→20:16)
[2020-02-28] MEDS: lisinopriL 10 MG TAB PO SCH ×2 (07:58→20:13)
[2020-02-28] MEDS: metroNIDAZOLE-NS PMX 500 MG in SALINE 1 100ML.BAG IVPB SCH ×3 (07:58→17:31)
--- NOTE | 2020-02-28 08:10 | XR ---
EXAMINATION TYPE: XR abdomen 2V DATE OF EXAM: 02/28/2020 6:20 AM CLINICAL HISTORY: Bowel obstruction TECHNIQUE: Supine and upright images of the abdomen and pelvis were obtained COMPARISON: 02/27/2020 abdominal radiograph. FINDINGS: Enteric tube distal tip and side-port overlie the projected area of the stomach. There are redemonstrated gaseous distended small bowel loops not significantly changed versus 02/27/2020. Gas a nd fecal material is seen in non-distended colon. No pneumoperitoneum. Degenerative changes of the alessandro mbosacral spine. Left hip arthroplasty incompletely visualized. IMPRESSION: Appearance not significantly changed versus 02/27/2020, likely incomplete small bowel obstruction.
--- NOTE | 2020-02-28 10:25 | P.PN ---
Subjective Progress Note Date: 02/28/20 Principal diagnosis: Rule out bowel obstruction The patient is seen on rounds. She is passed only a small amount of flatus. Continues to have intermittent abdominal pain. Objective - Vital Signs Vital signs: Vital Signs Temp 97.7 F 02/28/20 05:00 Pulse 79 02/28/20 05:00 Resp 16 02/28/20 05:00 BP 140/70 02/28/20 05:00 Pulse Ox 93 L 02/28/20 05:00 Intake & Output 02/27/20 02/28/20 02/28/20 18:59 06:59 18:59 Intake Total 1050 Balance 1050 Intake: Intake, IV Titration 1050 Amount Sodium Chloride 0.9% 1, 1050 000 ml @ 100 mls/hr IV . Q10H KEON Rx#:[id number] Other: Voiding Method Toilet # Voids 2 1 - Constitutional General appearance: Present: cooperative - Respiratory Respiratory: bilateral: CTA - Gastrointestinal General gastrointestinal: Present: decreased bowel sounds, distended (Tympany to percussion), tenderness (Minimal tenderness without guarding or rebound) - Labs CBC & Chem 7: 02/28/20 04:31 02/27/20 05:41 Labs: Abnormal Lab Results - Last 24 Hours (Table) 02/27/20 02/27/20 02/27/20 Range/Units 11:22 17:41 20:23 RBC (3.80-5.40) m/uL Hgb (11.4-16.0) gm/dL Lymphocytes # (1.0-4.8) k/uL POC Glucose (mg/dL) 127 H 145 H 118 H (75-99) mg/dL 02/28/20 02/28/20 Range/Units 04:31 07:05 RBC 3.72 L (3.80-5.40) m/uL Hgb 11.2 L (11.4-16.0) gm/dL Lymphocytes # 0.4 L (1.0-4.8) k/uL POC Glucose (mg/dL) 134 H (75-99) mg/dL Microbiology - Last 24 Hours (Table) 02/26/20 04:36 Urine Culture - Preliminary Urine,Catheterized Gram Neg Bacilli 02/26/20 11:12 Blood Culture - Preliminary Blood No Growth after 24 hours - Imaging and Cardiology Abdominal x-ray: report reviewed (X-rays reviewed and shows no significant improvement) Assessment and Plan (1) Partial bowel obstruction Current Visit: Yes Status: Acute Code(s): K56.600 - PARTIAL INTESTINAL OB STRUCTION, UNSPECIFIED TO CAUSE SNOMED Code(s): 03309895951296932 (2) Hepatocellular carcinoma determined by biopsy of liver Current Visit: Yes Status: Acute Code(s): C22.0 - LIVER CELL CARCINOMA SNOMED Code(s): 000513716 (3) Hyponatremia Current Visit: Yes Status: Acute Code(s): E87.1 - HYPO-OSMOLALITY AND HYPONATREMIA SNOMED Code(s): 04399032 (4) Diabetes mellitus Current Visit: No Status: Acute Code(s): E11.9 - TYPE 2 DIABETES MELLITUS WITHOUT COMPLICATIONS SNOMED Code(s): 50255912 (5) Ventral incisional hernia without obstruction or gangrene Current Visit: Yes Status: Acute Code(s): K43.2 - INCISIONAL HERNIA WITHOUT OBSTRUCTION OR GANGRENE SNOMED Code(s): 548518458 (6) Ventral incisional hernia Current Visit: Yes Status: Acute Code(s): K43.2 - INCISIONAL HERNIA WITHOUT OBSTRUCTION OR GANGRENE SNOMED Code(s): 866956290 Plan: I spoke with the patient and her via phone. The small bowel obstruction is not responding to conservative therapy. I think she needs an exploratory laparotomy. She is on the transplant list at [facility]. The transverse pain team requested that she be sent there she needed surgery so this will be arranged. I spoke with patient and her . I spoke with Dr. Babcock.
[2020-02-28 11:41] LABS: Glucose,Whole Blood 139 mg/dL (75-99)
[2020-02-28 11:47] VITALS: RESP 18
[2020-02-28 15:46] LABS: African American GFR (CKD) 49.2 (60.0-200.0); Albumin 3.5 g/dL (3.80-4.90); Albumin/Globulin Ratio 2.19 (1.60-3.17); Anion Gap 8.4 mmol/L (4.00-12.00); BUN/Creat Ratio 23.85 Ratio (12.00-20.00); Carbon Dioxide 29.6 mmol/L (21.6-31.8); Globulin 1.6 g/dL (1.6-3.3); Non-African American GFR(CKD) 42.4 (60.0-200.0); Potassium 4.3 mmol/L (3.5-5.5); Total Bilirubin 0.4 mg/dL (0.3-1.2); Total Protein 5.1 g/dL (6.2-8.2)
[2020-02-28 17:15] LABS: Glucose,Whole Blood 158 mg/dL (75-99)
--- NOTE | 2020-02-28 17:55 | P.DS ---
Providers Date of admission: 02/25/20 23:44 Expected date of discharge: 02/28/20 Attending physician: Herber Babcock Consults: 02/25/20 23:50 Consult Physician Routine Consulting Provider: Maciej Rahman Consult Reason/Comments: Bowel obstruction Do you want consulting provider notified?: Yes Primary care physician: Herber Yoko [facility] Course: Diagnosis on discharge: 1. Partial bowel obstruction. NG tube in place surgical service is following 2. History of incarcerated umbilical hernia with small bowel obstruction requiring surgery 1 year ago 3. Underlying history of diabetes mellitus 4. Underlying history of hypertension 5. Evidence of urinary tract infection 6. Dehydration with acute kidney injury 7. Hyponatremia. Sodium improving to 134 8. Slight elevation in liver enzymes. These numbers do appear to be trending down, patient has a known history of hepatocellular carcinoma and is on the transplant list at [facility] course: Christy Machado, is a 69-year-old female who presented to [facility] emergency room was a chief complaint of abdominal pain and vomiting patient was evaluated in the emergency room, vital examination on presentation revealed a temperature of 97.5 pulse 77 respiration 20 blood pressure 117/79 pulse ox 99% on room air, white blood count was slightly elevated at 14.2 hemoglobin 12.6 platelet count 375, sodium was low at 124 BUN 24 creatinine 1.31 glucose 159 AST 38 ALT 35 alkaline phosphatase 252 lipase was normal, urine analysis showed cloudy urine with 13 white blood cells in high power field, leukocyte esterase was positive. Computed tomography scan of the abdomen and pelvis was done in the emergency room and revealed multiple dilated fluid and air filled small bowel loops suggestive of ileus or partial mechanical small bowel obstruction. Patient was admitted to medical floor, she was started on IV fluid, surgical consultation was requested with Dr. Rahman, patient is well known to him she had a similar episode 1 year ago at that time she had incarcerated umbilical hernia was high-grade small bowel obstruction and strangulated small bowel she underwent exploratory laparotomy with lysis of adhesion and small bowel resection and ventral hernia repair. Patient was seen and examined on the medical floor she is alert and oriented 3 she is still complaining of significant abdominal pain however she is not vomiting at this time. Initially she has refused NG tube however she was counseled in that regard and at this time she is agreeable to have an NG tube placed, otherwise she denies any complaints there is no fever or chills no headache or dizziness no chest pain no shortness of breath no cough and no urinary symptoms. On 02/27/2020 patient is alert and oriented 3. NG tube in place per nursing staff patient put out approximately 700 mL. Abdominal x-ray completed and to be reviewed by surgical services. Patient does report that her abdominal pain is slightly improved in that she did start passing gas this a.m. Encouraged patient to increase activity. Awaiting surgical input. Patient remains on IV Flagyl. Patient remains nothing by mouth. Patient denies chest pain or shortness breath. Patient denies nausea vomiting or diarrhea. Patient denies any urinary burning or frequency On 02/28/2020 patient was seen and examined on the medical floor she is alert and oriented 3 in no distress , she is not having any bowel movement she is still having some abdominal pain and distention NG tube is in , there is no fever or chills no headache or dizziness no chest pain no shortness of breath no cough no nausea or vomiting no diarrhea no blood in the stools no burning with urination no frequency or urgency and no hematuria, at this time per patient family request, will transfer to [facility] as patient is on the liver transplant list at that facility, and patient and her family want any surgical intervention to be done at [facility]. Patient Condition at Discharge: Serious Plan - Discharge Summary Discharge Rx Participant: No New Discharge Prescriptions: No Action Simvastatin [Zocor] 40 mg PO HS glipiZIDE XL [Glucotrol XL] 5 mg PO BID Potassium Chloride ER [K-Dur 20] 20 meq PO BID Spironolactone [Aldactone] 25 mg PO BID Furosemide [Lasix] 40 mg PO BID ALPRAZolam [Xanax] 0.25 mg PO BID PRN PRN Reason: Anxiety Loratadine [Claritin] 10 mg PO HS Lisinopril [Prinivil] 10 mg PO BID Acetaminophen [Tylenol Extra Strength] 500 mg PO Q8H PRN PRN Reason: Pain Fluticasone Nasal [place] [Flonase Nasal [place]] 1 - 2 spray EA NOSTRIL DAILY PRN PRN Reason: Allergy Symptoms metFORMIN HCL [Glucophage] 500 mg PO BID Multivitamins, Thera [Multivitamin (formulary)] 1 tab PO DAILY Albuterol Sulfate [Ventolin HFA] 1 - 2 puff INHALATION RT-Q4H PRN PRN Reason: Shortness Of Breath Discharge Medication List Furosemide [Lasix] 40 mg PO BID 10/20/15 [History] Potassium Chloride ER [K-Dur 20] 20 meq PO BID 10/20/15 [History] Simvastatin [Zocor] 40 mg PO HS 10/20/15 [History] Spironolactone [Aldactone] 25 mg PO BID 10/20/15 [History] glipiZIDE XL [Glucotrol XL] 5 mg PO BID 10/20/15 [History] ALPRAZolam [Xanax] 0.25 mg PO BID PRN 01/22/17 [History] Acetaminophen [Tylenol Extra Strength] 500 mg PO Q8H PRN 12/21/18 [History] Lisinopril [Prinivil] 10 mg PO BID 12/21/18 [History] Loratadine [Claritin] 10 mg PO HS 12/21/18 [History] Fluticasone Nasal [place] [Flonase Nasal [place]] 1 - 2 spray EA NOSTRIL DAILY PRN 03/27/19 [History] metFORMIN HCL [Glucophage] 500 mg PO BID 03/27/19 [History] Albuterol Sulfate [Ventolin HFA] 1 - 2 puff INHALATION RT-Q4H PRN 02/25/20 [History] Multivitamins, Thera [Multivitamin (formulary)] 1 tab PO DAILY 02/25/20 [History] Follow up Appointment(s)/Referral(s): Herber Babcock MD [Primary Care Provider] - 1-2 days
[2020-02-28 20:10] VITALS: BP 115/67; PULSE 89; TEMP 97.7
[2020-02-28 20:50] LABS: Glucose,Whole Blood 125 mg/dL (75-99)
== END 2020-02-28 23:53 | disposition short-term general hospital (02) | DRG 389 ==
LOC: EC 21:34 → 6NMEDSUR 23:44
PROVIDERS: ADMIT Internal Medicine; ATTEND Internal Medicine
PROC: 0D9670Z Drainage of Stomach with Drainage Device, Via Natural or Artificial Opening (ICD-10-PCS; principal; 2020-02-25)
DX: K56.600 Partial intestinal obstruction, unspecified as to cause (principal); E87.1 Hypo-osmolality and hyponatremia; N17.9 Acute kidney failure, unspecified; N39.0 Urinary tract infection, site not specified; C22.0 Liver cell carcinoma; E11.52 Type 2 diabetes mellitus with diabetic peripheral angiopathy with gangrene; Z96.642 Presence of left artificial hip joint; G43.909 Migraine, unspecified, not intractable, without status migrainosus; Z96.653 Presence of artificial knee joint, bilateral; F41.0 Panic disorder [episodic paroxysmal anxiety]; E86.0 Dehydration; K43.2 Incisional hernia without obstruction or gangrene; I12.9 Hypertensive chronic kidney disease with stage 1 through stage 4 chronic kidney disease, or unspecified chronic kidney disease; E11.22 Type 2 diabetes mellitus with diabetic chronic kidney disease; N18.30 Chronic kidney disease, stage 3 unspecified; Z79.899 Other long term (current) drug therapy; Z79.84 Long term (current) use of oral hypoglycemic drugs; Z76.82 Awaiting organ transplant status; Z88.1 Allergy status to other antibiotic agents; Z88.5 Allergy status to narcotic agent; Z88.0 Allergy status to penicillin; Z88.2 Allergy status to sulfonamides; Z90.710 Acquired absence of both cervix and uterus; Z82.49 Family history of ischemic heart disease and other diseases of the circulatory system; Z98.891 History of uterine scar from previous surgery; Z90.49 Acquired absence of other specified parts of digestive tract; Z98.51 Tubal ligation status; Z90.89 Acquired absence of other organs; Z98.890 Other specified postprocedural states; Z80.3 Family history of malignant neoplasm of breast; Z81.8 Family history of other mental and behavioral disorders
CPT/HCPCS: 36415; 74019; 74176; 80048; 80053; 81001; 83605; 83690; 85025; 85610; 85730; 86850; 86900; 86901; 87040; 87077; 87086; 87186; 96361; 96374; 96375; 96376; 99285

== ENCOUNTER → 2020-07-24 | Outpatient (CLI) | payer MEDICARE, BC ==
[2020-07-24 10:34] LABS: Basophils # (A) 0.02 X 10*3/uL (0.00-0.10); Basophils % (A) 0.2 %; Eosinophils # (A) 0.03 X 10*3/uL (0.04-0.35); Eosinophils % (A) 0.4 %; HCT 30.3 % (37.2-46.3); HGB 9.3 g/dL (12.0-15.0); Lymphocytes # (A) 1.31 X 10*3/uL (0.90-5.00); Lymphocytes % (A) 15.8 %; MCH 27.9 pg (27.0-32.0); MCHC 30.7 g/dL (32.0-37.0); Mean Platelet Volume 10.1 fL (9.5-12.2); Monocytes % (A) 8.4 %; Neutrophils # (A) 6.16 X 10*3/uL (1.80-7.70); Neutrophils % (A) 74.4 %; Platelet Count 276 X 10*3/uL (140-440); RBC 3.33 X 10*6/uL (4.10-5.20); WBC 8.29 X 10*3/uL (4.50-10.00)
[2020-07-24 11:17] LABS: African American GFR (CKD) 41.4 (60.0-200.0); Albumin 4.1 g/dL (3.80-4.90); Albumin/Globulin Ratio 2.73 (1.60-3.17); Anion Gap 10.2 mmol/L (4.00-12.00); Calcium 9.7 mg/dL (8.7-10.3); Carbon Dioxide 23.8 mmol/L (21.6-31.8); Chol/HDL Ratio 2.57; Globulin 1.5 g/dL (1.6-3.3); Magnesium 1.6 mg/dL (1.5-2.4); Non-African American GFR(CKD) 35.7 (60.0-200.0); Total Bilirubin 0.3 mg/dL (0.2-1.2); Total Protein 5.6 g/dL (6.2-8.2)
[2020-07-24 14:06] LABS: Hemoglobin A1C 6.5 % (4.0-6.0)
== END | disposition home or self-care (01) ==
LOC: LABWHC1 07:05
PROVIDERS: ATTEND Internal Medicine
DX: I10 Essential (primary) hypertension (principal); E78.2 Mixed hyperlipidemia; E11.65 Type 2 diabetes mellitus with hyperglycemia; E55.9 Vitamin D deficiency, unspecified; R53.83 Other fatigue; Z79.4 Long term (current) use of insulin
CPT/HCPCS: 36415; 80053; 80061; 82306; 83036; 83735; 84439; 84443; 85025

== ENCOUNTER → 2020-08-28 | Outpatient (CLI) | payer MEDICARE, BC ==
--- NOTE | 2020-08-28 13:25 | MM ---
Reason for exam: screening (asymptomatic). Last mammogram was performed 1 year and 2 months ago. History: Patient is postmenopausal and has history of other cancer at age 66. Family history of breast cancer in sister at age 48, premenopausal breast cancer in paternal cousin at age 48, and breast cancer in paternal aunt at age 56. Took estrogen for 3 months. Took progesterone for 3 months. Physical Findings: A clinical breast exam by your physician is recommended on an annual basis and results should be correlated with mammographic findings. MG Screening Mammo w CAD Bilateral CC and MLO view(s) were taken. Prior study comparison: July 07, 2019, bilateral MG screening mammo w CAD. June 17, 2018, bilateral MG screening mammo w CAD. There are scattered fibroglandular densities. There are benign appearing round linear calcifications bilaterally. There is no discrete abnormality. ASSESSMENT: Benign, BI-RAD 2 RECOMMENDATION: Routine screening mammogram of both breasts in 1 year.
== END ==
LOC: RADMAMWWP 07:02
PROVIDERS: ATTEND Internal Medicine
DX: Z12.31 Encounter for screening mammogram for malignant neoplasm of breast (principal)
CPT/HCPCS: 77067

== ENCOUNTER → 2020-09-25 | Outpatient (CLI) | payer MEDICARE, BC ==
[2020-09-25 11:11] LABS: % Iron Saturation 16.82 (12.00-45.00)
[2020-09-25 11:21] LABS: Ferritin 178.4 ng/mL (10.0-291.0)
== END ==
LOC: LABWHC1 07:08
PROVIDERS: ATTEND Internal Medicine Gastroenterology
DX: D64.9 Anemia, unspecified (principal); Z48.298 Encounter for aftercare following other organ transplant
CPT/HCPCS: 36415; 82728; 83540; 83550

== ENCOUNTER → 2020-10-30 | Outpatient (CLI) | payer MEDICARE, BC | END | disposition home or self-care (01) | CPT/HCPCS: 36415; 80053; 80061; 82306; 83036; 84443 ==

== ENCOUNTER 2020-12-14 10:48 | Emergency (ER) | payer MEDICARE, BC ==
[2020-12-14 10:57] VITALS: RESP 18; TEMP 97.7
[2020-12-14] MEDS ORDERED: HYDROmorphone 1 MG/ML 1 ML SYRINGE IVP STA ×2 (11:27→13:50)
[2020-12-14] MEDS ORDERED: ONDANSETRON 4 MG/2 ML VIAL IVP STA (11:27)
[2020-12-14] MEDS ORDERED: SODIUM CHLORIDE 0.9% 500 ML 500 ML IV STA (11:27)
[2020-12-14 12:06] LABS: Basophils % (A) 0 %; Eosinophils # (A) 0.1 k/uL (0-0.7); Eosinophils % (A) 1 %; HCT 33.8 % (34.0-46.0); HGB 11.1 gm/dL (11.4-16.0); Lymphocytes # (A) 0.8 k/uL (1.0-4.8); Lymphocytes % (A) 10 %; MCH 29.8 pg (25.0-35.0); MCHC 32.9 g/dL (31.0-37.0); MCV 90.6 fL (80.0-100.0); Mean Platelet Volume 7.5; Monocytes # (A) 0.5 k/uL (0-1.0); Monocytes % (A) 6 %; Neutrophils # (A) 6.6 k/uL (1.3-7.7); Neutrophils % (A) 82 %; Platelet Count 248 k/uL (150-450); RBC 3.73 m/uL (3.80-5.40); RDW 14.4 % (11.5-15.5)
[2020-12-14 12:23] LABS: Albumin 4.1 g/dL (3.5-5.0); Calcium 9.7 mg/dL (8.4-10.2); Potassium 4.1 mmol/L (3.5-5.1); Total Bilirubin 0.3 mg/dL (0.2-1.3); Total Protein 6.4 g/dL (6.3-8.2)
[2020-12-14 13:14] LABS: Appearance,Urine Clear (Clear); Bilirubin,Urine Negative (Negative); Blood,Urine Negative (Negative); Color,Urine Light Yellow; Glucose,Urine (UA) Negative (Negative); Ketones,Urine Negative (Negative); Leukocyte Esterase,Urine Negative (Negative); Nitrite,Urine Negative (Negative); PH, Urine 5.5 (5.0-8.0); Protein,Urine Negative (Negative); Specific Gravity,Urine 1.013 (1.001-1.035); Urobilinogen,Urine <2.0 mg/dL (<2.0)
--- NOTE | 2020-12-14 13:16 | CT ---
EXAMINATION TYPE: CT abdomen pelvis wo con DATE OF EXAM: 12/14/2020 COMPARISON: 02/25/2020 HISTORY: lower abd pain, history of liver transplant CT DLP: 1278 mGycm Automated exposure control for dose reduction was used. TECHNIQUE: Helical acquisition of images was performed from the lung bases through the pelvis. FINDINGS: LUNG BASES: No significant abnormality is appreciated. LIVER/GB: Portal vein mild prominent. Postsurgical change in the gallbladder fossa. PANCREAS: No significant abnormality is seen. SPLEEN: No significant abnormality is seen. ADRENALS: No significant abnormality is seen. KIDNEYS: No significant abnormality is seen. ADENOPATHY: None visualized. OSSEOUS STRUCTURES: Degenerative changes spine with postsurgical change involving the left hip. Cinthia re arthropathy of the right hip. BOWEL: There are multiple bowel loops the largest measuring 7.8 cm. It does appear to be decompressi on of the bowel loops more distal to this region and there is suggestion of twisting of the mesentery possible mesenteric volvulus significant obstructive pattern. Surgical changes are seen in the regio n of dilated bowel loop as well as mesenteric stranding inflammatory changes. Cannot exclude early is chemic bowel. Case discussed with ER clinician. Diverticulosis of the colon. Appendix normal.. Hiatal hernia. OTHER: Aorta of normal caliber. IMPRESSION: 1. Multiple dilated small bowel loops with marked distention of a loop measuring approximately 7.8 cm in diameter. There is also twisting of the mesentery. Findings are compatible with bowel obstruction . Mesenteric volvulus in the differential diagnosis. Report called to referring clinician in the [facility] Room 1:09 PM 12/14/2020.
--- NOTE | 2020-12-14 13:39 | ED ---
Abdominal Pain HPI - General Chief Complaint: Abdominal Pain Stated Complaint: Abdominal Pain Time Seen by Provider: 12/14/20 11:11 Source: patient Mode of arrival: wheelchair - History of Present Illness Initial Comments: 70 year-old male patient presents to the emergency department for evaluation of severe left sided abdominal pain that started in the night. States she has had bowel obstruction in the past with small bowel resection. She has also had liver transplant 04/2020, hernia repair, , and hysterectomy. She reports nausea without vomiting. Denies fever or chills. States that she did have a small episode of diarrhea this morning. Has not passed gas since the bowel movement. Denies any hematochezia or melena. States prior to onset of pain she was doing well. Patient denies any recent rash, cough, shortness of breath, chest pain, back pain, numbness, tingling, dizziness, weakness, hematuria, dysuria, urinary urgency, urinary frequency, headache, visual changes, or any other complaints. - Related Data Home Medications Medication Instructions Recorded Confirmed ALPRAZolam [Xanax] 0.25 mg PO BID PRN 01/22/17 12/14/20 Lisinopril [Prinivil] 10 mg PO BID 12/21/18 12/14/20 Loratadine [Claritin] 10 mg PO HS 12/21/18 12/14/20 Fluticasone Nasal [place] [Flonase 1 - 2 spray EA NOSTRIL DAILY PRN 03/27/19 12/14/20 Nasal [place]] Albuterol Sulfate [Ventolin HFA] 1 - 2 puff INHALATION RT-Q4H PRN 02/25/20 12/14/20 Multivitamins, Thera [Multivitamin 1 tab PO DAILY 02/25/20 12/14/20 (formulary)] Atorvastatin [Lipitor] 40 mg PO HS 12/14/20 12/14/20 Ferrous Sulfate [Feosol] 325 mg PO DAILY 12/14/20 12/14/20 Furosemide [Lasix] 40 mg PO DAILY 12/14/20 12/14/20 Insulin Aspart [NovoLOG Flexpen] 4 mg PO AC-BID 12/14/20 12/14/20 Insulin Aspart [NovoLOG Flexpen] 5 units SQ AC-LUNCH 12/14/20 12/14/20 Insulin Aspart [NovoLOG Flexpen] See Protocol SQ AC-TID 12/14/20 12/14/20 Insulin NPH Human Isophane 8 unit SQ HS 12/14/20 12/14/20 [Novolin N Flexpen] Magnesium Oxide [Mag-Ox] 1,600 mg PO BID 12/14/20 12/14/20 mycophenolate mofetiL [Cellcept] 250 mg PO BID 12/14/20 12/14/20 mycophenolate mofetiL [Cellcept] 500 mg PO BID 12/14/20 12/14/20 Allergies Allergy/AdvReac Type Severity Reaction Status Date / Time ciprofloxacin [From Cipro] Allergy Dyspnea Verified 12/14/20 11:50 ciprofloxacin HCl Allergy Dyspnea Verified 12/14/20 11:50 [From Cipro] hydromorphone [From Dilaudid] Allergy Itching Verified 12/14/20 11:50 Penicillins Allergy Rash/Hives Verified 12/14/20 11:50 Sulfa (Sulfonamide Allergy Rash/Hives Verified 12/14/20 11:50 Antibiotics) morphine AdvReac Vomiting Verified 12/14/20 11:50 Review of Systems ROS Statement: Those systems with pertinent positive or pertinent negative responses have been documented in the HPI. ROS Other: All systems not noted in ROS Statement are negative. 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 rt bunionectomy, total lt hip replacement, liver mass biopsy, liver resection 09/13/16, rt knee revision 2016, radiation to liver, liver transplant 04/23 Past Anesthesia/Blood Transfusion Reactions: No Reported Reaction Additional Past Anesthesia/Blood Transfusion Reaction / Comment(s): denies PONV Past Psychological History: Anxiety, Panic Disorder Smoking Status: Former smoker Past Alcohol Use History: None Reported Past Drug Use History: None Reported - Past Family History Mother Family Medical History: Dementia, Hypertension Sister(s) Family Medical History: Cancer Additional Family Medical History / Comment(s): breast General Exam General appearance: alert, in no apparent distress, other (This is a well- developed, well-nourished adult female patient in no acute distress. Vital signs upon presentation are temperature 97.7F, pulse 57, respirations 18, blood pressure 128/62, pulse ox 98% on room air.) Eye exam: Present: normal appearance, PERRL, EOMI. Absent: scleral icterus, conjunctival injection, periorbital swelling ENT exam: Present: normal exam, normal oropharynx, mucous membranes moist Respiratory exam: Present: normal lung sounds bilaterally. Absent: respiratory distress, wheezes, rales, rhonchi, stridor Cardiovascular Exam: Present: regular rate, normal rhythm, normal heart sounds. Absent: systolic murmur, diastolic murmur, rubs, gallop, clicks GI/Abdominal exam: Present: soft, tenderness (left sided), normal bowel sounds. Absent: distended, guarding, rebound, rigid Neurological exam: Present: alert, oriented X3, CN II-XII intact Psychiatric exam: Present: normal affect, normal mood Skin exam: Present: warm, dry, intact, normal color. Absent: rash Course Vital Signs 12/14/20 12/14/20 10:54 13:27 Temperature 97.7 F 97.7 F Pulse Rate 57 L 70 Respiratory 18 18 Rate Blood Pressure 128/62 132/62 O2 Sat by Pulse 98 100 Oximetry Medical Decision Making - Medical Decision Making 70-year-old female patient presents to the emergency department today for evaluation of severe left-sided abdominal pain. Physical examination did reveal abdominal tenderness. Labs reviewed and revealed normal white blood cell count, hemoglobin 11.1, sodium 1:30, BUN 30, creatinine 1.45. Urinalysis is negative. CT abdomen and pelvis was obtained and did show evidence for high-grade bowel obstruction with twisting of the mesentery, possible mesenteric volvulus. We will place an NG tube. I discussed the case and diagnosis with her transplant team at [facility], they recommended that we transfer to [facility] for further management. Discussed the case with transfer team and Dr. Berrios who accepts patient as ER to ER transfer. Patient and are agreeable with this plan. NG tube is placed. Case discussed with my attending Dr. Post. - Lab Data Result diagrams: 12/14/20 11:36 12/14/20 11:36 Lab Results 12/14/20 12/14/20 12/14/20 Range/Units 11:36 11:36 11:36 WBC 8.0 (3.8-10.6) k/uL RBC 3.73 L (3.80-5.40) m/uL Hgb 11.1 L (11.4-16.0) gm/dL Hct 33.8 L (34.0-46.0) % MCV 90.6 (80.0-100.0) fL MCH 29.8 (25.0-35.0) pg MCHC 32.9 (31.0-37.0) g/dL RDW 14.4 (11.5-15.5) % Plt Count 248 (150-450) k/uL MPV 7.5 Neutrophils % 82 % Lymphocytes % 10 % Monocytes % 6 % Eosinophils % 1 % Basophils % 0 % Neutrophils # 6.6 (1.3-7.7) k/uL Lymphocytes # 0.8 L (1.0-4.8) k/uL Monocytes # 0.5 (0-1.0) k/uL Eosinophils # 0.1 (0-0.7) k/uL Basophils # 0.0 (0-0.2) k/uL Sodium 130 L (137-145) mmol/L Potassium 4.1 (3.5-5.1) mmol/L Chloride 99 (98-107) mmol/L Carbon Dioxide 21 L (22-30) mmol/L Anion Gap 10 mmol/L BUN 30 H (7-17) mg/dL Creatinine 1.46 H (0.52-1.04) mg/dL Est GFR (CKD-EPI)AfAm 42 (>60 ml/min/1.73 sqM) Est GFR (CKD-EPI)NonAf 37 (>60 ml/min/1.73 sqM) Glucose 166 H (74-99) mg/dL Plasma Lactic Acid Ja (0.7-2.0) mmol/L Calcium 9.7 (8.4-10.2) mg/dL Total Bilirubin 0.3 (0.2-1.3) mg/dL AST 22 (14-36) U/L ALT 10 (4-34) U/L Alkaline Phosphatase 84 (38-126) U/L Total Protein 6.4 (6.3-8.2) g/dL Albumin 4.1 (3.5-5.0) g/dL Lipase 142 (23-300) U/L Urine Color Light Yellow Urine Appearance Clear (Clear) Urine pH 5.5 (5.0-8.0) Ur Specific [place] 1.013 (1.001-1.035) Urine Protein Negative (Negative) Urine Glucose (UA) Negative (Negative) Urine Ketones Negative (Negative) Urine Blood Negative (Negative) Urine Nitrite Negative (Negative) Urine Bilirubin Negative (Negative) Urine Urobilinogen <2.0 (<2.0) mg/dL Ur Leukocyte Esterase Negative (Negative) 12/14/20 Range/Units 11:36 WBC (3.8-10.6) k/uL RBC (3.80-5.40) m/uL Hgb (11.4-16.0) gm/dL Hct (34.0-46.0) % MCV (80.0-100.0) fL MCH (25.0-35.0) pg MCHC (31.0-37.0) g/dL RDW (11.5-15.5) % Plt Count (150-450) k/uL MPV Neutrophils % % Lymphocytes % % Monocytes % % Eosinophils % % Basophils % % Neutrophils # (1.3-7.7) k/uL Lymphocytes # (1.0-4.8) k/uL Monocytes # (0-1.0) k/uL Eosinophils # (0-0.7) k/uL Basophils # (0-0.2) k/uL Sodium (137-145) mmol/L Potassium (3.5-5.1) mmol/L Chloride (98-107) mmol/L Carbon Dioxide (22-30) mmol/L Anion Gap mmol/L BUN (7-17) mg/dL Creatinine (0.52-1.04) mg/dL Est GFR (CKD-EPI)AfAm (>60 ml/min/1.73 sqM) Est GFR (CKD-EPI)NonAf (>60 ml/min/1.73 sqM) Glucose (74-99) mg/dL Plasma Lactic Acid Ja 0.9 (0.7-2.0) mmol/L Calcium (8.4-10.2) mg/dL Total Bilirubin (0.2-1.3) mg/dL AST (14-36) U/L ALT (4-34) U/L Alkaline Phosphatase (38-126) U/L Total Protein (6.3-8.2) g/dL Albumin (3.5-5.0) g/dL Lipase (23-300) U/L Urine Color Urine Appearance (Clear) Urine pH (5.0-8.0) Ur Specific [place] (1.001-1.035) Urine Protein (Negative) Urine Glucose (UA) (Negative) Urine Ketones (Negative) Urine Blood (Negative) Urine Nitrite (Negative) Urine Bilirubin (Negative) Urine Urobilinogen (<2.0) mg/dL Ur Leukocyte Esterase (Negative) - Radiology Data Radiology results: report reviewed, image reviewed CT abdomen and pelvis was obtained. Report was reviewed in its entirety. Impression by Dr. Bradford multiple dilated small bowel loops with marked distention of a loop measuring approximately 7.8 cm in diameter. There is also twisting of the mesentery. Findings are compatible with bowel obstruction. Mesenteric volvulus is in the differential diagnosis. Disposition Clinical Impression: Small bowel obstruction Disposition: OTHER INSTITUTION NOT DEFINED Condition: Serious Referrals: Herber Babcock MD [Primary Care Provider] - 1-2 days - Out of Hospital Transfer - Req. Specs Out of Hospital Transfer - Requested Specifics: Other Emergency Center ([facility])
--- NOTE | 2020-12-14 14:06 | XR ---
EXAMINATION TYPE: XR chest 1V portable DATE OF EXAM: 12/14/2020 COMPARISON: NONE HISTORY: NG tube placement TECHNIQUE: Single frontal view of the chest is obtained. FINDINGS: Mild portion of the mid and lower lung rosario are included due to technique. NG tube is se en with the tip in the region of the gastric fundus. Hypertrophic change of the spine. Heart size sta ble. Changes of subsegmental atelectasis or bronchiectasis at both lung bases. IMPRESSION: NG tube appears in good position with the tip overlying the region of the gastric fundus .
[2020-12-14 14:08] VITALS: BP 142/60; PULSE 82
== END 2020-12-14 14:15 | disposition other institution (70) ==
LOC: EC 10:48
DX: K56.609 Unspecified intestinal obstruction, unspecified as to partial versus complete obstruction (principal); G43.909 Migraine, unspecified, not intractable, without status migrainosus; Z87.891 Personal history of nicotine dependence; Z88.8 Allergy status to other drugs, medicaments and biological substances; Z88.0 Allergy status to penicillin; Z88.2 Allergy status to sulfonamides; Z88.5 Allergy status to narcotic agent; Z79.899 Other long term (current) drug therapy; Z88.1 Allergy status to other antibiotic agents; Z94.4 Liver transplant status; Z90.710 Acquired absence of both cervix and uterus
CPT/HCPCS: 36415; 80053; 83605; 83690; 85025; 81003; 71045; 74176; 99285; 96374; 96375; 96376; J2405; J1170

== ENCOUNTER → 2021-01-03 | Outpatient (CLI) | payer MEDICARE, BC ==
--- NOTE | 2021-01-03 20:18 | CONS ---
CONSULTATION DATE OF SERVICE: 01/03/2021 This 70-year-old lady has been evaluated in Sleep Center for possible obstructive sleep apnea-hypopnea syndrome. HISTORY OF PRESENT ILLNESS/SLEEP-WAKE EVALUATION: Patient's usual sleep schedule is from 10 p.m. to 6 a.m. No problems with falling asleep, although she has a TV set in the bedroom. She usually sleeps on the side and stomach position. She snores and wakes up from sleep once with nocturia. No history of hypnagogic hallucinations, sleep paralysis or cataplexy. [place] Sleepiness Scale is 1. PAST MEDICAL HISTORY: Positive for hepatocellular cancer, status post liver transplant, hypertension, hyperlipidemia, arthritis, asthma, diabetes mellitus, allergies, anxiety. PAST SURGICAL HISTORY: Bilateral knee replacement, left hip replacement. Status post C-sections x3, liver transplant. MEDICATIONS: 1. Insulin. 2. Furosemide 40 mg once a day. 3. Senna docusate 8.6/50 mg twice a day. 4. Tacrolimus 1 mg three capsules twice a day. 5. 250 mg twice a day. 6. NovoLog. 7. Atorvastatin 40 mg once a day. 8. Ferrous sulfide 325 mg once a day. 9. Lisinopril 10 mg once a day. 10.Fluticasone nasal spray as needed. 11.Albuterol spray 2 puffs every 6 hours as needed. 12.Loratadine 10 mg once a day. 13.Alprazolam 0.25 mg twice a day. SOCIAL HISTORY: Negative for smoking or using alcohol at the present time. FAMILY HISTORY: Diabetes. REVIEW OF SYSTEMS: No fevers. No double vision. No recent chest pain. No shortness of breath. No abdominal pain. No bleeding episodes. No blood in the urine. No seizure episodes. Awakenings from sleep, snoring. PHYSICAL EXAMINATION: GENERAL: A pleasant lady without distress. VITAL SIGNS: BP 146/59, HR 71, RR 20, height 5 feet 5-1/2 inches, weight 237.2 pounds, temperature 97.3, oxygen saturation at room air 98%. Body mass index 39.1. HEENT: PERRLA, EOMI, evaluation of oropharynx showed tongue protrudes midline. Extremely low position of soft palate; Mallampati IV. NECK: Supple, no JVD. Thyroid is not palpable. Neck is wide and measures 16-1/2 inches in circumference. LUNGS: Clear to percussion and to auscultation. Good air exchange. No wheezing or rhonchi. HEART: S1, S2 regular. No murmurs, gallops, or rubs. ABDOMEN: Soft and nontender. Bowel sounds are present. No organomegaly appreciated. EXTREMITIES: One plus ankle edema. MEDICAL DOCTOR: Awake, alert, and oriented X3. Cranial nerves 2 to 7 intact. There is no fasciculation or atrophy. noted. No focal deficits observed. IMPRESSION: 1. Snoring, extremely low position of soft palate, Mallampati IV, wide neck, 16-1/2 inches in circumference; obstructive sleep apnea-hypopnea syndrome. 2. Obesity. BMI 39.1. 3. History of hepatocellular carcinoma, status post liver transplant on 04/22/2020. 4. Hypertension. 5. Hyperlipidemia. 6. Asthma. 7. Diabetes mellitus. 8. Allergies. 9. Anxiety. 10.Status post bilateral knee replacement. 11.Status post left hip replacement. 12.Status post section x3. PLAN: 1. Polysomnography for evaluation of patient's breathing during sleep. 2. CPAP/BiPAP titration if sleep study confirms obstructive sleep apnea-hypopnea syndrome. 3. Preferable position during sleep on the side. 4. No driving if patient feels any sleepiness. 5. I will see patient for follow up visit to explain results of testing and following plan. Thank you very much for referring this patient for consultation. Thank you very much for allowing me to participate in the management of your patient. Sincerely, Woody Arias MD, PhD, FAASM Diplomat of [place] [employer] Sleep Medicine Board of [place] [employer] Member of [facility] [place] MMODL / IJN: [id number] /
== END | disposition home or self-care (01) ==
LOC: SLEEP 12:55
PROVIDERS: ATTEND Internal Medicine
DX: G47.33 Obstructive sleep apnea (adult) (pediatric) (principal); E66.01 Morbid (severe) obesity due to excess calories; C22.0 Liver cell carcinoma; I10 Essential (primary) hypertension; E78.5 Hyperlipidemia, unspecified; J45.909 Unspecified asthma, uncomplicated; E11.9 Type 2 diabetes mellitus without complications; F41.9 Anxiety disorder, unspecified; Z96.653 Presence of artificial knee joint, bilateral; Z94.4 Liver transplant status; Z68.39 Body mass index [BMI] 39.0-39.9, adult
CPT/HCPCS: 99211

== ENCOUNTER → 2021-04-30 | Outpatient (CLI) | payer MEDICARE, BC | END | disposition home or self-care (01) | LOC: LABWHC1 06:58 | PROVIDERS: ATTEND Internal Medicine | DX: E11.9 Type 2 diabetes mellitus without complications (principal); I10 Essential (primary) hypertension; E78.5 Hyperlipidemia, unspecified; Z94.4 Liver transplant status | CPT/HCPCS: 36415; 83036; 84443 ==

== ENCOUNTER → 2021-06-13 | Outpatient (CLI) | payer MEDICARE, BC ==
--- NOTE | 2021-06-13 20:24 | SFUN ---
SLEEP CENTER FOLLOW UP NOTE DATE OF SERVICE: 06/13/2021 This 70-year-old lady has been followed in Sleep Center for treatment of obstructive sleep apnea-hypopnea syndrome. Recently the patient had a polysomnogram which showed mild obstructive sleep apnea- hypopnea syndrome with extremely significant oxygen desaturation to 47%, and oxygen level was below normal for 4.4 minutes. Subsequently the patient had titration and received her CPAP unit. Today is her first visit after she was started on treatment with CPAP. I discussed results of sleep studies with the patient in detail. The patient is able to use the CPAP equipment every night, feels better with the CPAP. [place] Sleepiness Scale today is zero. I checked information on her CPAP. Usage is 100%, average 8 hours 15 minutes per night. Range of the pressure is 5 to 11 cm of water, average pressure around 10 cm of water. Leak is 17.3 L/minute, 95%, which is borderline. Apnea-hypopnea index is only 0.4, which is absolutely perfect. MEDICATIONS: Insulin, lisinopril, fluticasone, albuterol, loratadine, alprazolam, iron supplement, atorvastatin, tacrolimus, furosemide. PHYSICAL EXAMINATION: GENERAL: Pleasant patient in no distress. VITAL SIGNS: BP 155/81, HR 73, RR 18, weight 249.4, temperature 97.1, oxygen saturation at room air 99%. HEENT: PERRLA, EOMI, evaluation of oropharynx showed tongue protrudes midline. Extremely low position of soft palate; Mallampati IV. NECK: Supple, no JVD. Thyroid is not palpable. LUNGS: Clear to percussion and to auscultation. Good air exchange. No wheezing or rhonchi. HEART: S1, S2 regular. No murmurs, gallops, or rubs. ABDOMEN: Obese. EXTREMITIES: No clubbing or cyanosis. SAUSAGE MAKER: Awake, alert, and oriented X3. Cranial nerves 2 to 7 intact. There is no fasciculation or atrophy. noted. No focal deficits observed. IMPRESSION: 1. Obstructive sleep apnea-hypopnea syndrome. Patient demonstrated 100% compliance with treatment, benefitting from treatment. 2. Hypertension. 3. History of hepatocellular carcinoma, status post liver transplant 04/22/2020. 4. Obesity. 5. Asthma. 6. Diabetes mellitus. 7. Allergies. 8. History of anxiety. 9. Status post bilateral knee replacement. 10.Status post left hip replacement. 11.Status post x3. PLAN: 1. I discussed recommendations for usage of CPAP, including distilled water and how to make heated humidity chamber dry after usage in the morning, positioning of CPAP unit. 2. Patient will continue to use PAP equipment every night for the whole night. 3. Sleep hygiene with regular time in bed for at least 7-1/2 to 8 hours. 4. Precautions related to driving. No driving if feeling sleepiness. 5. I will maintain all necessary prescription for PAP supplies including mask, tube, filters. 6. Watching weight. 7. Follow-up visit in 6 months or earlier if patient has any problems. Thank you very much for allowing me to participate in the management of your patient. Sincerely, Woody Arias MD, PhD, FAASM Diplomat of [employer] Sleep Medicine Board of [employer]ner of [facility] [place] MMODL / RICHARDSONN: [id number] /
== END | disposition home or self-care (01) ==
LOC: SLEEP 10:54
PROVIDERS: ATTEND Internal Medicine
DX: G47.33 Obstructive sleep apnea (adult) (pediatric) (principal); E66.9 Obesity, unspecified; J45.909 Unspecified asthma, uncomplicated; E11.9 Type 2 diabetes mellitus without complications; Z96.653 Presence of artificial knee joint, bilateral; Z96.642 Presence of left artificial hip joint

== ENCOUNTER → 2021-08-30 | Outpatient (CLI) | payer MEDICARE, BC ==
--- NOTE | 2021-09-03 08:19 | MM ---
Reason for exam: screening (asymptomatic). Last mammogram was performed 1 year ago. History: Patient is postmenopausal and has history of other cancer at age 66. Family history of breast cancer in paternal cousin, breast cancer in sister at age 48, premenopausal breast cancer in paternal cousin at age 48, and breast cancer in paternal aunt at age 56. Took estrogen for 3 months. Took progesterone for 3 months. Physical Findings: A clinical breast exam by your physician is recommended on an annual basis and results should be correlated with mammographic findings. MG Screening Mammo w CAD Bilateral CC, MLO, and XCCL view(s) were taken. Prior study comparison: August 28, 2020, bilateral MG screening mammo w CAD. July 07, 2019, bilateral MG screening mammo w CAD. There are scattered fibroglandular densities. No significant changes when compared with prior studies. ASSESSMENT: Benign, BI-RAD 2 RECOMMENDATION: Routine screening mammogram of both breasts in 1 year.
== END | disposition home or self-care (01) ==
LOC: RADMAMWWP 07:31
PROVIDERS: ATTEND Internal Medicine
DX: Z12.31 Encounter for screening mammogram for malignant neoplasm of breast (principal)
CPT/HCPCS: 77067

== ENCOUNTER → 2021-11-12 | Outpatient (CLI) | payer MEDICARE, BC ==
[2021-11-12 11:25] LABS: African American GFR (CKD) 42 (>60 ml/min/1.73 sqM); Anion Gap 8 mmol/L; Blood Urea Nitrogen 29 mg/dL (7-17); Calcium 9.2 mg/dL (8.4-10.2); Carbon Dioxide 26 mmol/L (22-30); Chloride 100 mmol/L (98-107); Glucose 164 mg/dL (74-99); Non-African American GFR(CKD) 36 (>60 ml/min/1.73 sqM); Sodium 134 mmol/L (137-145)
--- NOTE | 2021-11-12 12:44 | CT ---
EXAMINATION TYPE: CT chest abdomen wo con CT DLP: 1316.9 mGycm, Automated exposure control for dose reduction was used. DATE OF EXAM: 11/12/2021 12:32 PM COMPARISON: CT abdomen pelvis 12/14/2020, CT chest 07/02/2019. CLINICAL INDICATION:Female, 71 years old with history of Z94.4,Z85.05; PHH, Liver replaced by transpl ant, history of hepatocellular carcinoma Technique: Multiple axial images of the chest and abdomen were obtained without the administration of intravenous contrast due to patient's kidney function. Oral contrast was administered. Two-dimension al coronal and sagittal reconstructions were obtained. Findings: Limited examination due to lack of IV contrast. CHEST: LUNGS/ PLEURA: The lung parenchyma appears unremarkable. No pneumothorax or pleural effusion. No steffanie picious pulmonary nodule. AIRWAY: Patent and unremarkable. HEART: Size within normal limits. No pericardial effusion. MEDIASTINUM: No gross evidence of adenopathy. VASCULATURE: No aortic aneurysm. Coronary artery calcifications. MUSCULOSKELETAL: No acute osseous abnormalities. SOFT TISSUES/LYMPH NODES: Unremarkable. LOWER NECK: Increased size of bulky, enlarged, heterogenous thyroid gland with macrocalcifications an d substernal extension. Measures 8.1 cm in transverse dimension, previously 6.5 cm. ABDOMEN: ABDOMEN LIVER: Postsurgical changes from liver transplant. No concerning hepatic lesion within the limitation s of a noncontrast exam. Prominent portal vein again demonstrated. GALLBLADDER AND BILE DUCTS: The gallbladder is surgically absent. No biliary duct dilatation. PANCREAS: Unremarkable noncontrast appearance. SPLEEN: Unremarkable noncontrast appearance. ADRENAL GLANDS: Unremarkable noncontrast appearance.. KIDNEYS AND URETERS: No evidence of hydronephrosis or renal calculus. The ureters are unremarkable. STOMACH AND BOWEL: Stomach and duodenum are unremarkable. Postsurgical changes involving the small garo wel in the midabdomen with anastomosis demonstrated. Colonic diverticulosis without evidence for acut e diverticulitis. No evidence of bowel obstruction. PERITONEUM: No evidence of pneumoperitoneum or free fluid. VASCULATURE: No evidence of aortic aneurysm. Mild atherosclerotic calcification of the aorta and its branches. MUSCULOSKELETAL: No acute osseous abnormalities . Degenerative changes of the visualized spine. No byers spicious osseous lesions. LYMPH NODES: No gross evidence for lymphadenopathy. SOFT TISSUE/ABDOMINAL WALL: Postsurgical changes of the anterior wall with partially visualized left ventral wall hernia containing small bowel. IMPRESSION: * No acute thoracic or abdominal process. * Postsurgical changes from hepatic transplant without suspicious focal lesion within the limitation s of a noncontrast exam. * Increased size of large bulky heterogenous thyroid gland with substernal extension. Clinical corre lation recommended as need further follow-up or evaluation.
== END | disposition home or self-care (01) ==
LOC: RADCTMAIN 10:34
PROVIDERS: ATTEND Internal Medicine
DX: Z94.4 Liver transplant status (principal); Z85.05 Personal history of malignant neoplasm of liver
CPT/HCPCS: 80048; 71250; 74150; 36415; Q9967

== ENCOUNTER → 2021-12-13 | Outpatient (CLI) | payer MEDICARE, BC ==
--- NOTE | 2021-12-13 10:53 | P.PN ---
Subjective DATE: 12/13/2021 FOLLOW UP VISIT. Patient with obstructive sleep apnea hypopnea syndrome return to sleep center for follow-up visit. Information from previous visit have been reviewed. Patient is using PAP equipment every night for the whole night, getting PAP supplies in time. The patient does not have significant problems with the mask, PAP unit and humidification. [place] sleepiness scale is 0. I checked information from PAP unit. PAP unit pressure 5-11, average 10.2 cm H2O. Usage is 100 % for more then 4 hours, average 8.5 hours per night. Leak is 23 l/m, which is in acceptable range. Apnea Hypopnea Index is 0.2, which is normal. MEDICATIONS:1. Insulin 2. Tacrolimus 3. Atorvastatin 4. Fluticasone 5. Albuterol 6. Loratidine 7. Alprazolam During physical exam: GENERAL: A pleasant patient without any distress. VITAL SIGNS: BP 142/62, HR 68, RR 18, weight 248.8, temperature 97.1, oxygen saturation at room air 99 % . HEENT: PERRLA, EOMI.low position of soft palate, Mallapati 4 . NECK: Supple. No JVD. LUNGS: Clear to percussion and to auscultation. Good air exchange. No wheezing or rhonchi. HEART: S1, S2 regular. ABDOMEN: Soft and nontender. Obese EXTREMITIES: No clubbing or cyanosis. CERTIFIED MEDICAL ASST: Awake, alert, and oriented x3. No focal deficit. Impressions: 1. Obstructive sleep apnea-hypopnea syndrome. Patient demonstrated great compliance with treatment, benefiting from treatment. 2. Hypertension. 3. Obesity. 4. History of hepatocellular carcinoma, status post liver transplant in April 2020. 5. Asthma. 6. Diabetes mellitus. 7. ALLERGIES. 8. History of anxiety. 9. Status post bilateral knee replacement. 10. Status post left hip replacement. 11. Status post 3. 12.[]. Plan: 1. Continue using PAP equipment every night for the whole night. 2. To change air filter at least 1-2 times per month. 3. PAP unit should stay lower then position of the head. 4. Advised patient to remove all remaining water from humidifier canister daily and make it dry after each usage. Refill canister with fresh distilled water before each usage. 5. Sleep hygiene with regular time in bed for at least 8 hours. 6. Precautions related to driving. No driving if feel any sleepiness. 7. I will maintain prescription for PAP supplies including mask, tube, filters. 8. Follow up visit in 6 months or earlier if patient has any problems. 9. Losing weight . Thank you very much for allowing me to participate in the management of your patient. Woody Arias MD, PhD, FAASM. Diplomat of [place], Sleep Medicine Board by [employer] Medical Office Asst of [facility] [place]
== END ==
LOC: SLEEP 09:54
PROVIDERS: ATTEND Internal Medicine
DX: G47.33 Obstructive sleep apnea (adult) (pediatric) (principal); I10 Essential (primary) hypertension; E66.9 Obesity, unspecified; J45.909 Unspecified asthma, uncomplicated; E11.9 Type 2 diabetes mellitus without complications; T78.40XA Allergy, unspecified, initial encounter; Z96.653 Presence of artificial knee joint, bilateral; Z96.642 Presence of left artificial hip joint; Z87.59 Personal history of other complications of pregnancy, childbirth and the puerperium; F41.9 Anxiety disorder, unspecified; Z99.89 Dependence on other enabling machines and devices; Z79.4 Long term (current) use of insulin; Z88.1 Allergy status to other antibiotic agents; Z88.0 Allergy status to penicillin; Z88.2 Allergy status to sulfonamides; Z88.5 Allergy status to narcotic agent; Z87.891 Personal history of nicotine dependence

== ENCOUNTER 2022-02-16 23:32 | Emergency (ER) | payer MEDICARE, BC ==
[2022-02-16 23:46] VITALS: TEMP 98.5
[2022-02-17 00:02] LABS: Basophils % (A) 0 %; Eosinophils % (A) 0 %; HCT 35.7 % (34.0-46.0); Lymphocytes % (A) 7 %; MCH 30.3 pg (25.0-35.0); MCHC 33.6 g/dL (31.0-37.0); MCV 89.9 fL (80.0-100.0); Mean Platelet Volume 7.7; Monocytes # (A) 0.8 k/uL (0-1.0); Monocytes % (A) 5 %; Neutrophils # (A) 13.3 k/uL (1.3-7.7); Neutrophils % (A) 87 %; Platelet Count 295 k/uL (150-450); RBC 3.97 m/uL (3.80-5.40); RDW 12.7 % (11.5-15.5); WBC 15.2 k/uL (3.8-10.6)
--- NOTE | 2022-02-17 00:04 | XR ---
EXAMINATION TYPE: XR KUB DATE OF EXAM: 02/16/2022 COMPARISON: 02/28/2020 HISTORY: Abdominal pain TECHNIQUE: 2 views upright FINDINGS: There are some multiple small bowel fluid levels with mildly dilated small bowel. There is left hip prosthesis. No free air. Lung bases are clear. There is relative lack of large bowel gas. IMPRESSION: Findings consistent with mechanical small bowel obstruction. Dilation similar to old exam .
[2022-02-17 00:11] LABS: Albumin 4.3 g/dL (3.5-5.0); Calcium 10.1 mg/dL (8.4-10.2); Potassium 3.5 mmol/L (3.5-5.1); Total Bilirubin 0.4 mg/dL (0.2-1.3); Total Protein 6.4 g/dL (6.3-8.2)
[2022-02-17 00:13] LABS: INR 0.9 (<1.2); Prothrombin Time 10.3 sec (9.0-12.0)
[2022-02-17] MEDS ORDERED: SODIUM CHLORIDE 0.9% 1,000 ML IV ONE (01:09)
[2022-02-17] MEDS ORDERED: ONDANSETRON 4 MG/2 ML VIAL IVP STA ×2 (01:09→05:55)
[2022-02-17] MEDS ORDERED: MORPHINE SULFATE 4 MG/ML SYRINGE IV STA (01:09)
--- NOTE | 2022-02-17 01:13 | ED ---
Abdominal Pain HPI - General Chief Complaint: Abdominal Pain Stated Complaint: Abd Pain Time Seen by Provider: 02/17/22 01:03 Source: patient, RN notes reviewed Mode of arrival: EMS Limitations: no limitations - History of Present Illness Initial Comments: This is a pleasant 71-year-old female with a history of multiple abdominal surgeries as listed in the past medical history. She presents today stating that she has had increasing abdominal distention and discomfort. Patient states she has an umbilical hernia which they are reluctant to fix says she has had multiple bowel obstructions in the past. The last 2 bowel structures required resection. Patient states that she has had on and off abdominal pain for a few years. Patient complaining of nausea without vomiting. No chest pain. No fevers. Patient had an x-ray ordered by the triage nurse which shows possibility of small bowel obstruction. No headache, no fever or chills, no changes in vision or hearing, no sore throat or difficulty with speech, no neck pain, no chest pain or shortness of breath, no vomiting, no changes in urination or bowel movements, no numbness or tingling, no extremity pain, no skin rashes or lesions. Past medical, surgical, social, and family history reviewed. - Related Data Home Medications Medication Instructions Recorded Confirmed ALPRAZolam [Xanax] 0.25 mg PO BID PRN 01/22/17 12/14/20 Loratadine [Claritin] 10 mg PO HS 12/21/18 12/14/20 lisinopriL [Prinivil] 10 mg PO BID 12/21/18 12/14/20 Fluticasone Nasal [place] [Flonase 1 - 2 spray EA NOSTRIL DAILY PRN 03/27/19 12/14/20 Nasal [place]] Albuterol Sulfate [Ventolin HFA] 1 - 2 puff INHALATION RT-Q4H PRN 02/25/20 12/14/20 Multivitamins, Thera [Multivitamin 1 tab PO DAILY 02/25/20 12/14/20 (formulary)] Atorvastatin [Lipitor] 40 mg PO HS 12/14/20 12/14/20 Ferrous Sulfate [Feosol] 325 mg PO DAILY 12/14/20 12/14/20 Furosemide [Lasix] 40 mg PO DAILY 12/14/20 12/14/20 Insulin Aspart [NovoLOG Flexpen] 4 mg PO AC-BID 12/14/20 12/14/20 Insulin Aspart [NovoLOG Flexpen] 5 units SQ AC-LUNCH 12/14/20 12/14/20 Insulin Aspart [NovoLOG Flexpen] See Protocol SQ AC-TID 12/14/20 12/14/20 Insulin NPH Human Isophane 8 unit SQ HS 12/14/20 12/14/20 [Novolin N Flexpen] Magnesium Oxide [Mag-Ox] 1,600 mg PO BID 12/14/20 12/14/20 mycophenolate mofetiL [Cellcept] 250 mg PO BID 12/14/20 12/14/20 mycophenolate mofetiL [Cellcept] 500 mg PO BID 12/14/20 12/14/20 Allergies Allergy/AdvReac Type Severity Reaction Status Date / Time ciprofloxacin [From Cipro] Allergy Dyspnea Verified 12/14/20 11:50 ciprofloxacin HCl Allergy Dyspnea Verified 12/14/20 11:50 [From Cipro] hydromorphone [From Dilaudid] Allergy Itching Verified 12/14/20 11:50 Penicillins Allergy Rash/Hives Verified 12/14/20 11:50 Sulfa (Sulfonamide Allergy Rash/Hives Verified 12/14/20 11:50 Antibiotics) morphine AdvReac Vomiting Verified 12/14/20 11:50 Review of Systems ROS Statement: Those systems with pertinent positive or pertinent negative responses have been documented in the HPI. ROS Other: All systems not noted in ROS Statement are negative. 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 rt bunionectomy, total lt hip replacement, liver mass biopsy, liver resection 09/13/16, rt knee revision 2016, radiation to liver, liver transplant 04/23 Past Anesthesia/Blood Transfusion Reactions: No Reported Reaction Additional Past Anesthesia/Blood Transfusion Reaction / Comment(s): denies PONV Past Psychological History: Anxiety, Panic Disorder Smoking Status: Former smoker Past Alcohol Use History: None Reported Past Drug Use History: None Reported - Past Family History Mother Family Medical History: Dementia, Hypertension Sister(s) Family Medical History: Cancer Additional Family Medical History / Comment(s): breast General Exam - General Exam Comments Initial Comments: Vital signs stable, patient afebrile. Patient does have minimal elevation of her systolic blood pressure 148. Capillary refill less than 2 seconds. No mottling. Patient does appear to be in some distress secondary to abdominal pain and distention. Limitations: no limitations General appearance: alert, in distress, obese Head exam: Present: atraumatic, normocephalic, normal inspection Eye exam: Present: normal appearance, PERRL, EOMI. Absent: scleral icterus, conjunctival injection, periorbital swelling ENT exam: Present: normal exam, normal oropharynx, mucous membranes moist, normal external ear exam Neck exam: Present: normal inspection, full ROM. Absent: tenderness, meningismus, lymphadenopathy Respiratory exam: Present: normal lung sounds bilaterally. Absent: respiratory distress, wheezes, rales, rhonchi, stridor Cardiovascular Exam: Present: regular rate, normal rhythm, normal heart sounds. Absent: systolic murmur, diastolic murmur, rubs, gallop, clicks GI/Abdominal exam: Present: distended, tenderness, normal bowel sounds, hernia, other (reducible umbilical hernia). Absent: guarding, rebound, rigid Extremities exam: Present: normal inspection, full ROM, normal capillary refill. Absent: tenderness, pedal edema, joint swelling, calf tenderness Back exam: Present: normal inspection Neurological exam: Present: alert, oriented X3, CN II-XII intact Psychiatric exam: Present: normal affect, normal mood Skin exam: Present: warm, dry, intact, normal color. Absent: rash Course Vital Signs 02/16/22 23:42 Temperature 98.5 F Pulse Rate 90 Respiratory 20 Rate Blood Pressure 148/67 O2 Sat by Pulse 98 Oximetry - Consultations Consultation #1: Case was discussed with on-call surgery here, both Dr. Dawson and Dr. Issa recommend transferring to [facility] for continuity of care. Case discussed with the ER physician Joe Barber, Dr. Hayes who excepts transfer. Medical Decision Making - Medical Decision Making Patient reevaluated, patient complaining of increasing abdominal pain after initial pain medication. Patient also complaining of some leg cramping due to position. Ativan given. Computed tomography scan shows high-grade small bowel obstruction with incarcerated small bowel in the right lower quadrant. Transferred to [facility] The case was discussed in detail with ED attending physician. Presentation, findings, treatment plan discussed in detail. [employer] Supervisor Dr. Jha - Lab Data Result diagrams: 02/16/22 23:52 02/16/22 23:52 Lab Results 02/16/22 02/16/22 02/16/22 Range/Units 23:52 23:52 23:52 WBC 15.2 H (3.8-10.6) k/uL RBC 3.97 (3.80-5.40) m/uL Hgb 12.0 (11.4-16.0) gm/dL Hct 35.7 (34.0-46.0) % MCV 89.9 (80.0-100.0) fL MCH 30.3 (25.0-35.0) pg MCHC 33.6 (31.0-37.0) g/dL RDW 12.7 (11.5-15.5) % Plt Count 295 (150-450) k/uL MPV 7.7 Neutrophils % 87 % Lymphocytes % 7 % Monocytes % 5 % Eosinophils % 0 % Basophils % 0 % Neutrophils # 13.3 H (1.3-7.7) k/uL Lymphocytes # 1.0 (1.0-4.8) k/uL Monocytes # 0.8 (0-1.0) k/uL Eosinophils # 0.0 (0-0.7) k/uL Basophils # 0.0 (0-0.2) k/uL PT 10.3 (9.0-12.0) sec INR 0.9 (<1.2) APTT 23.0 (22.0-30.0) sec Sodium 130 L (137-145) mmol/L Potassium 3.5 (3.5-5.1) mmol/L Chloride 92 L (98-107) mmol/L Carbon Dioxide 24 (22-30) mmol/L Anion Gap 14 mmol/L BUN 32 H (7-17) mg/dL Creatinine 1.51 H (0.52-1.04) mg/dL Est GFR (CKD-EPI)AfAm 41 (>60 ml/min/1.73 sqM) Est GFR (CKD-EPI)NonAf 35 (>60 ml/min/1.73 sqM) Glucose 198 H (74-99) mg/dL Calcium 10.1 (8.4-10.2) mg/dL Total Bilirubin 0.4 (0.2-1.3) mg/dL AST 20 (14-36) U/L ALT 15 (4-34) U/L Alkaline Phosphatase 100 (38-126) U/L Troponin I (0.000-0.034) ng/mL Total Protein 6.4 (6.3-8.2) g/dL Albumin 4.3 (3.5-5.0) g/dL Amylase 69 (30-110) U/L Lipase 124 (23-300) U/L 02/16/22 Range/Units 23:52 WBC (3.8-10.6) k/uL RBC (3.80-5.40) m/uL Hgb (11.4-16.0) gm/dL Hct (34.0-46.0) % MCV (80.0-100.0) fL MCH (25.0-35.0) pg MCHC (31.0-37.0) g/dL RDW (11.5-15.5) % Plt Count (150-450) k/uL MPV Neutrophils % % Lymphocytes % % Monocytes % % Eosinophils % % Basophils % % Neutrophils # (1.3-7.7) k/uL Lymphocytes # (1.0-4.8) k/uL Monocytes # (0-1.0) k/uL Eosinophils # (0-0.7) k/uL Basophils # (0-0.2) k/uL PT (9.0-12.0) sec INR (<1.2) APTT (22.0-30.0) sec Sodium (137-145) mmol/L Potassium (3.5-5.1) mmol/L Chloride (98-107) mmol/L Carbon Dioxide (22-30) mmol/L Anion Gap mmol/L BUN (7-17) mg/dL Creatinine (0.52-1.04) mg/dL Est GFR (CKD-EPI)AfAm (>60 ml/min/1.73 sqM) Est GFR (CKD-EPI)NonAf (>60 ml/min/1.73 sqM) Glucose (74-99) mg/dL Calcium (8.4-10.2) mg/dL Total Bilirubin (0.2-1.3) mg/dL AST (14-36) U/L ALT (4-34) U/L Alkaline Phosphatase (38-126) U/L Troponin I <0.012 (0.000-0.034) ng/mL Total Protein (6.3-8.2) g/dL Albumin (3.5-5.0) g/dL Amylase (30-110) U/L Lipase (23-300) U/L When compared to previous EKG there are: no significant change, other (EKG done at 1:33 AM and return attending physician as sinus rhythm with a rate of 88. Normal axis. Normal intervals. No acute ST or T-wave changes. Normal QRS morphology.) Disposition Clinical Impression: Small bowel obstruction Disposition: OTHER INSTITUTION NOT DEFINED Condition: Fair - Out of Hospital Transfer - Req. Specs Out of Hospital Transfer - Requested Specifics: Other Emergency Center (Dr. Freddy Scott accepting)
[2022-02-17] MEDS ORDERED: HYDROmorphone 1 MG/ML 1 ML SYRINGE IVP STA ×2 (01:51→05:55)
--- NOTE | 2022-02-17 02:45 | XR ---
EXAMINATION TYPE: XR chest 1V portable DATE OF EXAM: 02/17/2022 COMPARISON: 12/14/2020 HISTORY: Abdominal pain TECHNIQUE: FINDINGS: There is no heart failure nor confluent pneumonic infiltrate. Costophrenic angles are clear and bony thorax is intact. IMPRESSION: No active cardiopulmonary disease. No adverse change.
--- NOTE | 2022-02-17 02:52 | CT ---
EXAMINATION TYPE: CT abdomen pelvis wo con DATE OF EXAM: 02/17/2022 COMPARISON: 12/14/2020 HISTORY: Abdominal pain , Weakness, SBO CT DLP: 1278.5 mGycm Automated exposure control for dose reduction was used. Images obtained from the diaphragm to the floor the pelvis with no contrast. There is mild subsegmental atelectasis at the lung bases. No pleural effusion. Heart size is normal. No pericardial effusion. Liver spleen and stomach pancreas appear intact. The bile ducts are not dilated. There are clips from cholecystectomy. There is no adrenal mass. Kidneys have normal size and contour. No hydronephrosis. Ureters are not di lated. No retroperitoneal adenopathy. Bladder distends smoothly. There is left hip prosthesis. There are multiple dilated fluid-filled small bowel loops throughout the abdomen. There is a single m arkedly dilated loop of bowel in the anterior midline abdomen measuring 12 cm. This is at a surgical site near the stomach. This could relate to bariatric surgery. There is no mesenteric edema. No ascites or free air. There are sigmoid diverticula. No diverticuliti s. Large bowel is mostly empty there is lower anterior abdominal wall ventral hernia containing incar cerated loop of apparent small bowel. Hernia measures 6.5 cm in diameter. This is likely site of mech anical small bowel obstruction. The lumbar vertebra. Contact. No compression fracture IMPRESSION: Incarcerated loop of small bowel in the lower anterior right side of the abdomen with high-grade mech anical small bowel obstruction. Obstruction is significantly increased compared to old exam. Hernia s ac appears new compared to old exam.
[2022-02-17] MEDS ORDERED: LORazepam 2 MG/ML INJ IV STA (03:41)
[2022-02-17] MEDS ORDERED: SODIUM CHLORIDE 0.9% 1,000 ML IV SCH (04:15)
--- NOTE | 2022-02-17 04:33 | XR ---
EXAMINATION TYPE: XR chest 1V portable DATE OF EXAM: 02/17/2022 COMPARISON: Today HISTORY: Tube placement TECHNIQUE: Single view FINDINGS: There is nasogastric tube and the tip is over the gastric fundus. There is some mild subseg mental atelectasis left lung base. No pleural effusion or pneumothorax. IMPRESSION: NG tube has tip in the stomach.
[2022-02-17 05:52] VITALS: BP 149/67; PULSE 80; RESP 19
== END 2022-02-17 05:52 | disposition other institution (70) ==
LOC: EC 23:32
DX: K56.609 Unspecified intestinal obstruction, unspecified as to partial versus complete obstruction (principal); Z88.0 Allergy status to penicillin; Z88.2 Allergy status to sulfonamides; Z88.6 Allergy status to analgesic agent; Z88.1 Allergy status to other antibiotic agents
CPT/HCPCS: 99285; 96374; 96376; 96375; 96361; 36415 ×2; 93005; 80053; 82150; 83605; 83690; 84484; 85025; 85610; 85730; 71045; 74018; 74176; J2060; J2405; J1170; 99284

== ENCOUNTER → 2022-02-25 | Outpatient (CLI) | payer MEDICARE, BC ==
[2022-02-25 11:38] LABS: African American GFR (CKD) 53.4 (60.0-200.0); Anion Gap 11.7 mmol/L (10.00-18.00); BUN/Creat Ratio 18.17 Ratio (12.00-20.00); Blood Urea Nitrogen 21.8 mg/dL (9.0-27.0); Carbon Dioxide 22.3 mmol/L (20.0-27.5); Non-African American GFR(CKD) 46.1 (60.0-200.0); Potassium 4.4 mmol/L (3.5-5.5)
== END | disposition home or self-care (01) ==
LOC: LABWHC1 07:56
DX: K56.609 Unspecified intestinal obstruction, unspecified as to partial versus complete obstruction (principal)
CPT/HCPCS: 36415; 80048

== ENCOUNTER → 2022-08-12 | Outpatient (CLI) | payer MEDICARE, BC ==
[2022-08-12 11:07] LABS: African American GFR (CKD) 39.8 (60.0-200.0); Albumin 4.1 g/dL (3.8-4.9); Albumin/Globulin Ratio 2.12 (1.60-3.17); Anion Gap 12.8 mmol/L (10.00-18.00); BUN/Creat Ratio 20.85 Ratio (12.00-20.00); Blood Urea Nitrogen 31.9 mg/dL (9.0-27.0); Calcium 9.2 mg/dL (8.7-10.3); Carbon Dioxide 24.8 mmol/L (20.0-27.5); Non-African American GFR(CKD) 34.4 (60.0-200.0); Potassium 4.2 mmol/L (3.5-5.5); T4, Free (Free Thyroxine) 1.23 ng/dL (0.800-1.800); Total Bilirubin 0.3 mg/dL (0.30-1.20); Total Protein 6.1 g/dL (6.2-8.2)
== END | disposition home or self-care (01) ==
LOC: LABWHC1 07:24
PROVIDERS: ATTEND Internal Medicine
DX: E05.90 Thyrotoxicosis, unspecified without thyrotoxic crisis or storm (principal)
CPT/HCPCS: 36415; 80053; 84439; 84443; 84481

== ENCOUNTER 2022-08-21 14:52 | Emergency (ER) | payer MEDICARE, BC ==
[2022-08-21 15:03] VITALS: TEMP 98.7
[2022-08-21] MEDS ORDERED: SODIUM CHLORIDE 0.9% 500 ML 500 ML IV STA (15:40)
[2022-08-21] MEDS ORDERED: HYDROmorphone 0.5 MG/0.5 ML SYRINGE IVP STA (15:42)
[2022-08-21] MEDS ORDERED: diphenhydrAMINE 50 MG/ML 1 ML VIAL IVP STA (15:42)
[2022-08-21] MEDS ORDERED: ONDANSETRON 4 MG/2 ML VIAL IVP STA (16:25)
[2022-08-21 16:32] LABS: Basophils % (A) 1 %; Eosinophils # (A) 0.1 k/uL (0-0.7); Eosinophils % (A) 1 %; HGB 11.5 gm/dL (11.4-16.0); Lymphocytes % (A) 11 %; MCH 29.1 pg (25.0-35.0); MCHC 32.9 g/dL (31.0-37.0); MCV 88.4 fL (80.0-100.0); Mean Platelet Volume 7.6; Monocytes # (A) 0.6 k/uL (0-1.0); Monocytes % (A) 6 %; Neutrophils # (A) 7.4 k/uL (1.3-7.7); Neutrophils % (A) 81 %; Platelet Count 329 k/uL (150-450); RBC 3.96 m/uL (3.80-5.40); RDW 13.4 % (11.5-15.5); WBC 9.2 k/uL (3.8-10.6)
--- NOTE | 2022-08-21 16:34 | ED ---
Abdominal Pain HPI - General Chief Complaint: Abdominal Pain Stated Complaint: abd pain Time Seen by Provider: 08/21/22 15:27 Source: patient Mode of arrival: ambulatory Limitations: no limitations - History of Present Illness Initial Comments: This patient is a 71-year-old woman with history of hepatic transplant after having had liver cancer. Patient states that she had been having watery diarrhea since along with some mild pains. She saw her physician yesterday and was given Lomotil. She notes that over the course of yesterday and today the diarrhea has resolved but she continues to have the pain and in fact it is worse now. She indicates diffusely across the entire abdomen. She also notes she is getting lightheaded when she gets up. She has not noted fever or chills. No vomiting but there is some occasional nausea. No change in urination. MD Complaint: abdominal pain Onset/Timin -: days(s) Location: diffuse Radiation: none Severity: severe Quality: cramping, aching Consistency: constant Improves With: nothing Worsens With: nothing Associated Symptoms: nausea, diarrhea - Related Data Home Medications Medication Instructions Recorded Confirmed ALPRAZolam [Xanax] 0.25 mg PO TID PRN 01/22/17 08/21/22 lisinopriL [Prinivil] 10 mg PO BID 12/21/18 08/21/22 Fluticasone Nasal [place] [Flonase 1 - 2 spray EA NOSTRIL DAILY PRN 03/27/19 08/21/22 Nasal [place]] Albuterol Sulfate [Ventolin HFA] 1 - 2 puff INHALATION RT-Q4H PRN 02/25/20 08/21/22 Atorvastatin [Lipitor] 40 mg PO HS 12/14/20 08/21/22 Ferrous Sulfate [Feosol] 325 mg PO DAILY 12/14/20 08/21/22 Furosemide [Lasix] 40 mg PO DAILY 12/14/20 08/21/22 Insulin Aspart [NovoLOG Flexpen] 2 mg PO AC-BRKFST 12/14/20 08/21/22 Insulin Aspart [NovoLOG Flexpen] 4 units SQ AC-BID 12/14/20 08/21/22 Insulin Aspart [NovoLOG Flexpen] See Protocol SQ AC-TID PRN 12/14/20 08/21/22 mycophenolate mofetiL [Cellcept] 250 mg PO BID 12/14/20 08/21/22 mycophenolate mofetiL [Cellcept] 500 mg PO BID 12/14/20 08/21/22 Cetirizine HCl [Zyrtec] 10 mg PO DAILY PRN 08/21/22 08/21/22 Furosemide [Lasix] 20 mg PO HS 08/21/22 08/21/22 Tacrolimus [Prograf] 2 mg PO HS 08/21/22 08/21/22 Tacrolimus [Prograf] 3 mg PO DAILY 08/21/22 08/21/22 methIMAzole [Tapazole] 5 mg PO Q48H 08/21/22 08/21/22 Allergies Allergy/AdvReac Type Severity Reaction Status Date / Time ciprofloxacin [From Cipro] Allergy Dyspnea Verified 08/21/22 16:04 ciprofloxacin HCl Allergy Dyspnea Verified 08/21/22 16:04 [From Cipro] hydromorphone [From Dilaudid] Allergy Itching Verified 08/21/22 16:04 Penicillins Allergy Rash/Hives Verified 08/21/22 16:04 Sulfa (Sulfonamide Allergy Rash/Hives Verified 08/21/22 16:04 Antibiotics) morphine AdvReac Vomiting Verified 08/21/22 16:04 Review of Systems ROS Statement: Those systems with pertinent positive or pertinent negative responses have been documented in the HPI. ROS Other: All systems not noted in ROS Statement are negative. Constitutional: Denies: fever, chills, weakness Respiratory: Denies: cough, dyspnea Cardiovascular: Denies: chest pain, palpitations, edema, syncope Gastrointestinal: Reports: abdominal pain, nausea, diarrhea. 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 rt bunionectomy, total lt hip replacement, liver mass biopsy, liver resection 09/13/16, rt knee revision 2016, radiation to liver, liver transplant 04/23 Past Anesthesia/Blood Transfusion Reactions: No Reported Reaction Additional Past Anesthesia/Blood Transfusion Reaction / Comment(s): denies PONV Past Psychological History: Anxiety, Panic Disorder Smoking Status: Former smoker Past Alcohol Use History: None Reported Past Drug Use History: None Reported - Past Family History Mother Family Medical History: Dementia, Hypertension Sister(s) Family Medical History: Cancer Additional Family Medical History / Comment(s): breast General Exam Limitations: no limitations General appearance: alert, in no apparent distress Head exam: Present: atraumatic, normocephalic Eye exam: Present: normal appearance. Absent: scleral icterus, conjunctival injection Neck exam: Present: normal inspection Respiratory exam: Present: normal lung sounds bilaterally. Absent: respiratory distress, wheezes, rales, rhonchi, stridor Cardiovascular Exam: Present: regular rate, normal rhythm, normal heart sounds. Absent: systolic murmur, diastolic murmur, rubs, gallop GI/Abdominal exam: Present: soft, tenderness. Absent: distended, guarding, rebound, rigid, mass, pulsatile mass, hernia Extremities exam: Present: normal inspection, normal capillary refill. Absent: pedal edema, calf tenderness Back exam: Present: normal inspection. Absent: CVA tenderness (R), CVA tenderness (L) Neurological exam: Present: alert Skin exam: Present: warm, dry, intact, normal color. Absent: rash Course Vital Signs 08/21/22 08/21/22 15:00 18:47 Temperature 98.7 F Pulse Rate 93 80 Respiratory 20 18 Rate Blood Pressure 156/90 131/63 O2 Sat by Pulse 97 99 Oximetry Medical Decision Making - Medical Decision Making This patient is a 71-year-old woman with diarrhea and some nonspecific abdominal pain. The patient had labs and IV fluids. On reevaluation, she is feeling significantly better and did request to go home. She had just given stool specimen prior to my going back into the room, and I did recommend that we send this to the lab and that the result will be available to her physician, but she does not want to wait here for the results. We reviewed appropriate follow-up and further care as well as return parameters. I did offer to admit the patient given her underlying immune compromised status, but she is feeling better and wants to go home. She will return if her symptoms recur or if any new symptoms develop. Was pt. sent in by a medical professional or institution ([facility]TH[facility] Siu, RN ORTHOPEDIC, urgent care, hospital, or long-term...) When possible be specific @ -Primary physician Did you speak to anyone other than the patient for history (EMS, parent, family, police, friend...)? What history was obtained from this source @ -[No] Did you review nursing and triage notes (agree or disagree)? Why? @ -[I reviewed and agree with nursing and triage notes] Were old charts reviewed (outside hosp., previous admission, EMS record, old EKG, old radiological studies, urgent care reports/EKG's, long-term records)? Report findings @ -[No old charts were reviewed] Differential Diagnosis (chest pain, altered mental status, abdominal pain women, abdominal pain men, vaginal bleeding, weakness, fever, dyspnea, syncope, headache, dizziness, GI bleed, back pain, seizure, CVA, palpatations, mental health, musculoskeletal)? @ -[Differential Abdominal Pain Women: Appendicitis, Cholecystitis, diverticulosis, ischemic bowel, pancreatitis, hepatitis, UTI, gastroenteritis, AAA, incarcerated hernia, bowel obstruction, constipation, inflammatory bowel, hepatitis, peptic ulcer disease, splenic infarction, perforated viscus, vulvitis, ovarian torsion, PID, kidney stone, placenta abruption, this is not meant to be an all-inclusive list EKG interpreted by me (3pts min.). @ -[ X-rays interpreted by me (1pt min.). @ -[None done] CT interpreted by me (1pt min.). @ -[None done] U/S interpreted by me (1pt. min.). @ -[None done] What testing was considered but not performed or refused? (CT, X-rays, U/S, labs)? Why? @ -[None] What meds were considered but not given or refused? Why? @ -[None] Did you discuss the management of the patient with other professionals (professionals i.e. [facility] Siu, RN ORTHOPEDIC, lab, RT, psych nurse, web content & social media manager, boiler operator helper, teacher, military police officer, patient case manager)? Give summary @ -[No] Was smoking cessation discussed for >3mins.? @ -[No] Was critical care preformed (if so, how long)? @ -[No] Were there social determinants of health that impacted care today? How? (Homelessness, low income, unemployed, alcoholism, drug addiction, transportation, low edu. Level, literacy, decrease access to med. care, longterm, rehab)? @ -[No] Was there de-escalation of care discussed even if they declined (Discuss DNR or withdrawal of care, Hospice)? DNR status @ -[No] What co-morbidities impacted this encounter? (DM, HTN, Smoking, COPD, CAD, Canc er, CVA, ARF, Chemo, Hep., AIDS, mental health diagnosis, sleep apnea, morbid obesity)? @ -[Liver transplantation with immunosuppression Was patient admitted / discharged? Hospital course, mention meds given and route, prescriptions, significant lab abnormalities, going to OR and other pertinent info. @ -[Patient declined admission and wanted to go home but will have close follow-up and return if symptoms recur Undiagnosed new problem with uncertain prognosis? @ -[No] Drug Therapy requiring intensive monitoring for toxicity (Heparin, Nitro, Insulin, Cardizem)? @ -[No] Were any procedures done? @ -[No] Diagnosis/symptom? @ -[Acute diarrhea Acute abdominal pain, resolved Acute, or Chronic, or Acute on Chronic? @ -[default] Uncomplicated (without systemic symptoms) or Complicated (systemic symptoms)? @ -[Uncomplicated Side effects of treatment? @ -[No] Exacerbation, Progression, or Severe Exacerbation? @ -[No] Poses a threat to life or bodily function? How? (Chest pain, [place], [place], pneumonia, PE, COPD, DKA, ARF, appy, cholecystitis, CVA, Diverticulitis, Homicidal, Suicidal, threat to staff... and all critical care pts) @ -[Undetermined at this point - Lab Data Result diagrams: 08/21/22 16:05 08/21/22 16:05 Lab Results 08/21/22 08/21/22 08/21/22 Range/Units 16:05 16:05 16:05 WBC 9.2 (3.8-10.6) k/uL RBC 3.96 (3.80-5.40) m/uL Hgb 11.5 (11.4-16.0) gm/dL Hct 35.0 (34.0-46.0) % MCV 88.4 (80.0-100.0) fL MCH 29.1 (25.0-35.0) pg MCHC 32.9 (31.0-37.0) g/dL RDW 13.4 (11.5-15.5) % Plt Count 329 (150-450) k/uL MPV 7.6 Neutrophils % 81 % Lymphocytes % 11 % Monocytes % 6 % Eosinophils % 1 % Basophils % 1 % Neutrophils # 7.4 (1.3-7.7) k/uL Lymphocytes # 1.0 (1.0-4.8) k/uL Monocytes # 0.6 (0-1.0) k/uL Eosinophils # 0.1 (0-0.7) k/uL Basophils # 0.0 (0-0.2) k/uL Sodium 129 L (137-145) mmol/L Potassium 4.3 (3.5-5.1) mmol/L Chloride 96 L (98-107) mmol/L Carbon Dioxide 27 (22-30) mmol/L Anion Gap 6 mmol/L BUN 31 H (7-17) mg/dL Creatinine 1.49 H (0.52-1.04) mg/dL Est GFR (CKD-EPI)AfAm 41 (>60 ml/min/1.73 sqM) Est GFR (CKD-EPI)NonAf 36 (>60 ml/min/1.73 sqM) Glucose 140 H (74-99) mg/dL Calcium 8.4 (8.4-10.2) mg/dL Total Bilirubin 0.4 (0.2-1.3) mg/dL AST 27 (14-36) U/L ALT 22 (4-34) U/L Alkaline Phosphatase 74 (38-126) U/L Troponin I <0.012 (0.000-0.034) ng/mL Total Protein 5.6 L (6.3-8.2) g/dL Albumin 3.4 L (3.5-5.0) g/dL Amylase 40 (30-110) U/L Lipase 113 (23-300) U/L Urine Color Urine Appearance (Clear) Urine pH (5.0-8.0) Ur Specific [place] (1.001-1.035) Urine Protein (Negative) Urine Glucose (UA) (Negative) Urine Ketones (Negative) Urine Blood (Negative) Urine Nitrite (Negative) Urine Bilirubin (Negative) Urine Urobilinogen (<2.0) mg/dL Ur Leukocyte Esterase (Negative) Urine RBC (0-5) /hpf Urine WBC (0-5) /hpf Ur Squamous Epith Cells (0-4) /hpf Urine Bacteria (None) /hpf Hyaline Casts (0-2) /lpf Urine Mucus (None) /hpf 08/21/22 Range/Units 16:48 WBC (3.8-10.6) k/uL RBC (3.80-5.40) m/uL Hgb (11.4-16.0) gm/dL Hct (34.0-46.0) % MCV (80.0-100.0) fL MCH (25.0-35.0) pg MCHC (31.0-37.0) g/dL RDW (11.5-15.5) % Plt Count (150-450) k/uL MPV Neutrophils % % Lymphocytes % % Monocytes % % Eosinophils % % Basophils % % Neutrophils # (1.3-7.7) k/uL Lymphocytes # (1.0-4.8) k/uL Monocytes # (0-1.0) k/uL Eosinophils # (0-0.7) k/uL Basophils # (0-0.2) k/uL Sodium (137-145) mmol/L Potassium (3.5-5.1) mmol/L Chloride (98-107) mmol/L Carbon Dioxide (22-30) mmol/L Anion Gap mmol/L BUN (7-17) mg/dL Creatinine (0.52-1.04) mg/dL Est GFR (CKD-EPI)AfAm (>60 ml/min/1.73 sqM) Est GFR (CKD-EPI)NonAf (>60 ml/min/1.73 sqM) Glucose (74-99) mg/dL Calcium (8.4-10.2) mg/dL Total Bilirubin (0.2-1.3) mg/dL AST (14-36) U/L ALT (4-34) U/L Alkaline Phosphatase (38-126) U/L Troponin I (0.000-0.034) ng/mL Total Protein (6.3-8.2) g/dL Albumin (3.5-5.0) g/dL Amylase (30-110) U/L Lipase (23-300) U/L Urine Color Yellow Urine Appearance Clear (Clear) Urine pH 5.0 (5.0-8.0) Ur Specific [place] 1.015 (1.001-1.035) Urine Protein Negative (Negative) Urine Glucose (UA) Negative (Negative) Urine Ketones Negative (Negative) Urine Blood Negative (Negative) Urine Nitrite Negative (Negative) Urine Bilirubin Negative (Negative) Urine Urobilinogen <2.0 (<2.0) mg/dL Ur Leukocyte Esterase Trace H (Negative) Urine RBC 1 (0-5) /hpf Urine WBC 3 (0-5) /hpf Ur Squamous Epith Cells <1 (0-4) /hpf Urine Bacteria Rare H (None) /hpf Hyaline Casts 27 H (0-2) /lpf Urine Mucus Rare H (None) /hpf Disposition Clinical Impression: Diarrhea, Dehydration Disposition: HOME SELF-CARE Condition: Good Is patient prescribed a controlled substance at d/c from ED?: No Referrals: Herber Babcock MD [Primary Care Provider] - 1-2 days
[2022-08-21 16:46] LABS: Albumin 3.4 g/dL (3.5-5.0); Calcium 8.4 mg/dL (8.4-10.2); Potassium 4.3 mmol/L (3.5-5.1); Total Bilirubin 0.4 mg/dL (0.2-1.3); Total Protein 5.6 g/dL (6.3-8.2)
[2022-08-21 17:23] LABS: Appearance,Urine Clear (Clear); Bacteria,Urine Rare /hpf; Bilirubin,Urine Negative (Negative); Blood,Urine Negative (Negative); Color,Urine Yellow; Glucose,Urine (UA) Negative (Negative); Hyaline Casts,Urine 27 /lpf (0-2); Ketones,Urine Negative (Negative); Leukocyte Esterase,Urine Trace (Negative); Mucus,Urine Rare /hpf; Nitrite,Urine Negative (Negative); Protein,Urine Negative (Negative); RBC,Urine 1 /hpf (0-5); Specific Gravity,Urine 1.015 (1.001-1.035); Squamous Epithelial Cell,Urine <1 /hpf (0-4); Urobilinogen,Urine <2.0 mg/dL (<2.0); WBC,Urine 3 /hpf (0-5)
[2022-08-21 18:49] VITALS: BP 131/63; PULSE 80; RESP 18
== END 2022-08-21 21:47 | disposition home or self-care (01) ==
LOC: EC 14:52
DX: E86.0 Dehydration (principal); R19.7 Diarrhea, unspecified; F41.9 Anxiety disorder, unspecified; Z87.891 Personal history of nicotine dependence; Z79.899 Other long term (current) drug therapy; Z88.0 Allergy status to penicillin; Z88.1 Allergy status to other antibiotic agents; Z88.2 Allergy status to sulfonamides; Z88.5 Allergy status to narcotic agent; Z90.49 Acquired absence of other specified parts of digestive tract
CPT/HCPCS: 36415; 80053; 82150; 83690; 84484; 85025; 81001; 99284; 96374; 96375 ×2; J1200; J2405; J1170

== ENCOUNTER 2022-08-22 17:13 | Inpatient (IN) | payer MEDICARE, BC ==
[2022-08-22] MEDS ORDERED: SODIUM CHLORIDE 0.9% 1,000 ML IV STA (20:13)
[2022-08-22] MEDS ORDERED: ONDANSETRON 4 MG/2 ML VIAL IVP STA (20:13)
[2022-08-22] MEDS ORDERED: diphenhydrAMINE 50 MG/ML 1 ML VIAL IVP STA (20:15)
[2022-08-22] MEDS ORDERED: HYDROmorphone 0.5 MG/0.5 ML SYRINGE IVP STA (20:15)
--- NOTE | 2022-08-22 20:55 | ED ---
Abdominal Pain HPI - General Chief Complaint: Abdominal Pain Stated Complaint: ABD PAIN Time Seen by Provider: 08/22/22 20:03 Source: patient, RN notes reviewed Mode of arrival: wheelchair Limitations: no limitations - History of Present Illness Initial Comments: This is a 71 year old female who presents to the emergency department for abdominal pain. Patient has a hx of a liver transplant and small bowel obstruction. She was evaluated here yesterday for abdominal pain. She was offered admission at that time but declined. Lab was obtained and she was given IV fluids. At the time of discharge, she felt significantly improved. States that shortly after she got home, the pain returned. She has taken Tylenol with no relief in symptoms. Reports associated nausea but no vomiting and diarrhea. Denies any fevers, chills, sore throat, cough, dyspnea, chest pain, palpitations, vomiting, back pain, or headaches. MD Complaint: abdominal pain - Related Data Home Medications Medication Instructions Recorded Confirmed ALPRAZolam [Xanax] 0.25 mg PO TID PRN 01/22/17 08/22/22 lisinopriL [Prinivil] 10 mg PO BID 12/21/18 08/22/22 Fluticasone Nasal [place] [Flonase 1 - 2 spray EA NOSTRIL DAILY PRN 03/27/19 08/22/22 Nasal [place]] Albuterol Sulfate [Ventolin HFA] 1 - 2 puff INHALATION RT-Q4H PRN 02/25/20 08/22/22 Atorvastatin [Lipitor] 40 mg PO HS 12/14/20 08/22/22 Ferrous Sulfate [Feosol] 325 mg PO DAILY 12/14/20 08/22/22 Furosemide [Lasix] 40 mg PO DAILY 12/14/20 08/22/22 Insulin Aspart [NovoLOG Flexpen] 2 mg PO AC-BRKFST 12/14/20 08/22/22 Insulin Aspart [NovoLOG Flexpen] 4 units SQ AC-BID 12/14/20 08/22/22 Insulin Aspart [NovoLOG Flexpen] See Protocol SQ AC-TID PRN 12/14/20 08/22/22 mycophenolate mofetiL [Cellcept] 250 mg PO BID 12/14/20 08/22/22 mycophenolate mofetiL [Cellcept] 500 mg PO BID 12/14/20 08/22/22 Cetirizine HCl [Zyrtec] 10 mg PO DAILY PRN 08/21/22 08/22/22 Furosemide [Lasix] 20 mg PO HS 08/21/22 08/22/22 Tacrolimus [Prograf] 2 mg PO HS 08/21/22 08/22/22 Tacrolimus [Prograf] 3 mg PO DAILY 08/21/22 08/22/22 methIMAzole [Tapazole] 5 mg PO Q48H 08/21/22 08/22/22 Allergies Allergy/AdvReac Type Severity Reaction Status Date / Time ciprofloxacin [From Cipro] Allergy Dyspnea Verified 08/22/22 21:29 ciprofloxacin HCl Allergy Dyspnea Verified 08/22/22 21:29 [From Cipro] hydromorphone [From Dilaudid] Allergy Itching Verified 08/22/22 21:29 Penicillins Allergy Rash/Hives Verified 08/22/22 21:29 Sulfa (Sulfonamide Allergy Rash/Hives Verified 08/22/22 21:29 Antibiotics) morphine AdvReac Vomiting Verified 08/22/22 21:29 Review of Systems ROS Statement: Those systems with pertinent positive or pertinent negative responses have been documented in the HPI. ROS Other: All systems not noted in ROS Statement are negative. 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 rt bunionectomy, total lt hip replacement, liver mass biopsy, liver resection 09/13/16, rt knee revision 2016, radiation to liver, liver transplant 04/23 Past Anesthesia/Blood Transfusion Reactions: No Reported Reaction Additional Past Anesthesia/Blood Transfusion Reaction / Comment(s): denies PONV Past Psychological History: Anxiety, Panic Disorder Smoking Status: Former smoker Past Alcohol Use History: None Reported Past Drug Use History: None Reported - Past Family History Mother Family Medical History: Dementia, Hypertension Sister(s) Family Medical History: Cancer Additional Family Medical History / Comment(s): breast General Exam Limitations: no limitations General appearance: alert, in distress Head exam: Present: atraumatic, normocephalic, normal inspection Respiratory exam: Present: normal lung sounds bilaterally. Absent: respiratory distress, wheezes, rales, rhonchi, stridor Cardiovascular Exam: Present: regular rate, normal rhythm, normal heart sounds. Absent: systolic murmur, diastolic murmur, rubs, gallop, clicks GI/Abdominal exam: Present: soft, tenderness (Right mid to lower abdomen.), other (High pitched bowel sounds). Absent: distended Neurological exam: Present: alert, oriented X3, CN II-XII intact Psychiatric exam: Present: normal affect, normal mood Skin exam: Present: warm, dry, intact, normal color. Absent: rash Course Vital Signs 08/22/22 08/22/22 08/23/22 17:18 21:20 01:00 Temperature 99.2 F Pulse Rate 93 89 80 Respiratory 20 16 16 Rate Blood Pressure 137/70 145/82 124/80 O2 Sat by Pulse 97 99 97 Oximetry Medical Decision Making - Medical Decision Making This is a 71-year-old female who presents to the emergency department for abdominal pain. Was pt. sent in by a medical professional or institution? @ -No Did you speak to anyone other than the patient for history? @ -No Did you review nursing and triage notes? @ -Yes, and I agree, it is accurate with regards to the patient's symptoms. Were old charts reviewed? @ -No Differential Diagnosis? @ -Differential Abdominal Pain Women: Appendicitis, Cholecystitis, diverticulosis, ischemic bowel, pancreatitis, hepatitis, UTI, gastroenteritis, AAA, incarcerated hernia, bowel obstruction, constipation, inflammatory bowel, hepatitis, peptic ulcer disease, splenic infarction, perforated viscus, vulvitis, ovarian torsion, PID, kidney stone, placenta abruption, this is not meant to be an all-inclusive list EKG interpreted by me (3pts min.)? @ -Sinus rhythm. Ventricular rate 87 bpm, LA interval 121 ms, QRS duration 107 ms, QTC [address] interpreted by me (1pt min.)? @ -Computed tomography scan of the abdomen and pelvis obtained. My interpretation identifies fluid-filled small bowel loops and dilation of the small bowel loops. What testing was considered but not performed? (CT, X-rays, U/S, labs)? Why? @ -None What meds were considered but not given? Why? @ -None Did you discuss the management of the patient with other professionals? @ -Yes, Dr. Babcock, who accepts the patient for admission. Did you reconcile home meds? @ -Yes Was smoking cessation discussed for >3mins.? @ -No Was critical care preformed (if so, how long)? @ -No Were there social determinants of health that impacted care today? How? (Homelessness, low income, unemployed, alcoholism, drug addiction, t ransportation, low edu. Level, literacy, decrease access to med. care, fpc, rehab)? @ -No Was there de-escalation of care discussed even if they declined? (Discuss DNR or withdrawal of care, Hospice)? @ -No What co-morbidities impacted this encounter? (DM, HTN, Smoking, COPD, CAD, Cancer, CVA, Hep., AIDS, mental health diagnosis, sleep apnea, morbid obesity)? @ -DM, renal failure, hx of liver transplant. Was patient admitted / discharged? @ -Admitted. Lab work obtained and found to be nonactionable. Renal function consistent with prior values. Computed tomography scan of the abdomen and pelvis obtained. This revealed small bowel obstruction in the mid to distal small bowel. However, this is improved when compared to imaging in February 2022. Unclear if this is the same bowel obstruction that has not resolved or a new one that developed. However, the patient is in severe pain that had not been present until a couple of days ago. Computed tomography scan results are also suggestive of a mild colitis. Patient will be admitted to medicine with g eneral surgery consult. She will be kept on a clear liquid diet for now as well. Undiagnosed new problem with uncertain prognosis? @ -None Drug Therapy requiring intensive monitoring for toxicity (Heparin, Nitro, Insulin, Cardizem)? @ -None Were any procedures done? @ -None Diagnosis/symptom? @ -SBO, weakness, intractable abdominal pain Acute, or Chronic, or Acute on Chronic? @ -Acute Uncomplicated (without systemic symptoms) or Complicated (systemic symptoms)? @ -Complicated Side effects of treatment? @ -None Exacerbation, Progression, or Severe Exacerbation] @ -Not applicable Poses a threat to life or bodily function? @ -Yes This case was discussed in detail with the attending ED physician, Dr. Abdi. Presentation, findings, and treatment plan discussed in detail as well. - Lab Data Result diagrams: 08/22/22 21:40 08/22/22 21:40 Lab Results 08/22/22 08/22/22 08/22/22 Range/Units 01:51 21:40 21:40 WBC 8.2 (3.8-10.6) k/uL RBC 4.01 (3.80-5.40) m/uL Hgb 11.6 (11.4-16.0) gm/dL Hct 35.4 (34.0-46.0) % MCV 88.4 (80.0-100.0) fL MCH 29.0 (25.0-35.0) pg MCHC 32.9 (31.0-37.0) g/dL RDW 13.4 (11.5-15.5) % Plt Count 339 (150-450) k/uL MPV 7.4 Neutrophils % 78 % Lymphocytes % 10 % Monocytes % 10 % Eosinophils % 1 % Basophils % 0 % Neutrophils # 6.4 (1.3-7.7) k/uL Lymphocytes # 0.9 L (1.0-4.8) k/uL Monocytes # 0.8 (0-1.0) k/uL Eosinophils # 0.0 (0-0.7) k/uL Basophils # 0.0 (0-0.2) k/uL Sodium 130 L (137-145) mmol/L Potassium 4.4 (3.5-5.1) mmol/L Chloride 96 L (98-107) mmol/L Carbon Dioxide 27 (22-30) mmol/L Anion Gap 7 mmol/L BUN 30 H (7-17) mg/dL Creatinine 1.50 H (0.52-1.04) mg/dL Est GFR (CKD-EPI)AfAm 41 (>60 ml/min/1.73 sqM) Est GFR (CKD-EPI)NonAf 35 (>60 ml/min/1.73 sqM) Glucose 143 H (74-99) mg/dL Plasma Lactic Acid Ja (0.7-2.0) mmol/L Calcium 8.6 (8.4-10.2) mg/dL Total Bilirubin 0.5 (0.2-1.3) mg/dL AST 22 (14-36) U/L ALT 22 (4-34) U/L Alkaline Phosphatase 93 (38-126) U/L Total Protein 5.4 L (6.3-8.2) g/dL Albumin 2.5 L (3.5-5.0) g/dL Amylase 37 (30-110) U/L Lipase 56 (23-300) U/L Urine Color Yellow Urine Appearance Cloudy H (Clear) Urine pH 5.5 (5.0-8.0) Ur Specific [place] 1.014 (1.001-1.035) Urine Protein Negative (Negative) Urine Glucose (UA) Negative (Negative) Urine Ketones Trace H (Negative) Urine Blood Trace H (Negative) Urine Nitrite Negative (Negative) Urine Bilirubin Negative (Negative) Urine Urobilinogen <2.0 (<2.0) mg/dL Ur Leukocyte Esterase Moderate H (Negative) Urine RBC 1 (0-5) /hpf Urine WBC 6 H (0-5) /hpf Ur Squamous Epith Cells 2 (0-4) /hpf Urine Bacteria Few H (None) /hpf Hyaline Casts 3 H (0-2) /lpf Urine Mucus Rare H (None) /hpf 08/22/22 Range/Units 21:40 WBC (3.8-10.6) k/uL RBC (3.80-5.40) m/uL Hgb (11.4-16.0) gm/dL Hct (34.0-46.0) % MCV (80.0-100.0) fL MCH (25.0-35.0) pg MCHC (31.0-37.0) g/dL RDW (11.5-15.5) % Plt Count (150-450) k/uL MPV Neutrophils % % Lymphocytes % % Monocytes % % Eosinophils % % Basophils % % Neutrophils # (1.3-7.7) k/uL Lymphocytes # (1.0-4.8) k/uL Monocytes # (0-1.0) k/uL Eosinophils # (0-0.7) k/uL Basophils # (0-0.2) k/uL Sodium (137-145) mmol/L Potassium (3.5-5.1) mmol/L Chloride (98-107) mmol/L Carbon Dioxide (22-30) mmol/L Anion Gap mmol/L BUN (7-17) mg/dL Creatinine (0.52-1.04) mg/dL Est GFR (CKD-EPI)AfAm (>60 ml/min/1.73 sqM) Est GFR (CKD-EPI)NonAf (>60 ml/min/1.73 sqM) Glucose (74-99) mg/dL Plasma Lactic Acid Ja 0.9 (0.7-2.0) mmol/L Calcium (8.4-10.2) mg/dL Total Bilirubin (0.2-1.3) mg/dL AST (14-36) U/L ALT (4-34) U/L Alkaline Phosphatase (38-126) U/L Total Protein (6.3-8.2) g/dL Albumin (3.5-5.0) g/dL Amylase (30-110) U/L Lipase (23-300) U/L Urine Color Urine Appearance (Clear) Urine pH (5.0-8.0) Ur Specific [place] (1.001-1.035) Urine Protein (Negative) Urine Glucose (UA) (Negative) Urine Ketones (Negative) Urine Blood (Negative) Urine Nitrite (Negative) Urine Bilirubin (Negative) Urine Urobilinogen (<2.0) mg/dL Ur Leukocyte Esterase (Negative) Urine RBC (0-5) /hpf Urine WBC (0-5) /hpf Ur Squamous Epith Cells (0-4) /hpf Urine Bacteria (None) /hpf Hyaline Casts (0-2) /lpf Urine Mucus (None) /hpf - Radiology Data Radiology results: report reviewed, image reviewed Disposition Clinical Impression: Intractable abdominal pain, Small bowel obstruction Disposition: ADMITTED IP TO THIS HOSP
[2022-08-22 22:10] LABS: Basophils % (A) 0 %; Eosinophils % (A) 1 %; HCT 35.4 % (34.0-46.0); HGB 11.6 gm/dL (11.4-16.0); Lymphocytes # (A) 0.9 k/uL (1.0-4.8); Lymphocytes % (A) 10 %; MCHC 32.9 g/dL (31.0-37.0); MCV 88.4 fL (80.0-100.0); Mean Platelet Volume 7.4; Monocytes # (A) 0.8 k/uL (0-1.0); Monocytes % (A) 10 %; Neutrophils # (A) 6.4 k/uL (1.3-7.7); Neutrophils % (A) 78 %; Platelet Count 339 k/uL (150-450); RBC 4.01 m/uL (3.80-5.40); RDW 13.4 % (11.5-15.5); WBC 8.2 k/uL (3.8-10.6)
--- NOTE | 2022-08-22 22:20 | CT ---
EXAMINATION TYPE: CT abdomen pelvis wo con DATE OF EXAM: 08/22/2022 HISTORY: ABDOMINAL PAINS, N,V CT DLP: 1246.4 mGycm. Automated Exposure Control for Dose Reduction was Utilized. TECHNIQUE: CT scan of the abdomen and pelvis is performed without oral or IV contrast. COMPARISON: CT abdomen and pelvis February 17, 2022 FINDINGS: Within the limitations of a non-contrast study, the following observations are made. LUNG BASES: No significant abnormality is appreciated. LIVER/GB: Cholecystectomy clips are redemonstrated. PANCREAS: No significant abnormality is seen. SPLEEN: No significant abnormality is seen. ADRENALS: No significant abnormality is seen. KIDNEYS: Mild perinephric fat stranding bilaterally is again seen. BOWEL: Stomach somewhat poorly distended and the suboptimally evaluated. Persistent fluid prominent s mall bowel loops in the left abdomen. A few bowel loops slightly dilated up to 3.6 cm. Findings were more prominent on prior study. Normal-appearing appendix from cecum and the right abdomen is seen. Fl uid is noted in nondistended colon. A few scattered colonic diverticula. No CT evidence for acute div erticulitis. Persistent abnormally dilated bowel loop at site of sutures in the right lower quadrant axial image 50 is less prominent versus prior study. Current exam has focal eventration or herniated bowel left of vertical scar in the pelvis axial image 58. No free air. GENITAL ORGANS: Uterus once again surgically absent. LYMPH NODES: Subcentimeter mesenteric lymph nodes with mild fat stranding in the mid to lower abdomen just left of the midline. OSSEOUS STRUCTURES: Metallic hardware from left hip arthroplasty causes streak artifact somewhat prio r study. Moderate to advanced degenerative change of the right hip is redemonstrated OTHER: No significant abnormality is seen. IMPRESSION: Suspected partial mid to distal small bowel obstruction. Bowel obstruction less prominent than prior exam. Finding may be basis of prior surgery/adhesions or ventral wall hernia along left a spect of the incision. Possible mild uncomplicated colitis and/or diarrhea. Correlate clinically.
[2022-08-22 22:33] LABS: Albumin 2.5 g/dL (3.5-5.0); Calcium 8.6 mg/dL (8.4-10.2); Potassium 4.4 mmol/L (3.5-5.1); Total Bilirubin 0.5 mg/dL (0.2-1.3); Total Protein 5.4 g/dL (6.3-8.2)
[2022-08-22] MEDS ORDERED: ONDANSETRON 4 MG/2 ML VIAL IVP PRN (23:44)
[2022-08-22] MEDS ORDERED: NALOXONE 0.4 MG/ML 1 ML VIAL IV PRN (23:44)
[2022-08-22] MEDS ORDERED: HYDROmorphone 0.5 MG/0.5 ML SYRINGE IVP PRN (23:44)
[2022-08-22] MEDS ORDERED: diphenhydrAMINE 50 MG/ML 1 ML VIAL IVP PRN (23:47)
[2022-08-23 02:05] LABS: Appearance,Urine Cloudy (Clear); Bacteria,Urine Few /hpf; Bilirubin,Urine Negative (Negative); Blood,Urine Trace (Negative); Color,Urine Yellow; Glucose,Urine (UA) Negative (Negative); Hyaline Casts,Urine 3 /lpf (0-2); Ketones,Urine Trace (Negative); Leukocyte Esterase,Urine Moderate (Negative); Mucus,Urine Rare /hpf; Nitrite,Urine Negative (Negative); PH, Urine 5.5 (5.0-8.0); Protein,Urine Negative (Negative); RBC,Urine 1 /hpf (0-5); Specific Gravity,Urine 1.014 (1.001-1.035); Squamous Epithelial Cell,Urine 2 /hpf (0-4); Urobilinogen,Urine <2.0 mg/dL (<2.0); WBC,Urine 6 /hpf (0-5)
[2022-08-23] MEDS: HYDROmorphone 1 MG/ML 1 ML SYRINGE IVP PRN ×2 (07:49→20:34)
[2022-08-23 07:50] LABS: Glucose,Whole Blood 156 mg/dL (70-110)
[2022-08-23] MEDS: FERROUS SULFATE 325 MG TAB PO SCH (08:04)
[2022-08-23] MEDS: methIMAzole 5 MG TAB PO SCH (08:04)
[2022-08-23] MEDS: TACROLIMUS 1 MG CAP PO SCH ×2 (08:04→20:27)
[2022-08-23] MEDS: FUROSEMIDE 20 MG TAB PO SCH ×2 (08:04→20:26)
[2022-08-23] MEDS: lisinopriL 10 MG TAB PO SCH ×2 (08:05→20:26)
[2022-08-23] MEDS ORDERED: ACETAMINOPHEN TAB 325 MG TAB PO PRN ×2 (10:16→11:34)
[2022-08-23] MEDS ORDERED: DEXTROSE 50% SYRINGE 50 ML IVP PRN ×2 (10:17)
--- NOTE | 2022-08-23 11:08 | P.HPIM ---
History of Present Illness H&P Date: 08/23/22 Chief Complaint: Abdominal pain This is a 71-year-old female patient who presented to the ER with concerns for abdominal pain. Patient reports that she's had abdominal discomfort over the past few days presented originally to the ER received some IV fluid and then was DC'd home. Patient reports she initially felt improved but then started to become increasingly sick again with abdominal pain and diarrhea starting her to come back to ER for further evaluation. Patient has a past medical history of liver transplant, kidney disease stage III. History of liver cancer anxiety and panic disorder. Abdominal CT completed showing suspected partial mid to distal small bowel obstruction. Bowel obstruction less prominent than prior exam findings may be bases of prior surgery adhesions a ventral wall hernia along left aspect of the incision possible mild uncomplicated colitis and/or diarrhea correlate clinically. Patient has been starting clear liquid diet and surgical services consulted. Current vital signs temp 91, heart rate 81, respiratory rate 17, blood pressure 120/76 with pulse ox of 95% on room air. 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 rt bunionectomy, total lt hip replacement, liver mass biopsy, liver resection 09/13/16, rt knee revision 2016, radiation to liver, liver transplant 04/23 Past Anesthesia/Blood Transfusion Reactions: No Reported Reaction Additional Past Anesthesia/Blood Transfusion Reaction / Comment(s): denies PONV Past Psychological History: Anxiety, Panic Disorder Smoking Status: Former smoker Past Alcohol Use History: None Reported Past Drug Use History: None Reported - Past Family History Mother Family Medical History: Dementia, Hypertension Sister(s) Family Medical History: Cancer Additional Family Medical History / Comment(s): breast Medications and Allergies Home Medications Medication Instructions Recorded Confirmed Type ALPRAZolam [Xanax] 0.25 mg PO TID PRN 01/22/17 08/22/22 History lisinopriL [Prinivil] 10 mg PO BID 12/21/18 08/22/22 History Fluticasone Nasal [place] [Flonase 1 - 2 spray EA NOSTRIL DAILY PRN 03/27/19 08/22/22 History Nasal [place]] Albuterol Sulfate [Ventolin HFA] 1 - 2 puff INHALATION RT-Q4H PRN 02/25/20 08/22/22 History Atorvastatin [Lipitor] 40 mg PO HS 12/14/20 08/22/22 History Ferrous Sulfate [Feosol] 325 mg PO DAILY 12/14/20 08/22/22 History Furosemide [Lasix] 40 mg PO DAILY 12/14/20 08/22/22 History Insulin Aspart [NovoLOG Flexpen] 2 mg PO AC-BRKFST 12/14/20 08/22/22 History Insulin Aspart [NovoLOG Flexpen] 4 units SQ AC-BID 12/14/20 08/22/22 History Insulin Aspart [NovoLOG Flexpen] See Protocol SQ AC-TID PRN 12/14/20 08/22/22 History mycophenolate mofetiL [Cellcept] 250 mg PO BID 12/14/20 08/22/22 History mycophenolate mofetiL [Cellcept] 500 mg PO BID 12/14/20 08/22/22 History Cetirizine HCl [Zyrtec] 10 mg PO DAILY PRN 08/21/22 08/22/22 History Furosemide [Lasix] 20 mg PO HS 08/21/22 08/22/22 History Tacrolimus [Prograf] 2 mg PO HS 08/21/22 08/22/22 History Tacrolimus [Prograf] 3 mg PO DAILY 08/21/22 08/22/22 History methIMAzole [Tapazole] 5 mg PO Q48H 08/21/22 08/22/22 History Allergies Allergy/AdvReac Type Severity Reaction Status Date / Time ciprofloxacin [From Cipro] Allergy Dyspnea Verified 08/22/22 21:29 ciprofloxacin HCl Allergy Dyspnea Verified 08/22/22 21:29 [From Cipro] hydromorphone [From Dilaudid] Allergy Itching Verified 08/22/22 21:29 Penicillins Allergy Rash/Hives Verified 08/22/22 21:29 Sulfa (Sulfonamide Allergy Rash/Hives Verified 08/22/22 21:29 Antibiotics) morphine AdvReac Vomiting Verified 08/22/22 21:29 Physical Exam Vitals: Vital Signs Temp Pulse Pulse Resp BP BP Pulse Ox 08/23/22 08:00 98.1 F 81 17 120/76 95 08/23/22 02:21 97.8 F 85 18 139/79 97 08/23/22 01:00 80 16 124/80 97 08/22/22 21:20 89 16 145/82 99 08/22/22 17:18 99.2 F 93 20 137/70 97 Intake and Output 08/22/22 08/23/22 08/23/22 22:59 06:59 14:59 Intake Total 120 Balance 120 Intake: Oral 120 Other: Voiding Method Toilet # Voids 2 Weight 114.305 kg 114.305 kg Head normocephalic Neck supple Lungs clear to auscultation bilaterally no wheezing or crackles Heart regular rate and rhythm S1-S2, no rub or gallop Abdomen left quadrant tenderness to palpation Extremities no edema Neuro alert and orientated to 3 Results CBC & Chem 7: 08/22/22 21:40 08/22/22 21:40 Labs: Abnormal Lab Results - Last 24 Hours (Table) 08/22/22 08/22/22 08/22/22 Range/Units 01:51 21:40 21:40 Lymphocytes # 0.9 L (1.0-4.8) k/uL Sodium 130 L (137-145) mmol/L Chloride 96 L (98-107) mmol/L BUN 30 H (7-17) mg/dL Creatinine 1.50 H (0.52-1.04) mg/dL Glucose 143 H (74-99) mg/dL POC Glucose (mg/dL) (70-110) mg/dL Total Protein 5.4 L (6.3-8.2) g/dL Albumin 2.5 L (3.5-5.0) g/dL Urine Appearance Cloudy H (Clear) Urine Ketones Trace H (Negative) Urine Blood Trace H (Negative) Ur Leukocyte Esterase Moderate H (Negative) Urine WBC 6 H (0-5) /hpf Urine Bacteria Few H (None) /hpf Hyaline Casts 3 H (0-2) /lpf Urine Mucus Rare H (None) /hpf 08/23/22 Range/Units 07:48 Lymphocytes # (1.0-4.8) k/uL Sodium (137-145) mmol/L Chloride (98-107) mmol/L BUN (7-17) mg/dL Creatinine (0.52-1.04) mg/dL Glucose (74-99) mg/dL POC Glucose (mg/dL) 156 H (70-110) mg/dL Total Protein (6.3-8.2) g/dL Albumin (3.5-5.0) g/dL Urine Appearance (Clear) Urine Ketones (Negative) Urine Blood (Negative) Ur Leukocyte Esterase (Negative) Urine WBC (0-5) /hpf Urine Bacteria (None) /hpf Hyaline Casts (0-2) /lpf Urine Mucus (None) /hpf Thrombosis Risk Factor Assmnt - Choose All That Apply Any of the Below Risk Factors Present?: Yes Each Factor Represents 1 point: Obesity (BMI >25) Other Risk Factors: Yes Each Risk Factor Represents 2 Points: Age 61-74 years Thrombosis Risk Factor Assessment Total Risk Factor Score: 3 Thrombosis Risk Factor Assessment Level: Moderate Risk Assessment and Plan Assessment: 1. Weakness and diarrhea secondary to small bowel obstruction 2. History of liver transplant secondary to liver cancer 3. History of incarcerated umbilical hernia with small bowel obstruction requiring surgery 4. History of diabetes mellitus sliding scale insulin ordered 5. History of essential hypertension 6. Hyponatremia 7. Chronic kidney disease stage II. Creatinine does appear baseline 8. UA positive for urinary tract infection patient denies any symptoms urine culture ordered DVT prophylaxis SCDs. GI prophylaxis Protonix Patient seen on clear liquid diet Surgical services are following Repeat labs ordered Urine culture ordered Time with Patient: Greater than 30 (Greater than 60% of the total time spent in counseling and coordination of care)
[2022-08-23] MEDS: INSULIN ASPART (NovoLOG) 100 UNIT/ML VIAL SQ SCH ×3 (11:29→21:37)
[2022-08-23 11:30] LABS: Glucose,Whole Blood 141 mg/dL (70-110)
[2022-08-23] MEDS: SODIUM CHLORIDE 0.9% 1,000 ML IV SCH (11:30)
--- NOTE | 2022-08-23 14:07 | P.GSCN ---
History of Present Illness Consult date: 08/23/22 History of present illness: CHIEF COMPLAINT: Abdominal pain HISTORY OF PRESENT ILLNESS: This is a 71-year-old female who presented to the hospital with complaints of abdominal pain across the lower abdomen since yesterday. She reports she was having severe gas pains. She came into the ER yesterday and was discharged home after receiving IV fluids. Patient reports that she started having diarrhea again and the pain increased. She reports that her stools have been black since Friday, which is new. She does take oral iron at home. She has been nauseated. No vomiting. She does have prior history of high-grade small bowel obstruction requiring small bowel resection and lysis of adhesions. Other surgical history includes , cholecystectomy, hysterectomy and umbilical hernia repair. Patient does have a history of liver transplant due to liver cancer in 2019. Patient reports her last EGD was in 2019. She does have a known history of ventral hernia which is reducible and soft. Patient had computed tomography scan abdomen and pelvis with IV contrast which showed a suggested partial mid to distal small bowel obstruction. Less prominent than prior exam. Possible colitis/diarrhea. Surgical service has been consulted for possible small bowel obstruction. Patient is having flatus and bowel movements. Her pain has improved this morning. Patient seen and examined with Dr. lilly PAST MEDICAL HISTORY: See below PAST SURGICAL HISTORY: See below MEDICATIONS: See below ALLERGIES: See below SOCIAL HISTORY: No illicit drug use. REVIEW OF SYSTEMS: CONSTITUTIONAL: Denies fever or chills. HEENT: Denies blurred vision, vision changes, or eye pain. Denies hemoptysis CARDIOVASCULAR: Denies chest pain or pressure. RESPIRATORY: No shortness of breath. GASTROINTESTINAL: See HPI for pertinent findings HEMATOLOGIC: Denies bleeding disorders. GENITOURINARY: Denies any blood in urine or increased urinary frequency. SKIN: Denies pruitis. Denies rash. PHYSICAL EXAM: VITAL SIGNS: Reviewed GENERAL: Well-developed in no acute distress. HEENT: No sclera icterus. Extraocular movements grossly intact. Moist buccal mucosa. Head is atraumatic, normocephalic. No nasal drainage. ABDOMEN: Soft. Obese. Nondistended. Left side abdomen ventral hernia reducible. Mild discomfort with palpation of the hernia NEUROLOGIC: Alert and oriented. Cranial nerves II through XII grossly intact. LABORATORY DATA: WBC 8.2 hgb 11.6 platelets 339 Sodium 1:30 potassium 4.4 creatinine 1.50 Lactic acid 0.9 LFTs normal lipase 56 IMAGING: Computed tomography scan abdomen and pelvis without contrast suspected partial mid to distal small bowel obstruction. Bowel obstruction less prominent than prior exam. Findings may be basis of prior surgery/adhesions or ventral wall hernia along left aspect of the incision. Possible mild uncomplicated colitis and/or diarrhea. Currently clinically. ASSESSMENT: 1. Partial mid to distal small bowel obstruction noted on computed tomography scan. Improving 2. Ventral wall hernia reducible but could be contributing to partial small bowel obstruction 3. Melanotic stools. Hemoglobin stable 4. History of adhesions 5. History of small bowel obstructions 6. History of liver transplant due to liver cancer PLAN: -Advance diet to full liquids -Recommend repair of ventral hernia outpatient -Continue to monitor -Check stool for occult blood -Continue IV fluids Thank you for this consultation Physician Special Events Planner note has been reviewed by physician. Signing provider agrees with the documented findings, assessment, and plan of care. 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 rt bunionectomy, total lt hip replacement, liver mass biopsy, liver resection 09/13/16, rt knee revision 2016, radiation to liver, liver transplant 04/23 Past Anesthesia/Blood Transfusion Reactions: No Reported Reaction Additional Past Anesthesia/Blood Transfusion Reaction / Comm: denies PONV Past Psychological History: Anxiety, Panic Disorder Smoking Status: Former smoker Past Alcohol Use History: None Reported Past Drug Use History: None Reported - Past Family History Mother Family Medical History: Dementia, Hypertension Sister(s) Family Medical History: Cancer Additional Family Medical History / Comment(s): breast Medications and Allergies Home Medications Medication Instructions Recorded Confirmed Type ALPRAZolam [Xanax] 0.25 mg PO TID PRN 01/22/17 08/22/22 History lisinopriL [Prinivil] 10 mg PO BID 12/21/18 08/22/22 History Fluticasone Nasal [place] [Flonase 1 - 2 spray EA NOSTRIL DAILY PRN 03/27/19 08/22/22 History Nasal [place]] Albuterol Sulfate [Ventolin HFA] 1 - 2 puff INHALATION RT-Q4H PRN 02/25/20 08/22/22 History Atorvastatin [Lipitor] 40 mg PO HS 12/14/20 08/22/22 History Ferrous Sulfate [Feosol] 325 mg PO DAILY 12/14/20 08/22/22 History Furosemide [Lasix] 40 mg PO DAILY 12/14/20 08/22/22 History Insulin Aspart [NovoLOG Flexpen] 2 mg PO AC-BRKFST 12/14/20 08/22/22 History Insulin Aspart [NovoLOG Flexpen] 4 units SQ AC-BID 12/14/20 08/22/22 History Insulin Aspart [NovoLOG Flexpen] See Protocol SQ AC-TID PRN 12/14/20 08/22/22 History mycophenolate mofetiL [Cellcept] 250 mg PO BID 12/14/20 08/22/22 History mycophenolate mofetiL [Cellcept] 500 mg PO BID 12/14/20 08/22/22 History Cetirizine HCl [Zyrtec] 10 mg PO DAILY PRN 08/21/22 08/22/22 History Furosemide [Lasix] 20 mg PO HS 08/21/22 08/22/22 History Tacrolimus [Prograf] 2 mg PO HS 08/21/22 08/22/22 History Tacrolimus [Prograf] 3 mg PO DAILY 08/21/22 08/22/22 History methIMAzole [Tapazole] 5 mg PO Q48H 08/21/22 08/22/22 History Allergies Allergy/AdvReac Type Severity Reaction Status Date / Time ciprofloxacin [From Cipro] Allergy Dyspnea Verified 08/22/22 21:29 ciprofloxacin HCl Allergy Dyspnea Verified 08/22/22 21:29 [From Cipro] hydromorphone [From Dilaudid] Allergy Itching Verified 08/22/22 21:29 Penicillins Allergy Rash/Hives Verified 08/22/22 21:29 Sulfa (Sulfonamide Allergy Rash/Hives Verified 08/22/22 21:29 Antibiotics) morphine AdvReac Vomiting Verified 08/22/22 21:29 Surgical - Exam Vital Signs Temp Pulse Resp BP Pulse Ox 99.2 F 93 20 137/70 97 08/22/22 17:18 08/22/22 17:18 08/22/22 17:18 08/22/22 17:18 08/22/22 17:18 Results - Labs 08/22/22 21:40 08/22/22 21:40 Abnormal Lab Results - Last 24 Hours (Table) 08/22/22 08/22/22 08/22/22 Range/Units 01:51 21:40 21:40 Lymphocytes # 0.9 L (1.0-4.8) k/uL Sodium 130 L (137-145) mmol/L Chloride 96 L (98-107) mmol/L BUN 30 H (7-17) mg/dL Creatinine 1.50 H (0.52-1.04) mg/dL Glucose 143 H (74-99) mg/dL POC Glucose (mg/dL) (70-110) mg/dL Total Protein 5.4 L (6.3-8.2) g/dL Albumin 2.5 L (3.5-5.0) g/dL Urine Appearance Cloudy H (Clear) Urine Ketones Trace H (Negative) Urine Blood Trace H (Negative) Ur Leukocyte Esterase Moderate H (Negative) Urine WBC 6 H (0-5) /hpf Urine Bacteria Few H (None) /hpf Hyaline Casts 3 H (0-2) /lpf Urine Mucus Rare H (None) /hpf 08/23/22 Range/Units 07:48 Lymphocytes # (1.0-4.8) k/uL Sodium (137-145) mmol/L Chloride (98-107) mmol/L BUN (7-17) mg/dL Creatinine (0.52-1.04) mg/dL Glucose (74-99) mg/dL POC Glucose (mg/dL) 156 H (70-110) mg/dL Total Protein (6.3-8.2) g/dL Albumin (3.5-5.0) g/dL Urine Appearance (Clear) Urine Ketones (Negative) Urine Blood (Negative) Ur Leukocyte Esterase (Negative) Urine WBC (0-5) /hpf Urine Bacteria (None) /hpf Hyaline Casts (0-2) /lpf Urine Mucus (None) /hpf Diabetes panel 04/20/23 Range/Units 21:40 Sodium 130 L (137-145) mmol/L Potassium 4.4 (3.5-5.1) mmol/L Chloride 96 L (98-107) mmol/L Carbon Dioxide 27 (22-30) mmol/L BUN 30 H (7-17) mg/dL Creatinine 1.50 H (0.52-1.04) mg/dL Glucose 143 H (74-99) mg/dL Calcium 8.6 (8.4-10.2) mg/dL AST 22 (14-36) U/L ALT 22 (4-34) U/L Alkaline Phosphatase 93 (38-126) U/L Total Protein 5.4 L (6.3-8.2) g/dL Albumin 2.5 L (3.5-5.0) g/dL Calcium panel 08/22/22 Range/Units 21:40 Calcium 8.6 (8.4-10.2) mg/dL Albumin 2.5 L (3.5-5.0) g/dL Pituitary panel 08/22/22 Range/Units 21:40 Sodium 130 L (137-145) mmol/L Potassium 4.4 (3.5-5.1) mmol/L Chloride 96 L (98-107) mmol/L Carbon Dioxide 27 (22-30) mmol/L BUN 30 H (7-17) mg/dL Creatinine 1.50 H (0.52-1.04) mg/dL Glucose 143 H (74-99) mg/dL Calcium 8.6 (8.4-10.2) mg/dL Adrenal panel 08/22/22 Range/Units 21:40 Sodium 130 L (137-145) mmol/L Potassium 4.4 (3.5-5.1) mmol/L Chloride 96 L (98-107) mmol/L Carbon Dioxide 27 (22-30) mmol/L BUN 30 H (7-17) mg/dL Creatinine 1.50 H (0.52-1.04) mg/dL Glucose 143 H (74-99) mg/dL Calcium 8.6 (8.4-10.2) mg/dL Total Bilirubin 0.5 (0.2-1.3) mg/dL AST 22 (14-36) U/L ALT 22 (4-34) U/L Alkaline Phosphatase 93 (38-126) U/L Total Protein 5.4 L (6.3-8.2) g/dL Albumin 2.5 L (3.5-5.0) g/dL
[2022-08-23 16:35] LABS: Glucose,Whole Blood 185 mg/dL (70-110)
[2022-08-23] MEDS: ALPRAZolam 0.25 MG TAB PO PRN (17:17)
[2022-08-23] MEDS: ATORVASTATIN 40 MG TAB PO SCH (20:26)
[2022-08-23] MEDS: ONDANSETRON 4 MG/2 ML VIAL IVP PRN (20:26)
[2022-08-24] MEDS: SODIUM CHLORIDE 0.9% 1,000 ML IV SCH ×2 (02:57→13:03)
[2022-08-24 06:30] LABS: Glucose,Whole Blood 157 mg/dL (70-110)
[2022-08-24] MEDS: ONDANSETRON 4 MG/2 ML VIAL IVP PRN (06:36)
[2022-08-24] MEDS: INSULIN ASPART (NovoLOG) 100 UNIT/ML VIAL SQ SCH ×4 (06:40→21:10)
[2022-08-24] MEDS ORDERED: KETOROLAC 15 MG/ML 1 ML VIAL IVP PRN (08:57)
[2022-08-24 09:31] LABS: Basophils # (A) 0.02 X 10*3/uL (0.00-0.10); Basophils % (A) 0.3 %; Eosinophils # (A) 0.04 X 10*3/uL (0.04-0.35); Eosinophils % (A) 0.5 %; HCT 31.2 % (37.2-46.3); HGB 10.1 g/dL (12.0-15.0); Immature Grans, Automated 0.4 %; Lymphocytes # (A) 0.71 X 10*3/uL (0.90-5.00); Lymphocytes % (A) 9.1 %; MCH 29.3 pg (27.0-32.0); MCHC 32.4 g/dL (32.0-37.0); MCV 90.4 fL (80.0-97.0); Mean Platelet Volume 9.4 fL (9.5-12.2); Monocytes # (A) 1.37 X 10*3/uL (0.20-1.00); Monocytes % (A) 17.6 %; NRBC Per 100 WBC 0 /100 WBCS (0.0-0.0); Neutrophils % (A) 72.1 %; Platelet Count 301 X 10*3/uL (140-440); RBC 3.45 X 10*6/uL (4.10-5.20); RDW 13.2 % (11.5-14.5); WBC 7.77 X 10*3/uL (4.50-10.00)
[2022-08-24] MEDS: FERROUS SULFATE 325 MG TAB PO SCH (09:32)
[2022-08-24] MEDS: PANTOPRAZOLE 40 MG/10 ML VIAL IVP SCH (09:32)
[2022-08-24] MEDS: lisinopriL 10 MG TAB PO SCH ×2 (09:33→21:15)
[2022-08-24] MEDS: FUROSEMIDE 20 MG TAB PO SCH ×2 (09:33→21:15)
[2022-08-24] MEDS: TACROLIMUS 1 MG CAP PO SCH ×2 (09:33→21:15)
--- NOTE | 2022-08-24 09:36 | P.PN ---
Progress Note - Text Progress Note Date: 08/24/22 Patient has complaints of diarrhea. She is tolerating clear liquids. She states she had multiple bowel movements overnight. She has some complaints of a burning sensation near her incisional hernia. On exam vital signs appear stable. Abdomen soft there is minimal tenderness. There is no rebound or guarding. Patient will be checked for C. diff colitis. She will have her diet advanced Appeared she will require outpatient repair of her incisional hernia when stable.
[2022-08-24 09:46] LABS: African American GFR (CKD) 40.8 (60.0-200.0); Albumin 3.1 g/dL (3.8-4.9); Albumin/Globulin Ratio 1.94 (1.60-3.17); Anion Gap 10.7 mmol/L (10.00-18.00); BUN/Creat Ratio 15.6 Ratio (12.00-20.00); Blood Urea Nitrogen 23.4 mg/dL (9.0-27.0); Calcium 8.4 mg/dL (8.7-10.3); Carbon Dioxide 21.3 mmol/L (20.0-27.5); Globulin 1.6 g/dL (1.6-3.3); Non-African American GFR(CKD) 35.2 (60.0-200.0); Total Bilirubin 0.2 mg/dL (0.30-1.20); Total Protein 4.7 g/dL (6.2-8.2)
--- NOTE | 2022-08-24 10:31 | P.PN ---
Subjective Progress Note Date: 08/24/22 Christy Machado, is a 71-year-old female patient who presented to the ER with concerns for abdominal pain. Patient reports that she's had abdominal discomfort over the past few days presented originally to the ER received some IV fluid and then was DC'd home. Patient reports she initially felt improved but then started to become increasingly sick again with abdominal pain and diarrhea starting her to come back to ER for further evaluation. Patient has a past medical history of liver transplant, kidney disease stage III. History of liver cancer anxiety and panic disorder. Abdominal CT completed showing suspected partial mid to distal small bowel obstruction. Bowel obstruction less prominent than prior exam findings may be bases of prior surgery adhesions a ventral wall hernia along left aspect of the incision possible mild uncomplicated colitis and/or diarrhea correlate clinically. Patient has been starting clear liquid diet and surgical services consulted. Current vital signs temp 91, heart rate 81, respiratory rate 17, blood pressure 120/76 with pulse ox of 95% on room air. Stool for occult blood ordered On 08/24/2022 patient was seen and examined on the medical floor she is alert and oriented 3 in no apparent distress she is complaining of nausea and diarrhea and generalized weakness, otherwise she denies any complaints there is no fever or chills no headache or dizziness no chest pain no shortness of breath no cough no vomiting no abdominal pain no burning with urination no frequency or urgency and no hematuria. Stool sample for C. diff and stool Hemoccult was or dered, will continue to monitor closely. Today her white blood count is 7.77 hemoglobin 10.1 platelet count 301 sodium 133 BUN 23.4 creatinine 1.5 Objective - Vital Signs Vital signs: Vital Signs Temp 98.5 F 08/24/22 07:12 Pulse 90 08/24/22 07:12 Resp 17 08/24/22 07:12 BP 115/63 08/24/22 07:12 Pulse Ox 94 L 08/24/22 07:12 FiO2 Intake & Output 08/23/22 08/24/22 08/24/22 18:59 06:59 18:59 Other: Voiding Method Toilet # Voids 3 3 # Bowel Movements 5 - Exam In general patient is alert and oriented x 3 in no distress HEENT head normocephalic and atraumatic Neck is supple no JVD no goiter no lymphadenopathy no carotid bruit Chest examination is clear to auscultation no crackles no wheezing Cardiac exam reveals regular heart sounds S1 and S2 no gallops no murmurs Abdomen is soft, with mild generalized tenderness no organomegaly with normal bowel sounds Extremity exam reveals no edema no cyanosis or clubbing Neurological examination reveals no gross focal deficits - Labs CBC & Chem 7: 08/24/22 06:05 08/24/22 06:05 Labs: Abnormal Lab Results - Last 24 Hours (Table) 08/23/22 08/23/22 08/23/22 Range/Units 11:29 16:34 18:10 RBC (4.10-5.20) X 10*6/uL Hgb (12.0-15.0) g/dL Hct (37.2-46.3) % MPV (9.5-12.2) fL Lymphocytes # (0.90-5.00) X 10*3/uL Monocytes # (0.20-1.00) X 10*3/uL Sodium (135-145) mmol/L Est GFR (CKD-EPI)AfAm (60.0-200.0) Est GFR (CKD-EPI)NonAf (60.0-200.0) Glucose (70-110) mg/dL POC Glucose (mg/dL) 141 H 185 H (70-110) mg/dL Calcium (8.7-10.3) mg/dL Total Bilirubin (0.30-1.20) mg/dL Total Protein (6.2-8.2) g/dL Albumin (3.8-4.9) g/dL Stool Occult Blood Positive H (Negative) 08/24/22 08/24/22 08/24/22 Range/Units 06:05 06:05 06:28 RBC 3.45 L (4.10-5.20) X 10*6/uL Hgb 10.1 L (12.0-15.0) g/dL Hct 31.2 L (37.2-46.3) % MPV 9.4 L (9.5-12.2) fL Lymphocytes # 0.71 L (0.90-5.00) X 10*3/uL Monocytes # 1.37 H (0.20-1.00) X 10*3/uL Sodium 133 L (135-145) mmol/L Est GFR (CKD-EPI)AfAm 40.8 L (60.0-200.0) Est GFR (CKD-EPI)NonAf 35.2 L (60.0-200.0) Glucose 149 H (70-110) mg/dL POC Glucose (mg/dL) 157 H (70-110) mg/dL Calcium 8.4 L (8.7-10.3) mg/dL Total Bilirubin 0.20 L (0.30-1.20) mg/dL Total Protein 4.7 L (6.2-8.2) g/dL Albumin 3.1 L (3.8-4.9) g/dL Stool Occult Blood (Negative) Assessment and Plan Assessment: 1. Weakness and diarrhea secondary to small bowel obstruction 2. History of liver transplant secondary to liver cancer 3. History of incarcerated umbilical hernia with small bowel obstruction requiring surgery 4. History of diabetes mellitus sliding scale insulin ordered 5. History of essential hypertension 6. Hyponatremia 7. Chronic kidney disease stage II. Creatinine does appear baseline 8. UA positive for urinary tract infection patient denies any symptoms urine culture ordered DVT prophylaxis SCDs. GI prophylaxis Protonix Patient seen on clear liquid diet Surgical services are following Repeat labs ordered Urine culture ordered
[2022-08-24 12:51] LABS: Glucose,Whole Blood 156 mg/dL (70-110)
[2022-08-24] MEDS: ALPRAZolam 0.25 MG TAB PO PRN (15:06)
[2022-08-24 17:07] LABS: Glucose,Whole Blood 167 mg/dL (70-110)
[2022-08-24 21:06] LABS: Glucose,Whole Blood 142 mg/dL (70-110)
[2022-08-24] MEDS: ATORVASTATIN 40 MG TAB PO SCH (21:14)
[2022-08-25] MEDS: ALPRAZolam 0.25 MG TAB PO PRN (00:37)
[2022-08-25] MEDS: SODIUM CHLORIDE 0.9% 1,000 ML IV SCH (00:37)
[2022-08-25 06:29] LABS: Glucose,Whole Blood 152 mg/dL (70-110)
[2022-08-25] MEDS: INSULIN ASPART (NovoLOG) 100 UNIT/ML VIAL SQ SCH (06:30)
[2022-08-25 08:17] VITALS: BP 153/82; PULSE 79; RESP 18; TEMP 98.2
[2022-08-25] MEDS: FERROUS SULFATE 325 MG TAB PO SCH (09:44)
[2022-08-25] MEDS: FUROSEMIDE 20 MG TAB PO SCH (09:44)
[2022-08-25] MEDS: PANTOPRAZOLE 40 MG/10 ML VIAL IVP SCH (09:44)
[2022-08-25] MEDS: lisinopriL 10 MG TAB PO SCH (09:44)
[2022-08-25] MEDS: TACROLIMUS 1 MG CAP PO SCH (09:46)
[2022-08-25] MEDS: methIMAzole 5 MG TAB PO SCH (09:47)
--- NOTE | 2022-08-25 10:05 | P.PN ---
Progress Note - Text Progress Note Date: 08/25/22 Patient feels better. She states her diarrhea has resolved. On exam vital signs are stable. Abdomen soft. Incisional hernia stable. Patient stable for discharge home. She'll follow-up as an outpatient regarding hernia.
--- NOTE | 2022-08-25 10:15 | P.DS ---
Providers Date of admission: 08/22/22 23:49 Expected date of discharge: 08/25/22 Attending physician: Herber Babcock Consults: 08/23/22 10:10 Consult Physician Routine Consulting Provider: Agapito Ji Consult Reason/Comments: SBO Do you want consulting provider notified?: Already Contacted Primary care physician: Herber Babcock [facility] Course: Discharge diagnosis 1. Weakness and diarrhea secondary to small bowel obstruction 2. History of liver transplant secondary to liver cancer 3. History of incarcerated umbilical hernia with small bowel obstruction requiring surgery 4. History of diabetes mellitus sliding scale insulin ordered 5. History of essential hypertension 6. Hyponatremia 7. Chronic kidney disease stage II. Creatinine does appear baseline 8. UA positive for urinary tract infection patient denies any symptoms urine culture ordered Hospital course Christy Machado, is a 71-year-old female patient who presented to the ER with concerns for abdominal pain. Patient reports that she's had abdominal discomfort over the past few days presented originally to the ER received some IV fluid and then was DC'd home. Patient reports she initially felt improved but then started to become increasingly sick again with abdominal pain and diarrhea starting her to come back to ER for further evaluation. Patient has a past medical history of liver transplant, kidney disease stage III. History of liver cancer anxiety and panic disorder. Abdominal CT completed showing suspected partial mid to distal small bowel obstruction. Bowel obstruction less prominent than prior exam findings may be bases of prior surgery adhesions a ventral wall hernia along left aspect of the incision possible mild uncomplicated colitis and/or diarrhea correlate clinically. Patient has been starting clear liquid diet and surgical services consulted. Current vital signs temp 91, heart rate 81, respiratory rate 17, blood pressure 120/76 with pulse ox of 95% on room air. Stool for occult blood ordered On 08/24/2022 patient was seen and examined on the medical floor she is alert and oriented 3 in no apparent distress she is complaining of nausea and diarrhea and generalized weakness, otherwise she denies any complaints there is no fever or chills no headache or dizziness no chest pain no shortness of breath no cough no vomiting no abdominal pain no burning with urination no frequency or urgency and no hematuria. Stool sample for C. diff and stool Hemoccult was ordered, will continue to monitor closely. Today her white blood count is 7.77 hemoglobin 10.1 platelet count 301 sodium 133 BUN 23.4 creatinine 1.5 On 08/25/2022 patient is alert and oriented 3. Patient reports significant improvement with nausea vomiting and diarrhea. Patient reports no further episodes of diarrhea. Patient reports she has been tolerating regular diet without issue. Discussed case with surgical services patient cleared for discharge. C. diff ordered not completed due to patient not having any further episodes of diarrhea. Patient also had abnormal UA but denies any acute complaints urine culture currently pending. Patient to follow-up with PCP for further assessment of urine culture. Patient denies chest pain or shortness of breath. Patient denies nausea vomiting or diarrhea. Patient denies any urinary burning or frequency Patient Condition at Discharge: Stable Plan - Discharge Summary Discharge Rx Participant: No New Discharge Prescriptions: Continue ALPRAZolam [Xanax] 0.25 mg PO TID PRN PRN Reason: Anxiety lisinopriL [Prinivil] 10 mg PO BID Fluticasone Nasal [place] [Flonase Nasal [place]] 1 - 2 spray EA NOSTRIL DAILY PRN PRN Reason: Allergy Symptoms Albuterol Sulfate [Ventolin HFA] 1 - 2 puff INHALATION RT-Q4H PRN PRN Reason: Shortness Of Breath Insulin Aspart [NovoLOG Flexpen] 4 units SQ AC-BID mycophenolate mofetiL [Cellcept] 250 mg PO BID Ferrous Sulfate [Iron (65 MG Elemental)] 325 mg PO DAILY Insulin Aspart [NovoLOG Flexpen] See Protocol SQ AC-TID PRN PRN Reason: HIGH BLOOD SUGAR methIMAzole [Tapazole] 5 mg PO Q48H Cetirizine HCl [Zyrtec] 10 mg PO DAILY PRN PRN Reason: Allergy Symptoms Insulin Aspart [NovoLOG Flexpen] 2 mg PO AC-BRKFST Furosemide [Lasix] 40 mg PO DAILY mycophenolate mofetiL [Cellcept] 500 mg PO BID Atorvastatin [Lipitor] 40 mg PO HS Tacrolimus [Prograf] 3 mg PO DAILY Tacrolimus [Prograf] 2 mg PO HS Furosemide [Lasix] 20 mg PO HS Discharge Medication List ALPRAZolam [Xanax] 0.25 mg PO TID PRN 01/22/17 [History] lisinopriL [Prinivil] 10 mg PO BID 12/21/18 [History] Fluticasone Nasal [place] [Flonase Nasal [place]] 1 - 2 spray EA NOSTRIL DAILY PRN 03/27/19 [History] Albuterol Sulfate [Ventolin HFA] 1 - 2 puff INHALATION RT-Q4H PRN 02/25/20 [History] Atorvastatin [Lipitor] 40 mg PO HS 12/14/20 [History] Ferrous Sulfate [Iron (65 MG Elemental)] 325 mg PO DAILY 12/14/20 [History] Furosemide [Lasix] 40 mg PO DAILY 12/14/20 [History] Insulin Aspart [NovoLOG Flexpen] 2 mg PO AC-BRKFST 12/14/20 [History] Insulin Aspart [NovoLOG Flexpen] 4 units SQ AC-BID 12/14/20 [History] Insulin Aspart [NovoLOG Flexpen] See Protocol SQ AC-TID PRN 12/14/20 [History] mycophenolate mofetiL [Cellcept] 250 mg PO BID 12/14/20 [History] mycophenolate mofetiL [Cellcept] 500 mg PO BID 12/14/20 [History] Cetirizine HCl [Zyrtec] 10 mg PO DAILY PRN 08/21/22 [History] Furosemide [Lasix] 20 mg PO HS 08/21/22 [History] Tacrolimus [Prograf] 2 mg PO HS 08/21/22 [History] Tacrolimus [Prograf] 3 mg PO DAILY 08/21/22 [History] methIMAzole [Tapazole] 5 mg PO Q48H 08/21/22 [History] Follow up Appointment(s)/Referral(s): Herber Babcock MD [Primary Care Provider] - 1-2 days Agapito Ji MD [STAFF PHYSICIAN] - 1 Week Discharge Disposition: HOME SELF-CARE
[2022-08-25 11:35] LABS: Glucose,Whole Blood 142 mg/dL (70-110)
== END 2022-08-25 12:14 | disposition home or self-care (01) | DRG 389 ==
LOC: EC 17:13 → 4SSUR 23:49
PROVIDERS: ADMIT Internal Medicine; ATTEND Internal Medicine
DX: K56.600 Partial intestinal obstruction, unspecified as to cause (principal); E87.1 Hypo-osmolality and hyponatremia; N39.0 Urinary tract infection, site not specified; I12.9 Hypertensive chronic kidney disease with stage 1 through stage 4 chronic kidney disease, or unspecified chronic kidney disease; E11.22 Type 2 diabetes mellitus with diabetic chronic kidney disease; N18.2 Chronic kidney disease, stage 2 (mild); N20.0 Calculus of kidney; Z79.4 Long term (current) use of insulin; B96.20 Unspecified Escherichia coli [E. coli] as the cause of diseases classified elsewhere; K52.9 Noninfective gastroenteritis and colitis, unspecified; Z79.624 Long term (current) use of inhibitors of nucleotide synthesis; Z79.899 Other long term (current) drug therapy; Z90.49 Acquired absence of other specified parts of digestive tract; Z85.05 Personal history of malignant neoplasm of liver; Z90.710 Acquired absence of both cervix and uterus; Z96.642 Presence of left artificial hip joint; Z98.51 Tubal ligation status; Z87.19 Personal history of other diseases of the digestive system; Z88.1 Allergy status to other antibiotic agents; Z88.0 Allergy status to penicillin; Z88.5 Allergy status to narcotic agent; Z88.8 Allergy status to other drugs, medicaments and biological substances; Z96.653 Presence of artificial knee joint, bilateral
CPT/HCPCS: 36415; 74176; 80053; 81001; 82150; 82272; 83036; 83605; 83690; 85025; 87077; 87086; 87186; 93005; 96361; 96374; 96375; 96376; 99285

== ENCOUNTER → 2022-09-05 | Outpatient (CLI) | payer MEDICARE, BC ==
--- NOTE | 2022-09-05 11:55 | P.PN ---
Subjective DATE: 09/05/2022 FOLLOW UP VISIT. Patient with obstructive sleep apnea hypopnea syndrome return to sleep center for follow-up visit. Information from previous visit have been reviewed. Patient is using PAP equipment every night for the whole night, getting PAP supplies in time. The patient does not have significant problems with the mask, PAP unit and humidification. [place] sleepiness scale is 1, which is perfect. I checked information from PAP unit. PAP unit pressure 5-11 cm H2O. Usage is 95 % for more then 4 hours, average 7.9 hours per night. Leak is 18 l/m, which is in acceptable range. Apnea Hypopnea Index is 0.1, which is absolutely normal. MEDICATIONS:1. Mofetil 2. Ferrous sulfate 3. Tacrolimos 4. Furosemide 5. Atorvastatin 40 mg once a day 6. Insulin 7. Lisinopril 10 mg once a day 8. Albuterol 9. Xanax During physical exam: GENERAL: A pleasant patient without any distress. VITAL SIGNS: BP 143/72, HR 79, RR 16 , weight 256.8, temperature 97.2, oxygen saturation at room air 98 % . HEENT: PERRLA, EOMI.low position of soft palate, Mallapati 4 . NECK: Supple. No JVD. LUNGS: Clear to percussion and to auscultation. Good air exchange. No wheezing or rhonchi. HEART: S1, S2 regular. ABDOMEN: Soft and nontender. Obese EXTREMITIES: No clubbing or cyanosis. TURBO GENERATOR OILER: Awake, alert, and oriented x3. No focal deficit. Impressions: 1. Obstructive sleep apnea-hypopnea syndrome. Patient demonstrated great compliance with treatment, benefiting from treatment. 2. Status post recent hospital admission for UTI and diarrhea. 3. Hypertension. 4. Obesity. 5. History of hepatocellular carcinoma, status post liver transplant in April 2020. 6. Asthma. 7. Diabetes mellitus. 8. ALLERGY. 9. Status post bilateral knee replacement. 10. Status post left hip replacement. Plan: 1. Continue using PAP equipment every night for the whole night. 2. To change air filter at least 1-2 times per month. 3. PAP unit should stay lower then position of the head. 4. Advised patient to remove all remaining water from humidifier canister daily and make it dry after each usage. Refill canister with fresh distilled water before each usage. 5. Sleep hygiene with regular time in bed for at least 8 hours. 6. Precautions related to driving. No driving if feel any sleepiness. 7. I will maintain prescription for PAP supplies including mask, tube, filters. 8. Watching and losing weight. 9. Follow up visit in 6 months or earlier if patient has any problems. Thank you very much for allowing me to participate in the management of your patient. Woody Arias MD, PhD, FAASM. Diplomat of [place] [employer], Sleep Medicine Board by [place] [employer] Server Support Techn[employer] [facility] [place]
== END ==
LOC: SLEEP 11:25
PROVIDERS: ATTEND Internal Medicine
DX: G47.33 Obstructive sleep apnea (adult) (pediatric) (principal); E11.9 Type 2 diabetes mellitus without complications; E66.9 Obesity, unspecified; I10 Essential (primary) hypertension; J45.909 Unspecified asthma, uncomplicated; Z79.4 Long term (current) use of insulin; Z79.899 Other long term (current) drug therapy; Z87.440 Personal history of urinary (tract) infections; Z94.4 Liver transplant status; Z98.890 Other specified postprocedural states; Z99.89 Dependence on other enabling machines and devices; Z88.1 Allergy status to other antibiotic agents; Z88.5 Allergy status to narcotic agent; Z88.2 Allergy status to sulfonamides; Z87.891 Personal history of nicotine dependence
CPT/HCPCS: 99212

== ENCOUNTER → 2022-11-19 | Outpatient (CLI) | payer MEDICARE, BC ==
--- NOTE | 2022-11-20 15:09 | MM ---
Reason for Exam: Screening (asymptomatic). Last mammogram was performed 1 year(s) and 3 month(s) ago. Patient History: Menarche at age 15. First Full-Term at age 22. Left ovary removed at age 49. Right ovary removed at age 49. Hysterectomy at age 49. Postmenopausal. Other cancer, age 66. Other cancer, age 69. Estrogen for 3 months. Progesterone for 3 months. Paternal cousin had breast cancer, age 48. Paternal cousin had breast cancer. Paternal aunt had breast cancer, age 56. Paternal aunt had ovarian cancer at or over age 50. Sister had breast cancer, age 48. Risk Values: Danae 5 year model risk: 3.3%. NCI Lifetime model risk: 9.5%. Prior Study Comparison: 05/16/2017 Bilateral Screening Mammogram, [facility]. 06/17/2018 Bilateral Screening Mammogram, [facility]. 07/07/2019 Bilateral Screening Mammogram, [facility]. 08/28/2020 Bilateral Screening Mammogram, [facility]. 08/30/2021 Bilateral Screening Mammogram, [facility]. Tissue Density: There are scattered fibroglandular densities. Findings: Analyzed By CAD. Pattern appears symmetrical and stable. Multiple scattered benign punctate calcifications are present. No significant interval changes are evident. No suspicious groups of microcalcifications, spiculated or lobular masses, architectural distortion or other secondary signs of malignancy are mammographically apparent. Overall Assessment: Benign, BI-RAD 2 Management: Screening Mammogram of both breasts in 1 year. A negative mammogram report should not preclude additional follow up of suspicious palpable abnormalities. Patient should continue monthly self breast exam. A clinical breast exam by your physician is recommended on an annual basis and results should be correlated with mammographic findings. Electronically signed and approved by: Samuel Garber D.O. Radiologis
== END | disposition home or self-care (01) ==
LOC: RADMAMWWP 08:42
PROVIDERS: ATTEND Internal Medicine
DX: Z12.31 Encounter for screening mammogram for malignant neoplasm of breast (principal); Z78.0 Asymptomatic menopausal state; Z80.3 Family history of malignant neoplasm of breast
CPT/HCPCS: 77067

== ENCOUNTER → 2022-12-17 | Outpatient (CLI) | payer MEDICARE, BC ==
[2022-12-17 15:04] LABS: Basophils # (A) 0.03 X 10*3/uL (0.00-0.10); Basophils % (A) 0.4 %; Eosinophils # (A) 0.04 X 10*3/uL (0.04-0.35); Eosinophils % (A) 0.6 %; HCT 34.3 % (37.2-46.3); Lymphocytes # (A) 0.78 X 10*3/uL (0.90-5.00); MCH 29.1 pg (27.0-32.0); MCHC 32.1 d/dL (32.0-37.0); MCV 90.7 FL (80.0-97.0); Monocytes # (A) 0.55 X 10*3/uL (0.20-1.00); Monocytes % (A) 7.8 %; NRBC Per 100 WBC 0 X 10*3/uL (0.00-0.01); Neutrophils # (A) 5.63 X 10*3/uL (1.80-7.70); Neutrophils % (A) 79.8 %; Platelet Count 283 X 10*3/uL (140-440); RBC 3.78 X 10*6/uL (4.10-5.20); RDW 12.9 % (11.5-14.5); WBC 7.06 X 10*3/uL (4.50-10.00)
[2022-12-17 15:09] LABS: T4, Free (Free Thyroxine) 1.59 ng/dL (0.80-1.80)
[2022-12-17 15:10] LABS: ALT 14 U/L (8-44); AST 14 U/L (13-35); Albumin 4.4 d/dL (3.8-4.9); Albumin/Globulin Ratio 2.44 Ratio (1.60-3.17); Alkaline Phosphatase 85 U/L (41-126); BUN/Creat Ratio 14.71 Ratio (12.00-20.00); Bilirubin, Conjugated <0.20 mg/dL (0.20-0.40); Bilirubin,Unconjugated >0.10 mg/dL (0.20-1.00); Blood Urea Nitrogen 20.6 mg/dL (9.0-27.0); Calcium 9.5 mg/dL (8.7-10.3); Carbon Dioxide 24.5 mmol/L (21.6-31.8); Chloride 99 mmol/L (96-109); Globulin 1.8 d/dL (1.6-3.3); Glucose 143 mg/dL (70-110); Sodium 132 mmol/L (135-145); Total Bilirubin 0.3 mg/dL (0.3-1.2); Total Protein 6.2 d/dL (6.2-8.2)
== END | disposition home or self-care (01) ==
LOC: LABWHC1 08:44
PROVIDERS: ATTEND Internal Medicine
DX: E05.90 Thyrotoxicosis, unspecified without thyrotoxic crisis or storm (principal)
CPT/HCPCS: 36415; 80053; 80197; 82105; 82248; 83735; 84439; 84443; 84481; 85025

== ENCOUNTER 2022-12-24 08:30 | Day surgery (SDC) | payer MEDICARE, BC ==
[2022-12-20 12:26] VITALS: BMI 43.2
[2022-12-24 09:19] VITALS: TEMP 98.3
[2022-12-24] MEDS: LACTATED RINGERS 1,000 ML IV SCH ×2 (09:35→09:39)
[2022-12-24 09:36] LABS: Glucose,Whole Blood 147 mg/dL (70-110)
[2022-12-24] MEDS ORDERED: PROPOFOL 10 MG/ML 20 ML VIAL IV ONE (09:42)
--- NOTE | 2022-12-24 09:56 | P.PCN ---
Date of Procedure: 12/24/22 Procedure(s) Performed: BRIEF HISTORY: Patient is a 72-year-old pleasant white female scheduled for an elective colonoscopy as a part of evaluation of prior history of colon polyps. PROCEDURE PERFORMED: Colonoscopy with biopsy. PREOPERATIVE DIAGNOSIS: History of colon polyps. IV sedation per Anesthesia. PROCEDURE: After informed consent was obtained, the patient, was brought into the endoscopy unit. IV sedation was administered by Anesthesia under continuous monitoring. Digital rectal examination was normal. Initially the Olympus CF-160 flexible video colonoscope was then inserted in the rectum, gradually advanced into the cecum without any difficulty. Careful examination was performed as the scope was gradually being withdrawn. Ileocecal valve and the appendiceal orifice were visualized and appeared normal. Prep was excellent. Mucosa of the cecum, we normal. In the ascending colon there was a 3 mm polyp 2 removed by cold biopsy. Rest of the ascending colon, transverse colon, descending colon, sigmoid colon, and rectum appeared normal. Scattered sigmoid diverticulosis. Retroflexion was performed in the rectum and no lesions were seen. The patient tolerated the procedure well. IMPRESSION: 3 mm polyp 2 in the ascending colon status post cold biopsy Scattered sigmoid diverticulosis RECOMMENDATIONS: Findings of this examination were discussed with the patient well as her family. She was advised to follow with the biopsy doesn't repeat colonoscopy in 5 years.
[2022-12-24 10:15] VITALS: BP 118/74; PULSE 66; RESP 20
== END 2022-12-24 10:32 | disposition home or self-care (01) ==
LOC: ORWHC2ENDO 08:30
PROVIDERS: ATTEND Internal Medicine Gastroenterology
DX: D12.2 Benign neoplasm of ascending colon (principal); K57.30 Diverticulosis of large intestine without perforation or abscess without bleeding; Z88.5 Allergy status to narcotic agent; Z88.2 Allergy status to sulfonamides; Z86.010 Personal history of colon polyps; Z88.0 Allergy status to penicillin; Z16.23 Resistance to quinolones and fluoroquinolones; Z87.19 Personal history of other diseases of the digestive system
CPT/HCPCS: 88305; 45380; J2704

== ENCOUNTER 2023-01-20 07:16 | Emergency (ER) | payer MEDICARE, BC ==
--- NOTE | 2023-01-20 08:57 | XR ---
EXAMINATION TYPE: XR chest 2V DATE OF EXAM: 01/20/2023 COMPARISON: 02/17/2022 HISTORY: Shortness of breath TECHNIQUE: Frontal and lateral views of the chest are obtained. FINDINGS: Scattered senescent parenchymal changes noted. Hyperinflation compatible with COPD. No evidence for infiltrate. No evidence for atelectasis. Heart size is stable. Mediastinal prominence redemonstrated. Patient has history of thyroid mass or substernal extension. No evidence for hilar prominence. Degenerative changes dorsal spine. IMPRESSION: 1. No evidence for acute pulmonary disease.
--- NOTE | 2023-01-20 10:04 | ED ---
URI HPI - General Chief Complaint: Upper Respiratory Infection Stated Complaint: Covid + Time Seen by Provider: 01/20/23 07:32 Source: patient, RN notes reviewed Mode of arrival: ambulatory Limitations: no limitations - History of Present Illness Initial Comments: 72-year-old female presents emergency Department chief complaint of cough congestion. Patient states she tested positive for covid 19 today. Patient states she since started last 24 hours. Patient is concern as she is on immunocompromising meds and she's had a liver transplant. She has been attempting to contact her transplant team but states that she received phone call back she complains of fever chills bodyaches cough congestion or shortness of breath and headache. - Related Data Home Medications Medication Instructions Recorded Confirmed ALPRAZolam [Xanax] 0.25 mg PO TID PRN 01/22/17 12/24/22 lisinopriL [Prinivil] 10 mg PO BID 12/21/18 12/24/22 Fluticasone Nasal [place] [Flonase 1 - 2 spray EA NOSTRIL DAILY PRN 03/27/19 12/24/22 Nasal [place]] Albuterol Sulfate [Ventolin HFA] 1 - 2 puff INHALATION RT-Q4H PRN 02/25/20 12/24/22 Atorvastatin [Lipitor] 40 mg PO HS 12/14/20 12/24/22 Ferrous Sulfate [Iron (65 MG 325 mg PO DAILY 12/14/20 12/24/22 Elemental)] Insulin Aspart [NovoLOG Flexpen] 2 mg PO AC-BRKFST 12/14/20 12/24/22 Insulin Aspart [NovoLOG Flexpen] 4 units SQ AC-BID 12/14/20 12/24/22 mycophenolate mofetiL [Cellcept] 250 mg PO BID 12/14/20 12/24/22 mycophenolate mofetiL [Cellcept] 500 mg PO BID 12/14/20 12/24/22 Cetirizine HCl [Zyrtec] 10 mg PO DAILY 08/21/22 12/24/22 Furosemide [Lasix] 20 mg PO BID 08/21/22 12/24/22 Tacrolimus [Prograf] 2 mg PO HS 08/21/22 12/24/22 Tacrolimus [Prograf] 3 mg PO DAILY 08/21/22 12/24/22 Insulin Glargine,Hum.rec.anlog 6 units SQ HS 12/20/22 12/24/22 [Lantus Solostar Pen] Magnesium Oxide [Mag-Ox] 4 tab PO BID 12/20/22 12/24/22 Allergies Allergy/AdvReac Type Severity Reaction Status Date / Time adhesive tape Allergy Rash/Hives Verified 01/20/23 07:29 ciprofloxacin [From Cipro] Allergy Dyspnea Verified 01/20/23 07:29 ciprofloxacin HCl Allergy Dyspnea Verified 01/20/23 07:29 [From Cipro] Penicillins Allergy Rash/Hives Verified 01/20/23 07:29 Sulfa (Sulfonamide Allergy Rash/Hives Verified 01/20/23 07:29 Antibiotics) morphine AdvReac Vomiting Verified 01/20/23 07:29 Review of Systems ROS Statement: Those systems with pertinent positive or pertinent negative responses have been documented in the HPI. ROS Other: All systems not noted in ROS Statement are negative. Past Medical History Past Medical History: Cancer, Diabetes Mellitus, Hypertension, Renal Disease Additional Past Medical History / Comment(s): past hx migraines, varicose veins, heart murmur, liver cancer in past, stage 2 kidney disease, goiter, abdominal hernia and adhesions History of Any Multi-Drug Resistant Organisms: None Reported Past Surgical History: Bowel Resection, Section, Cholecystectomy, Hernia Repair, Hysterectomy, Joint Replacement, Orthopedic Surgery, Tubal Ligation Additional Past Surgical History / Comment(s): sergey knees replacement, ORIF left ankle, left achilles repair, lt wrist surg to remove cyst. 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, bowel resection x3 Past Anesthesia/Blood Transfusion Reactions: No Reported Reaction Additional Past Anesthesia/Blood Transfusion Reaction / Comment(s): denies PONV Past Psychological History: Anxiety, Panic Disorder Smoking Status: Former smoker Past Alcohol Use History: None Reported Past Drug Use History: None Reported - Past Family History Mother Family Medical History: Dementia, Hypertension Sister(s) Family Medical History: Cancer Additional Family Medical History / Comment(s): breast General Exam Limitations: no limitations General appearance: alert, in no apparent distress Head exam: Present: atraumatic, normocephalic, normal inspection Eye exam: Present: normal appearance, PERRL, EOMI. Absent: scleral icterus, conjunctival injection, periorbital swelling ENT exam: Present: normal exam, normal oropharynx, mucous membranes moist Neck exam: Present: normal inspection, full ROM. Absent: tenderness, meningismus, lymphadenopathy Respiratory exam: Present: normal lung sounds bilaterally. Absent: respiratory distress, wheezes, rales, rhonchi, stridor Cardiovascular Exam: Present: regular rate, normal rhythm, normal heart sounds. Absent: systolic murmur, diastolic murmur, rubs, gallop, clicks Course Vital Signs 01/20/23 01/20/23 01/20/23 07:25 08:13 08:19 Temperature 98.8 F Pulse Rate 78 72 Respiratory 20 24 24 Rate Blood Pressure 147/71 O2 Sat by Pulse 97 97 Oximetry 01/20/23 10:28 Temperature 98.0 F Pulse Rate 68 Respiratory 18 Rate Blood Pressure 162/74 O2 Sat by Pulse 98 Oximetry Medical Decision Making - Medical Decision Making Was pt. sent in by a medical professional or institution (, PA, GLYCERIN SUPERVISOR, urgent care, hospital, or fci...) When possible be specific @ -No Did you speak to anyone other than the patient for history (EMS, parent, family, police, friend...)? What history was obtained from this source @ -No Did you review nursing and triage notes (agree or disagree)? Why? @ -I reviewed and agree with nursing and triage notes Were old charts reviewed (outside hosp., previous admission, EMS record, old EKG, old radiological studies, urgent care reports/EKG's, fci records)? Report findings @ -No old charts were reviewed Differential Diagnosis (chest pain, altered mental status, abdominal pain women, abdominal pain men, vaginal bleeding, weakness, fever, dyspnea, syncope, headache, dizziness, GI bleed, back pain, seizure, CVA, palpatations, mental health, musculoskeletal)? @ -covid 19 , uri EKG interpreted by me (3pts min.). @ -None X-rays interpreted by me (1pt min.). @ -Chest x-ray shows no acute cardio pulmonary process CT interpreted by me (1pt min.). @ -None done U/S interpreted by me (1pt. min.). @ -None done What testing was considered but not performed or refused? (CT, X-rays, U/S, labs)? Why? @ -None What meds were considered but not given or refused? Why? @ -None Did you discuss the management of the patient with other professionals (professionals i.e. , PA, GLYCERIN SUPERVISOR, lab, RT, psych nurse, social service director, refractory bricklayer, teacher, command center officer, case maker)? Give summary @ -No Was smoking cessation discussed for >3mins.? @ -No Was critical care preformed (if so, how long)? @ -No Were there social determinants of health that impacted care today? How? (Homelessness, low income, unemployed, alcoholism, drug addiction, transportation, low edu. Level, literacy, decrease access to med. care, detention, rehab)? @ -No Was there de-escalation of care discussed even if they declined (Discuss DNR or withdrawal of care, Hospice)? DNR status @ -No What co-morbidities impacted this encounter? (DM, HTN, Smoking, COPD, CAD, Cancer, CVA, ARF, Chemo, Hep., AIDS, mental health diagnosis, sleep apnea, morbid obesity)? @ -None Was patient admitted / discharged? Hospital course, mention meds given and route, prescriptions, significant lab abnormalities, going to OR and other pertinent info. @ -Discharge patient was seen and evaluated for Covid 19. Patient x-rays unremarkable. I did attempt multiple times to discuss the case with [facility] transfer team for consultation regarding treatment given she is on CellCept and Prograf. I did attempt contact coordinator, transplant team, hepatologists with no return phone calls. Patient updated on these results and she states that she feels comfortable discharged and she is to return for worsening symptoms and she will go to [facility] if symptoms worsen if she can. I did discuss case with pharmacy and which we do not have infusions anymore. Patient is not able to take Paxlovid] Undiagnosed new problem with uncertain prognosis? @ -No Drug Therapy requiring intensive monitoring for toxicity (Heparin, Nitro, Insulin, Cardizem)? @ -No Were any procedures done? @ -No Diagnosis/symptom? @ -covid 19 Acute, or Chronic, or Acute on Chronic? @ -acute Uncomplicated (without systemic symptoms) or Complicated (systemic symptoms)? @ -uncomplicated Side effects of treatment? @ -No Exacerbation, Progression, or Severe Exacerbation? @ -No Poses a threat to life or bodily function? How? (Chest pain, [place], [place], pneumonia, PE, COPD, DKA, ARF, appy, cholecystitis, CVA, Diverticulitis, Homicidal, Suicidal, threat to staff... and all critical care pts) @ -No Disposition Clinical Impression: COVID-19 Disposition: HOME SELF-CARE Condition: Stable Instructions (If sedation given, give patient instructions): COVID-19 (Coronavirus Disease 2019) (ED) Additional Instructions: Please return to the Emergency Department if symptoms worsen or any other concerns. Is patient prescribed a controlled substance at d/c from ED?: No Referrals: Herber Babcock MD [Primary Care Provider] - 1-2 days Time of Disposition: 10:04
[2023-01-20 10:33] VITALS: BP 162/74; PULSE 68; RESP 18; TEMP 98
== END 2023-01-20 10:31 | disposition home or self-care (01) ==
LOC: EC 07:16
DX: U07.1 COVID-19 (principal); E11.9 Type 2 diabetes mellitus without complications; I10 Essential (primary) hypertension; F41.9 Anxiety disorder, unspecified; Z87.891 Personal history of nicotine dependence; Z88.2 Allergy status to sulfonamides; Z88.5 Allergy status to narcotic agent; Z88.0 Allergy status to penicillin; Z88.8 Allergy status to other drugs, medicaments and biological substances; Z79.4 Long term (current) use of insulin; Z79.51 Long term (current) use of inhaled steroids; Z79.899 Other long term (current) drug therapy
CPT/HCPCS: 71046; 99283

== ENCOUNTER 2023-02-01 08:13 | Emergency (ER) | payer MEDICARE, BC ==
[2023-02-01] MEDS ORDERED: SODIUM CHLORIDE 0.9% 500 ML 500 ML IV STA (08:31)
--- NOTE | 2023-02-01 08:34 | ED ---
General Adult HPI - General Chief complaint: Shortness of Breath Stated complaint: SOB Time Seen by Provider: 02/01/23 08:19 Source: patient, RN notes reviewed, old records reviewed Mode of arrival: ambulatory Limitations: no limitations - History of Present Illness Initial comments: 72-year-old female resents for evaluation of cough, dyspnea. Patient tested positive for coronavirus 2 weeks ago. She states she has had difficulty breathing since that time. She had a cough that was initially productive but now is dry. No continued fevers. She states she's had poor appetite. No vomiting. No diarrhea. No central chest pain. No lower extremity pain or swelling. - Related Data Home Medications Medication Instructions Recorded Confirmed ALPRAZolam [Xanax] 0.25 mg PO TID PRN 01/22/17 12/24/22 lisinopriL [Prinivil] 10 mg PO BID 12/21/18 12/24/22 Fluticasone Nasal [place] [Flonase 1 - 2 spray EA NOSTRIL DAILY PRN 03/27/19 12/24/22 Nasal [place]] Albuterol Sulfate [Ventolin HFA] 1 - 2 puff INHALATION RT-Q4H PRN 02/25/20 12/24/22 Atorvastatin [Lipitor] 40 mg PO HS 12/14/20 12/24/22 Ferrous Sulfate [Iron (65 MG 325 mg PO DAILY 12/14/20 12/24/22 Elemental)] Insulin Aspart [NovoLOG Flexpen] 2 mg PO AC-BRKFST 12/14/20 12/24/22 Insulin Aspart [NovoLOG Flexpen] 4 units SQ AC-BID 12/14/20 12/24/22 mycophenolate mofetiL [Cellcept] 250 mg PO BID 12/14/20 12/24/22 mycophenolate mofetiL [Cellcept] 500 mg PO BID 12/14/20 12/24/22 Cetirizine HCl [Zyrtec] 10 mg PO DAILY 08/21/22 12/24/22 Furosemide [Lasix] 20 mg PO BID 08/21/22 12/24/22 Tacrolimus [Prograf] 2 mg PO HS 08/21/22 12/24/22 Tacrolimus [Prograf] 3 mg PO DAILY 08/21/22 12/24/22 Insulin Glargine,Hum.rec.anlog 6 units SQ HS 12/20/22 12/24/22 [Lantus Solostar Pen] Magnesium Oxide [Mag-Ox] 4 tab PO BID 12/20/22 12/24/22 Allergies Allergy/AdvReac Type Severity Reaction Status Date / Time adhesive tape Allergy Rash/Hives Verified 02/01/23 08:19 ciprofloxacin [From Cipro] Allergy Dyspnea Verified 02/01/23 08:19 ciprofloxacin HCl Allergy Dyspnea Verified 02/01/23 08:19 [From Cipro] Penicillins Allergy Rash/Hives Verified 02/01/23 08:19 Sulfa (Sulfonamide Allergy Rash/Hives Verified 01/20/23 07:29 Antibiotics) morphine AdvReac Vomiting Verified 02/01/23 08:19 Review of Systems ROS Statement: Those systems with pertinent positive or pertinent negative responses have been documented in the HPI. ROS Other: All systems not noted in ROS Statement are negative. Past Medical History Past Medical History: Cancer, Diabetes Mellitus, Hypertension, Renal Disease Additional Past Medical History / Comment(s): past hx migraines, varicose veins, heart murmur, liver cancer in past, stage 2 kidney disease, goiter, abdominal hernia and adhesions History of Any Multi-Drug Resistant Organisms: None Reported Past Surgical History: Bowel Resection, Section, Cholecystectomy, Hernia Repair, Hysterectomy, Joint Replacement, Orthopedic Surgery, Tubal Ligation Additional Past Surgical History / Comment(s): sergey knees replacement, ORIF left ankle, left achilles repair, lt wrist surg to remove cyst. 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, bowel resection x3 Past Anesthesia/Blood Transfusion Reactions: No Reported Reaction Additional Past Anesthesia/Blood Transfusion Reaction / Comment(s): denies PONV Past Psychological History: Anxiety, Panic Disorder Smoking Status: Former smoker Past Alcohol Use History: None Reported Past Drug Use History: None Reported - Past Family History Mother Family Medical History: Dementia, Hypertension Sister(s) Family Medical History: Cancer Additional Family Medical History / Comment(s): breast General Exam Limitations: no limitations General appearance: alert, in no apparent distress Head exam: Present: atraumatic, normocephalic Eye exam: Present: normal appearance, PERRL Neck exam: Present: normal inspection Respiratory exam: Present: normal lung sounds bilaterally. Absent: respiratory distress, wheezes, rales, rhonchi GI/Abdominal exam: Present: soft. Absent: distended, tenderness, guarding Neurological exam: Present: alert, oriented X3, CN II-XII intact. Absent: motor sensory deficit Psychiatric exam: Present: anxious Skin exam: Present: warm, dry, intact. Absent: cyanosis, diaphoretic Course Vital Signs 02/01/23 08:15 Temperature 97.9 F Pulse Rate 84 Respiratory 36 H Rate Blood Pressure 142/69 O2 Sat by Pulse 99 Oximetry Medical Decision Making - Medical Decision Making Was pt. sent in by a medical professional or institution (, PA, MACHINE II ENGRAVER, urgent care, hospital, or [place] health [facility] facility...) When possible be specific @ -No Did you speak to anyone other than the patient for history (EMS, parent, family, police, friend...)? What history was obtained from this source @ -No Did you review nursing and triage notes (agree or disagree)? Why? @ -I reviewed and agree with nursing and triage notes Were old charts reviewed (outside hosp., previous admission, EMS record, old EKG, old radiological studies, urgent care reports/EKG's, [place] health [facility] facility records)? Report findings @ -No old charts were reviewed Differential Diagnosis (chest pain, altered mental status, abdominal pain women, abdominal pain men, vaginal bleeding, weakness, fever, dyspnea, syncope, headache, dizziness, GI bleed, back pain, seizure, CVA, palpatations, mental health, musculoskeletal)? @ -[Differential Dyspnea: Coronary syndrome, arrhythmia, tamponade, asthma, COPD, pulmonary embolism, pneumonia, pneumothorax, pulmonary effusion, anaphylaxis, diabetic ketoacidosis, flailed chest, pulmonary contusion, diaphragmatic rupture, anemia, michele romuscular, this is not meant to be an all-inclusive list. EKG interpreted by me (3pts min.). @ Sinus rhythm, low voltage, RSR prime rate of 82, MS interval 152, QRS duration 110, QTC [address] segment elevation. X-rays interpreted by me (1pt min.). @ -No focal pneumonia, no acute findings CT interpreted by me (1pt min.). @ -None done U/S interpreted by me (1pt. min.). @ -None done What testing was considered but not performed or refused? (CT, X-rays, U/S, labs)? Why? @ -None What meds were considered but not given or refused? Why? @ -None Did you discuss the management of the patient with other professionals (professionals i.e. , PA, MACHINE II ENGRAVER, lab, RT, psych nurse, social media editor, ham pumper, teacher, traffic officer, piano case maker)? Give summary @ -No Was smoking cessation discussed for >3mins.? @ -No Was critical care preformed (if so, how long)? @ -No Were there social determinants of health that impacted care today? How? (Homelessness, low income, unemployed, alcoholism, drug addiction, transportation, low edu. Level, literacy, decrease access to med. care, prison, rehab)? @ -No Was there de-escalation of care discussed even if they declined (Discuss DNR or withdrawal of care, Hospice)? DNR status @ -No What co-morbidities impacted this encounter? (DM, HTN, Smoking, COPD, CAD, Cancer, CVA, ARF, Chemo, Hep., AIDS, mental health diagnosis, sleep apnea, morbid obesity)? @ -Current coronavirus infection, history of liver transplant Was patient admitted / discharged? Hospital course, mention meds given and route , prescriptions, significant lab abnormalities, going to OR and other pertinent info. @ -Patient with coronavirus, mild dyspnea, lungs are clear to auscultation. Patient well-appearing with stable vitals. She has baseline anemia, baseline chronic kidney disease without worsening. Chest x-rays clear. Patient reassured and is stable for discharge. She's had coronavirus for the past 2 weeks. Undiagnosed new problem with uncertain prognosis? @ -No Drug Therapy requiring intensive monitoring for toxicity (Heparin, Nitro, Insulin, Cardizem)? @ -No Were any procedures done? @ -No Diagnosis/symptom? @ -[Coronavirus Acute, or Chronic, or Acute on Chronic? @ -Acute Uncomplicated (without systemic symptoms) or Complicated (systemic symptoms)? @ -[Complicated Side effects of treatment? @ -No Exacerbation, Progression, or Severe Exacerbation? @ -No Poses a threat to life or bodily function? How? (Chest pain, [place], [place], pneumonia, PE, COPD, DKA, ARF, appy, cholecystitis, CVA, Diverticulitis, Homicidal, Suicidal, threat to staff... and all critical care pts) @ -[Low risk at this time - Lab Data Result diagrams: 02/01/23 08:44 02/01/23 08:44 Lab Results 02/01/23 02/01/23 02/01/23 Range/Units 08:44 08:44 08:44 WBC 8.8 (3.8-10.6) k/uL RBC 3.76 L (3.80-5.40) m/uL Hgb 11.2 L (11.4-16.0) gm/dL Hct 33.1 L (34.0-46.0) % MCV 88.0 (80.0-100.0) fL MCH 29.7 (25.0-35.0) pg MCHC 33.7 (31.0-37.0) g/dL RDW 13.9 (11.5-15.5) % Plt Count 255 (150-450) k/uL MPV 7.9 Neutrophils % 85 % Lymphocytes % 6 % Monocytes % 8 % Eosinophils % 0 % Basophils % 0 % Neutrophils # 7.5 (1.3-7.7) k/uL Lymphocytes # 0.5 L (1.0-4.8) k/uL Monocytes # 0.7 (0-1.0) k/uL Eosinophils # 0.0 (0-0.7) k/uL Basophils # 0.0 (0-0.2) k/uL PT 9.8 (9.0-12.0) sec INR 0.9 (<1.2) APTT 25.0 (22.0-30.0) sec Sodium 127 L (137-145) mmol/L Potassium 4.6 (3.5-5.1) mmol/L Chloride 98 (98-107) mmol/L Carbon Dioxide 20 L (22-30) mmol/L Anion Gap 9 mmol/L BUN 28 H (7-17) mg/dL Creatinine 1.42 H (0.52-1.04) mg/dL Est GFR (CKD-EPI)AfAm 43 (>60 ml/min/1.73 sqM) Est GFR (CKD-EPI)NonAf 38 (>60 ml/min/1.73 sqM) Glucose 158 H (74-99) mg/dL Plasma Lactic Acid Ja (0.7-2.0) mmol/L Calcium 8.5 (8.4-10.2) mg/dL Total Bilirubin 0.6 (0.2-1.3) mg/dL AST 29 (14-36) U/L ALT 21 (4-34) U/L Alkaline Phosphatase 95 (38-126) U/L NT-Pro-B Natriuret Pep 392 pg/mL Total Protein 6.0 L (6.3-8.2) g/dL Albumin 3.7 (3.5-5.0) g/dL 02/01/23 Range/Units 08:44 WBC (3.8-10.6) k/uL RBC (3.80-5.40) m/uL Hgb (11.4-16.0) gm/dL Hct (34.0-46.0) % MCV (80.0-100.0) fL MCH (25.0-35.0) pg MCHC (31.0-37.0) g/dL RDW (11.5-15.5) % Plt Count (150-450) k/uL MPV Neutrophils % % Lymphocytes % % Monocytes % % Eosinophils % % Basophils % % Neutrophils # (1.3-7.7) k/uL Lymphocytes # (1.0-4.8) k/uL Monocytes # (0-1.0) k/uL Eosinophils # (0-0.7) k/uL Basophils # (0-0.2) k/uL PT (9.0-12.0) sec INR (<1.2) APTT (22.0-30.0) sec Sodium (137-145) mmol/L Potassium (3.5-5.1) mmol/L Chloride (98-107) mmol/L Carbon Dioxide (22-30) mmol/L Anion Gap mmol/L BUN (7-17) mg/dL Creatinine (0.52-1.04) mg/dL Est GFR (CKD-EPI)AfAm (>60 ml/min/1.73 sqM) Est GFR (CKD-EPI)NonAf (>60 ml/min/1.73 sqM) Glucose (74-99) mg/dL Plasma Lactic Acid Ja 1.5 (0.7-2.0) mmol/L Calcium (8.4-10.2) mg/dL Total Bilirubin (0.2-1.3) mg/dL AST (14-36) U/L ALT (4-34) U/L Alkaline Phosphatase (38-126) U/L NT-Pro-B Natriuret Pep pg/mL Total Protein (6.3-8.2) g/dL Albumin (3.5-5.0) g/dL Disposition Clinical Impression: COVID-19 Disposition: HOME SELF-CARE Condition: Good Instructions (If sedation given, give patient instructions): COVID-19 (Coronavirus Disease 2019) (ED) Is patient prescribed a controlled substance at d/c from ED?: No Referrals: Herber Babcock MD [Primary Care Provider] - 1-2 days Time of Disposition: 10:18
[2023-02-01 09:04] LABS: Basophils % (A) 0 %; Eosinophils % (A) 0 %; HCT 33.1 % (34.0-46.0); HGB 11.2 gm/dL (11.4-16.0); Lymphocytes # (A) 0.5 k/uL (1.0-4.8); Lymphocytes % (A) 6 %; MCH 29.7 pg (25.0-35.0); MCHC 33.7 g/dL (31.0-37.0); Mean Platelet Volume 7.9; Monocytes # (A) 0.7 k/uL (0-1.0); Monocytes % (A) 8 %; Neutrophils # (A) 7.5 k/uL (1.3-7.7); Neutrophils % (A) 85 %; Platelet Count 255 k/uL (150-450); RBC 3.76 m/uL (3.80-5.40); RDW 13.9 % (11.5-15.5); WBC 8.8 k/uL (3.8-10.6)
[2023-02-01 09:07] LABS: INR 0.9 (<1.2); Prothrombin Time 9.8 sec (9.0-12.0)
--- NOTE | 2023-02-01 09:07 | XR ---
EXAMINATION TYPE: XR chest 1V portable DATE OF EXAM: 02/01/2023 COMPARISON: 02/17/2022 HISTORY: Cough TECHNIQUE: Single frontal view of the chest is obtained. FINDINGS: There is no focal air space opacity, pleural effusion, or pneumothorax seen. The cardiac silhouette size is within normal limits. The osseous structures are intact. IMPRESSION: No acute process.
[2023-02-01 09:17] LABS: ALT 21 U/L (4-34); AST 29 U/L (14-36); African American GFR (CKD) 43 (>60 ml/min/1.73 sqM); Albumin 3.7 g/dL (3.5-5.0); Alkaline Phosphatase 95 U/L (38-126); Anion Gap 9 mmol/L; Blood Urea Nitrogen 28 mg/dL (7-17); Calcium 8.5 mg/dL (8.4-10.2); Carbon Dioxide 20 mmol/L (22-30); Chloride 98 mmol/L (98-107); Glucose 158 mg/dL (74-99); Non-African American GFR(CKD) 38 (>60 ml/min/1.73 sqM); Potassium 4.6 mmol/L (3.5-5.1); Sodium 127 mmol/L (137-145); Total Bilirubin 0.6 mg/dL (0.2-1.3)
[2023-02-01 09:25] LABS: NT-Pro-B-Type Natriuretic Pept 392 pg/mL
[2023-02-01 10:28] VITALS: RESP 18
[2023-02-01 11:47] VITALS: BP 144/74; PULSE 78; TEMP 98
== END 2023-02-01 11:10 | disposition home or self-care (01) ==
LOC: EC 08:13
DX: U07.1 COVID-19 (principal); E11.22 Type 2 diabetes mellitus with diabetic chronic kidney disease; I12.9 Hypertensive chronic kidney disease with stage 1 through stage 4 chronic kidney disease, or unspecified chronic kidney disease; N18.2 Chronic kidney disease, stage 2 (mild); F41.9 Anxiety disorder, unspecified; Z87.891 Personal history of nicotine dependence; Z79.4 Long term (current) use of insulin; Z79.899 Other long term (current) drug therapy; Z88.0 Allergy status to penicillin; Z88.1 Allergy status to other antibiotic agents; Z88.2 Allergy status to sulfonamides; Z88.5 Allergy status to narcotic agent; Z90.49 Acquired absence of other specified parts of digestive tract; Z91.09 Other allergy status, other than to drugs and biological substances
CPT/HCPCS: 36415; 71045; 80053; 83605; 83880; 85025; 85610; 85730; 93005; 99285

== ENCOUNTER 2023-05-14 07:02 | Inpatient (IN) | payer MEDICARE, BC ==
[2023-05-14] MEDS ORDERED: SODIUM CHLORIDE 0.9% 500 ML 500 ML IV STA (07:15)
[2023-05-14 07:43] LABS: Basophils % (A) 0 %; Eosinophils # (A) 0.1 k/uL (0-0.7); Eosinophils % (A) 1 %; HCT 33.7 % (34.0-46.0); HGB 10.8 gm/dL (11.4-16.0); Lymphocytes # (A) 0.6 k/uL (1.0-4.8); Lymphocytes % (A) 8 %; MCH 29.4 pg (25.0-35.0); MCV 91.7 fL (80.0-100.0); Mean Platelet Volume 7.5; Monocytes # (A) 0.3 k/uL (0-1.0); Monocytes % (A) 4 %; Neutrophils # (A) 6.7 k/uL (1.3-7.7); Neutrophils % (A) 87 %; Platelet Count 260 k/uL (150-450); RBC 3.68 m/uL (3.80-5.40); RDW 13.3 % (11.5-15.5); WBC 7.7 k/uL (3.8-10.6)
--- NOTE | 2023-05-14 07:48 | ED ---
Abdominal Pain HPI - General Chief Complaint: Abdominal Pain Stated Complaint: Abd Pain Time Seen by Provider: 05/14/23 07:06 Source: patient, EMS, RN notes reviewed Mode of arrival: EMS Limitations: no limitations - History of Present Illness Initial Comments: 72-year-old female presents emergency Department chief complaint abdominal pain, nausea. She states that pain started last night has worsened. She states she usually has some pain but usually dissipates this time it's not. She's had some obstructions in the past. She states that she's had prior hysterectomy, section. Patient denies fevers or chills no gingival habits denies kirsty st pain or shortness breath - Related Data Home Medications Medication Instructions Recorded Confirmed ALPRAZolam [Xanax] 0.25 mg PO TID PRN 01/22/17 05/14/23 lisinopriL [Prinivil] 10 mg PO BID 12/21/18 05/14/23 Fluticasone Nasal [place] [Flonase 1 - 2 spray EA NOSTRIL DAILY PRN 03/27/19 05/14/23 Nasal [place]] Albuterol Sulfate [Ventolin HFA] 1 - 2 puff INHALATION RT-Q4H PRN 02/25/20 05/14/23 Atorvastatin [Lipitor] 40 mg PO HS 12/14/20 05/14/23 Ferrous Sulfate [Iron (65 MG 325 mg PO DAILY 12/14/20 05/14/23 Elemental)] Insulin Aspart [NovoLOG Flexpen] 2 units PO AC-BRKFST 12/14/20 05/14/23 Insulin Aspart [NovoLOG Flexpen] 4 units SQ AC-BID@1200,1800 12/14/20 05/14/23 mycophenolate mofetiL [Cellcept] 250 mg PO DAILY@0900 12/14/20 05/14/23 mycophenolate mofetiL [Cellcept] 500 mg PO BID@0900,2100 12/14/20 05/14/23 Cetirizine HCl [Zyrtec] 10 mg PO DAILY 08/21/22 05/14/23 Furosemide [Lasix] 20 mg PO BID 08/21/22 05/14/23 Tacrolimus [Prograf] 2 mg PO HS 08/21/22 05/14/23 Tacrolimus [Prograf] 3 mg PO DAILY 08/21/22 05/14/23 Insulin Glargine,Hum.rec.anlog 8 units SQ HS 12/20/22 05/14/23 [Lantus Solostar Pen] Magnesium Oxide [Mag-Ox] 1,600 tab PO BID 12/20/22 05/14/23 Insulin Aspart [NovoLOG Flexpen] See Protocol SQ AC-TID PRN 02/08/23 05/14/23 Multivitamins, Thera [Multivitamin 1 tab PO DAILY 05/14/23 05/14/23 (formulary)] Allergies Allergy/AdvReac Type Severity Reaction Status Date / Time adhesive tape Allergy Rash/Hives Verified 05/14/23 12:28 ciprofloxacin [From Cipro] Allergy Dyspnea Verified 05/14/23 12:28 ciprofloxacin HCl Allergy Dyspnea Verified 05/14/23 12:28 [From Cipro] Penicillins Allergy Rash/Hives Verified 05/14/23 12:28 Sulfa (Sulfonamide Allergy Rash/Hives Verified 05/14/23 12:28 Antibiotics) sulfamethoxazole Allergy Rash/Hives Verified 05/14/23 12:28 [From Bactrim] trimethoprim [From Bactrim] Allergy Rash/Hives Verified 05/14/23 12:28 morphine AdvReac Vomiting Verified 05/14/23 12:28 Review of Systems ROS Statement: Those systems with pertinent positive or pertinent negative responses have been documented in the HPI. ROS Other: All systems not noted in ROS Statement are negative. Past Medical History Past Medical History: Cancer, Diabetes Mellitus, Hypertension, Renal Disease Additional Past Medical History / Comment(s): past hx migraines, varicose veins, heart murmur, liver cancer in past, stage 2 kidney disease, goiter, abdominal hernia and adhesions History of Any Multi-Drug Resistant Organisms: None Reported Past Surgical History: Bowel Resection, Section, Cholecystectomy, Hernia Repair, Hysterectomy, Joint Replacement, Orthopedic Surgery, Tubal Ligation Additional Past Surgical History / Comment(s): sergey knees replacement, ORIF left ankle, left achilles repair, lt wrist surg to remove cyst. 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, bowel resection x3 Past Anesthesia/Blood Transfusion Reactions: No Reported Reaction Additional Past Anesthesia/Blood Transfusion Reaction / Comment(s): denies PONV Past Psychological History: Anxiety, Panic Disorder Smoking Status: Former smoker Past Alcohol Use History: None Reported Past Drug Use History: None Reported - Past Family History Mother Family Medical History: Dementia, Hypertension Sister(s) Family Medical History: Cancer Additional Family Medical History / Comment(s): breast General Exam Limitations: no limitations General appearance: alert, in no apparent distress Head exam: Present: atraumatic, normocephalic, normal inspection Eye exam: Present: normal appearance, PERRL, EOMI. Absent: scleral icterus, conjunctival injection, periorbital swelling ENT exam: Present: normal exam, normal oropharynx, mucous membranes moist Neck exam: Present: normal inspection, full ROM. Absent: tenderness, meningismus, lymphadenopathy Respiratory exam: Present: normal lung sounds bilaterally. Absent: respiratory distress, wheezes, rales, rhonchi, stridor Cardiovascular Exam: Present: regular rate, normal rhythm, normal heart sounds. Absent: systolic murmur, diastolic murmur, rubs, gallop, clicks GI/Abdominal exam: Present: soft, tenderness, normal bowel sounds. Absent: distended, guarding, rebound, rigid Neurological exam: Present: alert, oriented X3 Course Vital Signs 05/14/23 05/14/23 05/14/23 07:04 13:00 14:00 Temperature 98.8 F Pulse Rate 82 Respiratory 18 Rate Blood Pressure 133/67 137/58 134/68 O2 Sat by Pulse 98 97 93 L Oximetry 05/14/23 05/14/23 05/14/23 15:00 16:00 17:00 Temperature Pulse Rate Respiratory Rate Blood Pressure 148/66 151/76 155/74 O2 Sat by Pulse 97 96 97 Oximetry 05/14/23 18:00 Temperature 98.7 F Pulse Rate 79 Respiratory 16 Rate Blood Pressure 144/77 O2 Sat by Pulse 97 Oximetry Medical Decision Making - Medical Decision Making Was pt. sent in by a medical professional or institution (, PA, DRAPERY HEAD FORMER, urgent care, hospital, or custodial...) When possible be specific @ -No Did you speak to anyone other than the patient for history (EMS, parent, family, police, friend...)? What history was obtained from this source @ -No Did you review nursing and triage notes (agree or disagree)? Why? @ -I reviewed and agree with nursing and triage notes Were old charts reviewed (outside hosp., previous admission, EMS record, old EKG, old radiological studies, urgent care reports/EKG's, custodial records)? Report findings @ -Reviewed prior laboratory studies, imaging and admissions Differential Diagnosis (chest pain, altered mental status, abdominal pain women, abdominal pain men, vaginal bleeding, weakness, fever, dyspnea, syncope, headache, dizziness, GI bleed, back pain, seizure, CVA, palpatations, mental health, musculoskeletal)? @ -[Differential Abdominal Pain Women: Appendicitis, Cholecystitis, diverticulosis, ischemic bowel, pancreatitis, hepatitis, UTI, gastroenteritis, AAA, incarcerated hernia, bowel obstruction, constipation, inflammatory bowel, hepatitis, peptic ulcer disease, splenic infarction, perforated viscus, vulvitis, ovarian torsion, PID, kidney stone, placenta abruption, this is not meant to be an all-inclusive list EKG interpreted by me (3pts min.). @ -[None X-rays interpreted by me (1pt min.). @ -[X-ray KUB shows proper placement of NG tube X-ray chest shows NG tube placement CT interpreted by me (1pt min.). @ -CT abdomen and pelvis without contrast showing evidence of mid to distal small bowel obstruction U/S interpreted by me (1pt. min.). @ -None done What testing was considered but not performed or refused? (CT, X-rays, U/S, labs)? Why? @ -None What meds were considered but not given or refused? Why? @ -None Did you discuss the management of the patient with other professionals (professionals i.e. , PA, DRAPERY HEAD FORMER, lab, RT, psych nurse, transition social worker, certified art therapist, teacher, correctional officer sergeant, returned case inspector)? Give summary @ -Dr. Babcock for admission secondary to small bowel obstruction with consult to surgery Was smoking cessation discussed for >3mins.? @ -No Was critical care preformed (if so, how long)? @ -No Were there social determinants of health that impacted care today? How? (Homelessness, low income, unemployed, alcoholism, drug addiction, transportation, low edu. Level, literacy, decrease access to med. care, custodial, rehab)? @ -No Was there de-escalation of care discussed even if they declined (Discuss DNR or withdrawal of care, Hospice)? DNR status @ -No What co-morbidities impacted this encounter? (DM, HTN, Smoking, COPD, CAD, Cancer, CVA, ARF, Chemo, Hep., AIDS, mental health diagnosis, sleep apnea, morbid obesity)? @ -Prior abdominal surgeries Was patient admitted / discharged? Hospital course, mention meds given and route, prescriptions, significant lab abnormalities, going to OR and other pertinent info. @ -Admitted patient's found to have small bowel obstruction, patient did have NG tube placed. Patient will be admitted for further treatment, management Undiagnosed new problem with uncertain prognosis? @ -No Drug Therapy requiring intensive monitoring for toxicity (Heparin, Nitro, Insulin, Cardizem)? @ -No Were any procedures done? @ -No Diagnosis/symptom? @ -Small bowel obstruction Acute, or Chronic, or Acute on Chronic? @ -Acute Uncomplicated (without systemic symptoms) or Complicated (systemic symptoms)? @ -complicated Side effects of treatment? @ -No Exacerbation, Progression, or Severe Exacerbation? @ -No Poses a threat to life or bodily function? How? (Chest pain, [place], [place], pneumonia, PE, COPD, DKA, ARF, appy, cholecystitis, CVA, Diverticulitis, Homicidal, Suicidal, threat to staff... and all critical care pts) @ -yes possible surgical risk - Lab Data Result diagrams: 05/14/23 07:25 05/14/23 07:25 Lab Results 05/14/23 05/14/23 05/14/23 Range/Units 07:25 07:25 07:25 WBC 7.7 (3.8-10.6) k/uL RBC 3.68 L (3.80-5.40) m/uL Hgb 10.8 L (11.4-16.0) gm/dL Hct 33.7 L (34.0-46.0) % MCV 91.7 (80.0-100.0) fL MCH 29.4 (25.0-35.0) pg MCHC 32.0 (31.0-37.0) g/dL RDW 13.3 (11.5-15.5) % Plt Count 260 (150-450) k/uL MPV 7.5 Neutrophils % 87 % Lymphocytes % 8 % Monocytes % 4 % Eosinophils % 1 % Basophils % 0 % Neutrophils # 6.7 (1.3-7.7) k/uL Lymphocytes # 0.6 L (1.0-4.8) k/uL Monocytes # 0.3 (0-1.0) k/uL Eosinophils # 0.1 (0-0.7) k/uL Basophils # 0.0 (0-0.2) k/uL Sodium 131 L (137-145) mmol/L Potassium 4.3 (3.5-5.1) mmol/L Chloride 98 (98-107) mmol/L Carbon Dioxide 22 (22-30) mmol/L Anion Gap 11 mmol/L BUN 20 H (7-17) mg/dL Creatinine 1.33 H (0.52-1.04) mg/dL Est GFR (CKD-EPI)AfAm 47 (>60 ml/min/1.73 sqM) Est GFR (CKD-EPI)NonAf 41 (>60 ml/min/1.73 sqM) Glucose 196 H (74-99) mg/dL Plasma Lactic Acid Ja (0.7-2.0) mmol/L Calcium 9.5 (8.4-10.2) mg/dL Total Bilirubin 0.4 (0.2-1.3) mg/dL AST 19 (14-36) U/L ALT 14 (4-34) U/L Alkaline Phosphatase 93 (38-126) U/L Total Protein 6.2 L (6.3-8.2) g/dL Albumin 3.9 (3.5-5.0) g/dL Amylase 58 (30-110) U/L Lipase 112 (23-300) U/L Urine Color Colorless Urine Appearance Clear (Clear) Urine pH 6.5 (5.0-8.0) Ur Specific [place] 1.015 (1.001-1.035) Urine Protein Negative (Negative) Urine Glucose (UA) Negative (Negative) Urine Ketones Negative (Negative) Urine Blood Negative (Negative) Urine Nitrite Negative (Negative) Urine Bilirubin Negative (Negative) Urine Urobilinogen <2.0 (<2.0) mg/dL Ur Leukocyte Esterase Negative (Negative) 05/14/23 Range/Units 07:25 WBC (3.8-10.6) k/uL RBC (3.80-5.40) m/uL Hgb (11.4-16.0) gm/dL Hct (34.0-46.0) % MCV (80.0-100.0) fL MCH (25.0-35.0) pg MCHC (31.0-37.0) g/dL RDW (11.5-15.5) % Plt Count (150-450) k/uL MPV Neutrophils % % Lymphocytes % % Monocytes % % Eosinophils % % Basophils % % Neutrophils # (1.3-7.7) k/uL Lymphocytes # (1.0-4.8) k/uL Monocytes # (0-1.0) k/uL Eosinophils # (0-0.7) k/uL Basophils # (0-0.2) k/uL Sodium (137-145) mmol/L Potassium (3.5-5.1) mmol/L Chloride (98-107) mmol/L Carbon Dioxide (22-30) mmol/L Anion Gap mmol/L BUN (7-17) mg/dL Creatinine (0.52-1.04) mg/dL Est GFR (CKD-EPI)AfAm (>60 ml/min/1.73 sqM) Est GFR (CKD-EPI)NonAf (>60 ml/min/1.73 sqM) Glucose (74-99) mg/dL Plasma Lactic Acid Ja 0.8 (0.7-2.0) mmol/L Calcium (8.4-10.2) mg/dL Total Bilirubin (0.2-1.3) mg/dL AST (14-36) U/L ALT (4-34) U/L Alkaline Phosphatase (38-126) U/L Total Protein (6.3-8.2) g/dL Albumin (3.5-5.0) g/dL Amylase (30-110) U/L Lipase (23-300) U/L Urine Color Urine Appearance (Clear) Urine pH (5.0-8.0) Ur Specific [place] (1.001-1.035) Urine Protein (Negative) Urine Glucose (UA) (Negative) Urine Ketones (Negative) Urine Blood (Negative) Urine Nitrite (Negative) Urine Bilirubin (Negative) Urine Urobilinogen (<2.0) mg/dL Ur Leukocyte Esterase (Negative) Disposition Clinical Impression: Small bowel obstruction, Nausea & vomiting Disposition: ADMITTED IP TO THIS [facility] Condition: Fair Time of Disposition: 10:06
[2023-05-14] MEDS ORDERED: HYDROmorphone 0.5 MG/0.5 ML SYRINGE IVP STA ×2 (07:57→10:35)
[2023-05-14 08:24] LABS: ALT 14 U/L (4-34); AST 19 U/L (14-36); African American GFR (CKD) 47 (>60 ml/min/1.73 sqM); Albumin 3.9 g/dL (3.5-5.0); Alkaline Phosphatase 93 U/L (38-126); Amylase 58 U/L (30-110); Anion Gap 11 mmol/L; Blood Urea Nitrogen 20 mg/dL (7-17); Calcium 9.5 mg/dL (8.4-10.2); Carbon Dioxide 22 mmol/L (22-30); Chloride 98 mmol/L (98-107); Glucose 196 mg/dL (74-99); Lipase 112 U/L (23-300); Non-African American GFR(CKD) 41 (>60 ml/min/1.73 sqM); Potassium 4.3 mmol/L (3.5-5.1); Sodium 131 mmol/L (137-145); Total Bilirubin 0.4 mg/dL (0.2-1.3); Total Protein 6.2 g/dL (6.3-8.2)
[2023-05-14 10:14] LABS: Appearance,Urine Clear (Clear); Bilirubin,Urine Negative (Negative); Blood,Urine Negative (Negative); Color,Urine Colorless; Glucose,Urine (UA) Negative (Negative); Ketones,Urine Negative (Negative); Leukocyte Esterase,Urine Negative (Negative); Nitrite,Urine Negative (Negative); PH, Urine 6.5 (5.0-8.0); Protein,Urine Negative (Negative); Specific Gravity,Urine 1.015 (1.001-1.035); Urobilinogen,Urine <2.0 mg/dL (<2.0)
--- NOTE | 2023-05-14 10:30 | CT ---
EXAMINATION TYPE: CT abdomen pelvis wo con CT DLP: 1211.2 mGycm, Automated exposure control for dose reduction was used. DATE OF EXAM: 05/14/2023 8:54 AM COMPARISON: CT abdomen pelvis without contrast 08/22/2022 CLINICAL INDICATION:Female, 72 years old with history of abdominal pain; Abdominal pain, hx liver tra nsplant in 2019 TECHNIQUE: Axial CT of the abdomen and pelvis without contrast. Sagittal and coronal reformats were created on a separate workstation. Contrast used: mL of , (none if empty) Oral contrast used: without Oral Contrast (none if empty) FINDINGS: Exam is limited without contrast. LOWER CHEST: Heart is mildly enlarged without pericardial effusion. Partially seen mitral valve regio n calcifications. Mild subsegmental atelectasis in the lung bases. ABDOMEN LIVER AND BILIARY: Liver parenchyma is grossly unremarkable. There are surgical clips seen which coul d be from liver transplant. The gallbladder is not clearly identified. The overall appearance is danielle lar to the prior study. No biliary dilatation is seen. PANCREAS: Fatty infiltrated without acute finding. SPLEEN: Unremarkable. ADRENAL GLANDS: Mildly thickened, may be seen with hyperplasia.. KIDNEYS AND URETERS: No evidence of renal calculi or contour deformity. No hydronephrosis. Mild bilat eral perinephric stranding. PELVIS Assessment is limited by beam hardening artifact from left hip arthroplasty. BLADDER: Unremarkable REPRODUCTIVE: The uterus appears absent, correlate for hysterectomy. Ovaries are not confidently manuel ntified. No suggestion of adnexal mass. Pelvic phleboliths. ABDOMEN & PELVIS STOMACH AND BOWEL: Limited assessment without IV or oral contrast. There could be a small sliding hiatal hernia. Stomach is nondistended. Duodenal sweep is unremarkable. Proximal to mid small bowel is nondistended. In the anterior pelvic wall there is moderate to large size lobulated hernia which contains fat and h erniated bowel loops. Some loops have air-fluid levels and are mildly distended up to 3.1 cm. Dilated segment of bowel which appears to be proximal to the hernia is dilated and fluid-filled measuring up to 4.5 cm transverse. This leads to previously described persistent abnormally dilated bowel loop at site of sutures which was in the right lower quadrant and now appears just left of midline and there appears to be some narrowing/beaking of the small bowel lumen leading into this area with a slightly swirled appearance; a volvulus type picture or adhesions are possibilities. The distal ileum appears decompressed The right colon again appears high riding with the cecum located near the mid abdominal level. Normal appendix is again seen axial image 61. Several colonic diverticula are present without evidence of diverticulitis. Mild stool in the proximal colon with less distally. PERITONEUM/RETROPERITONEUM: No evidence of pneumoperitoneum or free fluid. VASCULATURE: Mild atherosclerotic calcifications are present throughout the abdominal aorta and its b ranches. Mildly tortuous aorta without evidence of aortic aneurysm. LYMPH NODES: No gross evidence for lymphadenopathy. SOFT TISSUE/ABDOMINAL WALL: Ventral midline scarring in the abdomen with scarring/postoperative jeffery es in the right anterior abdomen. Farther inferiorly in the anterior pelvic wall is lobulated hernia containing bowel loops, as described above. MUSCULOSKELETAL: Left total hip arthroplasty in place. Severe right hip osteoarthritis. Moderate mult ilevel degenerative changes of the imaged spine. Slight superior endplate depressions at multiple le vels are judged likely chronic. No clearly acute bony abnormality. IMPRESSION: * High-grade mid to distal small bowel obstruction, as described. * A moderate to large lobulated hernia in the anterior pelvic wall containing herniated bowel loops is at least contributory. * Previous persistent abnormally dilated bowel loop at site of sutures which was in the right lower quadrant bowel appears just left of midline and there seems to be some narrowing/beaking of the small bowel lumen leading into this area with a slightly swirled appearance; a volvulus type picture or ad hesions are possibilities.
[2023-05-14] MEDS ORDERED: HYDROmorphone 0.5 MG/0.5 ML SYRINGE IVP PRN (10:36)
[2023-05-14] MEDS ORDERED: NALOXONE 0.4 MG/ML 1 ML VIAL IV PRN (10:36)
[2023-05-14] MEDS: ONDANSETRON 4 MG/2 ML VIAL IVP PRN ×2 (11:08→17:51)
[2023-05-14] MEDS: SODIUM CHLORIDE 0.9% 1,000 ML IV SCH ×2 (11:09→18:55)
[2023-05-14 11:32] LABS: Glucose,Whole Blood 145 mg/dL (70-110)
--- NOTE | 2023-05-14 12:43 | XR ---
EXAMINATION TYPE: XR abdomen 1V DATE OF EXAM: 05/14/2023 Comparison: 02/17/2022 Clinical History: 72-year-old female NG Tube Placement Findings: Heart mildly enlarged. NG tube courses below the diaphragm. No evidence for free intraperitoneal air. Large region body habitus and underpenetration limits assessment of the bowel gas pattern. Impression: NG tube satisfactory, in place. Limited assessment of the bowel gas pattern due to portable technique , underpenetration, and centering of the exam at the thoracoabdominal junction.
[2023-05-14] MEDS ORDERED: ALPRAZolam 0.25 MG TAB PO PRN (13:06)
[2023-05-14] MEDS ORDERED: DEXTROSE 50% SYRINGE 50 ML IVP PRN ×2 (13:11)
--- NOTE | 2023-05-14 13:14 | P.HPIM ---
History of Present Illness H&P Date: 05/14/23 Chief Complaint: Abdominal pain This is a 72-year-old female patient who presented with concerns of abdominal pain and nausea since 2 AM this morning. Patient reports symptoms are similar to previous episodes of obstructions. Patient has a past medical history of diabetes mellitus, hypertension, renal disease, liver cancer with transplant, previous bowel resections, cholecystectomy, anxiety and panic disorder. CT of abdomen and pelvis completed showing high-grade mid to distal small bowel obstruction moderate to large will be lobulated hernia in the anterior pelvic wall containing herniated bowel loops. Previous persistent abnormally dilated bowel loops at site of sutures which was in the right lower quadrant bowel appears suspected midline and there is some narrowing of the small bowel lumen. At this time patient will be admitted. Surgical services have been consulted NG tube has been placed. White blood cell 7.7, hemoglobin 10.8, creatinine 1.33 bun 20. UA negative. Current vital signs temp 98.8, heart rate 82, respiratory rate 18, blood pressure 133/67 with a pulse ox of 98% on room air Review of Systems Please refer to HPI otherwise unremarkable Past Medical History Past Medical History: Cancer, Diabetes Mellitus, Hypertension, Renal Disease Additional Past Medical History / Comment(s): past hx migraines, varicose veins, heart murmur, liver cancer in past, stage 2 kidney disease, goiter, abdominal hernia and adhesions History of Any Multi-Drug Resistant Organisms: None Reported Past Surgical History: Bowel Resection, Section, Cholecystectomy, Hernia Repair, Hysterectomy, Joint Replacement, Orthopedic Surgery, Tubal Ligation Additional Past Surgical History / Comment(s): sergey knees replacement, ORIF left ankle, left achilles repair, lt wrist surg to remove cyst. 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, bowel resection x3 Past Anesthesia/Blood Transfusion Reactions: No Reported Reaction Additional Past Anesthesia/Blood Transfusion Reaction / Comment(s): denies PONV Past Psychological History: Anxiety, Panic Disorder Smoking Status: Former smoker Past Alcohol Use History: None Reported Past Drug Use History: None Reported - Past Family History Mother Family Medical History: Dementia, Hypertension Sister(s) Family Medical History: Cancer Additional Family Medical History / Comment(s): breast Medications and Allergies Home Medications Medication Instructions Recorded Confirmed Type ALPRAZolam [Xanax] 0.25 mg PO TID PRN 01/22/17 05/14/23 History lisinopriL [Prinivil] 10 mg PO BID 12/21/18 05/14/23 History Fluticasone Nasal [place] [Flonase 1 - 2 spray EA NOSTRIL DAILY PRN 03/27/19 05/14/23 History Nasal [place]] Albuterol Sulfate [Ventolin HFA] 1 - 2 puff INHALATION RT-Q4H PRN 02/25/20 05/14/23 History Atorvastatin [Lipitor] 40 mg PO HS 12/14/20 05/14/23 History Ferrous Sulfate [Iron (65 MG 325 mg PO DAILY 12/14/20 05/14/23 History Elemental)] Insulin Aspart [NovoLOG Flexpen] 2 units PO AC-BRKFST 12/14/20 05/14/23 History Insulin Aspart [NovoLOG Flexpen] 4 units SQ AC-BID@1200,1800 12/14/20 05/14/23 History mycophenolate mofetiL [Cellcept] 250 mg PO DAILY@0900 12/14/20 05/14/23 History mycophenolate mofetiL [Cellcept] 500 mg PO BID@0900,2100 12/14/20 05/14/23 History Cetirizine HCl [Zyrtec] 10 mg PO DAILY 08/21/22 05/14/23 History Furosemide [Lasix] 20 mg PO BID 08/21/22 05/14/23 History Tacrolimus [Prograf] 2 mg PO HS 08/21/22 05/14/23 History Tacrolimus [Prograf] 3 mg PO DAILY 08/21/22 05/14/23 History Insulin Glargine,Hum.rec.anlog 8 units SQ HS 12/20/22 05/14/23 History [Lantus Solostar Pen] Magnesium Oxide [Mag-Ox] 1,600 tab PO BID 12/20/22 05/14/23 History Insulin Aspart [NovoLOG Flexpen] See Protocol SQ AC-TID PRN 02/08/23 05/14/23 History Multivitamins, Thera [Multivitamin 1 tab PO DAILY 05/14/23 05/14/23 History (formulary)] Allergies Allergy/AdvReac Type Severity Reaction Status Date / Time adhesive tape Allergy Rash/Hives Verified 05/14/23 12:28 ciprofloxacin [From Cipro] Allergy Dyspnea Verified 05/14/23 12:28 ciprofloxacin HCl Allergy Dyspnea Verified 05/14/23 12:28 [From Cipro] Penicillins Allergy Rash/Hives Verified 05/14/23 12:28 Sulfa (Sulfonamide Allergy Rash/Hives Verified 05/14/23 12:28 Antibiotics) sulfamethoxazole Allergy Rash/Hives Verified 05/14/23 12:28 [From Bactrim] trimethoprim [From Bactrim] Allergy Rash/Hives Verified 05/14/23 12:28 morphine AdvReac Vomiting Verified 05/14/23 12:28 Physical Exam Vitals: Vital Signs Temp Pulse Resp BP Pulse Ox 05/14/23 07:04 98.8 F 82 18 133/67 98 Intake and Output 05/13/23 05/14/23 05/14/23 22:59 06:59 14:59 Other: Weight 118.841 kg Head normocephalic Neck supple Lungs clear to auscultation bilaterally no wheezing or crackles Heart regular rate and rhythm S1-S2, no rub or gallop Abdomen is soft tender to palpation Extremities no edema Neuro alert and orientated to 3 Results CBC & Chem 7: 05/14/23 07:25 05/14/23 07:25 Labs: Abnormal Lab Results - Last 24 Hours (Table) 05/14/23 05/14/23 05/14/23 Range/Units 07:25 07:25 11:31 RBC 3.68 L (3.80-5.40) m/uL Hgb 10.8 L (11.4-16.0) gm/dL Hct 33.7 L (34.0-46.0) % Lymphocytes # 0.6 L (1.0-4.8) k/uL Sodium 131 L (137-145) mmol/L BUN 20 H (7-17) mg/dL Creatinine 1.33 H (0.52-1.04) mg/dL Glucose 196 H (74-99) mg/dL POC Glucose (mg/dL) 145 H (70-110) mg/dL Total Protein 6.2 L (6.3-8.2) g/dL Assessment and Plan Assessment: 1. Abdominal pain with nausea secondary to small bowel obstruction 2. Small bowel obstruction. Surgical services consulted NG tube placed 3. History of liver transplant due to liver cancer 4. History of essential hypertension 5. History of chronic kidney disease stage II 6. History of previous small bowel sections with previous resections 8. History of diabetes mellitus DVT prophylaxis SCDs. GI prophylaxis Protonix Surgical service is consulted NG tube placed Repeat labs ordered Time with Patient: Greater than 30 (Greater than 60% of the total time spent in counseling and coordination of care)
[2023-05-14] MEDS: HYDROmorphone 1 MG/ML 1 ML SYRINGE IVP PRN ×3 (13:33→20:58)
--- NOTE | 2023-05-14 14:41 | P.GSCN ---
History of Present Illness Consult date: 05/14/23 History of present illness: CHIEF COMPLAINT: Abdominal pain HISTORY OF PRESENT ILLNESS: This is a 72-year-old female with history of multiple abdominal surgeries and prior history of liver transplant for liver cancer. Patient presents to the hospital with complaints of pain across the upper abdomen with nausea that started at 2 AM this morning. Patient reports yesterday she was not feeling well but as the day progressed her pain did increase. The pain became very severe around 2 AM and she proceeded to the ER for evaluation. Patient did have an episode of diarrhea yesterday but since then has had no bowel movements or flatus. She had a computed tomography scan abdomen and pelvis that reports a high-grade mid to distal small bowel obstruction. Moderate to large lobulated hernia in the anterior pelvic wall containing herniated bowel loops is at least contributory. Previous persistent abnormality dilated bowel loop at site of sutures which was in the right lower quadrant bowel appears just left of midline and there seems to be some narrowing/breaking of the small bowel lumen leading into this area which is slightly swirled appearance. Volvulus type picture or adhesions are possibilities. Patient has NG tube in place. Patient does report prior history of bowel obstructions. She did have a high-grade small bowel shocks in 2019 with a small bowel resection and lysis of adhesions. In August 2022 she had a partial small bowel obstruction that was managed conservatively. Patient also reports in February 2023 she had a bowel obstruction treated conservatively. Other past surgical history does include liver transparent, , cholecystectomy, hysterectomy, umbilical hernia repair and a total of 2 bowel resections. Patient denies any blood thinners. PAST MEDICAL HISTORY: See below PAST SURGICAL HISTORY: See below MEDICATIONS: See below ALLERGIES: See below SOCIAL HISTORY: No illicit drug use. REVIEW OF SYSTEMS: CONSTITUTIONAL: Denies fever or chills. HEENT: Denies blurred vision, vision changes, or eye pain. Denies hemoptysis CARDIOVASCULAR: Denies chest pain or pressure. RESPIRATORY: No shortness of breath. GASTROINTESTINAL: See HPI for pertinent findings HEMATOLOGIC: Denies bleeding disorders. GENITOURINARY: Denies any blood in urine or increased urinary frequency. SKIN: Denies pruitis. Denies rash. PHYSICAL EXAM: VITAL SIGNS: Reviewed GENERAL: Well-developed in no acute distress. HEENT: No sclera icterus. Extraocular movements grossly intact. Moist buccal mucosa. Head is atraumatic, normocephalic. No nasal drainage. ABDOMEN: Soft. Obese. Nondistended. Tenderness with palpation across the upper abdomen above the umbilicus. Ventral hernia is reducible. NEUROLOGIC: Alert and oriented. Cranial nerves II through XII grossly intact. LABORATORY DATA: WBC 7.7 HGB 10.8 plt 260 Na 131 K 4.3 cr 1.33 IMAGING: Computed tomography scan abdomen is still above Abdominal x-ray NG tube satisfactory position. ASSESSMENT: 1. High-grade mid to distal small bowel obstruction 2. Moderate to large lobulated hernia anterior pelvic wall containing herniated bowel loops noted on CT 3. Multiple abdominal surgeries 4. History of liver cancer status post liver transplant in April 2020 5. History of bowel obstructions requiring surgical intervention as well as treated conservatively PLAN: -Further recommendations forthcoming per surgeon -Continue NG tube for decompression -Keep patient nothing by mouth -Continue IV fluids -Continue pain management -Continue antiemetics Physician Farm[employer] note has been reviewed by physician. Signing provider agrees with the documented findings, assessment, and plan of care. Past Medical History Past Medical History: Cancer, Diabetes Mellitus, Hypertension, Renal Disease Additional Past Medical History / Comment(s): past hx migraines, varicose veins, heart murmur, liver cancer in past, stage 2 kidney disease, goiter, abdominal hernia and adhesions History of Any Multi-Drug Resistant Organisms: None Reported Past Surgical History: Bowel Resection, Section, Cholecystectomy, Hernia Repair, Hysterectomy, Joint Replacement, Orthopedic Surgery, Tubal Ligation Additional Past Surgical History / Comment(s): sergey knees replacement, ORIF left ankle, left achilles repair, lt wrist surg to remove cyst. 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, bowel resection x3 Past Anesthesia/Blood Transfusion Reactions: No Reported Reaction Additional Past Anesthesia/Blood Transfusion Reaction / Comm: denies PONV Past Psychological History: Anxiety, Panic Disorder Smoking Status: Former smoker Past Alcohol Use History: None Reported Past Drug Use History: None Reported - Past Family History Mother Family Medical History: Dementia, Hypertension Sister(s) Family Medical History: Cancer Additional Family Medical History / Comment(s): breast Medications and Allergies Home Medications Medication Instructions Recorded Confirmed Type ALPRAZolam [Xanax] 0.25 mg PO TID PRN 01/22/17 05/14/23 History lisinopriL [Prinivil] 10 mg PO BID 12/21/18 05/14/23 History Fluticasone Nasal [place] [Flonase 1 - 2 spray EA NOSTRIL DAILY PRN 03/27/19 05/14/23 History Nasal [place]] Albuterol Sulfate [Ventolin HFA] 1 - 2 puff INHALATION RT-Q4H PRN 02/25/20 05/14/23 History Atorvastatin [Lipitor] 40 mg PO HS 12/14/20 05/14/23 History Ferrous Sulfate [Iron (65 MG 325 mg PO DAILY 12/14/20 05/14/23 History Elemental)] Insulin Aspart [NovoLOG Flexpen] 2 units PO AC-BRKFST 12/14/20 05/14/23 History Insulin Aspart [NovoLOG Flexpen] 4 units SQ AC-BID@1200,1800 12/14/20 05/14/23 History mycophenolate mofetiL [Cellcept] 250 mg PO DAILY@0900 12/14/20 05/14/23 History mycophenolate mofetiL [Cellcept] 500 mg PO BID@0900,2100 12/14/20 05/14/23 History Cetirizine HCl [Zyrtec] 10 mg PO DAILY 08/21/22 05/14/23 History Furosemide [Lasix] 20 mg PO BID 08/21/22 05/14/23 History Tacrolimus [Prograf] 2 mg PO HS 08/21/22 05/14/23 History Tacrolimus [Prograf] 3 mg PO DAILY 08/21/22 05/14/23 History Insulin Glargine,Hum.rec.anlog 8 units SQ HS 12/20/22 05/14/23 History [Lantus Solostar Pen] Magnesium Oxide [Mag-Ox] 1,600 tab PO BID 12/20/22 05/14/23 History Insulin Aspart [NovoLOG Flexpen] See Protocol SQ AC-TID PRN 02/08/23 05/14/23 History Multivitamins, Thera [Multivitamin 1 tab PO DAILY 05/14/23 05/14/23 History (formulary)] Allergies Allergy/AdvReac Type Severity Reaction Status Date / Time adhesive tape Allergy Rash/Hives Verified 05/14/23 12:28 ciprofloxacin [From Cipro] Allergy Dyspnea Verified 05/14/23 12:28 ciprofloxacin HCl Allergy Dyspnea Verified 05/14/23 12:28 [From Cipro] Penicillins Allergy Rash/Hives Verified 05/14/23 12:28 Sulfa (Sulfonamide Allergy Rash/Hives Verified 05/14/23 12:28 Antibiotics) sulfamethoxazole Allergy Rash/Hives Verified 05/14/23 12:28 [From Bactrim] trimethoprim [From Bactrim] Allergy Rash/Hives Verified 05/14/23 12:28 morphine AdvReac Vomiting Verified 05/14/23 12:28 Surgical - Exam Vital Signs Temp Pulse Resp BP Pulse Ox 98.8 F 82 18 133/67 98 05/14/23 07:04 05/14/23 07:04 05/14/23 07:04 05/14/23 07:04 05/14/23 07:04 Results - Labs 05/14/23 07:25 05/14/23 07:25 Abnormal Lab Results - Last 24 Hours (Table) 05/14/23 05/14/23 05/14/23 Range/Units 07:25 07:25 11:31 RBC 3.68 L (3.80-5.40) m/uL Hgb 10.8 L (11.4-16.0) gm/dL Hct 33.7 L (34.0-46.0) % Lymphocytes # 0.6 L (1.0-4.8) k/uL Sodium 131 L (137-145) mmol/L BUN 20 H (7-17) mg/dL Creatinine 1.33 H (0.52-1.04) mg/dL Glucose 196 H (74-99) mg/dL POC Glucose (mg/dL) 145 H (70-110) mg/dL Total Protein 6.2 L (6.3-8.2) g/dL Diabetes panel 05/14/23 Range/Units 07:25 Sodium 131 L (137-145) mmol/L Potassium 4.3 (3.5-5.1) mmol/L Chloride 98 (98-107) mmol/L Carbon Dioxide 22 (22-30) mmol/L BUN 20 H (7-17) mg/dL Creatinine 1.33 H (0.52-1.04) mg/dL Glucose 196 H (74-99) mg/dL Calcium 9.5 (8.4-10.2) mg/dL AST 19 (14-36) U/L ALT 14 (4-34) U/L Alkaline Phosphatase 93 (38-126) U/L Total Protein 6.2 L (6.3-8.2) g/dL Albumin 3.9 (3.5-5.0) g/dL Calcium panel 05/14/23 Range/Units 07:25 Calcium 9.5 (8.4-10.2) mg/dL Albumin 3.9 (3.5-5.0) g/dL Pituitary panel 05/14/23 Range/Units 07:25 Sodium 131 L (137-145) mmol/L Potassium 4.3 (3.5-5.1) mmol/L Chloride 98 (98-107) mmol/L Carbon Dioxide 22 (22-30) mmol/L BUN 20 H (7-17) mg/dL Creatinine 1.33 H (0.52-1.04) mg/dL Glucose 196 H (74-99) mg/dL Calcium 9.5 (8.4-10.2) mg/dL Adrenal panel 05/14/23 Range/Units 07:25 Sodium 131 L (137-145) mmol/L Potassium 4.3 (3.5-5.1) mmol/L Chloride 98 (98-107) mmol/L Carbon Dioxide 22 (22-30) mmol/L BUN 20 H (7-17) mg/dL Creatinine 1.33 H (0.52-1.04) mg/dL Glucose 196 H (74-99) mg/dL Calcium 9.5 (8.4-10.2) mg/dL Total Bilirubin 0.4 (0.2-1.3) mg/dL AST 19 (14-36) U/L ALT 14 (4-34) U/L Alkaline Phosphatase 93 (38-126) U/L Total Protein 6.2 L (6.3-8.2) g/dL Albumin 3.9 (3.5-5.0) g/dL
[2023-05-14] MEDS: INSULIN ASPART (NovoLOG) 100 UNIT/ML VIAL SQ SCH ×2 (18:53→20:58)
[2023-05-14 20:01] LABS: Glucose,Whole Blood 173 mg/dL (70-110)
[2023-05-14] MEDS ORDERED: TACROLIMUS 1 MG CAP PO SCH (21:00)
[2023-05-15] MEDS: HYDROmorphone 1 MG/ML 1 ML SYRINGE IVP PRN ×5 (02:15→16:36)
[2023-05-15] MEDS: SODIUM CHLORIDE 0.9% 1,000 ML IV SCH ×2 (04:47→13:43)
[2023-05-15] MEDS: ONDANSETRON 4 MG/2 ML VIAL IVP PRN ×2 (05:20→13:16)
[2023-05-15 06:58] LABS: Glucose,Whole Blood 207 mg/dL (70-110)
[2023-05-15 07:38] VITALS: RESP 16
[2023-05-15] MEDS: INSULIN ASPART (NovoLOG) 100 UNIT/ML VIAL SQ SCH ×2 (08:44→12:41)
[2023-05-15] MEDS ORDERED: PANTOPRAZOLE 40 MG/10 ML VIAL IV SCH (09:00)
[2023-05-15] MEDS ORDERED: TACROLIMUS 1 MG CAP PO SCH (09:00)
[2023-05-15 09:14] LABS: HCT 37.5 % (37.2-46.3); HGB 11.9 g/dL (12.0-15.0); MCH 29.5 pg (27.0-32.0); MCHC 31.7 g/dL (32.0-37.0); MCV 92.8 FL (80.0-97.0); Mean Platelet Volume 10.3 FL (9.5-12.2); NRBC Per 100 WBC 0 X 10*3/uL (0.00-0.01); Platelet Count 318 X 10*3/uL (140-440); RBC 4.04 X 10*6/uL (4.10-5.20); RDW 13.3 % (11.5-14.5); WBC 26.15 X 10*3/uL (4.50-10.00)
[2023-05-15 09:56] LABS: Basophils # (A) 0.04 X 10*3/uL (0.00-0.10); Basophils % (A) 0.2 %; Crenated RBC 2+; Elliptocytes 2+; Eosinophils # (A) 0 X 10*3/uL (0.04-0.35); Eosinophils % (A) 0 %; Lymphocytes # (A) 0.32 X 10*3/uL (0.90-5.00); Lymphocytes % (A) 1.2 %; Monocytes # (A) 1.95 X 10*3/uL (0.20-1.00); Monocytes % (A) 7.5 %; Neutrophils # (A) 23.72 X 10*3/uL (1.80-7.70); Neutrophils % (A) 90.6 %
--- NOTE | 2023-05-15 11:06 | P.PN ---
Subjective Progress Note Date: 05/15/23 CHIEF COMPLAINT: Small bowel obstruction HISTORY OF PRESENT ILLNESS: Patient continues to have abdominal pain. Has minimal output through the NG tube. Computed tomography scan showed evidence of high-grade's all traction. Still no bowel activity. Patient has had 2 prior bowel resections at [facility] as well as the liver transplant completed at [facility]. She was recently seen by her transplant team in 04/07/2023. Afebrile. WBC is up from 7.7 to 26.15 Hgb 11.9 platelets 318 PHYSICAL EXAM: VITAL SIGNS: Reviewed GENERAL: Well-developed in no acute distress. HEENT: No sclera icterus. Extraocular movements grossly intact. Moist buccal mucosa. Head is atraumatic, normocephalic. Hears conversational speech. No nasal drainage. NECK: Supple without lymphadenopathy. CHEST: Non-labored respirations and equal bilateral excursions. CARDIOVASCULAR: Palpable 2+ radial pulses. ABDOMEN: Soft. obese. Nondistended. Tenderness with palpation across the upper abdomen above the umbilicus. Ventral hernia is reducible. MUSCULOSKELETAL: No clubbing or cyanosis. NEUROLOGIC: No focal or lateralizing signs. Cranial nerves II through XII grossly intact. PSYCH: Appropriate affect. Alert and oriented to person, place and time. SKIN: Well perfused. Good skin turgor. ASSESSMENT: 1. High-grade mid to distal small bowel obstruction 2. Moderate to large lobulated hernia anterior pelvic wall containing herniated bowel loops noted on CT 3. Multiple abdominal surgeries 4. History of liver cancer status post liver transplant in April 2020 5. History of bowel obstructions requiring surgical intervention as well as treated conservatively 6. Leukocytosis PLAN: -Recommend transferring patient to [facility] where her liver transplant team is located and where she's had prior bowel resections -Continue NG tube for decompression -Keep patient nothing by mouth except for ice chips and popsicles -Continue IV fluids -Adding IV antibiotics for leukocytosis -Continue pain management Physician Winch Truck Operator note has been reviewed by physician. Signing provider agrees with the documented findings, assessment, and plan of care. Objective - Vital Signs Vital signs: Vital Signs Temp 98 F 05/15/23 06:50 Pulse 93 05/15/23 06:50 Resp 16 05/15/23 06:50 BP 148/82 05/15/23 06:50 Pulse Ox 96 05/15/23 06:50 FiO2 Intake & Output 05/14/23 05/15/23 05/15/23 18:59 06:59 18:59 Output Total 300 Balance -300 Weight 118.841 kg 118.841 kg Output: Gastric Drainage 300 Other: Voiding Method Toilet # Voids 3 - Labs CBC & Chem 7: 05/15/23 06:42 05/14/23 07:25 Labs: Abnormal Lab Results - Last 24 Hours (Table) 05/14/23 05/14/23 05/15/23 Range/Units 11:31 20:00 06:42 WBC 26.15 H (4.50-10.00) X 10*3/uL RBC 4.04 L (4.10-5.20) X 10*6/uL Hgb 11.9 L (12.0-15.0) g/dL MCHC 31.7 L (32.0-37.0) g/dL Immature Gran # 0.12 H (0.00-0.04) X 10*3/uL Neutrophils # 23.72 H (1.80-7.70) X 10*3/uL Lymphocytes # 0.32 L (0.90-5.00) X 10*3/uL Monocytes # 1.95 H (0.20-1.00) X 10*3/uL Eosinophils # 0 L (0.04-0.35) X 10*3/uL Crenated Cell 2+ A Elliptocytes 2+ A POC Glucose (mg/dL) 145 H 173 H (70-110) mg/dL 05/15/23 Range/Units 06:57 WBC (4.50-10.00) X 10*3/uL RBC (4.10-5.20) X 10*6/uL Hgb (12.0-15.0) g/dL MCHC (32.0-37.0) g/dL Immature Gran # (0.00-0.04) X 10*3/uL Neutrophils # (1.80-7.70) X 10*3/uL Lymphocytes # (0.90-5.00) X 10*3/uL Monocytes # (0.20-1.00) X 10*3/uL Eosinophils # (0.04-0.35) X 10*3/uL Crenated Cell Elliptocytes POC Glucose (mg/dL) 207 H (70-110) mg/dL
[2023-05-15 11:40] LABS: ALT 13 U/L (8-44); AST 14 U/L (13-35); Albumin 4.1 g/dL (3.8-4.9); Albumin/Globulin Ratio 2.05 Ratio (1.60-3.17); Alkaline Phosphatase 81 U/L (41-126); BUN/Creat Ratio 15.67 Ratio (12.00-20.00); Blood Urea Nitrogen 23.5 mg/dL (9.0-27.0); Calcium 9.8 mg/dL (8.7-10.3); Carbon Dioxide 19.3 mmol/L (21.6-31.8); Chloride 100 mmol/L (96-109); Glucose 218 mg/dL (70-110); Potassium 5.3 mmol/L (3.5-5.5); Sodium 132 mmol/L (135-145); Total Bilirubin 0.3 mg/dL (0.3-1.2); Total Protein 6.1 g/dL (6.2-8.2)
[2023-05-15 11:55] LABS: Glucose,Whole Blood 161 mg/dL (70-110)
[2023-05-15] MEDS ORDERED: metroNIDAZOLE-NS PMX 500 MG in SALINE 1 100ML.BAG IVPB SCH (12:00)
--- NOTE | 2023-05-15 12:48 | P.PN ---
Progress Note - Text Progress Note Date: 05/15/23 Contacted by [facility] transfer team regarding patient's case. With the patient's pre-existing immunosuppression, liver transplant, multiple abdominal surgeries and bowel obstruction, patient deemed acceptable for transfer to [facility] where recent assessment was performed.
--- NOTE | 2023-05-15 13:04 | P.PN ---
Subjective Progress Note Date: 05/15/23 Christy Machado, is a 72-year-old female patient who presented with concerns of abdominal pain and nausea since 2 AM this morning. Patient reports symptoms are similar to previous episodes of obstructions. Patient has a past medical history of diabetes mellitus, hypertension, renal disease, liver cancer with transplant, previous bowel resections, cholecystectomy, anxiety and panic disorder. CT of abdomen and pelvis completed showing high-grade mid to distal small bowel obstruction moderate to large will be lobulated hernia in the anterior pelvic wall containing herniated bowel loops. Previous persistent abnormally dilated bowel loops at site of sutures which was in the right lower quadrant bowel appears suspected midline and there is some narrowing of the small bowel lumen. At this time patient will be admitted. Surgical services have been consulted NG tube has been placed. White blood cell 7.7, hemoglobin 10.8, creatinine 1.33 bun 20. UA negative. Current vital signs temp 98.8, heart rate 82, respiratory rate 18, blood pressure 133/67 with a pulse ox of 98% on room air. On 05/15/2023 patient was seen and examined on the medical floor, she is alert and oriented 3 in no apparent distress NG tube is in she is still complaining of abdominal pain otherwise she denies any complaints there is no fever or chills no headache or dizziness no chest pain no shortness of breath no cough no nausea or vomiting no diarrhea and no blood in the stools. Temperature is 90.8 pulse 93 respiration 16 blood pressure 148/82 pulse ox 96% on room air. White blood count is 26.15 up from 7.7 yesterday. Patient was evaluated by Dr. Irvin and the recommendation was to transfer patient to [facility]. I called [facility] transfer line, I was told that Norah GIBSON has initiated the transfer already. Objective - Vital Signs Vital signs: Vital Signs Temp 98 F 05/15/23 06:50 Pulse 93 05/15/23 06:50 Resp 16 05/15/23 06:50 BP 148/82 05/15/23 06:50 Pulse Ox 96 05/15/23 06:50 FiO2 Intake & Output 05/14/23 05/15/23 05/15/23 18:59 06:59 18:59 Output Total 300 Balance -300 Weight 118.841 kg 118.841 kg Output: Gastric Drainage 300 Other: Voiding Method Toilet Toilet # Voids 3 1 - Exam Head normocephalic Neck supple Lungs clear to auscultation bilaterally no wheezing or crackles Heart regular rate and rhythm S1-S2, no rub or gallop Abdomen is soft tender to palpation Extremities no edema Neuro alert and orientated to 3 - Labs CBC & Chem 7: 05/15/23 06:42 05/15/23 06:33 Labs: Abnormal Lab Results - Last 24 Hours (Table) 05/14/23 05/15/23 05/15/23 Range/Units 20:00 06:33 06:42 WBC 26.15 H (4.50-10.00) X 10*3/uL RBC 4.04 L (4.10-5.20) X 10*6/uL Hgb 11.9 L (12.0-15.0) g/dL MCHC 31.7 L (32.0-37.0) g/dL Immature Gran # 0.12 H (0.00-0.04) X 10*3/uL Neutrophils # 23.72 H (1.80-7.70) X 10*3/uL Lymphocytes # 0.32 L (0.90-5.00) X 10*3/uL Monocytes # 1.95 H (0.20-1.00) X 10*3/uL Eosinophils # 0 L (0.04-0.35) X 10*3/uL Crenated Cell 2+ A Elliptocytes 2+ A Sodium 132 L (135-145) mmol/L Carbon Dioxide 19.3 L (21.6-31.8) mmol/L Anion Gap 12.70 H (4.00-12.00) mmol/L Est GFR (CKD-EPI) 37 L (>=60) Glucose 218 H (70-110) mg/dL POC Glucose (mg/dL) 173 H (70-110) mg/dL Total Protein 6.1 L (6.2-8.2) g/dL 05/15/23 05/15/23 Range/Units 06:57 11:54 WBC (4.50-10.00) X 10*3/uL RBC (4.10-5.20) X 10*6/uL Hgb (12.0-15.0) g/dL MCHC (32.0-37.0) g/dL Immature Gran # (0.00-0.04) X 10*3/uL Neutrophils # (1.80-7.70) X 10*3/uL Lymphocytes # (0.90-5.00) X 10*3/uL Monocytes # (0.20-1.00) X 10*3/uL Eosinophils # (0.04-0.35) X 10*3/uL Crenated Cell Elliptocytes Sodium (135-145) mmol/L Carbon Dioxide (21.6-31.8) mmol/L Anion Gap (4.00-12.00) mmol/L Est GFR (CKD-EPI) (>=60) Glucose (70-110) mg/dL POC Glucose (mg/dL) 207 H 161 H (70-110) mg/dL Total Protein (6.2-8.2) g/dL Assessment and Plan Assessment: 1. Abdominal pain with nausea secondary to small bowel obstruction 2. Small bowel obstruction. Surgical services consulted NG tube placed 3. History of liver transplant due to liver cancer 4. History of essential hypertension 5. History of chronic kidney disease stage II 6. History of previous small bowel sections with previous resections 8. History of diabetes mellitus DVT prophylaxis SCDs. GI prophylaxis Protonix Surgical service is consulted NG tube placed Repeat labs ordered
[2023-05-15 13:28] VITALS: BP 129/67; PULSE 105; TEMP 98.3
[2023-05-15] MEDS ORDERED: SODIUM CHLORIDE 0.9% 1,000 ML IV ONE (16:31)
[2023-05-15 17:31] LABS: Glucose,Whole Blood 202 mg/dL (70-110)
--- NOTE | 2023-05-15 18:23 | P.DS ---
Providers Date of admission: 05/14/23 10:33 Expected date of discharge: 05/15/23 Attending physician: Herber Babcock Consults: 05/14/23 10:36 Consult Physician Urgent Consulting Provider: Maryam Irvin Consult Reason/Comments: SBO Do you want consulting provider notified?: Yes Primary care physician: Herber Yoko [facility] Course: Diagnosis on discharge: 1. Abdominal pain with nausea secondary to small bowel obstruction 2. Small bowel obstruction. Surgical services consulted NG tube placed 3. History of liver transplant due to liver cancer 4. History of essential hypertension 5. History of chronic kidney disease stage II 6. History of previous small bowel sections with previous resections 8. History of diabetes mellitus Hospital course: Christy Machado, is a 72-year-old female patient who presented with concerns of abdominal pain and nausea since 2 AM this morning. Patient reports symptoms are similar to previous episodes of obstructions. Patient has a past medical history of diabetes mellitus, hypertension, renal disease, liver cancer with transplant, previous bowel resections, cholecystectomy, anxiety and panic disorder. CT of abdomen and pelvis completed showing high-grade mid to distal small bowel obstruction moderate to large will be lobulated hernia in the anterior pelvic wall containing herniated bowel loops. Previous persistent abnormally dilated bowel loops at site of sutures which was in the right lower quadrant bowel appears suspected midline and there is some narrowing of the small bowel lumen. At this time patient will be admitted. Surgical services have been consulted NG tube has been placed. White blood cell 7.7, hemoglobin 10.8, creatinine 1.33 bun 20. UA negative. Current vital signs temp 98.8, heart rate 82, respiratory rate 18, blood pressure 133/67 with a pulse ox of 98% on room air. On 05/15/2023 patient was seen and examined on the medical floor, she is alert and oriented 3 in no apparent distress NG tube is in she is still complaining of abdominal pain otherwise she denies any complaints there is no fever or chills no headache or dizziness no chest pain no shortness of breath no cough no nausea or vomiting no diarrhea and no blood in the stools. Temperature is 90.8 pulse 93 respiration 16 blood pressure 148/82 pulse ox 96% on room air. White blood count is 26.15 up from 7.7 yesterday. Patient was evaluated by Dr. Irvin and the recommendation was to transfer patient to [facility]. I called [facility] transfer line, I was told that Norah magaña PA has initiated the transfer already. Per recommendation of Dr. Irvin patient will be transferred to [facility] Patient Condition at Discharge: Fair Plan - Discharge Summary Discharge Rx Participant: No New Discharge Prescriptions: No Action ALPRAZolam [Xanax] 0.25 mg PO TID PRN PRN Reason: Anxiety lisinopriL [Prinivil] 10 mg PO BID Fluticasone Nasal [place] [Flonase Nasal [place]] 1 - 2 spray EA NOSTRIL DAILY PRN PRN Reason: Allergy Symptoms Albuterol Sulfate [Ventolin HFA] 1 - 2 puff INHALATION RT-Q4H PRN PRN Reason: Shortness Of Breath Insulin Aspart [NovoLOG Flexpen] 4 units SQ AC-BID@1200,1800 mycophenolate mofetiL [Cellcept] 250 mg PO DAILY@0900 Ferrous Sulfate [Iron (65 MG Elemental)] 325 mg PO DAILY Cetirizine HCl [Zyrtec] 10 mg PO DAILY Magnesium Oxide [Mag-Ox] 1,600 tab PO BID Insulin Aspart [NovoLOG Flexpen] 2 units PO AC-BRKFST mycophenolate mofetiL [Cellcept] 500 mg PO BID@0900,2100 Atorvastatin [Lipitor] 40 mg PO HS Tacrolimus [Prograf] 3 mg PO DAILY Tacrolimus [Prograf] 2 mg PO HS Furosemide [Lasix] 20 mg PO BID Insulin Glargine,Hum.rec.anlog [Lantus Solostar Pen] 8 units SQ HS Insulin Aspart [NovoLOG Flexpen] See Protocol SQ AC-TID PRN PRN Reason: high blood sugar Multivitamins, Thera [Multivitamin (formulary)] 1 tab PO DAILY Discharge Medication List ALPRAZolam [Xanax] 0.25 mg PO TID PRN 01/22/17 [History] lisinopriL [Prinivil] 10 mg PO BID 12/21/18 [History] Fluticasone Nasal [place] [Flonase Nasal [place]] 1 - 2 spray EA NOSTRIL DAILY PRN 03/27/19 [History] Albuterol Sulfate [Ventolin HFA] 1 - 2 puff INHALATION RT-Q4H PRN 02/25/20 [History] Atorvastatin [Lipitor] 40 mg PO HS 12/14/20 [History] Ferrous Sulfate [Iron (65 MG Elemental)] 325 mg PO DAILY 12/14/20 [History] Insulin Aspart [NovoLOG Flexpen] 2 units PO AC-BRKFST 12/14/20 [History] Insulin Aspart [NovoLOG Flexpen] 4 units SQ AC-BID@1200,1800 12/14/20 [History] mycophenolate mofetiL [Cellcept] 250 mg PO DAILY@0900 12/14/20 [History] mycophenolate mofetiL [Cellcept] 500 mg PO BID@0900,2100 12/14/20 [History] Cetirizine HCl [Zyrtec] 10 mg PO DAILY 08/21/22 [History] Furosemide [Lasix] 20 mg PO BID 08/21/22 [History] Tacrolimus [Prograf] 2 mg PO HS 08/21/22 [History] Tacrolimus [Prograf] 3 mg PO DAILY 08/21/22 [History] Insulin Glargine,Hum.rec.anlog [Lantus Solostar Pen] 8 units SQ HS 12/20/22 [History] Magnesium Oxide [Mag-Ox] 1,600 tab PO BID 12/20/22 [History] Insulin Aspart [NovoLOG Flexpen] See Protocol SQ AC-TID PRN 02/08/23 [History] Multivitamins, Thera [Multivitamin (formulary)] 1 tab PO DAILY 05/14/23 [History] Follow up Appointment(s)/Referral(s): Herber Babcock MD [Primary Care Provider] - 1-2 days
== END 2023-05-15 18:33 | disposition short-term general hospital (02) | DRG 389 ==
LOC: EC 07:02 → 5NMEDONC 10:33
PROVIDERS: ADMIT Internal Medicine; ATTEND Internal Medicine
PROC: 0D9670Z Drainage of Stomach with Drainage Device, Via Natural or Artificial Opening (ICD-10-PCS; principal; 2023-05-14)
DX: K56.609 Unspecified intestinal obstruction, unspecified as to partial versus complete obstruction (principal); D84.821 Immunodeficiency due to drugs; Z94.4 Liver transplant status; T50.905A Adverse effect of unspecified drugs, medicaments and biological substances, initial encounter; I12.9 Hypertensive chronic kidney disease with stage 1 through stage 4 chronic kidney disease, or unspecified chronic kidney disease; Z88.1 Allergy status to other antibiotic agents; Z91.048 Other nonmedicinal substance allergy status; N18.2 Chronic kidney disease, stage 2 (mild); E11.22 Type 2 diabetes mellitus with diabetic chronic kidney disease; Z79.4 Long term (current) use of insulin; Z79.624 Long term (current) use of inhibitors of nucleotide synthesis; Z79.899 Other long term (current) drug therapy; Z82.49 Family history of ischemic heart disease and other diseases of the circulatory system; Z85.05 Personal history of malignant neoplasm of liver; Z90.49 Acquired absence of other specified parts of digestive tract; Z90.710 Acquired absence of both cervix and uterus; Z87.19 Personal history of other diseases of the digestive system; Z96.642 Presence of left artificial hip joint; Z96.653 Presence of artificial knee joint, bilateral; Z92.3 Personal history of irradiation; Z98.51 Tubal ligation status; Z88.0 Allergy status to penicillin; X58.XXXA Exposure to other specified factors, initial encounter; F41.0 Panic disorder [episodic paroxysmal anxiety]; Z87.891 Personal history of nicotine dependence; Z88.2 Allergy status to sulfonamides; Z88.5 Allergy status to narcotic agent
CPT/HCPCS: 36415; 74018; 74176; 80053; 81003; 82150; 83036; 83605; 83690; 85025; 96361; 96374; 96375; 96376; 99285

== ENCOUNTER → 2023-07-31 | Outpatient (CLI) | payer MEDICARE, BC ==
[2023-07-31 11:39] LABS: % Iron Saturation 12.69 (12.00-45.00); ALT 10 U/L (8-44); AST 17 U/L (13-35); Albumin 3.8 g/dL (3.8-4.9); Albumin/Globulin Ratio 1.58 Ratio (1.60-3.17); Alkaline Phosphatase 83 U/L (41-126); BUN/Creat Ratio 19.86 Ratio (12.00-20.00); Bilirubin, Conjugated <0.20 mg/dL (0.20-0.40); Bilirubin,Unconjugated >0 mg/dL (0.20-1.00); Blood Urea Nitrogen 27.8 mg/dL (9.0-27.0); Calcium 9.6 mg/dL (8.7-10.3); Carbon Dioxide 22.1 mmol/L (21.6-31.8); Chloride 104 mmol/L (96-109); Globulin 2.4 g/dL (1.6-3.3); Glucose 148 mg/dL (70-110); Iron 33 UG/DL (50-170); Magnesium 1.8 mg/dL (1.5-2.4); Potassium 4.5 mmol/L (3.5-5.5); Sodium 139 mmol/L (135-145); Total Bilirubin 0.2 mg/dL (0.3-1.2); Total Iron Binding Capacity 260 UG/DL (228-460); Total Protein 6.2 g/dL (6.2-8.2)
[2023-07-31 12:14] LABS: Basophils # (A) 0.02 X 10*3/uL (0.00-0.10); Basophils % (A) 0.3 %; Eosinophils # (A) 0.23 X 10*3/uL (0.04-0.35); Eosinophils % (A) 3.1 %; HCT 28.8 % (37.2-46.3); HGB 8.6 g/dL (12.0-15.0); Lymphocytes # (A) 1.29 X 10*3/uL (0.90-5.00); Lymphocytes % (A) 17.4 %; MCH 26.6 pg (27.0-32.0); MCHC 29.9 g/dL (32.0-37.0); MCV 89.2 FL (80.0-97.0); Mean Platelet Volume 10.4 FL (9.5-12.2); Monocytes # (A) 0.63 X 10*3/uL (0.20-1.00); Monocytes % (A) 8.5 %; NRBC Per 100 WBC 0 X 10*3/uL (0.00-0.01); Neutrophils # (A) 5.22 X 10*3/uL (1.80-7.70); Neutrophils % (A) 70.4 %; Platelet Count 401 X 10*3/uL (140-440); RBC 3.23 X 10*6/uL (4.10-5.20); RDW 15.9 % (11.5-14.5); WBC 7.41 X 10*3/uL (4.50-10.00)
== END | disposition home or self-care (01) ==
LOC: LABWHC1 07:40
PROVIDERS: ATTEND Internal Medicine Gastroenterology
DX: R79.9 Abnormal finding of blood chemistry, unspecified (principal); Z94.4 Liver transplant status
CPT/HCPCS: 36415; 80048; 80076; 80197; 82465; 82728; 83540; 83550; 83735; 85025

== ENCOUNTER → 2023-08-18 | Outpatient (CLI) | payer MEDICARE, BC ==
[2023-08-18 11:17] LABS: HCT 29.8 % (37.2-46.3); HGB 9.2 g/dL (12.0-15.0); MCH 26.9 pg (27.0-32.0); MCHC 30.9 g/dL (32.0-37.0); MCV 87.1 FL (80.0-97.0); Mean Platelet Volume 10.9 FL (9.5-12.2); NRBC Per 100 WBC 0 X 10*3/uL (0.00-0.01); Platelet Count 338 X 10*3/uL (140-440); RBC 3.42 X 10*6/uL (4.10-5.20); RDW 15.9 % (11.5-14.5)
[2023-08-18 11:43] LABS: ALT 8 U/L (8-44); AST 11 U/L (13-35); T4, Free (Free Thyroxine) 1.82 ng/dL (0.80-1.80)
== END | disposition home or self-care (01) ==
LOC: LABWHC1 07:55
PROVIDERS: ATTEND Internal Medicine
DX: E05.90 Thyrotoxicosis, unspecified without thyrotoxic crisis or storm (principal)
CPT/HCPCS: 36415; 84439; 84443; 84450; 84460; 84481; 85027

== ENCOUNTER → 2023-08-20 | Outpatient (CLI) | payer MEDICARE, BC ==
--- NOTE | 2023-08-20 11:52 | P.PN ---
Subjective DATE: 08/20/2023 FOLLOW UP VISIT. Patient with obstructive sleep apnea hypopnea syndrome return to sleep center for follow-up visit. Information from previous visit have been reviewed. Patient is using PAP equipment every night for the whole night, getting PAP supplies in time. The patient does not have significant problems with the mask, PAP unit and humidification. [place] sleepiness scale is 0. I checked information from PAP unit. PAP unit pressure 5-11, average 6.8 cm H2O. Usage is 100% for more then 4 hours, average 9 hours per night. Leak is 12.2 l/m, which is in acceptable range. Apnea Hypopnea Index is 0.2, which is normal. MEDICATIONS:1. Metoprolol 25 mg once a day 2. Albuterol 3. Atorvastatin 40 mg once a day 4. Cetirizine 10 mg once a day 5. Ferrous sulfate 325 mg once a day During physical exam: GENERAL: A pleasant patient without any distress. VITAL SIGNS: Please see below. HEENT: PERRLA, EOMI.low position of soft palate, Mallapati 4 . NECK: Supple. No JVD. LUNGS: Clear to percussion and to auscultation. Good air exchange. No wheezing or rhonchi. HEART: S1, S2 regular. ABDOMEN: Soft and nontender. Obese EXTREMITIES: No clubbing or cyanosis. 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 No focal deficit. Impressions: 1. Obstructive sleep apnea-hypopnea syndrome. Patient demonstrated great compliance with treatment, benefiting from treatment. 2. Status post bowel resection in May 2023. 3. History of atrial fibrillation. 4. Hypertension. 5. Obesity, patient lost 4 pounds comparing with previous visit. 6. History of hepatocellular carcinoma, status post liver transplant in April 2020. 7. Asthma. 8. History of diabetes mellitus. 9. Allergy. 10. Status post bilateral knee replacement. 11. Status post left hip replacement. Plan: 1. Continue using PAP equipment every night for the whole night. 2. To change air filter at least 1-2 times per month. 3. PAP unit should stay lower then position of the head. 4. Advised patient to remove all remaining water from humidifier canister daily and make it dry after each usage. Refill canister with fresh distilled water before each usage. 5. Sleep hygiene with regular time in bed for at least 8 hours. 6. Precautions related to driving. No driving if feel any sleepiness. 7. I will maintain prescription for PAP supplies including mask, tube, filters. 8. Follow up visit in 6 months or earlier if patient has any problems. 9. Watching and continue losing weight. Thank you very much for allowing me to participate in the management of your patient. Woody Arias MD, PhD, FAASM. Diplomat of [employer], Sleep Medicine Board by [employer] [facility] [place] Objective - Vital Signs Vital signs: Vital Signs Temp 98.0 F 08/20/23 11:28 Pulse 71 08/20/23 11:28 Resp 18 08/20/23 11:28 BP 134/76 08/20/23 11:28 Pulse Ox 96 08/20/23 11:28 FiO2
[2023-08-20 12:00] VITALS: BP 134/76; PULSE 71; RESP 18; TEMP 98
== END ==
LOC: 3 N SLEEP 10:47
PROVIDERS: ATTEND Internal Medicine
DX: G47.33 Obstructive sleep apnea (adult) (pediatric) (principal); I10 Essential (primary) hypertension; J45.909 Unspecified asthma, uncomplicated; E66.9 Obesity, unspecified; Z90.49 Acquired absence of other specified parts of digestive tract; Z86.79 Personal history of other diseases of the circulatory system; Z85.05 Personal history of malignant neoplasm of liver; Z94.4 Liver transplant status; Z86.39 Personal history of other endocrine, nutritional and metabolic disease; Z91.09 Other allergy status, other than to drugs and biological substances; Z96.653 Presence of artificial knee joint, bilateral; Z96.642 Presence of left artificial hip joint; Z99.89 Dependence on other enabling machines and devices; Z79.899 Other long term (current) drug therapy; Z91.048 Other nonmedicinal substance allergy status; Z88.1 Allergy status to other antibiotic agents; Z88.0 Allergy status to penicillin; Z88.2 Allergy status to sulfonamides; Z88.5 Allergy status to narcotic agent; Z79.51 Long term (current) use of inhaled steroids; Z87.891 Personal history of nicotine dependence
CPT/HCPCS: 99212

== ENCOUNTER → 2023-11-21 | Outpatient (CLI) | payer MEDICARE, BC ==
--- NOTE | 2023-11-25 08:02 | MM ---
Reason for Exam: Screening (asymptomatic). Last screening mammogram was performed 12 month(s) ago. Patient History: Menarche at age 15. First Full-Term at age 22. Left ovary removed at age 49. Right ovary removed at age 49. Hysterectomy at age 49. Postmenopausal. Other cancer, age 66. Other cancer, age 69. Estrogen for 3 months. Progesterone for 3 months. Paternal cousin had breast cancer, age 48. Paternal cousin had breast cancer. Paternal aunt had breast cancer, age 56. Paternal aunt had ovarian cancer at or over age 50. Sister had breast cancer, age 48. Risk Values: Danae 5 year model risk: 3.3%. NCI Lifetime model risk: 9.1%. Prior Study Comparison: 08/28/2020 Bilateral Screening Mammogram, [facility]. 08/30/2021 Bilateral Screening Mammogram, [facility]. 11/19/2022 Bilateral MG screening mammo w CAD, [facility]. Tissue Density: The breasts are heterogeneously dense, which may obscure small masses. Findings: Analyzed By CAD. There is no suspicious group of microcalcifications or new suspicious mass in either breast. Overall Assessment: Benign, BI-RAD 2 Management: Screening Mammogram of both breasts in 1 year. . Patient should continue monthly self-breast exams. A clinical breast exam by your physician is recommended on an annual basis. This exam should not preclude additional follow-up of suspicious palpable abnormalities. Note on Danae scores and lifetime risk: 1. A Danae score greater than 3% is considered moderate risk. If this is the case, consider specialist referral to assess eligibility for a risk reducing agent. 2. If overall lifetime risk for the development of breast cancer is 20% or higher, the patient may qualify for future screening with alternating mammogram and breast MRI. Electronically signed and approved by: Alonzo Locke M.D. Radiologis
== END | disposition home or self-care (01) ==
LOC: RADMAMWWP 09:56
PROVIDERS: ATTEND Internal Medicine
DX: Z12.31 Encounter for screening mammogram for malignant neoplasm of breast (principal); R92.333 Mammographic heterogeneous density, bilateral breasts; Z78.0 Asymptomatic menopausal state; Z80.3 Family history of malignant neoplasm of breast; Z80.41 Family history of malignant neoplasm of ovary; Z90.721 Acquired absence of ovaries, unilateral
CPT/HCPCS: 77067

== ENCOUNTER → 2023-11-24 | Outpatient (CLI) | payer MEDICARE, BC ==
--- NOTE | 2023-11-24 10:22 | US ---
EXAMINATION TYPE: US kidneys/renal and bladder DATE OF EXAM: 11/24/2023 COMPARISON: CT 2023; US Renal 02/12/23 CLINICAL INDICATION: Female, 73 years old with history of N18.32 CHRONIC KIDNEY DISEASE, STAGE 3B; EXAM MEASUREMENTS: Right Kidney: 10.1 x 5.1 x 4.9 cm Left Kidney: 9.9 x 5.1 x 4.4 cm Right Kidney: No hydronephrosis or masses seen Left Kidney: No hydronephrosis or masses seen Bladder: anechoic Bilateral Jets seen: No There is no evidence for hydronephrosis at this point in time. No nephrolithiasis is seen. Corticome dullary differentiation is maintained bilaterally. No masses are identified. The urinary bladder is anechoic. Bilateral ureteral jets are not seen. IMPRESSION: No hydronephrosis or nephrolithiasis.
== END | disposition home or self-care (01) ==
LOC: RADUSWWP 09:58
PROVIDERS: ATTEND Internal Medicine
DX: N18.32 Chronic kidney disease, stage 3b (principal)
CPT/HCPCS: 76770

== ENCOUNTER → 2023-11-28 | Outpatient (CLI) | payer MEDICARE, BC ==
[2023-11-28 10:16] LABS: HGB 10.5 g/dL (12.0-15.0); MCH 26.9 pg (27.0-32.0); MCHC 31.8 g/dL (32.0-37.0); MCV 84.4 FL (80.0-97.0); Mean Platelet Volume 10.2 FL (9.5-12.2); NRBC Per 100 WBC 0 X 10*3/uL (0.00-0.01); Platelet Count 257 X 10*3/uL (140-440); RBC 3.91 X 10*6/uL (4.10-5.20); RDW 16.8 % (11.5-14.5); WBC 7.58 X 10*3/uL (4.50-10.00)
[2023-11-28 15:30] LABS: Appearance,Urine Clear (Clear); Bilirubin,Urine Negative (Negative); Blood,Urine Negative (Negative); Color,Urine Yellow (Yellow); Ketones,Urine Negative (Negative); Nitrite,Urine Negative (Negative); Specific Gravity,Urine 1.013 (1.001-1.030); Urobilinogen,Urine 0.2 E.U./DL
[2023-11-28 15:45] LABS: Bacteria,Urine Trace (None Seen); Yeast (UA) Present (None Seen)
[2023-11-28 17:31] LABS: Urine Creatinine 76.2 mg/dL (28.0-217.0)
[2023-11-28 19:49] LABS: % Iron Saturation 16.87 (12.00-45.00); Ferritin 94.4 ng/mL (10.0-291.0); Iron 55 UG/DL (50-170); Magnesium 1.9 mg/dL (1.5-2.4); Phosphorus 4.3 mg/dL (2.4-5.1); Total Iron Binding Capacity 326 UG/DL (228-460); Uric Acid 6.5 mg/dL (2.9-7.7)
[2023-11-28 20:28] LABS: ALT 15 U/L (8-44); AST 37 U/L (13-35); Albumin 4.1 g/dL (3.8-4.9); Albumin/Globulin Ratio 1.71 Ratio (1.60-3.17); Alkaline Phosphatase 110 U/L (41-126); BUN/Creat Ratio 14.47 Ratio (12.00-20.00); Blood Urea Nitrogen 21.7 mg/dL (9.0-27.0); Calcium 9.2 mg/dL (8.7-10.3); Carbon Dioxide 21.8 mmol/L (21.6-31.8); Chloride 101 mmol/L (96-109); Globulin 2.4 g/dL (1.6-3.3); Glucose 116 mg/dL (70-110); Potassium 5.4 mmol/L (3.5-5.5); Sodium 136 mmol/L (135-145); Total Bilirubin 0.3 mg/dL (0.3-1.2); Total Protein 6.5 g/dL (6.2-8.2)
== END | disposition home or self-care (01) ==
LOC: LABWHC1 08:03
PROVIDERS: ATTEND Internal Medicine
DX: N18.32 Chronic kidney disease, stage 3b (principal); D63.1 Anemia in chronic kidney disease; N39.0 Urinary tract infection, site not specified; N25.81 Secondary hyperparathyroidism of renal origin; M10.9 Gout, unspecified; E55.9 Vitamin D deficiency, unspecified; R80.9 Proteinuria, unspecified
CPT/HCPCS: 36415; 80053; 81001; 82043; 82306; 82570; 82728; 83540; 83550; 83735; 83883; 83970; 84100; 84166; 84550; 85027; 86334

== ENCOUNTER → 2024-03-24 | Outpatient (CLI) | payer MEDICARE, BC ==
[2024-03-24 11:17] VITALS: BP 136/84; PULSE 59; RESP 18; TEMP 98.1
--- NOTE | 2024-03-24 11:36 | P.PROGSL ---
Subjective DATE: 03/24/2024 FOLLOW UP VISIT. Patient with obstructive sleep apnea hypopnea syndrome return to sleep center for follow-up visit. Information from previous visit have been reviewed. Patient is using PAP equipment every night for the whole night, getting PAP supplies in time. The patient does not have significant problems with the mask, PAP unit and humidification. [place] sleepiness scale is 2, which is normal. I checked information from PAP unit. PAP unit pressure 5-11, average 10.2 cm H2O. Usage is 100% for more then 4 hours, average 7.75 hours per night. Leak is 14.5 l/m, which is in acceptable range. Apnea Hypopnea Index is 0.4, which is normal. MEDICATIONS have been reviewed, please see below. During physical exam: GENERAL: A pleasant patient without any distress. VITAL SIGNS: Please see below, weight is 268 lbs. HEENT: PERRLA, EOMI.low position of soft palate, Mallapati 4 . NECK: Supple. No JVD. LUNGS: Clear to percussion and to auscultation. Good air exchange. No wheezing or rhonchi. HEART: S1, S2 regular. ABDOMEN: Soft and nontender. Obese EXTREMITIES: No clubbing or cyanosis. 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 No focal deficit. Impressions: 1. Obstructive sleep apnea-hypopnea syndrome. Patient demonstrated great compliance with treatment, benefiting from treatment. 2. Obesity, BMI 46.0. 3. History of atrial fibrillation. 4. History of hepatocellular carcinoma, status post liver transplant in April 2020. 5. Asthma. 6. Status post bowel resection in May 2023. 7. History of diabetes mellitus. 8. Allergy. 9. Status post left hip replacement. 10. Status post bilateral knee replacement. Plan: 1. Continue using PAP equipment every night for the whole night. 2. Sleep hygiene with regular time in bed for at least 7.5-8 hours 3. PAP unit should stay lower then position of the head. 4. Advised patient to remove all remaining water from humidifier canister daily and make it dry after each usage. Refill canister with fresh distilled water before each usage. 5. Watching and losing weight. 6. Precautions related to driving. No driving if feel any sleepiness. 7. I will maintain prescription for PAP supplies including mask, tube, filters. 8. Follow up visit in 8 months or earlier if patient has any problems. Thank you very much for allowing me to participate in the management of your patient. Woody Arias MD, PhD, FAASM. Diplomat of [place] [employer], Sleep Medicine Board by [place] [facility] [place] Objective - Vital Signs Vital Signs: Vital Signs Temp 98.1 F 03/24/24 11:17 Pulse 59 L 03/24/24 11:17 Resp 18 03/24/24 11:17 BP 136/84 03/24/24 11:17 Pulse Ox 98 03/24/24 11:17 FiO2 Intake & Output 03/23/24 03/24/24 03/24/24 18:59 06:59 18:59 Weight 121.619 kg Home Medications: Home Medications Medication Instructions Recorded Confirmed Type ALPRAZolam [Xanax] 0.25 mg PO TID PRN 01/22/17 03/24/24 History lisinopriL [Prinivil] 10 mg PO BID 12/21/18 05/14/23 History Fluticasone Nasal [place] [Flonase 1 spray EA NOSTRIL DAILY PRN 03/27/19 03/24/24 History Nasal [place]] Albuterol Sulfate [Ventolin HFA] 2 puff INHALATION RT-Q4H PRN 02/25/20 03/24/24 History Atorvastatin [Lipitor] 40 mg PO HS 12/14/20 03/24/24 History Ferrous Sulfate [Iron (65 MG 325 mg PO DAILY 12/14/20 03/24/24 History Elemental)] Insulin Aspart [NovoLOG Flexpen] 2 units PO AC-BRKFST 12/14/20 03/24/24 History Insulin Aspart [NovoLOG Flexpen] 4 units SQ AC-BID@1200,1800 12/14/20 03/24/24 History mycophenolate mofetiL [Cellcept] 250 mg PO BID@0900,2100 12/14/20 03/24/24 History mycophenolate mofetiL [Cellcept] 250 mg PO DAILY@0900 12/14/20 05/14/23 History Cetirizine HCl [Zyrtec] 10 mg PO DAILY 08/21/22 03/24/24 History Furosemide [Lasix] 20 mg PO BID 08/21/22 03/24/24 History Tacrolimus [Prograf] 2 mg PO BID 08/21/22 03/24/24 History Tacrolimus [Prograf] 3 mg PO DAILY 08/21/22 05/14/23 History Insulin Glargine,Hum.rec.anlog 15 units SQ HS 12/20/22 03/24/24 History [Lantus Solostar Pen] Magnesium Oxide [Mag-Ox] 1,600 tab PO BID 12/20/22 05/14/23 History Insulin Aspart [NovoLOG Flexpen] See Protocol SQ AC-TID PRN 02/08/23 03/24/24 History Multivitamins, Thera [Multivitamin 1 tab PO DAILY 05/14/23 03/24/24 History (formulary)] Acetaminophen Tab [Tylenol] 325 mg PO DIRECTED 03/24/24 03/24/24 History Magnesium Oxide [Mag-Ox] 1,200 mg PO BID 03/24/24 03/24/24 History Metoprolol Tartrate [Lopressor] 25 mg PO BID 03/24/24 03/24/24 History Tamsulosin HCl [Flomax] 0.4 mg PO DAILY 03/24/24 03/24/24 History methIMAzole [Tapazole] 5 mg PO DIRECTED 03/24/24 03/24/24 History
== END ==
LOC: 3 N SLEEP 10:35
PROVIDERS: ATTEND Internal Medicine
DX: G47.33 Obstructive sleep apnea (adult) (pediatric) (principal); E66.9 Obesity, unspecified; J45.909 Unspecified asthma, uncomplicated; E11.9 Type 2 diabetes mellitus without complications; Z91.048 Other nonmedicinal substance allergy status; Z88.1 Allergy status to other antibiotic agents; Z88.0 Allergy status to penicillin; Z88.2 Allergy status to sulfonamides; Z88.5 Allergy status to narcotic agent; Z86.79 Personal history of other diseases of the circulatory system; Z96.642 Presence of left artificial hip joint; Z94.4 Liver transplant status; Z96.653 Presence of artificial knee joint, bilateral; Z98.890 Other specified postprocedural states; Z85.05 Personal history of malignant neoplasm of liver; Z68.42 Body mass index [BMI] 45.0-49.9, adult; Z99.89 Dependence on other enabling machines and devices; Z79.4 Long term (current) use of insulin; Z79.51 Long term (current) use of inhaled steroids; Z79.899 Other long term (current) drug therapy; Z87.891 Personal history of nicotine dependence
CPT/HCPCS: 99212

== ENCOUNTER → 2024-03-30 | Outpatient (CLI) | payer MEDICARE, BC ==
[2024-03-30 10:33] LABS: Creatinine,Urine Random 46.9 mg/dL; Protein/Creatinine Ratio,Urine 1.13
[2024-03-30 15:21] LABS: ALT 14 U/L (8-44); AST 20 U/L (13-35); Albumin 4.2 g/dL (3.8-4.9); Alkaline Phosphatase 91 U/L (41-126); Blood Urea Nitrogen 18.9 mg/dL (9.0-27.0); Calcium 9.4 mg/dL (8.7-10.3); Carbon Dioxide 25.8 mmol/L (21.6-31.8); Chloride 98 mmol/L (96-109); Globulin 2.1 g/dL (1.6-3.3); Glucose 121 mg/dL (70-110); Magnesium 1.6 mg/dL (1.5-2.4); Phosphorus 3.6 mg/dL (2.4-5.1); Potassium 4.3 mmol/L (3.5-5.5); Sodium 135 mmol/L (135-145); Total Bilirubin 0.4 mg/dL (0.3-1.2); Total Protein 6.3 g/dL (6.2-8.2)
[2024-03-30 16:38] LABS: HCT 36.5 % (37.2-46.3); HGB 11.5 g/dL (12.0-15.0); MCH 28.5 pg (27.0-32.0); MCHC 31.5 g/dL (32.0-37.0); MCV 90.6 FL (80.0-97.0); Mean Platelet Volume 10.5 FL (9.5-12.2); NRBC Per 100 WBC 0 X 10*3/uL (0.00-0.01); Platelet Count 261 X 10*3/uL (140-440); RBC 4.03 X 10*6/uL (4.10-5.20); RDW 14.6 % (11.5-14.5); WBC 8.07 X 10*3/uL (4.50-10.00)
[2024-03-30 16:51] LABS: Appearance,Urine Clear (Clear); Bilirubin,Urine Negative (Negative); Blood,Urine Negative (Negative); Color,Urine Yellow (Yellow); Ketones,Urine Negative (Negative); Nitrite,Urine Negative (Negative); Specific Gravity,Urine 1.008 (1.001-1.030); Urobilinogen,Urine 0.2 E.U./DL
== END | disposition home or self-care (01) ==
LOC: LABWHC1 08:02
PROVIDERS: ATTEND Internal Medicine
DX: N18.32 Chronic kidney disease, stage 3b (principal); D64.9 Anemia, unspecified; N39.0 Urinary tract infection, site not specified; R80.9 Proteinuria, unspecified
CPT/HCPCS: 36415; 80053; 81003; 82570; 83735; 84100; 84156; 85027

== ENCOUNTER → 2024-07-30 | Outpatient (CLI) | payer MEDICARE, BC ==
[2024-07-30 09:19] LABS: Appearance,Urine Clear (Clear); Bilirubin,Urine Negative (Negative); Blood,Urine Negative (Negative); Color,Urine Colorless; Glucose,Urine (UA) Negative (Negative); Ketones,Urine Negative (Negative); Leukocyte Esterase,Urine Negative (Negative); Nitrite,Urine Negative (Negative); PH, Urine 6.5 (5.0-8.0); Protein,Urine Trace (Negative); Specific Gravity,Urine 1.007 (1.001-1.035); Urobilinogen,Urine <2.0 mg/dL (<2.0)
[2024-07-30 09:32] LABS: Creatinine,Urine Random 31.2 mg/dL; Protein/Creatinine Ratio,Urine 1.635
[2024-07-30 10:31] LABS: Basophils # (A) 0.03 X 10*3/uL (0.00-0.10); Basophils % (A) 0.3 %; Eosinophils # (A) 0.21 X 10*3/uL (0.04-0.35); Eosinophils % (A) 2.2 %; HCT 36.5 % (37.2-46.3); HGB 11.5 g/dL (12.0-15.0); Lymphocytes # (A) 1.24 X 10*3/uL (0.90-5.00); Lymphocytes % (A) 12.9 %; MCH 28.7 pg (27.0-32.0); MCHC 31.5 g/dL (32.0-37.0); Mean Platelet Volume 10.5 FL (9.5-12.2); Monocytes # (A) 0.81 X 10*3/uL (0.20-1.00); Monocytes % (A) 8.4 %; NRBC Per 100 WBC 0 X 10*3/uL (0.00-0.01); Neutrophils # (A) 7.27 X 10*3/uL (1.80-7.70); Neutrophils % (A) 75.8 %; Platelet Count 259 X 10*3/uL (140-440); RBC 4.01 X 10*6/uL (4.10-5.20); RDW 13.6 % (11.5-14.5)
[2024-07-30 15:39] LABS: ALT 14 U/L (8-44); AST 18 U/L (13-35); Albumin 3.9 g/dL (3.8-4.9); Albumin/Globulin Ratio 1.77 Ratio (1.60-3.17); Alkaline Phosphatase 88 U/L (41-126); BUN/Creat Ratio 16.86 Ratio (12.00-20.00); Blood Urea Nitrogen 23.6 mg/dL (9.0-27.0); Calcium 9.2 mg/dL (8.7-10.3); Carbon Dioxide 26.4 mmol/L (21.6-31.8); Chloride 100 mmol/L (96-109); Globulin 2.2 g/dL (1.6-3.3); Glucose 132 mg/dL (70-110); Magnesium 1.7 mg/dL (1.5-2.4); Phosphorus 3.9 mg/dL (2.4-5.1); Potassium 4.2 mmol/L (3.5-5.5); Sodium 137 mmol/L (135-145); Total Bilirubin 0.3 mg/dL (0.3-1.2); Total Protein 6.1 g/dL (6.2-8.2)
== END | disposition home or self-care (01) ==
LOC: LABWHC1 07:59
PROVIDERS: ATTEND Nurse Practitioner Acute Care
DX: N18.32 Chronic kidney disease, stage 3b (principal); D63.1 Anemia in chronic kidney disease; N39.0 Urinary tract infection, site not specified; R80.9 Proteinuria, unspecified
CPT/HCPCS: 36415; 80053; 81003; 82043; 82570; 83735; 84100; 84156; 85025

== ENCOUNTER → 2024-10-28 | Outpatient (CLI) | payer MEDICARE, BC ==
[2024-10-28 15:07] LABS: Basophils # (A) 0.02 X 10*3/uL (0.00-0.10); Basophils % (A) 0.2 %; Eosinophils # (A) 0.11 X 10*3/uL (0.04-0.35); Eosinophils % (A) 1.1 %; HCT 38.4 % (37.2-46.3); HGB 12.2 g/dL (12.0-15.0); Lymphocytes # (A) 1.23 X 10*3/uL (0.90-5.00); Lymphocytes % (A) 12.4 %; MCHC 31.8 g/dL (32.0-37.0); MCV 91.4 FL (80.0-97.0); Mean Platelet Volume 10.5 FL (9.5-12.2); Monocytes # (A) 0.78 X 10*3/uL (0.20-1.00); Monocytes % (A) 7.9 %; NRBC Per 100 WBC 0 X 10*3/uL (0.00-0.01); Neutrophils # (A) 7.73 X 10*3/uL (1.80-7.70); Neutrophils % (A) 77.9 %; Platelet Count 254 X 10*3/uL (140-440); RDW 13.4 % (11.5-14.5); WBC 9.92 X 10*3/uL (4.50-10.00)
[2024-10-28 15:34] LABS: % Iron Saturation 15.36 (12.00-45.00); Iron 49 UG/DL (50-170); Magnesium 1.9 mg/dL (1.5-2.4); Total Iron Binding Capacity 319 UG/DL (228-460)
[2024-10-28 15:54] LABS: ALT 16 U/L (8-44); AST 22 U/L (13-35); Albumin 4.1 g/dL (3.8-4.9); Albumin/Globulin Ratio 2.16 Ratio (1.60-3.17); Alkaline Phosphatase 81 U/L (41-126); Bilirubin, Conjugated <0.20 mg/dL (0.20-0.40); Bilirubin,Unconjugated >0.20 mg/dL (0.20-1.00); Blood Urea Nitrogen 21.6 mg/dL (9.0-27.0); Calcium 9.1 mg/dL (8.7-10.3); Carbon Dioxide 25.7 mmol/L (21.6-31.8); Chloride 99 mmol/L (96-109); Globulin 1.9 g/dL (1.6-3.3); Glucose 132 mg/dL (70-110); Sodium 137 mmol/L (135-145); Total Bilirubin 0.4 mg/dL (0.3-1.2)
== END | disposition home or self-care (01) ==
LOC: LABWHC1 07:56
PROVIDERS: ATTEND Internal Medicine
DX: D84.9 Immunodeficiency, unspecified (principal); Z94.4 Liver transplant status
CPT/HCPCS: 36415; 80048; 80076; 80197; 82465; 82728; 83540; 83550; 83735; 85025

== ENCOUNTER → 2024-11-23 | Outpatient (CLI) | payer MEDICARE, BC ==
--- NOTE | 2024-11-23 09:15 | MM ---
Reason for Exam: Screening (asymptomatic). Last screening mammogram was performed 12 month(s) ago. Patient History: Menarche at age 15. First Full-Term at age 22. Left ovary removed at age 49. Right ovary removed at age 49. Hysterectomy at age 49. Postmenopausal. Other cancer, age 66. Other cancer, age 69. Estrogen for 3 months. Progesterone for 3 months. Paternal cousin had breast cancer, age 48. Paternal cousin had breast cancer. Paternal aunt had breast cancer, age 56. Paternal aunt had ovarian cancer at or over age 50. Sister had breast cancer, age 48. Risk Values: Danae 5 year model risk: 3.4%. NCI Lifetime model risk: 8.6%. Prior Study Comparison: 08/30/2021 Bilateral Screening Mammogram, [facility]. 11/19/2022 Bilateral MG screening mammo w CAD, [facility]. 11/21/2023 Bilateral MG screening mammo w CAD, [facility]. Tissue Density: There are scattered areas of fibroglandular density. Findings: Analyzed By CAD. Right breast: There is no suspicious group of microcalcifications or new suspicious mass. Left breast: There is no suspicious group of microcalcifications or new suspicious mass. Overall Assessment: Negative, BI-RAD 1 Management: Screening Mammogram of both breasts in [address] [facility] will attempt to contact patient to return for supplemental views and ultrasound if indicated. Patient should continue monthly self-breast exams. A clinical breast exam by your physician is recommended on an annual basis. This exam should not preclude additional follow-up of suspicious palpable abnormalities. Note on Danae scores and lifetime risk: 1. A Danae score greater than 3% is considered moderate risk. If this is the case, consider specialist referral to assess eligibility for a risk reducing agent. 2. If overall lifetime risk for the development of breast cancer is 20% or higher, the patient may qualify for future screening with alternating mammogram and breast MRI. [facility], , 11/23/2024 9:11 AM. Electronically signed and approved by: Mikey Garcia DO
== END | disposition home or self-care (01) ==
LOC: RADMAMWWP 08:04
PROVIDERS: ATTEND Internal Medicine
DX: Z12.31 Encounter for screening mammogram for malignant neoplasm of breast (principal); R92.323 Mammographic fibroglandular density, bilateral breasts; Z78.0 Asymptomatic menopausal state; Z80.3 Family history of malignant neoplasm of breast
CPT/HCPCS: 77067